=== PATIENT | female | born 1950 | race Caucasian/White ===

== ENCOUNTER 2016-08-31 07:37 | Day surgery (SDC) | payer BC, MEDICARE ==
[2016-08-27 09:28] VITALS: BMI 44.8
[~2016-08-31 07:37] MED LIST: LACTATED RINGERS 1,000 ML IV SCH
[2016-08-31] MEDS ORDERED: LIDOCAINE 1% 20 ML VIAL (10MG/ML) FOR IV START INTRADERMA ONE (07:48)
[2016-08-31 08:04] VITALS: TEMP 97.2
[2016-08-31] MEDS ORDERED: LACTATED RINGERS 1,000 ML IV ONE (08:04)
[2016-08-31] MEDS ORDERED: LIDOCAINE 1% INJ 10MG/ML (20 ML MDV) ONE (08:28)
[2016-08-31] MEDS ORDERED: PROPOFOL 10 MG/ML 20 ML VIAL IV ONE (08:28)
--- NOTE | 2016-08-31 08:52 | P.PCN ---
Date of Procedure: 08/31/16 Preoperative Diagnosis: Blood per rectal stump Postoperative Diagnosis: Same, proctitis, inflamed mucosa at 30 cm which appears to be the end of the rectal stump Procedure(s) Performed: Flexible sigmoidoscopy Anesthesia: MAC Surgeon: Keeley Ward Estimated Blood Loss (ml): 0 IV fluids (ml): 300 Pathology: other (Cold biopsy of the rectum, cold biopsy at 30 cm) Condition: stable Disposition: PACU Indications for Procedure: Blood per rectal stump Operative Findings: Inflamed mucosa of rectum, inflamed mucosa at 30 cm Description of Procedure: Patient was taken to the endoscopy suite and following sedation rectal exam was performed patient was noted to have tight sphincter no masses. Colonoscope was passed through the anus into the rectum was able to be advanced approximately 30 cm which appeared to be the termination of the rectal stump. There was some heaped up mucosa at the 30 cm point and cold biopsies were obtained. This appeared to be inflammatory in nature. As the scope was withdrawn there were no polypoid lesions of concern. In the rectal area there was marked inflammation of the mucosa which was markedly inflamed. Multiple cold biopsies were obtained. The scope was retroflexed internal hemorrhoidal tissue identified. Impression/plan: 1. Proctitis 2. Await results of biopsies Plan:. We'll see patient in 1 week
--- NOTE | 2016-08-31 08:53 | P.DS ---
Providers Attending physician: Keeley Ward Primary care physician: Surya Lucia Plan - Discharge Summary Discharge Medication List Acetaminophen Tab [Tylenol Tab] 500 mg PO TID 08/27/16 [History] Allopurinol [Zyloprim] 300 mg PO DAILY 08/27/16 [History] Calcium + Vitamin D 1 tab PO BID 08/27/16 [History] Cetirizine HCl 10 mg PO DAILY 08/27/16 [History] Furosemide [Lasix] 20 mg PO DAILY 08/27/16 [History] Lisinopril-Hctz 20-25 mg [Zestoretic 20-25] 1 tab PO DAILY 08/27/16 [History] Multivitamins, Thera [Multivitamin] 1 tab PO DAILY 08/27/16 [History] Naproxen [Naprosyn] 500 mg PO Q12HR 08/27/16 [History] Potassium Chloride [Klor-Con] 20 meq PO 1700 08/27/16 [History] traMADol HCL [Ultram] 50 mg PO TID 08/27/16 [History] Follow up Appointment(s)/Referral(s): Keeley Ward MD [STAFF PHYSICIAN] - 1 Week Discharge Disposition: HOME SELF-CARE
[2016-08-31 08:56] VITALS: RESP 16
[2016-08-31 09:23] VITALS: BP 159/85; PULSE 59
== END 2016-08-31 09:55 | disposition home or self-care (01) ==
LOC: ORWHC2ENDO 07:37
PROVIDERS: ATTEND Surgery
DX: K52.9 Noninfective gastroenteritis and colitis, unspecified (principal); K62.89 Other specified diseases of anus and rectum; K64.8 Other hemorrhoids; Z93.3 Colostomy status; E66.01 Morbid (severe) obesity due to excess calories; Z68.41 Body mass index [BMI] 40.0-44.9, adult; F17.200 Nicotine dependence, unspecified, uncomplicated; I10 Essential (primary) hypertension; G47.33 Obstructive sleep apnea (adult) (pediatric); Z79.899 Other long term (current) drug therapy; Z91.040 Latex allergy status
CPT/HCPCS: 88305; 45331; J2001; J2704; 99153

== ENCOUNTER → 2017-04-11 | Outpatient (CLI) | payer MEDICARE ==
[2017-04-11 12:29] LABS: Appearance,Urine Clear (Clear); Bilirubin,Urine Negative (Negative); Glucose,Urine (UA) Negative (Negative); Ketones,Urine Negative (Negative); Leukocyte Esterase,Urine Negative (Negative); Nitrite,Urine Negative (Negative); Protein,Urine Negative (Negative); Specific Gravity,Urine 1.003 (1.001-1.035); UA Billing (MACRO vs. MICRO) CHEM; Urobilinogen,Urine <2.0 mg/dL (<2.0)
[2017-04-11 13:22] LABS: Partial Thromboplastin Time 23.5 sec (22.0-30.0); Prothrombin Time 10.6 sec (9.0-12.0)
== END | disposition home or self-care (01) ==
LOC: LABPAT 11:39
PROVIDERS: ATTEND Orthopaedic Surgery
DX: Z01.810 Encounter for preprocedural cardiovascular examination (principal); Z01.812 Encounter for preprocedural laboratory examination
CPT/HCPCS: 81003; 85610; 85730; 87070

== ENCOUNTER 2017-04-26 07:28 | Inpatient (IN) | payer MEDICARE ==
[2017-04-22 11:56] VITALS: BMI 46.0
[~2017-04-26 07:28] MED LIST changes: +ACETAMINOPHEN TAB 500 MG TAB PO ONE; +DEXAMETHASONE SOD PHOSPHATE 10 MG/ML 1 ML VIAL IV ONE; +HYDROmorphone 1 MG/ML 1 ML SYRINGE IVP PRN; -LACTATED RINGERS 1,000 ML IV SCH; +LIDOCAINE 1% 20 ML VIAL (10MG/ML) FOR IV START INTRADERMA PRN; +MELOXICAM 7.5 MG TAB PO ONE; +MIDAZOLAM 2 MG/2 ML VIAL IV PRN; +ONDANSETRON 4 MG/2 ML VIAL IVP ONE; +ROPIVACAINE 246.25 MG, EPINEPHrine 0.5 MG, KETOROLAC 30 MG, cloNIDine HCL/PF 80 MCG, WA... MISCELLANE ONE; +SCOPOLAMINE 1.5MG/72HR PATCH TRANSDERM ONE; +TRANEXAMIC ACID 1,000 MG in SODIUM CHLORIDE 0.9% 100 ML IVPB ONE; +ceFAZolin 2 GM in SODIUM CHLORIDE 0.9% 100 ML IVPB ONE; +fentaNYL (PF) 50 MCG/ML 20 ML VIAL IVP PRN
[2017-04-26] MEDS ORDERED: MIDAZOLAM 2 MG/2 ML VIAL IV ONE (12:49)
[2017-04-26] MEDS: LACTATED RINGERS 1,000 ML IV SCH (12:50)
[2017-04-26] MEDS ORDERED: LIDOCAINE 1% 20 ML VIAL (10MG/ML) FOR IV START INTRADERMA ONE (12:51)
[2017-04-26] MEDS ORDERED: ROPIVACAINE 1,100 MG, SODIUM CHLORIDE 0.9% 330 ML MISCELLANE PRN ×2 (14:02)
--- NOTE | 2017-04-26 14:04 | P.ONQ ---
Anesthesiology Proc Note - PNB - Peripheral Nerve Block Performed Right Adductor Canal Time Out Performed: Yes Indication: Acute Post-Operative Pain, Requested by physician (Dr Rei orellana ) Sedation Type: Sedate with meaningful contact maintained Preparation: Sterile Dressing Position: Supine Catheter: Indwelling Needle Types: Other (see comment) (Autumn) Needle Size: 100mm (4") Needle Gauge: 18 Technique: Ultrasound Injectate: 0.5% Ropivacaine (see comment for volume) (20cc) Blood Aspirated: No Pain Paresthesia on Injection Noted: No Resistance on Injection: Normal Events: Uneventful and Well Tolerated
[2017-04-26] MEDS ORDERED: KETAMINE 10 MG/ML 20 ML VIAL ONE (14:56)
[2017-04-26] MEDS ORDERED: MIDAZOLAM 2 MG/2 ML VIAL ONE (14:56)
[2017-04-26] MEDS ORDERED: GLYCOPYRROLATE 0.2 MG/ML 2 ML VIAL ONE (14:56)
[2017-04-26] MEDS ORDERED: TRANEXAMIC ACID 1,000 MG/10 ML VIAL ONE (14:56)
[2017-04-26] MEDS ORDERED: SODIUM CHLORIDE 0.9% 100 ML BAG ONE (14:56)
[2017-04-26] MEDS ORDERED: PROPOFOL 10 MG/ML 20 ML VIAL IV ONE (14:56)
[2017-04-26] MEDS ORDERED: LIDOCAINE 1% INJ 10MG/ML (20 ML MDV) ONE (14:56)
[2017-04-26] MEDS ORDERED: diphenhydrAMINE 50 MG/ML 1 ML VIAL ONE (14:56)
[2017-04-26] MEDS ORDERED: ceFAZolin 3,000 MG in SODIUM CHLORIDE 0.9% IRRIGATIO 3,000 ML IRRIGATION ONE (15:29)
[2017-04-26] MEDS ORDERED: LACTATED RINGERS 1,000 ML IV ONE ×2 (15:48)
--- NOTE | 2017-04-26 16:29 | P.OP ---
Date of Procedure: 04/26/17 Preoperative Diagnosis: Severe osteoarthritis right knee Postoperative Diagnosis: Severe osteoarthritis right knee Procedure(s) Performed: Right total knee arthroplasty Implants: Soriano [employer] Nephew Oxinium femoral component size 5, right Soriano [employer] Nephew Cara II right nonporous tibial baseplate size 5 Soriano [employer] Nephew size 11 mm Legion XLPE high flexion articular insert, size 5-6 Soriano [employer] Nephew Cara II resurfacing patellar component, 32 mm All components were cemented using Elisa bone cement.. The articulation is ceramic on polyethylene. Anesthesia: spinal Surgeon: Rei Joseph First Assistant #1: Martina Cortes Estimated Blood Loss (ml): 50 Pathology: other (Bone and cartilage) Condition: stable Disposition: PACU Indications for Procedure: After failure of conservative treatment we discussed the surgical and nonsurgical treatment options at length. Patient wishes to proceed with a total knee arthroplasty. Complications specific to this procedure were discussed at length, including but not limited to infection, bleeding, stiffness , and nerve injury. Patient is aware of all these complications and informed consent was obtained Operative Findings: The operative findings are consistent with severe osteoarthritis of the right knee Description of Procedure: Patient was seen in the preoperative area consent was reviewed and operative site was marked with a skin marker. An adductor canal pain catheter was placed by anesthesia in the preoperative area. Patient was then brought to the operating room and given preoperative antibiotics intravenously. A spinal anesthetic was administered by the anesthesia department. A tourniquet was placed on the upper thigh and the lower extremity was prepped and draped in usual sterile fashion. A gram of transexamic acid was given. A universal timeout was then performed which confirmed the patient's name, surgical site, ALLERGIES, and consent. The lower extremity was then exsanguinated and tourniquet was inflated to 350 mmHg. A standard and anterior midline approach to the knee was performed. The skin and subcutaneous tissue was dissected down to the patellar tendon. A medial parapatellar arthrotomy was then performed. The knee was then extended, the patellar was everted, and the knee was again flexed. Anterior horns of both menisci were excised, and a release was performed to the posterior medial aspect of the knee. On gross visual inspection, there was complete loss of articular cartilage in the medial and patellofemoral joint spaces. There was also significant cartilage damage in the lateral compartment. There were multiple periarticular osteophytes which were then removed with a Ronguer. The femoral canal was then opened with the appropriate drill, and the intramedullary femoral cutting guide was then placed and set for 4 of valgus. The distal femoral cutting block was then pinned in place, and the distal femur was then cut. The cutting block was then removed and the cut was checked for flatness. Next, the sizing guide was then placed and set for 3 external rotation based off of the epicondylar axis and Whitesides line. After the femur was sized, the appropriate 4-in-1 cutting block was then pinned in place. The anterior condyles were cut without notching. The posterior and chamfer cuts were performed while protecting the collateral ligaments. The cutting block was then removed, and the femoral canal was plugged with autologous bone. Attention was then directed to the tibia. The remaining ACL was removed with a Ronguer, and the tibia was then gently subluxed forward with a large bent knee retractor. Any remaining menisci was excised. The posterior lateral corner was cauterized in order to cauterize the lateral geniculate artery. The extra medullary tibial cutting guide was then placed, set for the appropriate rotation , slope, and depth of resection. The proximal tibia cutting guide was then pinned in place. Proximal tibia was then cut and sized. Next trials were then placed with the appropriate-sized insert. The knee was able to fully extend and flex to 130 and was stable throughout all range of motion. The knee was then extended, patella everted. Patella was then measured, and then using an osteotomy guide, the patella was cut at the appropriate level. The patella was then measured and drilled and the patella trial was then placed. The knee was then taken through range of motion with the patella trial and the patella tracked normally. The knee was then extended patella trial was then removed and the patella was everted. Knee was then flexed and lug holes were drilled through the femoral trial and the femoral trial was then removed. The tibial was then exposed, and the tibial broach guide was then pinned in place after it was set for the appropriate rotation to allow for the most coverage without overhang. The tibia was then reamed and broached. The cut surfaces of bone were then irrigated with pulsatile lavage. The posterior structures were injected with the ropivacaine solution. The knee was also irrigated with Irrisept solution. The components were then opened, the cement was mixed, and the components were then cemented in place. The cement was allowed to harden with the knee in full extension. While the cement was hardening, the remaining soft tissues were then injected with a ropivacaine solution, which consisted of 246.25 mg of ropivacaine, 0.5 mg of epinephrine, 30 mg of Toradol, 80 g of clonidine, and 48.45 mL of sterile water, for a total of 100 mL of fluid injected. After the cemented hardened. The tourniquet was released, and hemostasis was obtained. A second gram of transexamic acid was given. The knee was again irrigated. The knee was again taken through range of motion and found to be stable throughout all range of motion of 0-130 , and the patella tracked normally. The fascia was then closed with #2 strata fix suture. The subcutaneous tissue was closed with 3-0 Vicryl and 3-0 strata fix. Dermabond tape was used for the skin and placed with the knee in flexion. The patient was placed in a sterile dressing. Patient was then transferred to recovery room in stable condition. The sociology research assistant PHILLIP Hammond was required due the complexity surgery and the need for a skilled surgical instrument technician. She assisted in positioning, draping, retraction, and closure of the wound.
[2017-04-26] MEDS ORDERED: HYDROmorphone 1 MG/ML 1 ML SYRINGE IVP PRN ×3 (17:05)
[2017-04-26] MEDS ORDERED: ONDANSETRON 4 MG/2 ML VIAL IVP PRN (17:05)
[2017-04-26] MEDS ORDERED: NALOXONE 0.4 MG/ML 1 ML VIAL IV PRN (17:05)
[2017-04-26] MEDS ORDERED: MAGNESIUM HYDROXIDE 2,400 MG/10 ML CUP PO PRN (17:05)
[2017-04-26] MEDS ORDERED: DIAZEPAM 5 MG TAB PO PRN ×2 (17:05)
[2017-04-26] MEDS ORDERED: BISACODYL 10 MG SUPP RECTAL PRN (17:05)
[2017-04-26] MEDS ORDERED: HYDROcodone/APAP 5-325MG 1 EACH TAB PO PRN (17:05)
[2017-04-26] MEDS ORDERED: NA PHOS,M-B/NA PHOS,DI-BA 133 ML ENEMA RECTAL PRN (17:05)
--- NOTE | 2017-04-26 18:13 | XR ---
PROCEDURE: XR knee limited RT DATE AND TIME: 04/26/2017 5:24 PM REFERRING PHYSICIAN: Martina Cortes CLINICAL INDICATION: PHH, Evaluation for Postop abnormality and alignment TECHNIQUE: Department protocol. COMPARISON: None FINDINGS: AP and crosstable lateral views were obtained showing the TKR. There is a 2 x 2 by 1 cm bon e fragment projecting immediately posterior to the posterior lateral tibial plateau, and clinical ass essment is requested. Postoperative changes are noted. No unexpected radiopaque foreign bodies. IMPRESSION: 2 X 2 BY 1 CM BONE FRAGMENT NOTED - REQUEST CLINICAL ASSESSMENT.
[2017-04-26] MEDS: HYDROcodone/APAP 5-325MG 1 EACH TAB PO PRN (21:20)
[2017-04-26] MEDS: ASPIRIN 325 MG TAB PO SCH (21:21)
[2017-04-26] MEDS: SENNOSIDES-DOCUSATE SODIUM 1 EACH TAB PO SCH (21:21)
--- NOTE | 2017-04-27 00:01 | CONS ---
CONSULTATION DATE OF CONSULTATION: 04/26/2017 REASON FOR CONSULTATION: Medical management, requested by Dr. Joseph. CONSULTATION: This is a pleasant 67-year-old patient of Dr. Surya Lucia. Her chronic stable medical conditions include GERD, hypertension, osteoarthritis in multiple joints, sleep apnea (does not use CPAP machine), diverticulosis. Patient has got abdominal wall hernias, left colostomy. No chest pain or shortness of breath. Denies any cardiac history. Some pain in the operative site. Lying in bed. REVIEW OF SYSTEMS: CONSTITUTIONAL: None. HEENT: None. RESPIRATORY: None. CARDIOVASCULAR: None. GASTROINTESTINAL: None. : None. MUSCULOSKELETAL: Pain in multiple joints, including the left knee. HEMATOLOGIC: None. LYMPHATICS: None. PSYCHIATRY: None. NEUROLOGIC: None. PAST HISTORY: 1. GERD. 2. Hypertension. 3. Osteoarthritis, especially of the left knee. 4. Obstructive sleep apnea; does not use CPAP. 5. Diverticulosis. 6. Gout. 7. Abdominal wall hernia. PAST SURGICAL HISTORY: 1. Bowel resection. 2. Cholecystectomy. 3. Hernia repair. 4. Hysterectomy. 5. Tonsillectomy. SOCIAL HISTORY: Patient smoked one third pack a day for 17 years; stopped in . . FAMILY HISTORY: Cancer; type unknown. HOME MEDICATIONS: 1. Potassium 20 mEq a day. 2. Naproxen 500 mg p.o. q.12. 3. Multivitamin tablet p.o. daily. 4. Zestoretic 20/25 one tablet p.o. daily. 5. [place] 5 one tablet p.o. q.6 p.r.n. 6. Lasix 20 mg p.o. daily. 7. Cetirizine 10 mg p.o. daily. 8. Calcium with vitamin D 1 tablet p.o. daily. 9. Allopurinol 10 mg p.o. daily. ALLERGIES: 1. DUST. 2. POLLEN. 3. LATEX. PHYSICAL EXAMINATION: Temperature 96.8, pulse 78, respiration 14, blood pressure 119/56, pulse ox 94% on room air. GENERAL APPEARANCE: Well built; BMI of 46.1. Sitting up. Not in distress. EYES: Pupils equal. Conjunctivae normal. HEENT: Oral cavity normal. NECK: Short, thick. JVD unable to assess. Mass not palpable. RESPIRATORY: Effort normal. LUNGS: Distant breath sounds. CARDIOVASCULAR: Heart sounds muffled. No edema. ABDOMEN: Abdominal wall hernia, left colostomy bag. Liver and spleen not palpable. Soft. LYMPHATICS: No lymph node palpable in neck or axillae. PSYCHIATRY: Alert and oriented x3. Mood and affect normal. NEUROLOGICAL: Pupils equal. Cranial nerves grossly intact. Power and sensation grossly intact. MUSCULOSKELETAL: Dressing over the right knee. Evidence of osteoarthritis of the joints. INVESTIGATIONS: No blood work from today. ASSESSMENT: 1. Right total knee arthroplasty. 2. Gastroesophageal reflux disease. 3. Essential hypertension. 4. Primary osteoarthritis in multiple joints, including the left knee. 5. Obstructive sleep apnea; does not use CPAP machine. 6. Left colostomy. 7. Chronic gout. 8. Morbid obesity; BMI of 46.1. PLAN: Home medications will be resumed. The patient's Lasix will be held temporarily. For DVT prophylaxis, patient is on aspirin per Dr. Joseph. Dietitian will be consulted for obesity. Care was discussed with the patient. Questions were answered. Thank you, Dr. Joseph. MMODL / IJN: [id number] /
[2017-04-27] MEDS: SODIUM CHLORIDE 0.9% 1,000 ML IV SCH ×2 (01:15→15:09)
[2017-04-27] MEDS: ceFAZolin 2 GM in SODIUM CHLORIDE 0.9% 100 ML IVPB SCH ×2 (01:20→08:03)
[2017-04-27] MEDS: LACTATED RINGERS 1,000 ML IV SCH (06:31)
[2017-04-27 07:04] LABS: Basophils % (A) 0 %; CH 30.4; CHCM 32.6; Eosinophils % (A) 0 %; HCT 35.2 % (34.0-46.0); HDW 2.72; Luc # (Auto) 0.16; Luc % (Auto) 1; Lymphocytes # (A) 0.9 k/uL (1.0-4.8); Lymphocytes % (A) 7 %; MCH 32.1 pg (25.0-35.0); MCHC 34.1 g/dL (31.0-37.0); MCV 93.9 fL (80.0-100.0); Mean Platelet Volume 7.3; Monocytes # (A) 0.7 k/uL (0-1.0); Monocytes % (A) 5 %; Neutrophils # (A) 11.4 k/uL (1.3-7.7); Neutrophils % (A) 86 %; RBC 3.75 m/uL (3.80-5.40); RDW 14.5 % (11.5-15.5); WBC 13.2 k/uL (3.8-10.6)
--- NOTE | 2017-04-27 08:49 | P.PN ---
Progress Note - Text The patient is status post right adductor canal catheter placement. The catheter was placed for postoperative pain control, status post total right arthroplasty. Ropivacaine 0.2% is infusing at 10 mLs per hour. The patient has no complaints of right lower extremity numbness or weakness. Patient's VAS score is 3 -10. Assessment: Patient's adductor canal catheter is in place and working appropriately. Plan: continue infusion and adjust it as needed.
[2017-04-27] MEDS: MELOXICAM 7.5 MG TAB PO SCH (09:00)
[2017-04-27] MEDS: ASPIRIN 325 MG TAB PO SCH ×2 (09:00→20:02)
[2017-04-27] MEDS: LISINOPRIL-HCTZ 20-25 MG 1 EACH TAB PO SCH (09:00)
[2017-04-27] MEDS: ALLOPURINOL 300 MG TAB PO SCH (09:01)
[2017-04-27] MEDS: LORATADINE 10 MG TAB PO SCH (09:01)
--- NOTE | 2017-04-27 09:46 | P.PN ---
Subjective Principal diagnosis: Primary osteoarthritis right knee, status post right total knee arthroplasty This is a pleasant 67-year-old female who is status post right total knee arthroplasty. This is postoperative day #1. Patient is seen and evaluated by Dr. Rei Joseph. Patient states her pain is under control. Objective - Vital Signs Vital signs: Vital Signs Temp 96.9 F L 04/27/17 07:00 Pulse 69 04/27/17 08:00 Resp 18 04/27/17 08:00 BP 161/73 04/27/17 07:00 Pulse Ox 94 L 04/27/17 07:00 Intake & Output 04/26/17 04/27/17 04/27/17 18:59 06:59 18:59 Intake Total 1401 550 Output Total 50 1000 Balance 1351 -450 Weight 114.305 kg Intake: IV 1401 Oral 550 Output: Urine 1000 Estimated Blood Loss 50 Other: Voiding Method Bedpan - Exam Vital signs are stable. Patient is in no acute distress and is alert and oriented 3. Calf is soft and nontender. Incision is clean, dry, and intact. There is mild sanguineous drainage today. Neurovascular status intact. Patient has full foot and ankle motion. - Labs CBC & Chem 7: 04/27/17 06:29 Labs: Abnormal Lab Results - Last 24 Hours (Table) 04/27/17 Range/Units 06:29 WBC 13.2 H (3.8-10.6) k/uL RBC 3.75 L (3.80-5.40) m/uL Neutrophils # 11.4 H (1.3-7.7) k/uL Lymphocytes # 0.9 L (1.0-4.8) k/uL Assessment and Plan (1) Primary osteoarthritis of right knee Status: Acute (2) S/P total knee arthroplasty Status: Acute Plan: #1 Continue with routine postoperative care. #2 Anticoagulation with aspirin. #3 Physical therapy and CPM today. #4 Appreciate input from medicine. #5 Anticipate discharge home with home care likely tomorrow.
[2017-04-27] MEDS: HYDROcodone/APAP 5-325MG 1 EACH TAB PO PRN (12:03)
[2017-04-27] MEDS ORDERED: HYDROcodone/APAP 7.5-325MG 1 EACH TAB PO PRN (13:19)
[2017-04-27] MEDS: hydrOXYzine PAMOATE 25 MG CAP PO PRN ×2 (14:34→20:02)
[2017-04-27] MEDS: HYDROcodone/APAP 7.5-325MG 1 EACH TAB PO PRN ×2 (14:34→20:03)
[2017-04-27 15:08] VITALS: RESP 16
--- NOTE | 2017-04-27 16:30 | P.PN ---
<Fadi Shabazz - Last Filed: 04/28/17 12:20> Progress Note - Text Attending note. Date of service-04/27/2017 This patient was seen and examined by me . Discussed the patient with my nurse practitioner Ms. Yangjareth. Doing well. Some pain present at the operative site. No chest pain or shortness. Did work with therapy. On examination: Lungs-clear, cardiovascular first seconds are normal Investigations: White count 13.2 Assessment and plan: Patient doing well. Leukocytosis likely reactive to surgery. Incision healing well per surgery. Care discussed with the patient continue current medication treatment plan. <Lynette Mayfield - Last Filed: 04/28/17 16:37> Progress Note - Text DATE OF SERVICE: 04/27/2017 PRESENTING COMPLAINT: Right knee pain HISTORY OF PRESENT ILLNESS: 67-year-old female Status post right total knee arthroplasty INTERVAL HISTORY: 04/27/2017: Sitting up in a recliner, right knee painful On-Q pump in place, tolerating her diet, working with physical therapy, last BM 04/25/2017, patient has a colostomy bag. REVIEW OF SYSTEMS: Done for constitutional ,cardiovascular, GI, pulmonary , musculoskeletal with relevant findings as above. CURRENT MEDICATIONS [place], Zyloprim, aspirin, Dulcolax, Valium, Lasix, lisinopril/HCTZ, Claritin, Mobic, Kader, ropivacaine. PHYSICAL EXAM VITAL SIGNS: Temperature 96.9, pulse 69, respiratory rate 18, blood pressure 161/73, oxygen saturation 94% on 2 L GENERAL APPEARANCE: Sitting up in the recliner Lying in bed, not in distress. EYES: Pupils equal. Conjunctiva normal. NECK: JVD not raised. Mass not palpable. RESPIRATORY: Respiratory effort normal. Lungs clear to auscultation. CARDIOVASCULAR: First and second sounds normal. No edema. ABDOMEN: Soft. Liver and spleen not palpable. No tenderness. Left Colostomy bag no stool present No mass palpable. PSYCHIATRY: Alert and oriented x3. Mood and affect normal. MUSCULOSKELETAL: Dressing over the right knee with On-Q pump in place for pain management. INVESTIGATIONS: White blood cell count 13.2, hemoglobin 12.0 ASSESSMENT: -Right total knee arthroplasty -Leukocytosis, reactive likely from surgery -Gastroesophageal reflux disease. -Essential hypertension. -Primary osteoarthritis in multiple joints, including the left knee. -Obstructive sleep apnea, does not use a CPAP machine. -Left colostomy. -Chronic gout. -Morbid obesity BMI of 46.1. PLAN: Continue with DVT prophylaxis, pain management, On-Q management per orthopedic protocols. Monitor daily labs for leukocytosis. Plan of care discussed with the patient at the bedside she is in agreement. Continue to follow closely. BACK CLOSER statement: Patient was seen and examined by nurse practitioner Lynette Mayfield and all elements of the case discussed with attending Dr. Shabazz
[2017-04-27] MEDS: SENNOSIDES-DOCUSATE SODIUM 1 EACH TAB PO SCH (20:02)
[2017-04-28] MEDS: HYDROcodone/APAP 7.5-325MG 1 EACH TAB PO PRN ×3 (02:28→13:39)
[2017-04-28 07:26] VITALS: BP 149/75; PULSE 81; TEMP 97.2
[2017-04-28] MEDS: hydrOXYzine PAMOATE 25 MG CAP PO PRN ×2 (08:21→13:39)
[2017-04-28] MEDS: MELOXICAM 7.5 MG TAB PO SCH (08:22)
[2017-04-28] MEDS: ASPIRIN 325 MG TAB PO SCH (08:22)
[2017-04-28] MEDS: LORATADINE 10 MG TAB PO SCH (08:22)
[2017-04-28] MEDS: ALLOPURINOL 300 MG TAB PO SCH (08:22)
[2017-04-28] MEDS: LISINOPRIL-HCTZ 20-25 MG 1 EACH TAB PO SCH (08:23)
--- NOTE | 2017-04-28 08:45 | P.DS ---
Providers Date of admission: 04/26/17 11:24 Expected date of discharge: 04/28/17 Attending physician: Rei Joseph Consults: 04/26/17 17:05 Consult Physician Routine Consulting Provider: Trixie Rodriguez Consult Reason/Comments: medical management Do you want consulting provider notified?: Yes 04/26/17 17:47 Consult Physician Routine Consulting Provider: Fadi Shabazz Consult Reason/Comments: medical management Do you want consulting provider notified?: Yes Primary care physician: Surya Lucia - Joel Diagnosis(es) (1) Primary osteoarthritis of right knee Current Visit: Yes Status: Acute (2) S/P total knee arthroplasty Current Visit: Yes Status: Acute Hospital Course: This is a 67-year-old female with known history of degenerative arthritis of the right knee. The patient presents for evaluation. After discussion and consideration patient elects to proceed with total knee arthroplasty. The patient is seen preoperatively by Dr. Joseph and cleared for surgery. Patient is admitted to [facility] on 04/26/2017 for total knee arthroplasty. The procedures performed without complication or sequelae. The patient is doing well postoperatively. Labs and vital signs are stable on day of discharge. On day of discharge patient's knee incision is healing well. There is minimal erythema. There is mild drainage noted at this time. There is minimal soft tissue swelling to the knee. Patient has full foot and ankle motion without difficulty or pain. Neurovascular status to the right lower extremity is intact. Patient is discharged home in good condition. Please see med rec for accurate list of home medications. Plan - Discharge Summary New Discharge Prescriptions: New Aspirin 325 mg PO BID #60 tab HYDROcodone/APAP 7.5-325MG [[place] 7.5-325] 1 - 2 tab PO Q4-6H PRN #90 tab PRN Reason: Pain Sennosides-Docusate Sodium [Senokot-S] 1 tab PO BID #60 tablet No Action Potassium Chloride [Klor-Con] 20 meq PO DAILY Multivitamins, Thera [Multivitamin] 1 tab PO DAILY Naproxen [Naprosyn] 500 mg PO Q12HR Furosemide [Lasix] 20 mg PO DAILY Cetirizine HCl 10 mg PO DAILY Lisinopril-Hctz 20-25 mg [Zestoretic 20-25] 1 tab PO DAILY Allopurinol [Zyloprim] 300 mg PO DAILY HYDROcodone/APAP 5-325MG [[place] 5-325] 1 tab PO Q6HR PRN PRN Reason: Pain Calcium Carbonate/Vitamin D3 [Calcium 500-Vit D3 200 Tablet] 1 tab PO DAILY Discharge Medication List Allopurinol [Zyloprim] 300 mg PO DAILY 08/27/16 [History] Cetirizine HCl 10 mg PO DAILY 08/27/16 [History] Furosemide [Lasix] 20 mg PO DAILY 08/27/16 [History] Lisinopril-Hctz 20-25 mg [Zestoretic 20-25] 1 tab PO DAILY 08/27/16 [History] Multivitamins, Thera [Multivitamin] 1 tab PO DAILY 08/27/16 [History] Naproxen [Naprosyn] 500 mg PO Q12HR 08/27/16 [History] Potassium Chloride [Klor-Con] 20 meq PO DAILY 08/27/16 [History] Calcium Carbonate/Vitamin D3 [Calcium 500-Vit D3 200 Tablet] 1 tab PO DAILY 09/07 [History] HYDROcodone/APAP 5-325MG [[place] 5-325] 1 tab PO Q6HR PRN 04/22/17 [History] Aspirin 325 mg PO BID #60 tab 04/28/17 [Rx] HYDROcodone/APAP 7.5-325MG [[place] 7.5-325] 1 - 2 tab PO Q4-6H PRN #90 tab [Rx] Sennosides-Docusate Sodium [Senokot-S] 1 tab PO BID #60 tablet 04/28/17 [Rx] Follow up Appointment(s)/Referral(s): [facility] , [REFERRING] - Rei Joseph DO [Doctor of Osteopathic Medicine] - 2 Weeks Ambulatory/Diagnostic Orders: Continuous Passive Motion (CPM) Machine [DME.AMB1] Time Frame: 2 Weeks, Location : Determined By Patient Activity/Diet/Wound Care/Special Instructions: Weightbearing as tolerated with a walker CPM 5-6h daily Daily dressing changes, keep incision clean and dry May shower if no drainage from incision [facility] with questions or concerns [phone] Discharge Disposition: HOME WITH HOME HEALTH SERVICES
[2017-04-28] MEDS ORDERED: FUROSEMIDE 20 MG TAB PO SCH (09:00)
[2017-04-28] MEDS ORDERED: POTASSIUM CHLORIDE ER 20 MEQ TAB.ER PO SCH (09:00)
--- NOTE | 2017-04-28 13:34 | P.PN ---
Progress Note - Text 0729 anesthesia POD 2. Patient is status post right TKR under spinal anesthesia with a right adductor canal catheter placed for postoperative pain relief. With ropivacaine 0.2% running at 10 mL per hour the patient's VAS is (1 , 5). Catheter site is clean dry and intact.
[2017-04-28] MEDS: SODIUM CHLORIDE 0.9% 1,000 ML IV SCH (14:18)
--- NOTE | 2017-04-28 16:39 | P.PN ---
Progress Note - Text DATE OF SERVICE: 04/28/2017 PRESENTING COMPLAINT: Right knee pain HISTORY OF PRESENT ILLNESS: 67-year-old female Status post right total knee arthroplasty INTERVAL HISTORY: 04/28/2017: Sitting up in the recliner, right knee pain improved On-Q pump in place, tolerating her diet, last BM 04/25/2017, has a colostomy bag. Agreeable to work with physical therapy. 04/27/2017: Sitting up in a recliner, right knee painful On-Q pump in place, tolerating her diet, working with physical therapy, last BM 04/25/2017, patient has a colostomy bag. REVIEW OF SYSTEMS: Done for constitutional ,cardiovascular, GI, pulmonary , musculoskeletal with relevant findings as above. CURRENT MEDICATIONS [place], Zyloprim, aspirin, Dulcolax, Valium, Lasix, lisinopril/HCTZ, Claritin, Mobic, K[place], ropivacaine. PHYSICAL EXAM VITAL SIGNS: Temperature 96.9, pulse 69, respiratory rate 18, blood pressure 161/73, oxygen saturation 94% on 2 L GENERAL APPEARANCE: Sitting up in the recliner Lying in bed, not in distress. EYES: Pupils equal. Conjunctiva normal. NECK: JVD not raised. Mass not palpable. RESPIRATORY: Respiratory effort normal. Lungs clear to auscultation. CARDIOVASCULAR: First and second sounds normal. No edema. ABDOMEN: Soft. Liver and spleen not palpable. No tenderness. Left Colostomy bag with no stool present No mass palpable. PSYCHIATRY: Alert and oriented x3. Mood and affect normal. MUSCULOSKELETAL: Dressing over the right knee with On-Q pump in place for pain management. INVESTIGATIONS: None new ASSESSMENT: -Right total knee arthroplasty -Leukocytosis, reactive likely from surgery -Gastroesophageal reflux disease. -Essential hypertension. -Primary osteoarthritis in multiple joints, including the left knee. -Obstructive sleep apnea, does not use a CPAP machine. -Left colostomy. -Chronic gout. -Morbid obesity BMI of 46.1. PLAN: Continue with DVT prophylaxis, pain management, On-Q management per orthopedic protocols. Monitor daily labs for leukocytosis. Likely discharge today. Plan of care discussed with the patient at the bedside she is in agreement. Continue to follow closely. RECEPTION SPECIALIST statement: Patient was seen and examined by nurse practitioner Lynette Mayfield and all elements of the case discussed with attending Dr. Shabazz
--- NOTE | 2017-04-28 22:47 | PN ---
PROGRESS NOTE DATE OF SERVICE: 04/28/17. ATTENDING NOTE: This patient seen and examined by me. I discussed with my nurse practitioner Ms. Mayfield. Patient status post right total knee arthroplasty. Feeling better. Sitting up, pain controlled well, did work with physical therapy. EXAMINATION: Lungs are clear. Cardiovascular 1st and 2nd sounds normal. ASSESSMENT: Right total knee arthroplasty. Doing well. If goes home, should follow up with family doctor. Thank you. NEGRITO / BHAVINN: [id number] /
== END 2017-04-28 14:20 | disposition home health service (06) | DRG 470 ==
LOC: 2ORMAIN 11:24 → 3SUR 16:58
PROVIDERS: ADMIT Orthopaedic Surgery; ATTEND Orthopaedic Surgery
PROC: 0SRC0J9 Replacement of Right Knee Joint with Synthetic Substitute, Cemented, Open Approach (ICD-10-PCS; principal; 2017-04-26 14:05)
DX: M17.11 Unilateral primary osteoarthritis, right knee (principal); Z68.42 Body mass index [BMI] 45.0-49.9, adult; I10 Essential (primary) hypertension; E66.01 Morbid (severe) obesity due to excess calories; Z79.899 Other long term (current) drug therapy; D72.829 Elevated white blood cell count, unspecified; G47.33 Obstructive sleep apnea (adult) (pediatric); K21.9 Gastro-esophageal reflux disease without esophagitis; M1A.9XX0 Chronic gout, unspecified, without tophus (tophi); Z91.040 Latex allergy status; Z93.3 Colostomy status; Z87.891 Personal history of nicotine dependence
CPT/HCPCS: 85025; 88300; 94760

== ENCOUNTER → 2017-11-04 | Outpatient (CLI) | payer MEDICARE ==
[2017-11-04 10:41] LABS: Appearance,Urine Clear (Clear); Bilirubin,Urine Negative (Negative); Blood,Urine Negative (Negative); Color,Urine Colorless; Glucose,Urine (UA) Negative (Negative); Ketones,Urine Negative (Negative); Leukocyte Esterase,Urine Negative (Negative); Nitrite,Urine Negative (Negative); PH, Urine 6.5 (5.0-8.0); Protein,Urine Negative (Negative); Specific Gravity,Urine 1.003 (1.001-1.035); Urobilinogen,Urine <2.0 mg/dL (<2.0)
[2017-11-04 10:55] LABS: HCT 41.2 % (34.0-46.0); HGB 13.7 gm/dL (11.4-16.0); MCH 30.6 pg (25.0-35.0); MCHC 33.4 g/dL (31.0-37.0); MCV 91.7 fL (80.0-100.0); Platelet Count 295 k/uL (150-450); RBC 4.49 m/uL (3.80-5.40); RDW 14.5 % (11.5-15.5); WBC 6.1 k/uL (3.8-10.6)
[2017-11-04 11:04] LABS: ALT 28 U/L (9-52); AST 20 U/L (14-36); Albumin 4.1 g/dL (3.5-5.0); Alkaline Phosphatase 68 U/L (38-126); Anion Gap 10 mmol/L; Blood Urea Nitrogen 21 mg/dL (7-17); Calcium 10.5 mg/dL (8.4-10.2); Carbon Dioxide 28 mmol/L (22-30); Chloride 99 mmol/L (98-107); Glucose 105 mg/dL (74-99); Potassium 4.2 mmol/L (3.5-5.1); Sodium 137 mmol/L (137-145); Total Bilirubin 0.3 mg/dL (0.2-1.3); Total Protein 6.6 g/dL (6.3-8.2)
[2017-11-04 11:10] LABS: INR 1.1 (<1.2); Partial Thromboplastin Time 24.2 sec (22.0-30.0); Prothrombin Time 10.3 sec (9.0-12.0)
== END | disposition home or self-care (01) ==
LOC: LABPAT 09:59
PROVIDERS: ATTEND Orthopaedic Surgery
DX: Z01.818 Encounter for other preprocedural examination (principal); M17.12 Unilateral primary osteoarthritis, left knee; R94.31 Abnormal electrocardiogram [ECG] [EKG]; Z01.812 Encounter for preprocedural laboratory examination
CPT/HCPCS: 36415; 80053; 81003; 85027; 85610; 85730; 87070; 93005

== ENCOUNTER 2017-11-15 09:32 | Inpatient (IN) | payer MEDICARE ==
[2017-11-09 12:10] VITALS: BMI 47.5
[~2017-11-15 09:32] MED LIST changes: -HYDROmorphone 1 MG/ML 1 ML SYRINGE IVP PRN; +MORPHINE SULFATE 2 MG/ML SYRINGE IV PRN; -TRANEXAMIC ACID 1,000 MG in SODIUM CHLORIDE 0.9% 100 ML IVPB ONE; +TRANEXAMIC ACID 1,000 MG in SODIUM CHLORIDE 0.9% 50 ML IVPB ONE; -ceFAZolin 2 GM in SODIUM CHLORIDE 0.9% 100 ML IVPB ONE; +ceFAZolin IN SWFI 2 GM/20 ML SYRINGE IVP ONE; -fentaNYL (PF) 50 MCG/ML 20 ML VIAL IVP PRN
[2017-11-15] MEDS: LACTATED RINGERS 1,000 ML IV SCH (10:09)
[2017-11-15] MEDS ORDERED: NA PHOS,M-B/NA PHOS,DI-BA 133 ML ENEMA RECTAL PRN (11:17)
[2017-11-15] MEDS ORDERED: MORPHINE SULFATE/PF 10MG/10ML VL IVP PRN ×4 (11:17)
[2017-11-15] MEDS ORDERED: ONDANSETRON 4 MG/2 ML VIAL IVP PRN (11:17)
[2017-11-15] MEDS ORDERED: NALOXONE 0.4 MG/ML 1 ML VIAL IV PRN (11:17)
[2017-11-15] MEDS ORDERED: DIAZEPAM 5 MG TAB PO PRN ×2 (11:17)
[2017-11-15] MEDS ORDERED: BISACODYL 10 MG SUPP RECTAL PRN (11:17)
[2017-11-15] MEDS ORDERED: HYDROcodone/APAP 5-325MG 1 EACH TAB PO PRN (11:17)
[2017-11-15] MEDS ORDERED: MAGNESIUM HYDROXIDE 2,400 MG/10 ML CUP PO PRN (11:17)
--- NOTE | 2017-11-15 12:53 | P.OP ---
Date of Procedure: 11/15/17 Preoperative Diagnosis: Severe osteoarthritis left knee Postoperative Diagnosis: Severe osteoarthritis left knee Procedure(s) Performed: Left total knee arthroplasty Implants: Soriano and Nephew Oxinium femoral component size 5, left Soriano & Nephew Cara II left nonporous tibial baseplate size 4 Soriano [employer] Nephew size 11 mm Legion XLPE dished articular insert, size 3-4 Soriano [employer] Nephew Cara II resurfacing patellar component, 32 mm All components were cemented using Elisa bone cement.. The articulation is Oxinium on polyethylene. Anesthesia: spinal Surgeon: Rei Joseph Tray Service Worker #1: Martina Cortes Estimated Blood Loss (ml): 50 Pathology: other (Bone and cartilage) Condition: stable Disposition: PACU Indications for Procedure: After failure of conservative treatment we discussed the surgical and nonsurgical treatment options at length. Patient wishes to proceed with a total knee arthroplasty. Complications specific to this procedure were discussed at length, including but not limited to infection, bleeding, stiffness , and nerve injury. Patient is aware of all these complications and informed consent was obtained Operative Findings: The operative findings are consistent with severe osteoarthritis of the left knee Description of Procedure: Patient was seen in the preoperative area consent was reviewed and operative site was marked with a skin marker. Patient was then brought to the operating room and given preoperative antibiotics intravenously. A spinal anesthetic was administered by the anesthesia department. A tourniquet was placed on the upper thigh and the lower extremity was prepped and draped in usual sterile fashion. A gram of transexamic acid was given. A universal timeout was then performed which confirmed the patient's name, surgical site, ALLERGIES, and consent. The lower extremity was then exsanguinated and tourniquet was inflated to 300 mmHg. A standard and anterior midline approach to the knee was performed. The skin and subcutaneous tissue was dissected down to the patellar tendon. A medial parapatellar arthrotomy was then performed. The knee was then extended, the patellar was everted, and the knee was again flexed. Anterior horns of both menisci were excised, and a release was performed to the posterior medial aspect of the knee. On gross visual inspection, there was complete loss of articular cartilage in the medial and patellofemoral joint spaces. There was also significant cartilage damage in the lateral compartment. There were multiple periarticular osteophytes which were then removed with a Ronguer. The femoral canal was then opened with the appropriate drill, and the intramedullary femoral cutting guide was then placed and set for 4 of valgus. The distal femoral cutting block was then pinned in place, and the distal femur was then cut. The cutting block was then removed and the cut was checked for flatness. Next, the sizing guide was then placed and set for 3 external rotation based off of the epicondylar axis and Whitesides line. After the femur was sized, the appropriate 4-in-1 cutting block was then pinned in place. The anterior condyles were cut without notching. The posterior and chamfer cuts were performed while protecting the collateral ligaments. The cutting block was then removed, and the femoral canal was plugged with autologous bone. Attention was then directed to the tibia. The remaining ACL was removed with a Ronguer, and the tibia was then gently subluxed forward with a large bent knee retractor. Any remaining menisci was excised. The posterior lateral corner was cauterized in order to cauterize the lateral geniculate artery. The extra medullary tibial cutting guide was then placed, set for the appropriate rotation , slope, and depth of resection. The proximal tibia cutting guide was then pinned in place. Proximal tibia was then cut and sized. Next trials were then placed with the appropriate-sized insert. The knee was able to fully extend and flex to 130 and was stable throughout all range of motion. The knee was then extended, patella everted. Patella was then measured, and then using an osteotomy guide, the patella was cut at the appropriate level. The patella was then measured and drilled and the patella trial was then placed. The knee was then taken through range of motion with the patella trial and the patella tracked normally. The knee was then extended patella trial was then removed and the patella was everted. Knee was then flexed and lug holes were drilled through the femoral trial and the femoral trial was then removed. The tibial was then exposed, and the tibial broach guide was then pinned in place after it was set for the appropriate rotation to allow for the most coverage without overhang. The tibia was then reamed and broached. The cut surfaces of bone were then irrigated with pulsatile lavage. The posterior structures were injected with the ropivacaine solution. The knee was also irrigated with Irrisept solution. The components were then opened, the cement was mixed, and the components were then cemented in place. The cement was allowed to harden with the knee in full extension. While the cement was hardening, the remaining soft tissues were then injected with a ropivacaine solution, which consisted of 246.25 mg of ropivacaine, 0.5 mg of epinephrine, 30 mg of Toradol, 80 g of clonidine, and 48.45 mL of sterile water, for a total of 100 mL of fluid injected. After the cemented hardened. The tourniquet was released, and hemostasis was obtained. A second gram of transexamic acid was given. The knee was again irrigated. The knee was again taken through range of motion and found to be stable throughout all range of motion of 0-130 , and the patella tracked normally. The fascia was then closed with #2 strata fix suture. The subcutaneous tissue was closed with 3-0 Vicryl and 3-0 strata fix. Dermabond glue was used for the skin and placed with the knee in flexion. The patient was placed in a sterile silver dressing. Patient was then transferred to recovery room in stable condition. The doctor's assistant PHILLIP Hammond was required due the complexity surgery and the need for a skilled gynecological assistant. She assisted in positioning, draping, retraction, and closure of the wound.
--- NOTE | 2017-11-15 13:51 | XR ---
EXAMINATION TYPE: XR knee limited LT DATE OF EXAM: 11/15/2017 CLINICAL HISTORY: Postoperative evaluation Two views of the left knee are submitted. Identified are changes of total knee arthroplasty with fem oral and tibial components appearing well seated. Postsurgical soft tissue changes are noted. Align ment is anatomic.
[2017-11-15] MEDS: HYDROcodone/APAP 5-325MG 1 EACH TAB PO PRN (17:49)
[2017-11-15] MEDS: SODIUM CHLORIDE 0.9% 1,000 ML IV SCH (17:52)
[2017-11-15] MEDS: SENNOSIDES-DOCUSATE SODIUM 1 EACH TAB PO SCH (20:25)
[2017-11-15] MEDS: ASPIRIN 325 MG TAB PO SCH (20:25)
[2017-11-15] MEDS: ceFAZolin IN SWFI 2 GM/20 ML SYRINGE IVP SCH (20:25)
[2017-11-15] MEDS: BENZOCAINE/MENTHOL LOZENG 1 EACH LOZENGE MUCOUS MEM PRN (22:33)
[2017-11-15] MEDS: DULoxetine HCL 30 MG CAPSULE.DR PO SCH (22:34)
[2017-11-16] MEDS: ceFAZolin IN SWFI 2 GM/20 ML SYRINGE IVP SCH (02:52)
[2017-11-16] MEDS: HYDROcodone/APAP 5-325MG 1 EACH TAB PO PRN ×4 (02:52→22:22)
[2017-11-16] MEDS: SODIUM CHLORIDE 0.9% 1,000 ML IV SCH ×2 (06:10→16:55)
[2017-11-16 07:38] LABS: Basophils % (A) 0 %; Eosinophils % (A) 0 %; HCT 35.6 % (34.0-46.0); HGB 11.2 gm/dL (11.4-16.0); Lymphocytes # (A) 0.8 k/uL (1.0-4.8); Lymphocytes % (A) 7 %; MCH 28.9 pg (25.0-35.0); MCHC 31.3 g/dL (31.0-37.0); MCV 92.3 fL (80.0-100.0); Mean Platelet Volume 7.5; Monocytes # (A) 0.7 k/uL (0-1.0); Monocytes % (A) 6 %; Neutrophils # (A) 9.7 k/uL (1.3-7.7); Neutrophils % (A) 86 %; Platelet Count 248 k/uL (150-450); RBC 3.86 m/uL (3.80-5.40); RDW 14.4 % (11.5-15.5); WBC 11.3 k/uL (3.8-10.6)
[2017-11-16] MEDS: ASPIRIN 325 MG TAB PO SCH ×2 (07:58→19:49)
[2017-11-16] MEDS: LISINOPRIL-HCTZ 20-25 MG 1 EACH TAB PO SCH (07:59)
[2017-11-16] MEDS: FUROSEMIDE 20 MG TAB PO SCH (07:59)
[2017-11-16] MEDS: ALLOPURINOL 300 MG TAB PO SCH (07:59)
[2017-11-16] MEDS: MELOXICAM 7.5 MG TAB PO SCH (07:59)
[2017-11-16] MEDS: POTASSIUM BICARBONATE/CIT AC 20 MEQ TABLET.EFF PO SCH (07:59)
[2017-11-16] MEDS: CALCIUM CARB-VIT D 500MG-200UN 1 EACH TAB PO SCH (08:02)
[2017-11-16] MEDS: MULTIVITAMINS, THERA 1 EACH TAB PO SCH (08:02)
--- NOTE | 2017-11-16 09:29 | P.PN ---
Subjective Progress Note Date: 11/16/17 This is a 67-year-old female who is status post left total knee arthroplasty. This is postoperative day #1. Patient is seen and evaluated at bedside with Dr. Rei Joseph. Patient does complain of soreness to the left knee, but states it is controlled. Patient denies any fever/chills, numbness, weakness, tingling, abdominal pain, shortness of breath or chest pain. Objective - Vital Signs Vital signs: Vital Signs Temp 97.0 F L 11/16/17 02:36 Pulse 76 11/16/17 02:36 Resp 17 11/16/17 02:36 BP 124/74 11/16/17 02:36 Pulse Ox 95 11/16/17 02:36 Intake & Output 11/15/17 11/16/17 11/16/17 18:59 06:59 18:59 Intake Total 1120 150 Output Total 50 Balance 1070 150 Weight 117.934 kg Intake: IV 800 Oral 320 150 Output: Estimated Blood Loss 50 Other: # Voids 2 - Exam Vital signs are stable. Patient is in no acute distress and is alert and oriented 3. Calf is soft and nontender to palpation. Dressing is clean, dry, and intact. Patient has full foot and ankle motion without pain or difficulty. Neurovascular status and circulatory status are intact. - Labs CBC & Chem 7: 11/16/17 06:52 Labs: Abnormal Lab Results - Last 24 Hours (Table) 11/16/17 Range/Units 06:52 WBC 11.3 H (3.8-10.6) k/uL Hgb 11.2 L (11.4-16.0) gm/dL Neutrophils # 9.7 H (1.3-7.7) k/uL Lymphocytes # 0.8 L (1.0-4.8) k/uL Assessment and Plan (1) Primary osteoarthritis of left knee Current Visit: Yes Status: Acute Code(s): M17.12 - UNILATERAL PRIMARY OSTEOARTHRITIS, LEFT KNEE SNOMED Code(s): 607389679388771 (2) S/P total knee arthroplasty Current Visit: Yes Status: Acute Code(s): Z96.659 - PRESENCE OF UNSPECIFIED ARTIFICIAL KNEE JOINT SNOMED Code(s): 2393588648328 Plan: #1 Continue with routine postoperative care, leave dressing in place for 10-14 days. #2 Anticoagulation with aspirin. #3 Physical therapy and CPM today. #4 Appreciate input from medicine. #5 Anticipate discharge to rehab Tuesday.
[2017-11-16] MEDS: LACTATED RINGERS 1,000 ML IV SCH (10:41)
--- NOTE | 2017-11-16 12:29 | CONS ---
CONSULTATION DATE OF CONSULTATION: 11/16/2017 CONSULTATION: This is a very pleasant 67-year-old patient of Dr. Surya Lucia. Chronic stable medical conditions include GERD, hypertension, osteoarthritis of multiple joints, sleep apnea does not use CPAP machine, diverticulosis. Patient has got multiple abdominal wall hernias and has a functioning colostomy. Patient has undergone a left total knee arthroplasty. Pain is controlled. No nausea or vomiting. Did work with physical therapy. Is out of bed. also tolerates her breakfast. REVIEW OF SYSTEMS: CONSTITUTIONAL: None. HEENT: None. RESPIRATORY: None. CARDIOVASCULAR: None. GASTROINTESTINAL: Has a colostomy bag. GENITOURINARY: None. MUSCULOSKELETAL: Pain in many joints. HEMATOLOGICAL: None. LYMPHATICS: none. PSYCHIATRY: None. NEUROLOGICAL: None. PAST MEDICAL HISTORY: GERD, hypertension, osteoarthritis, obstructive sleep apnea does not use CPAP, diverticulosis colonic, gout, abdominal wall hernias. PAST SURGICAL HISTORY: Bowel resection, cholecystectomy, hernia repair, hysterectomy, joint replacement, orthopedic surgery, tonsillectomy, perforated bowel with colostomy, right knee replaced, left wrist carpal tunnel repair. SOCIAL HISTORY: Patient smoked a third of a pack a day for 17 years. Stopped in 1992. . FAMILY HISTORY: Cancer, type unknown. HOME MEDICATIONS: 1. Klor-Con 20 mEq p.o. daily. 2. Multivitamin 1 tablet p.o. daily. 3. Zestoretic 20/25 one tablet p.o. daily. 4. Mitchell 5 one tablet q.6 p.r.n. 5. Lasix 20 mg p.o. daily. 6. Diclofenac sodium ER 100 mg p.o. daily. 7. Cymbalta 30 mg p.o. q.h.s. 8. Cetirizine 10 mg p.o. daily. 9. Calcium 500 with vitamin D3 one tablet p.o. daily. 10.Allopurinol 10 mg p.o. daily. ALLERGIES: To LATEX and DUST. PHYSICAL EXAMINATION: Temperature 97.1, pulse 56, respiration 17, blood pressure 114/60, pulse ox 94% on room air. GENERAL APPEARANCE: Well built, BMI 47.6, sitting up in a chair, comfortable. EYES: Pupils equal, conjunctive normal. HEENT: External appearance of nose and ears normal., oral cavity normal. NECK: Short thick, JVD unable to assess. Mass not palpable. Respiratory effort normal. LUNGS: Distant breath sounds. CARDIOVASCULAR: Heart sounds muffled, edema is present. Abdomen has got multiple hernias. Liver and spleen not palpable. No tenderness. Colostomy bag with stool in it, soft. LYMPHATICS: No lymph node palpable. PSYCHIATRY: Alert and oriented x3. Mood and affect normal. NEUROLOGICAL: Pupils clear, cranial nerves grossly intact. Power and sensation grossly intact. MUSCULOSKELETAL: Dressing over the left knee. INVESTIGATIONS: White count 11.3, hemoglobin 11.2. ASSESSMENT: 1. Left total knee arthroplasty. 2. Gastroesophageal reflux disease. 3. Essential hypertension. 4. Primary osteoarthritis in multiple joints. 5. Obstructive sleep apnea, does not use CPAP machine. 6. Colostomy bag, functioning well. 7. Chronic gout. 8. Morbid obesity, body mass index 47.6. PLAN: Home medications are reviewed. Pain control is in place. Patient with DVT prophylaxis has been prescribed aspirin and Mobic by Dr. Joseph. Will give some element of increased risk of GI bleed, watch out for the same. Care was discussed with the patient, questions were answered. 1. Thank you, Dr. Joseph. MMODL / IJN: [id number] /
[2017-11-16] MEDS ORDERED: HYDROmorphone 2 MG TAB PO PRN ×3 (15:00→15:01)
[2017-11-16] MEDS ORDERED: HYDROmorphone 4 MG TABLET PO PRN (15:02)
[2017-11-16] MEDS: BENZOCAINE/MENTHOL LOZENG 1 EACH LOZENGE MUCOUS MEM PRN ×2 (16:15→19:50)
[2017-11-16] MEDS: DULoxetine HCL 30 MG CAPSULE.DR PO SCH (19:49)
[2017-11-16] MEDS: SENNOSIDES-DOCUSATE SODIUM 1 EACH TAB PO SCH (19:52)
[2017-11-17] MEDS: HYDROcodone/APAP 5-325MG 1 EACH TAB PO PRN ×3 (06:46→20:56)
[2017-11-17] MEDS: CALCIUM CARB-VIT D 500MG-200UN 1 EACH TAB PO SCH (07:23)
[2017-11-17] MEDS: FUROSEMIDE 20 MG TAB PO SCH (07:23)
[2017-11-17] MEDS: ALLOPURINOL 300 MG TAB PO SCH (07:23)
[2017-11-17] MEDS: ASPIRIN 325 MG TAB PO SCH ×2 (07:23→20:56)
[2017-11-17] MEDS: MULTIVITAMINS, THERA 1 EACH TAB PO SCH (07:23)
[2017-11-17] MEDS: POTASSIUM BICARBONATE/CIT AC 20 MEQ TABLET.EFF PO SCH (07:24)
[2017-11-17] MEDS: LISINOPRIL-HCTZ 20-25 MG 1 EACH TAB PO SCH (07:24)
[2017-11-17] MEDS: MELOXICAM 7.5 MG TAB PO SCH (07:24)
--- NOTE | 2017-11-17 09:03 | P.PN ---
Subjective Progress Note Date: 11/17/17 This is a 67-year-old female who is status post left total knee arthroplasty. This is postoperative day #2. Patient states that her pain is well controlled today and she has been up and walking with physical therapy. Patient denies any new complaints today. Patient denies any fever/chills, numbness, weakness, tingling, abdominal pain, shortness of breath or chest pain. Objective - Vital Signs Vital signs: Vital Signs Temp 98.4 F 11/17/17 03:21 Pulse 83 11/17/17 03:21 Resp 18 11/16/17 19:53 BP 138/63 11/17/17 03:21 Pulse Ox 96 11/17/17 03:21 Intake & Output 11/16/17 11/17/17 11/17/17 18:59 06:59 18:59 Intake Total 150 1620 240 Balance 150 1620 240 Intake: Oral 150 1620 240 Other: # Voids 2 2 - Exam Vital signs are stable. Patient is in no acute distress and is alert and oriented 3. Calf is soft and nontender to palpation. Dressing is clean, dry, and intact. Patient has full foot and ankle motion without pain or difficulty. Neurovascular status and circulatory status are intact. - Labs CBC & Chem 7: 11/16/17 06:52 Assessment and Plan (1) Primary osteoarthritis of left knee Current Visit: Yes Status: Acute Code(s): M17.12 - UNILATERAL PRIMARY OSTEOARTHRITIS, LEFT KNEE SNOMED Code(s): 735674185866972 (2) S/P total knee arthroplasty Current Visit: Yes Status: Acute Code(s): Z96.659 - PRESENCE OF UNSPECIFIED ARTIFICIAL KNEE JOINT SNOMED Code(s): 9801628812664 Plan: #1 Continue with routine postoperative care, leave dressing in place for 10-14 days. #2 Anticoagulation with aspirin. #3 Physical therapy and CPM today. #4 Appreciate input from medicine. #5 Anticipate discharge to rehab tomorrow, 11/18/2017.
[2017-11-17] MEDS: hydrOXYzine PAMOATE 25 MG CAP PO PRN ×2 (14:03→20:58)
[2017-11-17] MEDS: SODIUM CHLORIDE 0.9% 1,000 ML IV SCH (15:36)
[2017-11-17] MEDS: DULoxetine HCL 30 MG CAPSULE.DR PO SCH (20:56)
[2017-11-17] MEDS: SENNOSIDES-DOCUSATE SODIUM 1 EACH TAB PO SCH (21:05)
[2017-11-18] MEDS: SODIUM CHLORIDE 0.9% 1,000 ML IV SCH (00:01)
[2017-11-18 07:13] VITALS: BP 119/79; PULSE 76; RESP 14; TEMP 98.4
[2017-11-18] MEDS: ASPIRIN 325 MG TAB PO SCH (07:17)
[2017-11-18] MEDS: POTASSIUM BICARBONATE/CIT AC 20 MEQ TABLET.EFF PO SCH (07:17)
[2017-11-18] MEDS: LISINOPRIL-HCTZ 20-25 MG 1 EACH TAB PO SCH (07:17)
[2017-11-18] MEDS: MELOXICAM 7.5 MG TAB PO SCH (07:18)
[2017-11-18] MEDS: MULTIVITAMINS, THERA 1 EACH TAB PO SCH (07:18)
[2017-11-18] MEDS: FUROSEMIDE 20 MG TAB PO SCH (07:18)
[2017-11-18] MEDS: CALCIUM CARB-VIT D 500MG-200UN 1 EACH TAB PO SCH (07:18)
[2017-11-18] MEDS: ALLOPURINOL 300 MG TAB PO SCH (07:18)
[2017-11-18] MEDS: hydrOXYzine PAMOATE 25 MG CAP PO PRN ×2 (07:30→13:21)
[2017-11-18] MEDS: HYDROcodone/APAP 5-325MG 1 EACH TAB PO PRN ×2 (07:30→13:21)
--- NOTE | 2017-11-18 07:37 | PN ---
PROGRESS NOTE DATE OF SERVICE: 11/17/2017 PRESENTING COMPLAINT: Left knee surgery. INTERVAL HISTORY: Patient is status post left knee surgery. Pain is controlled. No nausea, vomiting, did tolerate a diet. Did work with physical therapy. REVIEW OF SYSTEMS: Done for constitutional, cardiovascular, GI, pulmonary; relevant findings as above. CURRENT MEDICATIONS: Reviewed. PHYSICAL EXAMINATION: Temperature 98.4, pulse 83, respiratory rate 16, blood pressure 130/63, pulse ox 96% on 2 L. GENERAL APPEARANCE: Sitting up in a chair, comfortable. EYES: Pupils equal, conjunctivae are normal. HEENT: External appearance of nose and ears normal, oral cavity normal. NECK: JVD unable to assess. Mass not palpable. Respiratory effort normal. LUNGS: Diminished breath sounds. CARDIOVASCULAR: Heart sounds muffled, some edema present. ABDOMEN: Soft, nontender. Liver and spleen not palpable. Some abdominal hernias are present. PSYCHIATRY: Alert and oriented x3. Mood and affect normal. INVESTIGATIONS: Hemoglobin 11.2. ASSESSMENT: 1. Left total knee arthroplasty. 2. Gastroesophageal reflux disease. 3. Essential hypertension. 4. Primary osteoarthritis, multiple joints. 5. Obstructive sleep apnea, does not use CPAP machine. 6. Colostomy bag, functioning well. 7. Chronic gout. 8. Morbid obesity, body mass index of 47.6. 9. Abdominal wall hernia. PLAN: Continue medication and treatment plan. Patient doing well. MMODL / IJN: [id number] /
[2017-11-18 07:42] LABS: Basophils % (A) 1 %; Eosinophils # (A) 0.4 k/uL (0-0.7); Eosinophils % (A) 6 %; HCT 35.5 % (34.0-46.0); HGB 11.7 gm/dL (11.4-16.0); Lymphocytes # (A) 1.1 k/uL (1.0-4.8); Lymphocytes % (A) 18 %; MCH 30.3 pg (25.0-35.0); MCHC 32.9 g/dL (31.0-37.0); MCV 92.1 fL (80.0-100.0); Mean Platelet Volume 7.7; Monocytes # (A) 0.4 k/uL (0-1.0); Monocytes % (A) 7 %; Neutrophils % (A) 66 %; Platelet Count 216 k/uL (150-450); RBC 3.85 m/uL (3.80-5.40); RDW 14.4 % (11.5-15.5); WBC 6.1 k/uL (3.8-10.6)
--- NOTE | 2017-11-18 08:51 | P.DS ---
Providers Date of admission: 11/15/17 09:32 Expected date of discharge: 11/18/17 Attending physician: Rei Joseph Consults: 11/15/17 11:17 Consult Physician Routine Consulting Provider: Fadi Shabazz Consult Reason/Comments: medical management Do you want consulting provider notified?: Yes Primary care physician: Trixie Rodriguez - Discharge Diagnosis(es) (1) Primary osteoarthritis of left knee Current Visit: Yes Status: Acute (2) S/P total knee arthroplasty Current Visit: Yes Status: Acute Hospital Course: This is a 67-year-old female with known history of degenerative arthritis of the left knee. The patient presents for evaluation. After discussion and consideration patient elects to proceed with total knee arthroplasty. The patient is seen preoperatively by Dr. Joseph and medically cleared for surgery by their primary care physician. Patient is admitted to [facility] on 11/15/2017 for total knee arthroplasty. The procedures performed without complication or sequelae. The patient is doing well postoperatively. Labs and vital signs are stable on day of discharge. On day of discharge patient's knee incision is healing well. There is minimal erythema. There is no drainage noted at this time. There is minimal soft tissue swelling to the knee. Patient has full foot and ankle motion without difficulty or pain. Neurovascular status to the left lower extremity is intact. Patient is discharged to rehab in good condition. Please see med rec for accurate list of home medications. Plan - Discharge Summary Discharge Rx Participant: Yes New Discharge Prescriptions: New Aspirin 325 mg PO BID #60 tab HYDROcodone/APAP 5-325MG [[place] 5-325] 1 - 2 tab PO Q4-6H PRN #90 tab PRN Reason: Pain hydrOXYzine PAMOATE [Vistaril] 25 mg PO Q6H PRN #30 capsule PRN Reason: Pain Sennosides [Senokot] 1 tab PO BID #60 tablet No Action Potassium Chloride [Klor-Con Packets] 20 meq PO DAILY Multivitamins, Thera [Multivitamin (formulary)] 1 tab PO DAILY Furosemide [Lasix] 20 mg PO DAILY Cetirizine HCl 10 mg PO DAILY Lisinopril-Hctz 20-25 mg [Zestoretic 20-25] 1 tab PO DAILY Allopurinol [Zyloprim] 300 mg PO DAILY Calcium Carbonate/Vitamin D3 [Calcium 500-Vit D3 200 Tablet] 1 tab PO DAILY HYDROcodone/APAP 5-325MG [[place] 5-325] 1 tab PO Q6HR PRN PRN Reason: Pain DULoxetine HCL [Cymbalta] 30 mg PO HS Diclofenac Sodium [Diclofenac Sodium ER] 100 mg PO DAILY Discharge Medication List Allopurinol [Zyloprim] 300 mg PO DAILY 08/27/16 [History] Cetirizine HCl 10 mg PO DAILY 08/27/16 [History] Furosemide [Lasix] 20 mg PO DAILY 08/27/16 [History] Lisinopril-Hctz 20-25 mg [Zestoretic 20-25] 1 tab PO DAILY 08/27/16 [History] Multivitamins, Thera [Multivitamin (formulary)] 1 tab PO DAILY 08/27/16 [History ] Potassium Chloride [Klor-Con Packets] 20 meq PO DAILY 08/27/16 [History] Calcium Carbonate/Vitamin D3 [Calcium 500-Vit D3 200 Tablet] 1 tab PO DAILY 09/07 [History] DULoxetine HCL [Cymbalta] 30 mg PO HS 11/09/17 [History] Diclofenac Sodium [Diclofenac Sodium ER] 100 mg PO DAILY 11/09/17 [History] HYDROcodone/APAP 5-325MG [[place] 5-325] 1 tab PO Q6HR PRN 11/09/17 [History] Aspirin 325 mg PO BID #60 tab 11/18/17 [Rx] HYDROcodone/APAP 5-325MG [[place] 5-325] 1 - 2 tab PO Q4-6H PRN #90 tab 11/18/17 [ Rx] Sennosides [Senokot] 1 tab PO BID #60 tablet 11/18/17 [Rx] hydrOXYzine PAMOATE [Vistaril] 25 mg PO Q6H PRN #30 capsule 11/18/17 [Rx] Follow up Appointment(s)/Referral(s): Rei Joseph DO [Doctor of Osteopathic Medicine] - 12/02/17 9:15 am Ambulatory/Diagnostic Orders: Continuous Passive Motion (CPM) Machine [DME.AMB1] Time Frame: 3 Weeks, Location : Determined By Patient Activity/Diet/Wound Care/Special Instructions: Weightbearing as tolerated with a walker CPM 5-6h daily Leave dressing intact. May be removed by home care nurse in 10-14 days. May shower with dressing on. [facility] with questions or concerns [phone] Discharge Disposition: TRANSFER TO SNF/ECF
--- NOTE | 2017-11-18 20:01 | PN ---
PROGRESS NOTE DATE OF SERVICE: 11/18/17 PRESENTING COMPLAINT: Left knee surgery. INTERVAL HISTORY: Patient is status post left knee surgery. The patient did work with therapy. Up and about in the hallway. No nausea, vomiting. No chest pain. Keen to get to go to rehab. REVIEW OF SYSTEMS: Done for constitutional, cardiovascular, GI, pulmonary, relevant findings as above. Current medications reviewed. PHYSICAL EXAMINATION: Temperature 98.4, pulse 73, respiration 14, blood pressure 119/79, pulse ox 94% on room air. General appearance: Sitting up in a chair, comfortable. Eyes pupils are equal. Conjunctivae normal. HEENT external appearance of nose and ears normal. Oral cavity normal. Neck JVD not raised. Mass not palpable. Respiratory effort normal. Lungs are slightly decreased breath sounds. Cardiovascular: Heart sounds muffled. Some mild edema. ABDOMEN: Soft, nontender. Liver and spleen not palpable. Psychiatry: Alert and oriented x3. Mood and affect is normal. INVESTIGATIONS: White count 6.1, hemoglobin 11.7. ASSESSMENT: 1. Left total knee arthroplasty. 2. Gastroesophageal reflux disease. 3. Essential hypertension. 4. Primary osteoarthritis multiple joints. 5. Obstructive sleep apnea does not use CPAP machine. 6. Colostomy bag functioning well. 7. Chronic gout. 8. Morbid obesity BMI 47.6. 9. Abdominal wall hernia. PLAN: Stable, continue current medication and treatment plan. Patient to go to rehab. Will follow up with family doctor upon discharge. Thank you. NEGRITO / BHAVINN: [id number] /
== END 2017-11-18 13:40 | DRG 470 ==
LOC: 2ORMAIN 09:32 → 3SUR 16:14
PROVIDERS: ADMIT Orthopaedic Surgery; ATTEND Orthopaedic Surgery
PROC: 0SRD069 Replacement of Left Knee Joint with Oxidized Zirconium on Polyethylene Synthetic Substitute, Cemented, Open Approach (ICD-10-PCS; principal; 2017-11-15 11:40)
DX: M17.12 Unilateral primary osteoarthritis, left knee (principal); E66.01 Morbid (severe) obesity due to excess calories; Z68.42 Body mass index [BMI] 45.0-49.9, adult; G47.33 Obstructive sleep apnea (adult) (pediatric); I10 Essential (primary) hypertension; K21.9 Gastro-esophageal reflux disease without esophagitis; R26.81 Unsteadiness on feet; Z96.651 Presence of right artificial knee joint; K43.9 Ventral hernia without obstruction or gangrene; K57.90 Diverticulosis of intestine, part unspecified, without perforation or abscess without bleeding; M1A.9XX0 Chronic gout, unspecified, without tophus (tophi); M25.762 Osteophyte, left knee; Z87.19 Personal history of other diseases of the digestive system; Z93.3 Colostomy status; Z90.710 Acquired absence of both cervix and uterus; Z90.89 Acquired absence of other organs; Z90.49 Acquired absence of other specified parts of digestive tract; Z87.891 Personal history of nicotine dependence; Z79.899 Other long term (current) drug therapy; Z79.891 Long term (current) use of opiate analgesic; Z91.040 Latex allergy status; Z83.3 Family history of diabetes mellitus; Z82.49 Family history of ischemic heart disease and other diseases of the circulatory system
CPT/HCPCS: 85025; 88300

== ENCOUNTER 2018-08-24 23:16 | Inpatient (IN) | payer MEDICARE ==
[2018-08-24] MEDS ORDERED: LIDOCAINE URO-JET JELLY 2% 5 ML KIT URETHRAL ONE (23:44)
[2018-08-24] MEDS ORDERED: MORPHINE SULFATE 4 MG/ML SYRINGE IVP STA (23:44)
[2018-08-25] MEDS ORDERED: NALOXONE 0.4 MG/ML 1 ML VIAL IV PRN (00:07)
--- NOTE | 2018-08-25 00:07 | ED ---
Abdominal Pain HPI - General Chief Complaint: Abdominal Pain Stated Complaint: Small bowel obstruction Source: patient, EMS Mode of arrival: EMS Limitations: no limitations - History of Present Illness Initial Comments: Tana is a pleasant 68 year old female who presents the ED via EMS as a transfer from a stand alone ER and [facility]. Patient presented today at their emergency department for evaluation of 1 week of progressively worsening abdominal distention and development of nausea and vomiting. Patient does have a history of bowel obstruction in the past, she had a bowel resection and colostomy performed by Dr. Patricio Garza in 2011. Patient reports she's been doing well since that time. She reports that over the past week she has noticed some distention of her abdomen as well as anorexia and nausea. Today she had nausea and vomiting and noticed decreased output from her ostomy which prompted her to seek care at the emergency department. Outside labs were unremarkable her vital signs were within normal limits, her computed tomography scan was suggestive of a bowel obstruction. NG tube was attempted but was unsuccessful and patient was at school he transferred to our facility. - Related Data Home Medications Medication Instructions Recorded Confirmed RX: Allopurinol [Zyloprim] 300 mg PO DAILY 08/27/16 11/15/17 RX: Furosemide [Lasix] 20 mg PO DAILY 08/27/16 11/15/17 RX: Lisinopril-Hctz 20-25 mg 1 tab PO DAILY 08/27/16 11/15/17 [Zestoretic 20-25] RX: Multivitamins, Thera 1 tab PO DAILY 08/27/16 11/15/17 [Multivitamin (formulary)] RX: Potassium Chloride [Klor-Con 20 meq PO DAILY 08/27/16 11/15/17 Packets] RX: Calcium Carbonate/Vitamin D3 1 tab PO DAILY 04/22/17 11/15/17 [Calcium 500-Vit D3 200 Tablet] RX: DULoxetine HCL [Cymbalta] 30 mg PO HS 11/09/17 11/15/17 Previous Rx's Medication Instructions Recorded HYDROcodone/APAP 5-325MG [[place] 1 - 2 tab PO Q4-6H PRN #90 tab 11/18/17 5-325] RX: Aspirin 325 mg PO BID #60 tab 11/18/17 RX: Meloxicam [Mobic] 7.5 mg PO DAILY tab 11/18/17 Sennosides [Senokot] 1 tab PO BID #60 tablet 11/18/17 hydrOXYzine PAMOATE [Vistaril] 25 mg PO Q6H PRN #30 capsule 11/18/17 Allergies Allergy/AdvReac Type Severity Reaction Status Date / Time latex Allergy Rash/Hives Verified 11/15/17 15:30 DUST,POLLEN AdvReac SNEEZING Uncoded 11/09/17 11:46 Review of Systems ROS Statement: Those systems with pertinent positive or pertinent negative responses have been documented in the HPI. ROS Other: All systems not noted in ROS Statement are negative. Past Medical History Past Medical History: GERD/Reflux, Hypertension, Osteoarthritis (OA), Sleep Apnea/CPAP/BIPAP Additional Past Medical History / Comment(s): no cpap used, hx perforated bowel- has colostomy, diverticulitis, gout, frequent leg swelling, pt reports balance issues. History of Any Multi-Drug Resistant Organisms: None Reported Past Surgical History: Bowel Resection, Cholecystectomy, Hernia Repair, Hysterectomy, Joint Replacement, Orthopedic Surgery, Tonsillectomy Additional Past Surgical History / Comment(s): perforated bowel/colostomy, right knee replaced, left wrist carpal tunnel repair Past Anesthesia/Blood Transfusion Reactions: No Reported Reaction Past Psychological History: No Psychological Hx Reported Smoking Status: Former smoker Past Alcohol Use History: None Reported Past Drug Use History: None Reported - Past Family History Sister(s) Family Medical History: Cancer Father Family Medical History: Diabetes Mellitus, Hypertension General Exam - General Exam Comments Initial Comments: Physical Exam GENERAL: Patient is well-developed and well-nourished. Patient is nontoxic and well-hydrated and is in mild distress. HENT: Normocephalic, Atraumatic. EYES: PERRL, EOMI PULMONARY: Unlabored respirations. No audible rales rhonchi or wheezing was noted. CARDIOVASCULAR: There is a regular rate and rhythm without any murmurs gallops or rubs. ABDOMEN: Soft, mildly distended, distention palpable in the epigastrium Colostomy in place, pink patent with no output SKIN: Skin is clear with no lesions or rashes and otherwise unremarkable. : Deferred NEUROLOGIC: Patient is alert and oriented x3. Moving all extremities spontaneously MUSCULOSKELETAL: Normal extremities with adequate strength and full range of motion. No lower extremity swelling or edema. No calf tenderness. PSYCHIATRIC: Normal psychiatric evaluation. Limitations: no limitations Limitations: no limitations Course Vital Signs 08/24/18 23:18 Temperature 97.9 F Pulse Rate 83 Respiratory 18 Rate Blood Pressure 156/86 O2 Sat by Pulse 97 Oximetry Medical Decision Making - Medical Decision Making care was discussed with the transferring physician prior to transfer. Patient with a history of surgery by Dr. Patricio Garza, colostomy in place, small bowel obstruction on CT. Patient requesting transfer to our facility though she is aware that Dr. Patricio Garza no longer performs bowel surgery. Patient hemodynamically stablecriteria normal labs, NG tube will be attempted prior to transfer. She was seen and evaluated, she is resting comfortably though she has some discomfort with any palpation or movement of her abdomen. NG tube was attempted , she does have some blood in her bilateral nares consistent with traumatic NG tube attempt. The patient is agreeable to read trying NG tube as she has had relief of bowel obstructions with NG tube in the past. Morphine and Urojet were ordered to aid in comfort of NG tube placement Multiple attempts were made for NG tube without success. At this time I will admit the patient for medical management of small bowel obstruction. Disposition Clinical Impression: SBO (small bowel obstruction) Disposition: ADMITTED IP TO THIS HOSP Referrals: Edson Werner MD [Primary Care Provider] - 1-2 days
[2018-08-25 01:51] VITALS: BMI 48.4
[2018-08-25] MEDS: SODIUM CHLORIDE 0.9% 1,000 ML IV SCH ×3 (02:00→20:20)
[2018-08-25] MEDS: MORPHINE SULFATE 4 MG/ML SYRINGE IV PRN ×3 (02:11→16:15)
--- NOTE | 2018-08-25 03:02 | XR ---
EXAMINATION TYPE: XR chest 1V portable DATE OF EXAM: 08/25/2018 COMPARISON: 10/26/2012 HISTORY: NG tube placement TECHNIQUE: Single frontal view of the chest is obtained. FINDINGS: Nasogastric tube appears looped in the stomach. There is no heart failure. Lungs are clear of consolidation. There is no sign of pleural effusion. IMPRESSION: NG tube appears in good position.
[2018-08-25] MEDS: PANTOPRAZOLE 40 MG/10 ML VIAL IV SCH (08:41)
[2018-08-25] MEDS: ONDANSETRON 4 MG/2 ML VIAL IVP PRN (17:54)
--- NOTE | 2018-08-25 18:48 | P.GSCN ---
History of Present Illness Consult date: 08/25/18 Reason for Consult: Small bowel obstruction History of present illness: This is a 68-year-old female with a complicated surgical history. Patient was a minute through the emergency room with complaints of small bowel obstruction. Patient's. History of multiple laparotomies and a colostomy. Patient had a nasogastric tube placed. She's had a approximately 300 mL of feculent-looking aspirate. Past Medical History Past Medical History: GERD/Reflux, Hypertension, Osteoarthritis (OA), Sleep Apnea/CPAP/BIPAP Additional Past Medical History / Comment(s): no cpap used, hx perforated bowel- has colostomy, diverticulitis, gout, frequent leg swelling, pt reports balance issues. History of Any Multi-Drug Resistant Organisms: None Reported Past Surgical History: Bowel Resection, Cholecystectomy, Hernia Repair, Hysterectomy, Joint Replacement, Orthopedic Surgery, Tonsillectomy Additional Past Surgical History / Comment(s): perforated bowel/colostomy, right and left knee replaced, left wrist carpal tunnel repair Past Anesthesia/Blood Transfusion Reactions: No Reported Reaction Past Psychological History: No Psychological Hx Reported Smoking Status: Former smoker Past Alcohol Use History: None Reported Additional Past Alcohol Use History / Comment(s): quit smoking 1982, smoked for 20 yrs, "casual smoker" Past Drug Use History: None Reported - Past Family History Sister(s) Family Medical History: Cancer Father Family Medical History: Diabetes Mellitus, Hypertension Medications and Allergies Home Medications Medication Instructions Recorded Confirmed Type Allopurinol [Zyloprim] 300 mg PO DAILY 08/27/16 08/25/18 History Furosemide [Lasix] 20 mg PO DAILY 08/27/16 08/25/18 History Lisinopril-Hctz 20-25 mg 1 tab PO DAILY 08/27/16 08/25/18 History [Zestoretic 20-25] Multivitamins, Thera [Multivitamin 1 tab PO DAILY 08/27/16 08/25/18 History (formulary)] DULoxetine HCL [Cymbalta] 30 mg PO HS 11/09/17 08/25/18 History Calcium Carbonate [Calcium] 600 mg PO DAILY 08/25/18 08/25/18 History Diclofenac Sodium [Diclofenac 100 mg PO DAILY 08/25/18 08/25/18 History Sodium ER] HYDROcodone/APAP 5-325MG [[place] 1 tab PO Q12H 08/25/18 08/25/18 History 5-325] Omeprazole 40 mg PO DAILY 08/25/18 08/25/18 History Oxybutynin Chloride [Ditropan XL] 10 mg PO DAILY 08/25/18 08/25/18 History Potassium Chloride ER [K-Dur 20] 20 meq PO BID 08/25/18 08/25/18 History Allergies Allergy/AdvReac Type Severity Reaction Status Date / Time latex Allergy Rash/Hives Verified 08/25/18 08:27 DUST,POLLEN AdvReac SNEEZING Uncoded 11/09/17 11:46 Surgical - Exam Vital Signs Temp Pulse Resp BP Pulse Ox 97.9 F 83 18 156/86 97 08/24/18 23:18 08/24/18 23:18 08/24/18 23:18 08/24/18 23:18 08/24/18 23:18 - General well developed, no distress - Eyes PERRL - ENT normal pinna - Neck no masses - Respiratory normal expansion - Cardiovascular Rhythm: regular - Abdomen Distended, multiple healed laparoscopic scars. Evidence of incisional hernias. Abdomen: soft, non tender Assessment and Plan Assessment: Small bowel obstruction. Patient will remain nothing by mouth. She'll have her NG tube to low intermittent suction. She'll be observed closely.
--- NOTE | 2018-08-25 19:41 | P.HPIM ---
History of Present Illness this is a pleasant 68 years old female with past medical history of GERD, hypertension, sleep apnea presents with 1 week of abdominal pain about 9/10 in severity around her umbilical hernia in the lower part associated with nausea vomiting several times last night. She has colostomy and bowel movement last time was yesterday through her colostomy but she was passing gases at that time. However not much since then. Patient has NG tube with Dr. Vee aspirate about 300 mL. Review of Systems CONSTITUTIONAL: No fever, no malaise, no fatigue. HEENT: No recent visual problems or hearing problems. Denied any sore throat. CARDIOVASCULAR: No orthopnea, PND, no palpitations, no syncope. PULMONARY: No shortness of breath, no cough, no hemoptysis. GASTROINTESTINAL: No diarrhea, no nausea, no vomiting, no abdominal pain. Normoactive bowel sounds. NEUROLOGICAL: No headaches, no weakness, no numbness. HEMATOLOGICAL: Denies any bleeding or petechiae. GENITOURINARY: Denies any burning micturition, frequency, or urgency. MUSCULOSKELETAL/RHEUMATOLOGICAL: Denies any joint pain, swelling, or any muscle pain. ENDOCRINE: Denies any polyuria or polydipsia. Past Medical History Past Medical History: GERD/Reflux, Hypertension, Osteoarthritis (OA), Sleep Apnea/CPAP/BIPAP Additional Past Medical History / Comment(s): no cpap used, hx perforated bowel- has colostomy, diverticulitis, gout, frequent leg swelling, pt reports balance issues. History of Any Multi-Drug Resistant Organisms: None Reported Past Surgical History: Bowel Resection, Cholecystectomy, Hernia Repair, Hysterectomy, Joint Replacement, Orthopedic Surgery, Tonsillectomy Additional Past Surgical History / Comment(s): perforated bowel/colostomy, right and left knee replaced, left wrist carpal tunnel repair Past Anesthesia/Blood Transfusion Reactions: No Reported Reaction Past Psychological History: No Psychological Hx Reported Smoking Status: Former smoker Past Alcohol Use History: None Reported Additional Past Alcohol Use History / Comment(s): quit smoking 1982, smoked for 20 yrs, "casual smoker" Past Drug Use History: None Reported - Past Family History Sister(s) Family Medical History: Cancer Father Family Medical History: Diabetes Mellitus, Hypertension Medications and Allergies Home Medications Medication Instructions Recorded Confirmed Type Allopurinol [Zyloprim] 300 mg PO DAILY 08/27/16 08/25/18 History Furosemide [Lasix] 20 mg PO DAILY 08/27/16 08/25/18 History Lisinopril-Hctz 20-25 mg 1 tab PO DAILY 08/27/16 08/25/18 History [Zestoretic 20-25] Multivitamins, Thera [Multivitamin 1 tab PO DAILY 08/27/16 08/25/18 History (formulary)] DULoxetine HCL [Cymbalta] 30 mg PO HS 11/09/17 08/25/18 History Calcium Carbonate [Calcium] 600 mg PO DAILY 08/25/18 08/25/18 History Diclofenac Sodium [Diclofenac 100 mg PO DAILY 08/25/18 08/25/18 History Sodium ER] HYDROcodone/APAP 5-325MG [[place] 1 tab PO Q12H 08/25/18 08/25/18 History 5-325] Omeprazole 40 mg PO DAILY 08/25/18 08/25/18 History Oxybutynin Chloride [Ditropan XL] 10 mg PO DAILY 08/25/18 08/25/18 History Potassium Chloride ER [K-Dur 20] 20 meq PO BID 08/25/18 08/25/18 History Allergies Allergy/AdvReac Type Severity Reaction Status Date / Time latex Allergy Rash/Hives Verified 08/25/18 08:27 DUST,POLLEN AdvReac SNEEZING Uncoded 11/09/17 11:46 Physical Exam Vitals: Vital Signs Temp Pulse Pulse Resp BP BP Pulse Ox 08/25/18 15:00 98.8 F 91 16 114/73 92 L 08/25/18 07:00 97.6 F 81 16 117/77 98 08/25/18 02:05 98.1 F 75 16 133/85 96 08/25/18 01:06 98.1 F 80 20 156/85 93 L 08/24/18 23:18 97.9 F 83 18 156/86 97 Intake and Output 08/25/18 08/25/18 08/25/18 06:59 14:59 22:59 Intake Total 200 Output Total 300 Balance -100 Intake: Intake, IV Titration 200 Amount Sodium Chloride 0.9% 1, 200 000 ml @ 100 mls/hr IV . Q10H [facility] Rx#:[id number] Output: Gastric Drainage 300 Other: # Voids 1 3 Weight 120.202 kg GENERAL: The patient is alert and oriented x3, not in any acute distress. Well developed, well nourished. HEENT: Pupils are round and equally reacting to light. EOMI. No scleral icterus. No conjunctival pallor. Normocephalic, atraumatic. No pharyngeal erythema. No thyromegaly. CARDIOVASCULAR: S1 and S2 present. No murmurs, rubs, or gallops. PULMONARY: Chest is clear to auscultation, no wheezing or crackles. -ABDOMEN: Soft, abdomen distended with large umbilical hernia and mild tenderness of the lower part of it with no rebound tenderness. normoactive bowel sounds. No palpable organomegaly. MUSCULOSKELETAL: No joint swelling or deformity. EXTREMITIES: No cyanosis, clubbing, or pedal edema. NEUROLOGICAL: Gross neurological examination did not reveal any focal deficits. SKIN: No rashes. Thrombosis Risk Factor Assmnt - Choose All That Apply Any of the Below Risk Factors Present?: No Other Risk Factors: Yes Each Risk Factor Represents 2 Points: Age 61-74 years Other congenital or acquired thrombophilia - If yes, enter type in comment: No Thrombosis Risk Factor Assessment Total Risk Factor Score: 2 Thrombosis Risk Factor Assessment Level: Low Risk Assessment and Plan Assessment: small bowel obstruction Large umbilical hernia history of GERD Essential hypertension History of sleep apnea Plan: this is a pleasant 68 years old female who presents with small bowel obstruction. Continue with IV fluid, pain management, and nothing by mouth. Surgical consult.Labs and medication were reviewed.. Continue same treatment. Continue with symptomatic treatment. Resume home medication. Monitor lytes and vitals. DVT and GI prophylaxis. Further recommendations of the clinical course of the patient DVT prophylaxis: Subcutaneous heparin GI Prophylaxis: Pepcid Prognosis is guarded
--- NOTE | 2018-08-25 19:55 | XR ---
EXAMINATION TYPE: XR abdomen 2V DATE OF EXAM: 08/25/2018 COMPARISON: 10/24/2012 HISTORY: Nausea. Nasogastric tube placement. TECHNIQUE: Supine and upright FINDINGS: There is nasogastric tube looped on itself in the stomach. There is moderate intestinal gas mainly in the large bowel. I see no sign of free air. There are clips in the epigastrium. There is h igh density over the urinary bladder consistent with contrast. There is a large left side abdominal a pparent hernia with loops of bowel. This contains small bowel over the left lower quadrant laterally. The small bowel appears dilated. IMPRESSION: Large abdominal hernia appears increased compared to old exam. There are dilated air-fill ed loops of small bowel in the hernia. Mechanical bowel obstruction is possible. No sign of free air. Nasogastric tube appears in good position.
[2018-08-25] MEDS: HEPARIN SODIUM,PORCINE 5,000 UNIT/ML 1 ML VIAL SQ SCH (20:20)
[2018-08-25] MEDS: FAMOTIDINE 20 MG/2 ML VIAL IV SCH (20:20)
[2018-08-25] MEDS: BENZOCAINE SPRAY 1 CAN MUCOUS MEM PRN (23:03)
[2018-08-26] MEDS: MORPHINE SULFATE 4 MG/ML SYRINGE IV PRN ×4 (03:56→19:53)
[2018-08-26] MEDS: ONDANSETRON 4 MG/2 ML VIAL IVP PRN (03:56)
[2018-08-26] MEDS: SODIUM CHLORIDE 0.9% 1,000 ML IV SCH ×2 (05:45→14:47)
[2018-08-26 09:30] LABS: Basophils % (A) 0 %; Eosinophils # (A) 0.1 k/uL (0-0.7); Eosinophils % (A) 1 %; HCT 38.6 % (34.0-46.0); HGB 12.3 gm/dL (11.4-16.0); Lymphocytes # (A) 0.9 k/uL (1.0-4.8); Lymphocytes % (A) 10 %; MCH 30.5 pg (25.0-35.0); MCHC 31.9 g/dL (31.0-37.0); MCV 95.6 fL (80.0-100.0); Mean Platelet Volume 7.1; Monocytes # (A) 0.7 k/uL (0-1.0); Monocytes % (A) 7 %; Neutrophils % (A) 80 %; Platelet Count 271 k/uL (150-450); RBC 4.03 m/uL (3.80-5.40); RDW 14.3 % (11.5-15.5); WBC 8.8 k/uL (3.8-10.6)
[2018-08-26 09:40] LABS: ALT 32 U/L (9-52); AST 26 U/L (14-36); Albumin 2.8 g/dL (3.5-5.0); Alkaline Phosphatase 62 U/L (38-126); Amylase <30 U/L (30-110); Anion Gap 7 mmol/L; Blood Urea Nitrogen 14 mg/dL (7-17); Calcium 8.9 mg/dL (8.4-10.2); Carbon Dioxide 31 mmol/L (22-30); Chloride 99 mmol/L (98-107); Glucose 95 mg/dL (74-99); Lipase 90 U/L (23-300); Magnesium 1.8 mg/dL (1.6-2.3); Potassium 4.1 mmol/L (3.5-5.1); Sodium 137 mmol/L (137-145); Total Bilirubin 0.4 mg/dL (0.2-1.3); Total Protein 5.1 g/dL (6.3-8.2)
[2018-08-26] MEDS: PANTOPRAZOLE 40 MG/10 ML VIAL IV SCH (10:13)
[2018-08-26] MEDS: FAMOTIDINE 20 MG/2 ML VIAL IV SCH ×2 (10:13→19:57)
[2018-08-26] MEDS: HEPARIN SODIUM,PORCINE 5,000 UNIT/ML 1 ML VIAL SQ SCH ×2 (10:14→19:57)
--- NOTE | 2018-08-26 12:51 | P.PN ---
Progress Note - Text Progress Note Date: 08/26/18 The patient had her nasogastric tube adjusted last night. She's had good output overnight. On exam her vital signs are stable. Her abdomen soft. The patient denies any significant tenderness. Small bowel obstruction. Patient will continue to receive NG tube decompression.
[2018-08-26] MEDS: BENZOCAINE SPRAY 1 CAN MUCOUS MEM PRN (14:53)
--- NOTE | 2018-08-26 16:59 | P.PN ---
Subjective this is a pleasant 68 years old female with past medical history of GERD, hypertension, sleep apnea presents with 1 week of abdominal pain about 9/10 in severity around her umbilical hernia in the lower part associated with nausea vomiting several times last night. She has colostomy and bowel movement last time was yesterday through her colostomy but she was passing gases at that time. However not much since then. Patient has NG tube with Dr. Vee aspirate about 300 mL. 08/26/2018 Patient was lying in the chair, this distress than yesterday's as her abdominal pain is isn't found. Her abdomen even looks less distended. She still have NG tube and draining dark brown material about 500 mL. Urine during the day her NG tube was pulled up for better drainage. Surgical team are following the case and their input is appreciated Objective - Vital Signs Vital signs: Vital Signs Temp 98.2 F 08/26/18 14:44 Pulse 82 08/26/18 14:44 Resp 16 08/26/18 14:44 BP 143/82 08/26/18 14:44 Pulse Ox 97 08/26/18 14:44 Intake & Output 08/25/18 08/26/18 08/26/18 18:59 06:59 18:59 Intake Total 900 Output Total 100 Balance 800 Intake: Intake, IV Titration 900 Amount Sodium Chloride 0.9% 1, 900 000 ml @ 100 mls/hr IV . Q10H [facility] Rx#:[id number] Output: Gastric Drainage 100 Other: Voiding Method Toilet # Voids 3 1 0 - Exam GENERAL: The patient is alert and oriented x3, not in any acute distress. Well developed, well nourished. HEENT: Pupils are round and equally reacting to light. EOMI. No scleral icterus. No conjunctival pallor. Normocephalic, atraumatic. No pharyngeal erythema. No thyromegaly. CARDIOVASCULAR: S1 and S2 present. No murmurs, rubs, or gallops. PULMONARY: Chest is clear to auscultation, no wheezing or crackles. -ABDOMEN: Soft, abdomen distended with large umbilical hernia and mild tenderness of the lower part of it with no rebound tenderness. normoactive bowel sounds. No palpable organomegaly. MUSCULOSKELETAL: No joint swelling or deformity. EXTREMITIES: No cyanosis, clubbing, or pedal edema. NEUROLOGICAL: Gross neurological examination did not reveal any focal deficits. SKIN: No rashes. - Labs CBC & Chem 7: 08/26/18 08:14 08/26/18 08:14 Labs: Abnormal Lab Results - Last 24 Hours (Table) 08/26/18 08/26/18 Range/Units 08:14 08:14 Lymphocytes # 0.9 L (1.0-4.8) k/uL Carbon Dioxide 31 H (22-30) mmol/L Creatinine 0.45 L (0.52-1.04) mg/dL Total Protein 5.1 L (6.3-8.2) g/dL Albumin 2.8 L (3.5-5.0) g/dL Amylase <30 L (30-110) U/L Assessment and Plan Assessment: small bowel obstruction Large umbilical hernia history of GERD Essential hypertension History of sleep apnea Plan: this is a pleasant 68 years old female who presents with small bowel obstruction. Continue with IV fluid, pain management, and nothing by mouth. Surgical consult.Labs and medication were reviewed.. Continue same treatment. Continue with symptomatic treatment. Resume home medication. Monitor lytes and vitals. DVT and GI prophylaxis. Further recommendations of the clinical course of the patient DVT prophylaxis: Subcutaneous heparin GI Prophylaxis: Pepcid Prognosis is guarded
[2018-08-27] MEDS: BENZOCAINE SPRAY 1 CAN MUCOUS MEM PRN ×2 (01:14→08:25)
[2018-08-27] MEDS: MORPHINE SULFATE 4 MG/ML SYRINGE IV PRN ×5 (01:15→21:49)
[2018-08-27] MEDS: SODIUM CHLORIDE 0.9% 1,000 ML IV SCH ×3 (02:00→20:21)
[2018-08-27] MEDS: HEPARIN SODIUM,PORCINE 5,000 UNIT/ML 1 ML VIAL SQ SCH ×2 (08:14→20:20)
[2018-08-27] MEDS: PANTOPRAZOLE 40 MG/10 ML VIAL IV SCH (08:15)
[2018-08-27] MEDS: FAMOTIDINE 20 MG/2 ML VIAL IV SCH ×2 (10:20→20:21)
--- NOTE | 2018-08-27 13:04 | P.PN ---
Progress Note - Text Progress Note Date: 08/27/18 The patient states she feels better. She's had some minimal output through her colostomy. On exam her vital signs are stable. Abdomen soft. There is less distention. She still has some feculent drainage from her NG tube. Resolving small bowel structure. Patient will undergo computed tomography scan of the abdomen tomorrow to evaluate for resolution of her small bowel obstruction.
[2018-08-27] MEDS: ONDANSETRON 4 MG/2 ML VIAL IVP PRN (17:58)
--- NOTE | 2018-08-27 22:43 | P.PN ---
Subjective this is a pleasant 68 years old female with past medical history of GERD, hypertension, sleep apnea presents with 1 week of abdominal pain about 9/10 in severity around her umbilical hernia in the lower part associated with nausea vomiting several times last night. She has colostomy and bowel movement last time was yesterday through her colostomy but she was passing gases at that time. However not much since then. Patient has NG tube with Dr. Vee aspirate about 300 mL. 08/26/2018 Patient was lying in the chair, this distress than yesterday's as her abdominal pain is isn't found. Her abdomen even looks less distended. She still have NG tube and draining dark brown material about 500 mL. Urine during the day her NG tube was pulled up for better drainage. Surgical team are following the case and their input is appreciated 08/27/2018 Patient still have NG tube in place and draining the brown stuff under suction. Her abdominal distention and pain is significantly improving. And she presents some gases and small amount of brown fluids through her colostomy bag. Surgical follow-up and evaluation is appreciated, they recommended CAT scan of the abdomen tomorrow for follow-up Objective - Vital Signs Vital signs: Vital Signs Temp 97.9 F 08/27/18 07:00 Pulse 86 08/27/18 07:00 Resp 18 08/27/18 07:00 BP 132/73 08/27/18 07:00 Pulse Ox 92 L 08/26/18 23:47 Intake & Output 08/26/18 08/27/18 08/27/18 18:59 06:59 18:59 Intake Total 900 Output Total 50 Balance 850 Intake: Intake, IV Titration 900 Amount Sodium Chloride 0.9% 1, 900 000 ml @ 100 mls/hr IV . Q10H [facility] Rx#:[id number] Output: Gastric Drainage 50 Other: Voiding Method Toilet # Voids 0 1 - Exam GENERAL: The patient is alert and oriented x3, not in any acute distress. Well developed, well nourished. HEENT: Pupils are round and equally reacting to light. EOMI. No scleral icterus. No conjunctival pallor. Normocephalic, atraumatic. No pharyngeal erythema. No thyromegaly. CARDIOVASCULAR: S1 and S2 present. No murmurs, rubs, or gallops. PULMONARY: Chest is clear to auscultation, no wheezing or crackles. -ABDOMEN: Soft, abdomen distended with large umbilical hernia and mild tenderness of the lower part of it with no rebound tenderness. normoactive bowel sounds. No palpable organomegaly. MUSCULOSKELETAL: No joint swelling or deformity. EXTREMITIES: No cyanosis, clubbing, or pedal edema. NEUROLOGICAL: Gross neurological examination did not reveal any focal deficits. SKIN: No rashes. - Labs CBC & Chem 7: 08/26/18 08:14 08/26/18 08:14 Assessment and Plan Assessment: small bowel obstruction Large umbilical hernia history of GERD Essential hypertension History of sleep apnea Plan: this is a pleasant 68 years old female who presents with small bowel obstruction. Continue with IV fluid, pain management, and nothing by mouth. Surgical consult.Labs and medication were reviewed.. Continue same treatment. Continue with symptomatic treatment. Resume home medication. Monitor lytes and vitals. DVT and GI prophylaxis. Further recommendations of the clinical course of the patient DVT prophylaxis: Subcutaneous heparin GI Prophylaxis: Pepcid Prognosis is guarded
[2018-08-28] MEDS: HEPARIN SODIUM,PORCINE 5,000 UNIT/ML 1 ML VIAL SQ SCH ×2 (08:53→20:30)
[2018-08-28] MEDS: FAMOTIDINE 20 MG/2 ML VIAL IV SCH ×2 (08:53→20:30)
[2018-08-28] MEDS: PANTOPRAZOLE 40 MG/10 ML VIAL IV SCH (08:53)
[2018-08-28] MEDS ORDERED: predniSONE 20 MG TAB PO STA (10:26)
[2018-08-28] MEDS: MORPHINE SULFATE 4 MG/ML SYRINGE IV PRN (10:48)
--- NOTE | 2018-08-28 12:39 | P.PN ---
Subjective 68-year-old female admitted for partial small bowel obstruction improving symptoms patient NG tube can be clamped today if patient doesn't have any nausea which she doesn't at this time NG tube can be discontinued can be started on clear liquid diet at this time at the time. Patient did have 2 bowel movements. Constitutional: Denied any fatigue denied any fever. Cardio vascular: denied any chest pain, palpitations Gastrointestinal denied any nausea vomiting Pulmonary: Denied any shortness of breath cough Neurologic denied any new focal deficits All inpatient medications were reviewed and appropriate changes in these medications as dictated in the interval history and assessment and plan. Objective - Vital Signs Vital signs: Vital Signs Temp 98.0 F 08/28/18 07:00 Pulse 84 08/28/18 07:00 Resp 16 08/28/18 07:00 BP 169/84 08/28/18 07:00 Pulse Ox 96 08/28/18 07:00 Intake & Output 08/27/18 08/28/18 08/28/18 18:59 06:59 18:59 Intake Total 350 Output Total 50 Balance -50 350 Intake: Intake, IV Titration 350 Amount Sodium Chloride 0.9% 1, 350 000 ml @ 100 mls/hr IV . Q10H [facility] Rx#:[id number] Output: Gastric Drainage 50 Other: Voiding Method Toilet # Voids 2 1 - Exam PHYSICAL EXAMINATION: GENERAL: The patient is alert and oriented x3, not in any acute distress. Well developed, well nourished. HEENT: Pupils are round and equally reacting to light. EOMI. No scleral icterus. No conjunctival pallor. Normocephalic, atraumatic. No pharyngeal erythema. No thyromegaly. CARDIOVASCULAR: S1 and S2 present. No murmurs, rubs, or gallops. PULMONARY: Chest is clear to auscultation, no wheezing or crackles. ABDOMEN: Soft, nontender, nondistended, normoactive bowel sounds. No palpable organomegaly. Does have NG tube in place which is presently not connected to the suction patient did not have any significant output since last night MUSCULOSKELETAL: No joint swelling or deformity. EXTREMITIES: No cyanosis, clubbing, or pedal edema. NEUROLOGICAL: Gross neurological examination did not reveal any focal deficits. SKIN: No rashes. - Labs CBC & Chem 7: 08/26/18 08:14 08/26/18 08:14 Assessment and Plan Plan: -Partial small bowel obstruction probably secondary to adhesions: Plan as mentioned above any with IV fluids and repeat electrolytes and basic metabolic profile tomorrow -Hypertension patient blood pressure is elevated as she is not receiving any of her antidepressant medications diuretics will be held and she is receiving IV fluids patient was started on low-dose of lisinopril -Gastroesophageal reflux disease -Sleep apnea, obesity continue with CPAP machine -Patient will need pharmacologic GI and DVT prophylaxis
[2018-08-28] MEDS: NYSTATIN 100,000 UNIT/ML SUSP 500,000 UNIT/5 ML CUP PO SCH ×3 (14:52→22:32)
[2018-08-28] MEDS: LISINOPRIL 10 MG TAB PO SCH (14:52)
--- NOTE | 2018-08-28 15:18 | P.PN ---
Progress Note - Text Progress Note Date: 08/28/18 Patient has had several bowel movements through her colostomy. She states she feels better. On exam her vital signs are stable. Her abdomen soft. There is a large amount of stool in her colostomy appliance. Resolving small bowel obstruction. Patient will have her nasogastric tube removed and started on clear liquid diet.
[2018-08-28] MEDS: DULoxetine HCL 30 MG CAPSULE.DR PO SCH (20:30)
[2018-08-28] MEDS: SODIUM CHLORIDE 0.9% 1,000 ML IV SCH ×2 (22:31→22:32)
[2018-08-29] MEDS: SODIUM CHLORIDE 0.9% 1,000 ML IV SCH ×2 (05:21→09:24)
[2018-08-29] MEDS: LISINOPRIL 10 MG TAB PO SCH (09:23)
[2018-08-29] MEDS: PANTOPRAZOLE 40 MG TABLET PO SCH (09:23)
[2018-08-29] MEDS: FAMOTIDINE 20 MG/2 ML VIAL IV SCH (09:23)
[2018-08-29] MEDS: OXYBUTYNIN 10 MG TAB.ER.24 PO SCH (09:23)
[2018-08-29] MEDS: HEPARIN SODIUM,PORCINE 5,000 UNIT/ML 1 ML VIAL SQ SCH ×2 (09:23→20:35)
[2018-08-29] MEDS: NYSTATIN 100,000 UNIT/ML SUSP 500,000 UNIT/5 ML CUP PO SCH ×4 (12:14→22:35)
--- NOTE | 2018-08-29 13:35 | P.PN ---
Progress Note - Text Progress Note Date: 08/29/18 The patient is doing well. She has had multiple bowel movements through her colostomy. She is tolerating clears without difficulty. On exam her vital signs are stable. Her abdominal wall hernias are stable. Her colostomy is functioning. Patient will have her diet advanced fully liquid diet. She may be discharged home in a.m. on full liquid diet.
--- NOTE | 2018-08-29 17:03 | P.PN ---
Subjective 68-year-old female admitted for partial small bowel obstruction improving symptoms patient NG tube can be clamped today if patient doesn't have any nausea which she doesn't at this time NG tube can be discontinued can be started on clear liquid diet at this time at the time. Patient did have 2 bowel movements. 08/29/2018 Patient's NG tube was removed patient is clinically doing well probably can advance her diet and probably can be discharged as well. Constitutional: Denied any fatigue denied any fever. Cardio vascular: denied any chest pain, palpitations Gastrointestinal denied any nausea vomiting Pulmonary: Denied any shortness of breath cough Neurologic denied any new focal deficits All inpatient medications were reviewed and appropriate changes in these medications as dictated in the interval history and assessment and plan. Objective - Vital Signs Vital signs: Vital Signs Temp 98.4 F 08/29/18 14:37 Pulse 80 08/29/18 14:37 Resp 16 08/29/18 14:37 BP 164/88 08/29/18 14:37 Pulse Ox 95 08/29/18 14:37 Intake & Output 08/28/18 08/29/18 08/29/18 18:59 06:59 18:59 Intake Total 800 900 Balance 800 900 Weight 120.202 kg Intake: Intake, IV Titration 800 900 Amount Sodium Chloride 0.9% 1, 800 900 000 ml @ 100 mls/hr IV . Q10H [facility] Rx#:[id number] Other: Voiding Method Toilet # Voids 1 2 - Exam PHYSICAL EXAMINATION: GENERAL: The patient is alert and oriented x3, not in any acute distress. Well developed, well nourished. HEENT: Pupils are round and equally reacting to light. EOMI. No scleral icterus. No conjunctival pallor. Normocephalic, atraumatic. No pharyngeal erythema. No thyromegaly. CARDIOVASCULAR: S1 and S2 present. No murmurs, rubs, or gallops. PULMONARY: Chest is clear to auscultation, no wheezing or crackles. ABDOMEN: Soft, nontender, nondistended, normoactive bowel sounds. No palpable organomegaly. Patient is status post removal of NG tube MUSCULOSKELETAL: No joint swelling or deformity. EXTREMITIES: No cyanosis, clubbing, or pedal edema. NEUROLOGICAL: Gross neurological examination did not reveal any focal deficits. SKIN: No rashes. - Labs CBC & Chem 7: 08/26/18 08:14 08/26/18 08:14 Assessment and Plan Plan: -Partial small bowel obstruction probably secondary to adhesions: NG tube was removed patient can tolerate liquid diet well probably this can be advanced -Hypertension patient blood pressure is elevated little increase the dose of lisinopril area at patient can resume her home medications including antihypertensives patient is a both on Lasix and hydrochlorothiazide probably patient can remain in HCl thiazide can use Lasix on as-needed basis or pedal edema whenever she takes Lasix patient probably need to take potassium as well. -Gastroesophageal reflux disease -Sleep apnea, obesity continue with CPAP machine -Patient will need pharmacologic GI and DVT prophylaxis
[2018-08-29] MEDS ORDERED: LISINOPRIL 10 MG TAB PO STA (20:05)
[2018-08-29] MEDS: DULoxetine HCL 30 MG CAPSULE.DR PO SCH (20:35)
[2018-08-30] MEDS: SODIUM CHLORIDE 0.9% 1,000 ML IV SCH ×3 (08:15→21:46)
[2018-08-30] MEDS: HEPARIN SODIUM,PORCINE 5,000 UNIT/ML 1 ML VIAL SQ SCH ×2 (08:23→21:46)
[2018-08-30] MEDS: PANTOPRAZOLE 40 MG TABLET PO SCH (08:23)
[2018-08-30] MEDS: LISINOPRIL 20 MG TAB PO SCH (08:23)
[2018-08-30] MEDS: OXYBUTYNIN 10 MG TAB.ER.24 PO SCH (08:24)
[2018-08-30] MEDS: NYSTATIN 100,000 UNIT/ML SUSP 500,000 UNIT/5 ML CUP PO SCH ×4 (08:24→21:46)
--- NOTE | 2018-08-30 13:06 | P.PN ---
Subjective 68-year-old female admitted for partial small bowel obstruction improving symptoms patient NG tube can be clamped today if patient doesn't have any nausea which she doesn't at this time NG tube can be discontinued can be started on clear liquid diet at this time at the time. Patient did have 2 bowel movements. 08/29/2018 Patient's NG tube was removed patient is clinically doing well probably can advance her diet and probably can be discharged as well. 07/30/2019 Patient is clinically doing well does have leg swelling from IV fluids asked her to take Lasix only on as-needed basis. Patient is also on hydrochlorothiazide patient can continue her potassium 20 daily because of hydrochlorothiazide and use additional potassium whenever she uses Lasix Constitutional: Denied any fatigue denied any fever. Cardio vascular: denied any chest pain, palpitations Gastrointestinal denied any nausea vomiting Pulmonary: Denied any shortness of breath cough Neurologic denied any new focal deficits All inpatient medications were reviewed and appropriate changes in these medications as dictated in the interval history and assessment and plan. Objective - Vital Signs Vital signs: Vital Signs Temp 97.8 F 08/30/18 08:21 Pulse 67 08/30/18 08:21 Resp 16 08/30/18 10:53 BP 165/79 08/30/18 08:21 Pulse Ox 97 08/30/18 08:21 Intake & Output 08/29/18 08/30/18 08/30/18 18:59 06:59 18:59 Intake Total 840 800 Balance 840 800 Weight 120.202 kg Intake: Oral 840 800 Other: Voiding Method Toilet # Voids 1 1 - Exam PHYSICAL EXAMINATION: GENERAL: The patient is alert and oriented x3, not in any acute distress. Well developed, well nourished. HEENT: Pupils are round and equally reacting to light. EOMI. No scleral icterus. No conjunctival pallor. Normocephalic, atraumatic. No pharyngeal erythema. No thyromegaly. CARDIOVASCULAR: S1 and S2 present. No murmurs, rubs, or gallops. PULMONARY: Chest is clear to auscultation, no wheezing or crackles. ABDOMEN: Soft, nontender, nondistended, normoactive bowel sounds. No palpable organomegaly. Patient is status post removal of NG tube MUSCULOSKELETAL: No joint swelling or deformity. EXTREMITIES: No cyanosis, clubbing, or pedal edema. NEUROLOGICAL: Gross neurological examination did not reveal any focal deficits. SKIN: No rashes. - Labs CBC & Chem 7: 08/26/18 08:14 08/26/18 08:14 Assessment and Plan Plan: -Partial small bowel obstruction probably secondary to adhesionstolerating diet well and patient can be discharged from medical perspective -Hypertension patient blood pressure is elevated little increase the dose of lisinopril area at patient can resume her home medications including antihypertensives patient is a both on Lasix and hydrochlorothiazide probably patient can remain in HCl thiazide can use Lasix on as-needed basis or pedal edema whenever she takes Lasix patient probably need to take potassium as well. -Gastroesophageal reflux disease -Sleep apnea, obesity continue with CPAP machine -Patient will need pharmacologic GI and DVT prophylaxis
--- NOTE | 2018-08-30 17:07 | P.PN ---
Progress Note - Text Progress Note Date: 08/30/18 The patient is doing well. She is tolerating diet. Her colostomy dysfunction. On exam her vital signs are stable. Her abdomen soft. Stoma is patent with a large amount stool. Patiently discharged home. She'll follow-up as an outpatient.
[2018-08-30] MEDS: DULoxetine HCL 30 MG CAPSULE.DR PO SCH (21:46)
[2018-08-31] MEDS: SODIUM CHLORIDE 0.9% 1,000 ML IV SCH ×2 (08:23→08:31)
[2018-08-31] MEDS: OXYBUTYNIN 10 MG TAB.ER.24 PO SCH (08:27)
[2018-08-31] MEDS: HEPARIN SODIUM,PORCINE 5,000 UNIT/ML 1 ML VIAL SQ SCH (08:27)
[2018-08-31] MEDS: NYSTATIN 100,000 UNIT/ML SUSP 500,000 UNIT/5 ML CUP PO SCH ×2 (08:27→08:30)
[2018-08-31] MEDS: LISINOPRIL 20 MG TAB PO SCH (08:27)
[2018-08-31] MEDS: PANTOPRAZOLE 40 MG TABLET PO SCH (08:27)
--- NOTE | 2018-08-31 10:38 | P.PN ---
Subjective Progress Note Date: 08/31/18 68-year-old female who was admitted to the hospital with a small bowel obstruction. Patients colostomy is functioning and has stool present. She is tolerating oral diet. Denies nausea or vomiting. She has been up ambulating. Her vital signs are stable. She is anticipating discharge home today. PHYSICAL EXAM: GENERAL: This is a 68-year-old female in no apparent distress at the time of examination. Pleasant and cooperative. RESPIRATORY: Clear to auscultation. Equal expansion. CARDIOVASCULAR: Regular rate and rhythm. S1 and S2 noted. GASTROINTESTINAL: Soft and round. No distention noted. Colostomy present with stool. INTEGUMENTARY: No cyanosis. No jaundice. No rashes noted. No cellulitis noted. EXTREMITIES: 2+ peripheral pulses. No evidence of peripheral edema. NEUROLOGIC: Cranial nerves II-XII grossly intact. PSYCHIATRIC: Awake, alert, and oriented X 3. Appropriate affect. Intact judgement and insight. ASSESSMENT: Small bowel obstruction, resolved History of perforated bowel with colostomy GERD History of sleep apnea History of hypertension PLAN: Patient is stable for discharge home from a surgical standpoint. We will sign off at this time. Nurse practitioner note has been reviewed by physician. Signing provider agrees with the documented findings, assessment, and plan of care. Objective - Vital Signs Vital signs: Vital Signs Temp 98.2 F 08/31/18 06:50 Pulse 72 08/31/18 06:50 Resp 14 08/31/18 06:50 BP 183/86 08/31/18 06:50 Pulse Ox 95 08/31/18 06:50 Intake & Output 08/30/18 08/31/18 08/31/18 18:59 06:59 18:59 Intake Total 1600 790 Balance 1600 790 Weight 120.202 kg 120.202 kg Intake: Oral 1600 790 Other: Voiding Method Toilet Toilet Toilet # Voids 1 1 1 # Bowel Movements 1 - Labs CBC & Chem 7: 08/26/18 08:14 08/26/18 08:14
--- NOTE | 2018-08-31 13:28 | P.DS ---
Providers Date of admission: 08/25/18 00:07 Attending physician: Myles Motta Consults: 08/25/18 09:12 Consult Physician Routine Consulting Provider: Bethel Parry Consult Reason/Comments: SBO Do you want consulting provider notified?: Yes Primary care physician: [facility] Course: 08/29/2018 Patient's NG tube was removed patient is clinically doing well probably can advance her diet and probably can be discharged as well. 08/30/2018 Patient is clinically doing well does have leg swelling from IV fluids asked her to take Lasix only on as-needed basis. Patient is also on hydrochlorothiazide patient can continue her potassium 20 daily because of hydrochlorothiazide and use additional potassium whenever she uses Lasix 08/31/2018 Patient no overnight events patient is being discharged today PHYSICAL EXAMINATION: GENERAL: The patient is alert and oriented x3, not in any acute distress. Well developed, well nourished. HEENT: Pupils are round and equally reacting to light. EOMI. No scleral icterus. No conjunctival pallor. Normocephalic, atraumatic. No pharyngeal erythema. No thyromegaly. CARDIOVASCULAR: S1 and S2 present. No murmurs, rubs, or gallops. PULMONARY: Chest is clear to auscultation, no wheezing or crackles. ABDOMEN: Soft, nontender, nondistended, normoactive bowel sounds. No palpable organomegaly. Patient is status post removal of NG tube MUSCULOSKELETAL: No joint swelling or deformity. EXTREMITIES: No cyanosis, clubbing, or pedal edema. NEUROLOGICAL: Gross neurological examination did not reveal any focal deficits. SKIN: No rashes. Assessment and Plan Plan: -Partial small bowel obstruction probably secondary to adhesionstolerating diet well, patient will be discharged today -Hypertension -Gastroesophageal reflux disease -Sleep apnea, obesity continue with CPAP machine Plan - Discharge Summary Discharge Rx Participant: Yes New Discharge Prescriptions: New Nystatin 100,000 Unit/ml Susp [Mycostatin Oral Susp] 500,000 unit PO QID #30 cup Continue Multivitamins, Thera [Multivitamin (formulary)] 1 tab PO DAILY Furosemide [Lasix] 20 mg PO DAILY Lisinopril-Hctz 20-25 mg [Zestoretic 20-25] 1 tab PO DAILY Allopurinol [Zyloprim] 300 mg PO DAILY DULoxetine HCL [Cymbalta] 30 mg PO HS Omeprazole 40 mg PO DAILY Potassium Chloride ER [K-Dur 20] 20 meq PO BID HYDROcodone/APAP 5-325MG [[place] 5-325] 1 tab PO Q12H Diclofenac Sodium [Diclofenac Sodium ER] 100 mg PO DAILY Calcium Carbonate [Calcium] 600 mg PO DAILY Oxybutynin Chloride [Ditropan XL] 10 mg PO DAILY Discharge Medication List Allopurinol [Zyloprim] 300 mg PO DAILY 08/27/16 [History] Furosemide [Lasix] 20 mg PO DAILY 08/27/16 [History] Lisinopril-Hctz 20-25 mg [Zestoretic 20-25] 1 tab PO DAILY 08/27/16 [History] Multivitamins, Thera [Multivitamin (formulary)] 1 tab PO DAILY 08/27/16 [History ] DULoxetine HCL [Cymbalta] 30 mg PO HS 11/09/17 [History] Calcium Carbonate [Calcium] 600 mg PO DAILY 08/25/18 [History] Diclofenac Sodium [Diclofenac Sodium ER] 100 mg PO DAILY 08/25/18 [History] HYDROcodone/APAP 5-325MG [[place] 5-325] 1 tab PO Q12H 08/25/18 [History] Omeprazole 40 mg PO DAILY 08/25/18 [History] Oxybutynin Chloride [Ditropan XL] 10 mg PO DAILY 08/25/18 [History] Potassium Chloride ER [K-Dur 20] 20 meq PO BID 08/25/18 [History] Nystatin 100,000 Unit/ml Susp [Mycostatin Oral Susp] 500,000 unit PO QID #30 cup 08/29/18 [Rx] Follow up Appointment(s)/Referral(s): Edson Werner MD [Primary Care Provider] - 09/05/18 9:00 am (Appointment set at [place] [id number] ) Bethel Parry MD [STAFF PHYSICIAN] - 09/07/18 3:10 pm Discharge Disposition: HOME SELF-CARE
[2018-08-31 15:23] VITALS: BP 180/86; PULSE 74; RESP 15; TEMP 98
== END 2018-08-31 17:08 | disposition home or self-care (01) | DRG 394 ==
LOC: EC 23:16 → 4SSUR 08-25 00:07
PROVIDERS: ADMIT Hospitalist; ATTEND Hospitalist
DX: K42.0 Umbilical hernia with obstruction, without gangrene (principal); K56.51 Intestinal adhesions [bands], with partial obstruction; Z68.42 Body mass index [BMI] 45.0-49.9, adult; E66.9 Obesity, unspecified; G47.30 Sleep apnea, unspecified; I10 Essential (primary) hypertension; K21.9 Gastro-esophageal reflux disease without esophagitis; Z93.3 Colostomy status; Z79.82 Long term (current) use of aspirin; Z82.49 Family history of ischemic heart disease and other diseases of the circulatory system; Z83.3 Family history of diabetes mellitus; Z87.891 Personal history of nicotine dependence; Z90.49 Acquired absence of other specified parts of digestive tract; Z90.710 Acquired absence of both cervix and uterus; Z96.653 Presence of artificial knee joint, bilateral; Z91.040 Latex allergy status; M10.9 Gout, unspecified; Z79.891 Long term (current) use of opiate analgesic; Z79.899 Other long term (current) drug therapy
CPT/HCPCS: 71045; 74019; 80053; 82150; 83690; 83735; 85025; 94760; 96374; 99285

== ENCOUNTER 2020-08-15 03:36 | Inpatient (IN) | payer MEDICARE ==
[2020-08-15] MEDS ORDERED: NALOXONE 0.4 MG/ML 1 ML VIAL IV PRN (04:12)
[2020-08-15] MEDS ORDERED: MORPHINE SULFATE 4 MG/ML SYRINGE IVP STA (04:12)
--- NOTE | 2020-08-15 04:14 | ED ---
Abdominal Pain HPI - General Chief Complaint: Abdominal Pain Stated Complaint: Abdominal Pain Time Seen by Provider: 08/15/20 03:46 Source: patient, EMS, RN notes reviewed, old records reviewed Mode of arrival: EMS Limitations: no limitations - History of Present Illness Initial Comments: This is a 62-year-old female who is accepted in transfer from an outpatient hospital for evaluation regarding small bowel obstruction. Patient is a postop patient of our hospital. Patient is currently asymptomatic with no active nausea vomiting, no diarrhea no abdominal pain is controlled. MD Complaint: abdominal pain Location: diffuse, epigastric, suprapubic Radiation: epigastric Migration to: no migration, epigastric Severity: moderate Severity scale (1-10): 7 Quality: stabbing, aching, sharp Consistency: intermittent Improves With: nothing Worsens With: nothing Associated Symptoms: nausea Treatments Prior to Arrival: prescription analgesics - Related Data Home Medications Medication Instructions Recorded Confirmed Furosemide [Lasix] 20 mg PO DAILY 08/27/16 08/15/20 Lisinopril-Hctz 20-25 mg 2 tab PO DAILY 08/27/16 08/15/20 [Zestoretic 20-] Multivitamins, Thera [Multivitamin 1 tab PO DAILY 08/27/16 08/15/20 (formulary)] allopurinoL [Zyloprim] 300 mg PO DAILY 08/27/16 08/15/20 DULoxetine HCL [Cymbalta] 30 mg PO HS 11/09/17 08/15/20 Calcium Carbonate [Calcium] 600 mg PO DAILY 08/25/18 08/15/20 Diclofenac Sodium [Diclofenac 100 mg PO DAILY 08/25/18 08/15/20 Sodium ER] HYDROcodone/APAP 5-325MG [[place] 1 tab PO DAILY 08/25/18 08/15/20 5-325] Omeprazole 40 mg PO DAILY 08/25/18 08/15/20 Oxybutynin Chloride [Ditropan XL] 10 mg PO DAILY 08/25/18 08/15/20 Potassium Chloride ER [K-Dur 20] 20 meq PO DAILY 08/25/18 08/15/20 Albuterol Inhaler [Ventolin Hfa 1 puff INHALATION RT-QID PRN 08/15/20 08/15/20 Inhaler] Cetirizine HCl [Zyrtec] 10 mg PO DAILY 08/15/20 08/15/20 Fluticasone Nasal [place] [Flonase 1 spray EA NOSTRIL DAILY 08/15/20 08/15/20 Nasal [place]] Magnesium 250 mg PO DAILY 08/15/20 08/15/20 metFORMIN HCL [Glucophage] 1,000 mg PO BID 08/15/20 08/15/20 Allergies Allergy/AdvReac Type Severity Reaction Status Date / Time latex Allergy Rash/Hives Verified 08/15/20 08:35 DUST,POLLEN AdvReac SNEEZING Uncoded 08/15/20 03:47 Review of Systems ROS Statement: Those systems with pertinent positive or pertinent negative responses have been documented in the HPI. ROS Other: All systems not noted in ROS Statement are negative. Past Medical History Past Medical History: GERD/Reflux, Hypertension, Osteoarthritis (OA), Sleep Apnea/CPAP/BIPAP Additional Past Medical History / Comment(s): no cpap used, hx perforated bowel- has colostomy, diverticulitis, gout, frequent leg swelling, pt reports balance issues. History of Any Multi-Drug Resistant Organisms: None Reported Past Surgical History: Bowel Resection, Cholecystectomy, Hernia Repair, Hysterectomy, Joint Replacement, Orthopedic Surgery, Tonsillectomy Additional Past Surgical History / Comment(s): perforated bowel/colostomy, right and left knee replaced, left wrist carpal tunnel repair Past Anesthesia/Blood Transfusion Reactions: No Reported Reaction Past Psychological History: No Psychological Hx Reported Past Alcohol Use History: None Reported Past Drug Use History: None Reported - Past Family History Sister(s) Family Medical History: Cancer Father Family Medical History: Diabetes Mellitus, Hypertension General Exam Limitations: no limitations General appearance: alert, in no apparent distress Head exam: Present: atraumatic, normocephalic, normal inspection Eye exam: Present: normal appearance, PERRL, EOMI. Absent: scleral icterus, conjunctival injection, periorbital swelling ENT exam: Present: normal exam, mucous membranes moist Neck exam: Present: normal inspection. Absent: tenderness, meningismus, lymphadenopathy Respiratory exam: Present: normal lung sounds bilaterally. Absent: respiratory distress, wheezes, rales, rhonchi, stridor Cardiovascular Exam: Present: regular rate, normal rhythm, normal heart sounds. Absent: systolic murmur, diastolic murmur, rubs, gallop, clicks GI/Abdominal exam: Present: soft, normal bowel sounds. Absent: distended, tenderness, guarding, rebound, rigid Extremities exam: Present: normal inspection, full ROM, normal capillary refill. Absent: tenderness, pedal edema, joint swelling, calf tenderness Back exam: Present: normal inspection Neurological exam: Present: alert, oriented X3, CN II-XII intact Psychiatric exam: Present: normal affect, normal mood Skin exam: Present: warm, dry, intact, normal color. Absent: rash Course Vital Signs 08/15/20 08/15/20 08/15/20 03:46 04:25 04:42 Temperature 98.0 F 98.0 F Pulse Rate 92 Pulse Rate [ 83 Pulse Oximetery ] Respiratory 18 18 Rate Blood Pressure 155/88 Blood Pressure 131/74 [Left Arm] O2 Sat by Pulse 88 L 98 98 Oximetry - Reevaluation(s) Reevaluation #1: Medical record is reviewed Transferring paperwork is also reviewed Patient is informed of results here in the ER and questions are answered Patient spoken with, feeling better, symptoms remained improved Patient will be admitted for further evaluation management Medical Decision Making - Medical Decision Making 70 female positive abdominal pain and hernia, small bowel structure. Patient be admitted for surgical evaluation management - Lab Data Result diagrams: 08/18/20 06:04 08/18/20 06:04 Disposition Clinical Impression: Abdominal pain, SBO (small bowel obstruction) Disposition: ADMITTED IP TO THIS [facility] Condition: Good Is patient prescribed a controlled substance at d/c from ED?: No
[2020-08-15] MEDS: DEXTROSE 5%-0.45% NACL 1,000 ML IV SCH ×2 (04:39→15:30)
[2020-08-15] MEDS: PANTOPRAZOLE 40 MG/10 ML VIAL IVP SCH (08:39)
[2020-08-15 12:06] VITALS: BMI 54.8
[2020-08-15 13:33] LABS: ALT 22 U/L (4-34); AST 22 U/L (14-36); African American GFR (CKD) >90 (>60 ml/min/1.73 sqM); Albumin 3.5 g/dL (3.5-5.0); Albumin/Globulin Ratio 1.4; Alkaline Phosphatase 52 U/L (38-126); Anion Gap 3 mmol/L; Blood Urea Nitrogen 19 mg/dL (7-17); Calcium 9.9 mg/dL (8.4-10.2); Carbon Dioxide 38 mmol/L (22-30); Chloride 90 mmol/L (98-107); Globulin 2.5 g/dL; Glucose 121 mg/dL (74-99); Non-African American GFR(CKD) 88 (>60 ml/min/1.73 sqM); Potassium 4.5 mmol/L (3.5-5.1); Sodium 131 mmol/L (137-145); Total Bilirubin 0.5 mg/dL (0.2-1.3)
[2020-08-15 13:36] LABS: Anisocytosis Slight; Basophils % (A) 0 %; Eosinophils % (A) 0 %; HCT 38.1 % (34.0-46.0); HGB 11.2 gm/dL (11.4-16.0); Hypochromasia Marked; Lymphocytes % (A) 11 %; MCH 24.9 pg (25.0-35.0); MCHC 29.4 g/dL (31.0-37.0); MCV 84.8 fL (80.0-100.0); Mean Platelet Volume 7.9; Monocytes # (A) 0.6 k/uL (0-1.0); Monocytes % (A) 7 %; Neutrophils # (A) 6.9 k/uL (1.3-7.7); Neutrophils % (A) 80 %; Platelet Count 412 k/uL (150-450); RBC 4.49 m/uL (3.80-5.40); RDW 17.3 % (11.5-15.5); WBC 8.7 k/uL (3.8-10.6)
[2020-08-15] MEDS ORDERED: SODIUM CHLORIDE 0.9% 1,000 ML IV ONE (14:15)
--- NOTE | 2020-08-15 14:15 | P.GSHP ---
History of Present Illness H&P Date: 08/15/20 CHIEF COMPLAINT: Small bowel obstruction HISTORY OF PRESENT ILLNESS: The patient is a 70 year old female with multiple medical co-morbidities including previous bowel perforation with bowel resection who presents as transfer from outside hospital secondary to small bowel obstruction. Her last hospitalization was 2 years ago August 2018 for bowel obstruction. Since admission, her generalized abdominal pain which is diffuse and crampy is now resolved. He nasogastric tube outputs are over 500 mL orange yellow drainage. She is now passing flatus. No bowel movements. PAST MEDICAL HISTORY: See list and reviewed PAST SURGICAL HISTORY: See list and reviewed MEDICATIONS: See list and reviewed ALLERGIES: See list and reviewed SOCIAL HISTORY: See list and reviewed FAMILY HISTORY: See list and reviewed REVIEW OF ORGAN SYSTEMS: CONSTITUTIONAL: No fevers or chills. She is over 100 pounds overweight. EYES: Denies any trouble with vision. HEENT: No difficulties with hearing. No nosebleeds. No difficulty swallowing. RESPIRATORY: Denies pneumonia. Denies any troubles with breathing or dyspnea on exertion. CARDIOVASCULAR: Past chest pain, palpitations, or recent heart attacks. Has congestive heart failure. History of SVT. GASTROINTESTINAL: Has change in bowel habits and gas bloat. GENITOURINARY: Has chronic kidney disease. NEUROLOGICAL: Has numbness or tingling along the distal extremities. Has seizure disorders. MUSCULOSKELETAL: Has back pain, stiffness or joint arthritis. Has fibromyalgia. SKIN: No current skin cancer. No rash. PSYCHIATRIC: Has depression. Has anxiety. ENDOCRINE: Denies current thyroid disorders. Has blood sugar glucose intolerance. HEME/LYMPHATIC: Denies any lumps and bumps around the neck. No recent deep venous thrombosis. ALLERGY/IMMUNOLOGY: No immunoglobulin therapy. No immune deficiencies. BREAST: Past breast cancer. PHYSICAL EXAM: VITALS: Reviewed CONSTITUTIONAL: Well developed and in no acute distress. EYES: Conjuctivae without sclera icterus. Extraocular movements grossly intact. HEAD, EARS, NOSE, THROAT: Dry buccal mucosa. Head is atraumatic, normocephalic. Hears conversational speech. No nasal drainage. NG present NECK: No thyroidomegaly. RESPIRATORY: Non-labored respirations and equal bilateral excursions. No gross wheezes. CARDIOVASCULAR: 2+ radial pulses. ABDOMEN: Protuberant without peritonitis. MUSCULOSKELETAL: Range of motion bilateral upper extremities within normal limits. Nail and fingers with good capillary refill. SKIN: Warm and well perfused with good skin turgor. NEUROLOGIC: Cranial nerves II through XII grossly intact. Sensation upper and extremities intact. No focal or lateralizing signs. PSYCH: Appropriate affect. Alert and oriented to person, place and time. Displays appropriate insight. CLINCAL LABS: Reviewed. WBC 8.7. Hgb 11.2. RECORDS: previous old records reviewed with conservative management previous admission Aug 2018. ASSESSMENT: 1. Small bowel obstruction 2. Morbid obesity PLAN: 1. Recommend follow-up abdominal x-ray. 2. May have ice chips and popsicles in the interim. 3. Clinically bowel obstruction and abdominal pain has improved. 4. Recommend IV fluid hydration with 1-L bolus. 5. Medicine consultation for multiple medical comorbidities Past Medical History Past Medical History: GERD/Reflux, Hypertension, Osteoarthritis (OA), Sleep Apnea/CPAP/BIPAP Additional Past Medical History / Comment(s): no cpap used, hx perforated bowel- has colostomy, diverticulitis, gout, frequent leg swelling, pt reports balance issues. History of Any Multi-Drug Resistant Organisms: None Reported Past Surgical History: Bowel Resection, Cholecystectomy, Hernia Repair, Hysterectomy, Joint Replacement, Orthopedic Surgery, Tonsillectomy Additional Past Surgical History / Comment(s): perforated bowel/colostomy, right and left knee replaced, left wrist carpal tunnel repair Past Anesthesia/Blood Transfusion Reactions: No Reported Reaction Past Psychological History: No Psychological Hx Reported Smoking Status: Former smoker Past Alcohol Use History: None Reported Additional Past Alcohol Use History / Comment(s): quit smoking 1982, smoked for 20 yrs, "casual smoker" Past Drug Use History: None Reported - Past Family History Sister(s) Family Medical History: Cancer Father Family Medical History: Diabetes Mellitus, Hypertension Medications and Allergies Home Medications Medication Instructions Recorded Confirmed Type Furosemide [Lasix] 20 mg PO DAILY 08/27/16 08/15/20 History Lisinopril-Hctz 20-25 mg 2 tab PO DAILY 08/27/16 08/15/20 History [Zestoretic 20-25] Multivitamins, Thera [Multivitamin 1 tab PO DAILY 08/27/16 08/15/20 History (formulary)] allopurinoL [Zyloprim] 300 mg PO DAILY 08/27/16 08/15/20 History DULoxetine HCL [Cymbalta] 30 mg PO HS 11/09/17 08/15/20 History Calcium Carbonate [Calcium] 600 mg PO DAILY 08/25/18 08/15/20 History Diclofenac Sodium [Diclofenac 100 mg PO DAILY 08/25/18 08/15/20 History Sodium ER] HYDROcodone/APAP 5-325MG [[place] 1 tab PO DAILY 08/25/18 08/15/20 History 5-325] Omeprazole 40 mg PO DAILY 08/25/18 08/15/20 History Oxybutynin Chloride [Ditropan XL] 10 mg PO DAILY 08/25/18 08/15/20 History Potassium Chloride ER [K-Dur 20] 20 meq PO DAILY 08/25/18 08/15/20 History Albuterol Inhaler [Ventolin Hfa 1 puff INHALATION RT-QID PRN 08/15/20 08/15/20 History Inhaler] Cetirizine HCl [Zyrtec] 10 mg PO DAILY 08/15/20 08/15/20 History Fluticasone Nasal [place] [Flonase 1 spray EA NOSTRIL DAILY 08/15/20 08/15/20 History Nasal [place]] Magnesium 250 mg PO DAILY 08/15/20 08/15/20 History metFORMIN HCL [Glucophage] 1,000 mg PO BID 08/15/20 08/15/20 History Allergies Allergy/AdvReac Type Severity Reaction Status Date / Time latex Allergy Rash/Hives Verified 08/15/20 08:35 DUST,POLLEN AdvReac SNEEZING Uncoded 08/15/20 03:47 Surgical - Exam Vital Signs Temp Pulse Resp BP Pulse Ox 98.0 F 92 18 155/88 88 L 08/15/20 03:46 08/15/20 03:46 08/15/20 03:46 08/15/20 03:46 08/15/20 03:46 Results - Labs 08/15/20 13:07 08/15/20 13:07 Abnormal Lab Results - Last 24 Hours (Table) 08/15/20 08/15/20 Range/Units 13:07 13:07 Hgb 11.2 L (11.4-16.0) gm/dL MCH 24.9 L (25.0-35.0) pg MCHC 29.4 L (31.0-37.0) g/dL RDW 17.3 H (11.5-15.5) % Sodium 131 L (137-145) mmol/L Chloride 90 L (98-107) mmol/L Carbon Dioxide 38 H (22-30) mmol/L BUN 19 H (7-17) mg/dL Glucose 121 H (74-99) mg/dL Total Protein 6.0 L (6.3-8.2) g/dL Diabetes panel 08/15/20 Range/Units 13:07 Sodium 131 L (137-145) mmol/L Potassium 4.5 (3.5-5.1) mmol/L Chloride 90 L (98-107) mmol/L Carbon Dioxide 38 H (22-30) mmol/L BUN 19 H (7-17) mg/dL Creatinine 0.71 (0.52-1.04) mg/dL Glucose 121 H (74-99) mg/dL Calcium 9.9 (8.4-10.2) mg/dL AST 22 (14-36) U/L ALT 22 (4-34) U/L Alkaline Phosphatase 52 (38-126) U/L Total Protein 6.0 L (6.3-8.2) g/dL Albumin 3.5 (3.5-5.0) g/dL Calcium panel 08/15/20 Range/Units 13:07 Calcium 9.9 (8.4-10.2) mg/dL Albumin 3.5 (3.5-5.0) g/dL Pituitary panel 08/15/20 Range/Units 13:07 Sodium 131 L (137-145) mmol/L Potassium 4.5 (3.5-5.1) mmol/L Chloride 90 L (98-107) mmol/L Carbon Dioxide 38 H (22-30) mmol/L BUN 19 H (7-17) mg/dL Creatinine 0.71 (0.52-1.04) mg/dL Glucose 121 H (74-99) mg/dL Calcium 9.9 (8.4-10.2) mg/dL Adrenal panel 08/15/20 Range/Units 13:07 Sodium 131 L (137-145) mmol/L Potassium 4.5 (3.5-5.1) mmol/L Chloride 90 L (98-107) mmol/L Carbon Dioxide 38 H (22-30) mmol/L BUN 19 H (7-17) mg/dL Creatinine 0.71 (0.52-1.04) mg/dL Glucose 121 H (74-99) mg/dL Calcium 9.9 (8.4-10.2) mg/dL Total Bilirubin 0.5 (0.2-1.3) mg/dL AST 22 (14-36) U/L ALT 22 (4-34) U/L Alkaline Phosphatase 52 (38-126) U/L Total Protein 6.0 L (6.3-8.2) g/dL Albumin 3.5 (3.5-5.0) g/dL Assessment and Plan (1) Morbid obesity due to excess calories Current Visit: Yes Status: Acute Code(s): E66.01 - MORBID (SEVERE) OBESITY DUE TO EXCESS CALORIES SNOMED Code(s): 099879394 (2) Abdominal pain Current Visit: Yes Status: Acute Code(s): R10.9 - UNSPECIFIED ABDOMINAL PAIN SNOMED Code(s): 56871579 (3) SBO (small bowel obstruction) Current Visit: Yes Status: Acute Code(s): K56.609 - UNSP INTESTNL OBST, UNSP TO PARTIAL VERSUS COMPLETE OBST SNOMED Code(s): 417381939
[2020-08-15] MEDS: MORPHINE SULFATE 4 MG/ML SYRINGE IVP PRN ×2 (15:31→21:46)
--- NOTE | 2020-08-15 15:40 | XR ---
EXAM: XR Abdomen, 2 Views CLINICAL HISTORY: ITS.REASON XR Reason: bowel obstruction TECHNIQUE: Frontal view of the abdomen/pelvis with upright view of the abdomen. COMPARISON: None FINDINGS: Hardware: Enteric tube terminates in the region of the stomach. Abdomen: Dilated gas-filled small bowel loops, concerning for small bowel obstruction. There appears to be dilated gas-filled small bowel loops, possibly herniated within soft tissues the left lower abdomen. No free air. Bones: Degenerative changes of the spine. Soft tissues: Normal. Lower lungs: Patchy opacities. Other: Excreted contrast in the urinary bladder. Cholecystectomy clips in the right upper quadrant. IMPRESSION: 1. Dilated gas-filled small bowel loops, concerning for small bowel obstruction. There appears to be dilated gas-filled small bowel loops, possibly herniated within soft tissues the left lower abdomen. Further evaluation could be performed to CT. 2. Enteric tube terminates in the region of the stomach.
[2020-08-15] MEDS: ONDANSETRON 4 MG/2 ML VIAL IVP PRN (16:39)
[2020-08-16] MEDS: DEXTROSE 5%-0.45% NACL 1,000 ML IV SCH ×2 (03:04→15:50)
[2020-08-16 05:22] LABS: Anisocytosis Slight; Basophils % (A) 0 %; Eosinophils # (A) 0.1 k/uL (0-0.7); Eosinophils % (A) 1 %; HCT 36.2 % (34.0-46.0); HGB 10.8 gm/dL (11.4-16.0); Hypochromasia Marked; Lymphocytes # (A) 1.1 k/uL (1.0-4.8); Lymphocytes % (A) 14 %; MCH 25.3 pg (25.0-35.0); MCHC 29.8 g/dL (31.0-37.0); MCV 84.7 fL (80.0-100.0); Mean Platelet Volume 8.2; Monocytes # (A) 0.6 k/uL (0-1.0); Monocytes % (A) 8 %; Neutrophils # (A) 5.5 k/uL (1.3-7.7); Neutrophils % (A) 74 %; Platelet Count 386 k/uL (150-450); RBC 4.27 m/uL (3.80-5.40); RDW 16.9 % (11.5-15.5); WBC 7.5 k/uL (3.8-10.6)
[2020-08-16] MEDS: PANTOPRAZOLE 40 MG/10 ML VIAL IVP SCH (07:21)
--- NOTE | 2020-08-16 08:48 | XR ---
EXAMINATION TYPE: XR abdomen 2V DATE OF EXAM: 08/16/2020 CLINICAL DATA: 70-year-old female with bowel obstruction, [facility] COMPARISON: CT 08/15/2020 and radiograph FINDINGS: Large protuberance of dilated small bowel projecting towards the left. Small bowel loops are dilated severely up to 7.0 cm versus 6.8 cm, previously. Overall paucity of colonic air. Small amount of air may be present in the right side of the colon. NG tube is present. Cholecystectomy clips. IMPRESSION: Continued severe small bowel obstruction secondary to transition points involving multipl e anterior abdominal wall hernias. Small bowel loops measure up to 7.0 cm now.
[2020-08-16 09:22] LABS: African American GFR (CKD) 103.2 (60.0-200.0); Albumin 3.6 g/dL (3.80-4.90); Albumin/Globulin Ratio 2.25 (1.60-3.17); Anion Gap 4.9 mmol/L (4.00-12.00); BUN/Creat Ratio 24.29 Ratio (12.00-20.00); Calcium 9.1 mg/dL (8.7-10.3); Carbon Dioxide 35.1 mmol/L (21.6-31.8); Globulin 1.6 g/dL (1.6-3.3); Phosphorus 3.8 mg/dL (2.4-5.1); Potassium 4.4 mmol/L (3.5-5.5); Total Bilirubin 0.3 mg/dL (0.2-1.2); Total Protein 5.2 g/dL (6.2-8.2)
[2020-08-16] MEDS ORDERED: ALBUTEROL NEBULIZED 2.5 MG/3 ML INHALATION PRN (12:22)
--- NOTE | 2020-08-16 12:32 | P.PN ---
Subjective Progress Note Date: 08/16/20 CHIEF COMPLAINT: Small bowel obstruction HISTORY OF PRESENT ILLNESS: The patient is a 70 year old female with multiple medical co-morbidities including previous bowel perforation with bowel resection who presents as transfer from outside hospital secondary to small bowel obstruction. Since admission, she does report passage of flatus which is improved. She did have an acute episode of crampy abdominal pain yesterday but improved today. She has pre-existing history of multiple abdominal wall herni as. Past bowel obstruction was treated with conservative management. She reports that her pain is stable. REVIEW OF ORGAN SYSTEMS: No chest pain. No productive sputum. No nausea and vomiting. PHYSICAL EXAM: VITALS: Reviewed CONSTITUTIONAL: Well developed and in no acute distress. EYES: Conjuctivae without sclera icterus. Extraocular movements grossly intact. HEAD, EARS, NOSE, THROAT: Dry buccal mucosa. Head is atraumatic, normocephalic. Hears conversational speech. No nasal drainage. NG present NECK: No thyroidomegaly. RESPIRATORY: Non-labored respirations and equal bilateral excursions. No gross wheezes. CARDIOVASCULAR: 2+ radial pulses. ABDOMEN: Multiple large abdominal wall hernias with ostomy along the left lower quadrant. Well-healed midline incision. Abdomen is protuberant. MUSCULOSKELETAL: Range of motion bilateral upper extremities within normal limits. Nail and fingers with good capillary refill. SKIN: Warm and well perfused with good skin turgor. NEUROLOGIC: Cranial nerves II through XII grossly intact. Sensation upper and extremities intact. No focal or lateralizing signs. PSYCH: Appropriate affect. Alert and oriented to person, place and time. Displays appropriate insight. CLINCAL LABS: Reviewed. WBC 8.7 now 7.5 and normal. Hemoglobin to 11.2-10.8. Creatinine within normal limits. ASSESSMENT: 1. Small bowel obstruction 2. Morbid obesity 3. Multiple abdominal wall hernias with ostomy PLAN: 1. With patient's multiple abdominal wall hernias, she is high surgical risk for any surgical procedures including with her morbid obesity. 2. She reports in the past her small bowel obstruction improved with conservative management. 3. In the anticipation for prolonged nothing by mouth status, PICC line and TPN order with dietitian consultation 4. Medicine consultation for multiple medical comorbidities 5. I personally reviewed her medical reconciliation with selective home medications resumed. 6. Will obtain follow-up CT of the abdomen and pelvis as abdominal x-rays are limited due to her morbid obesity 7. Inpatient hospitalization over 5 nights described 8. Care plan reviewed with the patient for which she is agreeable with the plan. Objective - Vital Signs Vital signs: Vital Signs Temp 97.5 F L 08/16/20 07:54 Pulse 83 08/16/20 07:54 Resp 18 08/16/20 07:54 BP 127/78 08/16/20 07:54 Pulse Ox 98 08/16/20 07:54 Intake & Output 08/15/20 08/16/20 08/16/20 18:59 06:59 18:59 Intake Total 1140 Output Total 750 850 Balance -750 290 Weight 136.078 kg Intake: Intake, IV Titration 1080 Amount Dextrose 5%-0.45% NaCl 1, 1080 000 ml @ 90 mls/hr IV . Q11H7M [facility] Rx#:[id number] Oral 0 Other 60 Output: Gastric Drainage 550 550 Urine 200 300 Other: Voiding Method Bedside Commode # Voids 1 - Labs CBC & Chem 7: 08/16/20 05:07 08/16/20 05:07 Labs: Abnormal Lab Results - Last 24 Hours (Table) 08/15/20 08/15/20 08/16/20 Range/Units 13:07 13:07 05:07 Hgb 11.2 L 10.8 L (11.4-16.0) gm/dL MCH 24.9 L (25.0-35.0) pg MCHC 29.4 L 29.8 L (31.0-37.0) g/dL RDW 17.3 H 16.9 H (11.5-15.5) % Sodium 131 L (137-145) mmol/L Chloride 90 L (98-107) mmol/L Carbon Dioxide 38 H (22-30) mmol/L BUN 19 H (7-17) mg/dL BUN/Creatinine Ratio (12.00-20.00) Ratio Glucose 121 H (74-99) mg/dL Magnesium (1.5-2.4) mg/dL Total Protein 6.0 L (6.3-8.2) g/dL Albumin (3.80-4.90) g/dL 08/16/20 Range/Units 05:07 Hgb (11.4-16.0) gm/dL MCH (25.0-35.0) pg MCHC (31.0-37.0) g/dL RDW (11.5-15.5) % Sodium 134 L (137-145) mmol/L Chloride 94 L (98-107) mmol/L Carbon Dioxide 35.1 H (22-30) mmol/L BUN (7-17) mg/dL BUN/Creatinine Ratio 24.29 H (12.00-20.00) Ratio Glucose 120 H (74-99) mg/dL Magnesium 1.0 L (1.5-2.4) mg/dL Total Protein 5.2 L (6.3-8.2) g/dL Albumin 3.60 L (3.80-4.90) g/dL Assessment and Plan (1) Morbid obesity due to excess calories Current Visit: Yes Status: Acute Code(s): E66.01 - MORBID (SEVERE) OBESITY DUE TO EXCESS CALORIES SNOMED Code(s): 331636555 (2) Abdominal pain Current Visit: Yes Status: Acute Code(s): R10.9 - UNSPECIFIED ABDOMINAL PAIN SNOMED Code(s): 00055194 (3) SBO (small bowel obstruction) Current Visit: Yes Status: Acute Code(s): K56.609 - UNSP INTESTNL OBST, UNSP TO PARTIAL VERSUS COMPLETE OBST SNOMED Code(s): 308997304 (4) Ventral hernia with bowel obstruction Current Visit: Yes Status: Acute Code(s): K43.6 - OTHER AND UNSP VENTRAL HERNIA WITH OBSTRUCTION, W/O GANGRENE SNOMED Code(s): 596011673
[2020-08-16] MEDS: IOPAMIDOL CONTRAST (ORAL USE) VIAL PO PRN ×2 (13:20→14:16)
--- NOTE | 2020-08-16 15:46 | CT ---
EXAMINATION TYPE: CT abdomen pelvis w con DATE OF EXAM: 08/16/2020 COMPARISON: Yesterday HISTORY: Abdominal pain w/bowel obstruction. Pt strapped in attempt to get all of belly overhang in v iew. CT DLP: 2407.30 mGycm Automated exposure control for dose reduction was used. CONTRAST: Performed with IV Contrast, patient injected with 100 mL of Isovue 300. Heart is enlarged. There is some patchy atelectasis at the lung bases. There is no pericardial effusi on. There are small calcified splenic granulomata. Liver and spleen appear intact. The bile ducts are not dilated. The stomach is intact. There are multiple ventral hernias that contain multiple loops of bowel. There are dilated loops of s mall bowel that measure up to 6 cm. It is difficult to determine which hernia is causing mechanical s mall bowel obstruction. There is some oral contrast in the stomach and the proximal small bowel. The oral contrast does not reach the dilated bowel loops. There is no adrenal mass. Kidneys show satisfactory contrast opacification. There is no hydronephrosi s. Bladder distends smoothly. There is no inguinal hernia. There is no free fluid in the pelvis. There are multilevel spondylotic changes in the lumbar spine with multilevel bony spinal stenosis in the lower lumbar spine. There is colostomy in the left lower quadrant. IMPRESSION: There are approximately 4 incarcerated ventral hernias on the anterior abdominal wall not changed com pared to yesterday. Dilated small bowel consistent with mechanical small bowel obstruction not signif icantly different than yesterday. No free air. Transition point is not localized.
[2020-08-16] MEDS: MAGNESIUM SULFATE-D5W PMX 1 GM in DEXTROSE/WATER 1 100ML.BAG IVPB SCH ×3 (15:50→19:47)
--- NOTE | 2020-08-16 15:53 | P.CONS ---
History of Present Illness - Reason for Consult Consult date: 08/16/20 medical management Requesting physician: Brandy James - Chief Complaint abdominal pain - History of Present Illness Patient is a 70-year-old female history of hypertension, osteoarthritis, prior perforated bowel requiring colostomy secondary to diverticulitis, gout, and balance issues who presented to our emergency department as a transfer from outside hospital with complaints of abdominal pain and small bowel obstruction. She was initially admitted to surgery and had an NG tube placed. She had increased NG output and repeat CT abd and pelvis as ordered as patient's x-ray suboptimal due to body habitus. Patient seen and examined at bedside. She states that her symptoms initially started 2 weeks prior to hospitalization when she was having intermittent loose stools and hard stools. She then developed some intermittent abdominal cramping which was nonresponsive to her typical [place], and Cymbalta. However on Tangent Peg her pain became much more intense and she therefore decided to seek medical care. She has a history of recurrent bowel obstructions after extensive surgery resulting in colostomy for ruptured diverticulum. She then developed multiple abdominal wall hernia. She states her last hospitalization for bowel obstruction was approximately 2 years ago and was treated conservatively with good results. Review of Systems Pertinent positives and negatives as discussed in HPI, a complete review of sy stems was performed and all other systems are negative. Past Medical History Past Medical History: GERD/Reflux, Hypertension, Osteoarthritis (OA), Sleep Apnea/CPAP/BIPAP Additional Past Medical History / Comment(s): no cpap used, hx perforated bowel- has colostomy, diverticulitis, gout, frequent leg swelling, pt reports balance issues, borderline diabetes, chronic pain due to arthritis, over active bladder History of Any Multi-Drug Resistant Organisms: None Reported Past Surgical History: Bowel Resection, Cholecystectomy, Hernia Repair, Hysterectomy, Joint Replacement, Orthopedic Surgery, Tonsillectomy Additional Past Surgical History / Comment(s): perforated bowel/colostomy, right and left knee replaced, left wrist carpal tunnel repair Past Anesthesia/Blood Transfusion Reactions: No Reported Reaction Past Psychological History: No Psychological Hx Reported Smoking Status: Former smoker Past Alcohol Use History: None Reported Additional Past Alcohol Use History / Comment(s): quit smoking 1982, smoked for 20 yrs, "casual smoker" Past Drug Use History: None Reported Additional History: Uses a walker at home - Past Family History Sister(s) Family Medical History: Cancer Father Family Medical History: Diabetes Mellitus, Hypertension Medications and Allergies Home Medications Medication Instructions Recorded Confirmed Type Furosemide [Lasix] 20 mg PO DAILY 08/27/16 08/15/20 History Lisinopril-Hctz 20-25 mg 2 tab PO DAILY 08/27/16 08/15/20 History [Zestoretic 20-25] Multivitamins, Thera [Multivitamin 1 tab PO DAILY 08/27/16 08/15/20 History (formulary)] allopurinoL [Zyloprim] 300 mg PO DAILY 08/27/16 08/15/20 History DULoxetine HCL [Cymbalta] 30 mg PO HS 11/09/17 08/15/20 History Calcium Carbonate [Calcium] 600 mg PO DAILY 08/25/18 08/15/20 History Diclofenac Sodium [Diclofenac 100 mg PO DAILY 08/25/18 08/15/20 History Sodium ER] HYDROcodone/APAP 5-325MG [[place] 1 tab PO DAILY 08/25/18 08/15/20 History 5-325] Omeprazole 40 mg PO DAILY 08/25/18 08/15/20 History Oxybutynin Chloride [Ditropan XL] 10 mg PO DAILY 08/25/18 08/15/20 History Potassium Chloride ER [K-Dur 20] 20 meq PO DAILY 08/25/18 08/15/20 History Albuterol Inhaler [Ventolin Hfa 1 puff INHALATION RT-QID PRN 08/15/20 08/15/20 History Inhaler] Cetirizine HCl [Zyrtec] 10 mg PO DAILY 08/15/20 08/15/20 History Fluticasone Nasal [place] [Flonase 1 spray EA NOSTRIL DAILY 08/15/20 08/15/20 History Nasal [place]] Magnesium 250 mg PO DAILY 08/15/20 08/15/20 History metFORMIN HCL [Glucophage] 1,000 mg PO BID 08/15/20 08/15/20 History Allergies Allergy/AdvReac Type Severity Reaction Status Date / Time latex Allergy Rash/Hives Verified 08/15/20 08:35 DUST,POLLEN AdvReac SNEEZING Uncoded 08/15/20 03:47 Physical Exam Osteopathic Statement: *. No significant issues noted on an osteopathic structural exam other than those noted in the History and Physical/Consult. Vitals: Vital Signs Temp Pulse Resp BP Pulse Ox 08/16/20 07:54 97.5 F L 83 18 127/78 98 08/16/20 02:07 97.3 F L 85 18 131/77 96 08/15/20 20:00 83 20 08/15/20 19:38 97.7 F 83 20 137/81 97 Intake and Output 08/15/20 08/16/20 08/16/20 22:59 06:59 14:59 Intake Total 30 1110 Output Total 750 850 Balance -720 260 Intake: Intake, IV Titration 1080 Amount Dextrose 5%-0.45% NaCl 1, 1080 000 ml @ 90 mls/hr IV . Q11H7M [facility] Rx#:[id number] Oral 0 Other 30 30 Output: Gastric Drainage 550 550 Urine 200 300 Other: Voiding Method Bedside Commode Weight 136.078 kg General: non toxic, mild distress, appears older than stated age Derm: warm, dry Head: atraumatic, normocephalic, symmetric Eyes: EOMI, no lid lag, anicteric sclera, pupils equal round reactive to light ENT: Nose and ears atraumatic, no thrush, no pharyngeal erythema Neck: No thyromegaly, no cervical lymphadenopathy, trachea midline, supple Mouth: no lip lesion, mucus membranes moist Cardiovascular: S1S2 reg, no murmur, positive posterior tibial pulse bilateral, 2+ non pitting edema, capillary refill less than 2 seconds Lungs: Decreased bs bilateral, no ronchi, no rales, no wheeze, no accessory muscle use Abdominal: soft, + tender to palpation periepigastric, no guarding, no appreciable organomegaly, normal bowel sounds, multiple abdominal wall hematoma Ext: no gross muscle atrophy, muscle strength muscle strength 5 out of 5 in all 4 extremities, no contractures Neuro: CN II-XI grossly intact, light touch intact all 4 extremities, finger to nose within normal limits, Psych: Alert, oriented, appropriate affect Results CBC & Chem 7: 08/16/20 05:07 08/16/20 05:07 Labs: Abnormal Lab Results - Last 24 Hours (Table) 08/16/20 08/16/20 Range/Units 05:07 05:07 Hgb 10.8 L (11.4-16.0) gm/dL MCHC 29.8 L (31.0-37.0) g/dL RDW 16.9 H (11.5-15.5) % Sodium 134 L (135-145) mmol/L Chloride 94 L (96-109) mmol/L Carbon Dioxide 35.1 H (21.6-31.8) mmol/L BUN/Creatinine Ratio 24.29 H (12.00-20.00) Ratio Glucose 120 H (70-110) mg/dL Magnesium 1.0 L (1.5-2.4) mg/dL Total Protein 5.2 L (6.2-8.2) g/dL Albumin 3.60 L (3.80-4.90) g/dL CT scan - abdomen: report reviewed CT scan - pelvis: report reviewed Assessment and Plan Assessment: Small bowel obstruction - NPO, NGT per surgery - Pain control - Plan is for conservative mgt - Orders for PICC line and TPN placed by surgery Hypertension - resume home meds - follow BP GERD - PPI Hypomagnesemia - Replace and check in AM Morbid obesity with BMI 45.9 - outpatient structured weight loss Multiple abdominal wall hernias - chronic and unchaging Prediabetes - hold metformin and start SSI - check A1C Hyponatremia, likely due to dehydration - improved - follow BMP Thank you for allowing us to participate in the care of this pleasant patient. Do not hesitate to contact us with questions. Someone can be reached from the [facility] hospitalist group all hours of the day at [phone] or via perfect serve.
[2020-08-16] MEDS: INSULIN ASPART (NovoLOG) 100 UNIT/ML VIAL SQ SCH ×2 (17:06→23:34)
[2020-08-16] MEDS: allopurinoL 300 MG TAB PO SCH (17:10)
[2020-08-16] MEDS: MORPHINE SULFATE 4 MG/ML SYRINGE IVP PRN (19:48)
[2020-08-16] MEDS: ENOXAPARIN 40 MG/0.4 ML SYRINGE SQ SCH (19:48)
[2020-08-16] MEDS: DULoxetine HCL 30 MG CAPSULE.DR PO SCH (19:48)
[2020-08-16] MEDS: ONDANSETRON 4 MG/2 ML VIAL IVP PRN (19:54)
[2020-08-17] MEDS: DEXTROSE 5%-0.45% NACL 1,000 ML IV SCH ×2 (00:53→09:52)
[2020-08-17] MEDS: MORPHINE SULFATE 4 MG/ML SYRINGE IVP PRN (01:18)
[2020-08-17] MEDS: INSULIN ASPART (NovoLOG) 100 UNIT/ML VIAL SQ SCH ×4 (05:41→23:45)
[2020-08-17 07:35] LABS: African American GFR (CKD) >90 (>60 ml/min/1.73 sqM); Anion Gap 1 mmol/L; Blood Urea Nitrogen 17 mg/dL (7-17); Calcium 9.1 mg/dL (8.4-10.2); Carbon Dioxide 34 mmol/L (22-30); Chloride 95 mmol/L (98-107); Glucose 127 mg/dL (74-99); Magnesium 1.6 mg/dL (1.6-2.3); Non-African American GFR(CKD) >90 (>60 ml/min/1.73 sqM); Phosphorus 2.6 mg/dL (2.5-4.5); Potassium 4.4 mmol/L (3.5-5.1); Sodium 130 mmol/L (137-145); Triglycerides 81 mg/dL (<150)
[2020-08-17 07:36] LABS: Anisocytosis Slight; HCT 34.6 % (34.0-46.0); HGB 10.8 gm/dL (11.4-16.0); Hypochromasia Moderate; MCH 26.2 pg (25.0-35.0); MCHC 31.4 g/dL (31.0-37.0); MCV 83.6 fL (80.0-100.0); Platelet Count 406 k/uL (150-450); RBC 4.13 m/uL (3.80-5.40); RDW 17.2 % (11.5-15.5); WBC 9.6 k/uL (3.8-10.6)
[2020-08-17] MEDS: ENOXAPARIN 40 MG/0.4 ML SYRINGE SQ SCH (07:39)
[2020-08-17] MEDS: PANTOPRAZOLE 40 MG/10 ML VIAL IVP SCH (07:39)
[2020-08-17] MEDS: FUROSEMIDE 10 MG/ML 2 ML VIAL IV SCH (07:39)
[2020-08-17] MEDS: allopurinoL 300 MG TAB PO SCH (07:40)
[2020-08-17] MEDS: ETODOLAC 300 MG CAPSULE PO SCH ×3 (07:40→19:34)
[2020-08-17] MEDS: OXYBUTYNIN 10 MG TAB.ER.24 PO SCH (07:40)
[2020-08-17] MEDS: LORATADINE 10 MG TAB PO SCH (07:40)
[2020-08-17 07:42] LABS: Ionized Calcium 4.9 mg/dL (4.5-5.3)
[2020-08-17] MEDS: FLUTICASONE 50MCG/SPRAY NASAL 16GM EA NOSTRIL SCH (08:00)
[2020-08-17] MEDS ORDERED: LISINOPRIL-HCTZ 20-25 MG 1 EACH TAB PO SCH (09:00)
[2020-08-17] MEDS: MAGNESIUM SULFATE-D5W PMX 1 GM in DEXTROSE/WATER 1 100ML.BAG IVPB SCH ×2 (09:52→11:03)
[2020-08-17 09:57] LABS: Glucose,Whole Blood 123 mg/dL (75-99)
--- NOTE | 2020-08-17 10:33 | P.PN ---
Subjective Progress Note Date: 08/17/20 CHIEF COMPLAINT: Small bowel obstruction HISTORY OF PRESENT ILLNESS: The patient is a 70 year old female with super morbid obesity, BMI 54.9, multiple pre-existing abdominal hernias, left lower quadrant ostomy, and history of recurrent small bowel obstructions was admitted for abdominal pain and small bowel obstruction. She reports her abdominal pain is moderately improved. She is passing more flatus in her ostomy today and since admission. REVIEW OF ORGAN SYSTEMS: No chest pain. No nausea and vomiting. PHYSICAL EXAM: VITALS: Reviewed CONSTITUTIONAL: Well developed and in no acute distress. EYES: Conjuctivae without sclera icterus. Extraocular movements grossly intact. HEAD, EARS, NOSE, THROAT: Dry buccal mucosa. Head is atraumatic, normocephalic. Hears conversational speech. No nasal drainage. NG present NECK: No thyroidomegaly. RESPIRATORY: Non-labored respirations and equal bilateral excursions. No gross wheezes. CARDIOVASCULAR: 2+ radial pulses. ABDOMEN: Multiple large abdominal wall hernias with ostomy along the left lower quadrant. Ostomy with stool and some flatus with parastomal hernia. MUSCULOSKELETAL: Range of motion bilateral upper extremities within normal limits. Nail and fingers with good capillary refill. SKIN: Warm and well perfused with good skin turgor. NEUROLOGIC: Cranial nerves II through XII grossly intact. Sensation upper and extremities intact. No focal or lateralizing signs. PSYCH: Appropriate affect. Alert and oriented to person, place and time. Displays appropriate insight. CLINCAL LABS: Reviewed. BSG 123 STUDIES: CT of the abdomen and pelvis independently reviewed with multiple abdominal wall hernias incorporating small bowel including parastomal hernia. Features are consistent with loss of domain. ASSESSMENT: 1. Small bowel obstruction 2. Morbid obesity, BMI 54.9 3. Multiple abdominal wall hernias with ostomy PLAN: 1. PICC line and TPN pending for prolonged NPO status 2. Clinically she has started to have stool and passage of flatus. 3. May need additional studies, pending clinical course. 4. Re-check electrolytes 5. Hospitalist consultation for multiple medical co-morbidities. Objective - Vital Signs Vital signs: Vital Signs Temp 98.5 F 08/17/20 07:58 Pulse 99 08/17/20 07:58 Resp 18 08/17/20 07:58 BP 146/70 08/17/20 07:58 Pulse Ox 94 L 08/17/20 07:58 Intake & Output 08/16/20 08/17/20 08/17/20 18:59 06:59 18:59 Intake Total 780 Output Total 350 1000 Balance -350 -220 Weight 136.078 kg Intake: Intake, IV Titration 720 Amount Dextrose 5%-0.45% NaCl 1, 720 000 ml @ 75 mls/hr IV . [id number] KYLE Rx#:[id number] Oral 60 Output: Gastric Drainage 350 1000 Other: Voiding Method Bedside Commode # Voids 3 1 1 - Labs CBC & Chem 7: 08/17/20 07:08 08/17/20 07:08 Labs: Abnormal Lab Results - Last 24 Hours (Table) 08/17/20 08/17/20 08/17/20 Range/Units 07:08 07:08 09:50 Hgb 10.8 L (11.4-16.0) gm/dL RDW 17.2 H (11.5-15.5) % Sodium 130 L (137-145) mmol/L Chloride 95 L (98-107) mmol/L Carbon Dioxide 34 H (22-30) mmol/L Creatinine 0.50 L (0.52-1.04) mg/dL Glucose 127 H (74-99) mg/dL POC Glucose (mg/dL) 123 H (75-99) mg/dL Assessment and Plan (1) Morbid obesity due to excess calories Current Visit: Yes Status: Acute Code(s): E66.01 - MORBID (SEVERE) OBESITY DUE TO EXCESS CALORIES SNOMED Code(s): 156824230 (2) Abdominal pain Current Visit: Yes Status: Acute Code(s): R10.9 - UNSPECIFIED ABDOMINAL PAIN SNOMED Code(s): 16172957 (3) SBO (small bowel obstruction) Current Visit: Yes Status: Acute Code(s): K56.609 - UNSP INTESTNL OBST, UNSP TO PARTIAL VERSUS COMPLETE OBST SNOMED Code(s): 975321686 (4) Ventral hernia with bowel obstruction Current Visit: Yes Status: Acute Code(s): K43.6 - OTHER AND UNSP VENTRAL HERNIA WITH OBSTRUCTION, W/O GANGRENE SNOMED Code(s): 983653706
[2020-08-17 13:43] LABS: Hemoglobin A1C 6.3 % (4.0-6.0)
[2020-08-17 15:30] LABS: Glucose,Whole Blood 90 mg/dL (75-99)
[2020-08-17 15:30] LABS: Glucose,Whole Blood 106 mg/dL (75-99)
[2020-08-17 15:31] LABS: Glucose,Whole Blood 113 mg/dL (75-99)
--- NOTE | 2020-08-17 16:28 | P.PN ---
Subjective Progress Note Date: 08/17/20 (delayed charting seen at 0830) Principal diagnosis: abdominal pain Patient is a 70-year-old female history of hypertension, osteoarthritis, prior perforated bowel requiring colostomy secondary to diverticulitis, gout, and balance issues who presented to our emergency department as a transfer from outside hospital with complaints of abdominal pain and small bowel obstruction. She was initially admitted to surgery and had an NG tube placed. She had increased NG output and repeat CT abd and pelvis as ordered as patient's x-ray suboptimal due to body habitus, CT showed minimal improvement in SBO. Hyponatremia continued to worsen, likely due to insensible losses from NGT in conjunction with need for D5 0.45 due to prolonged NPO status. Anticipate improvement once TPN initiated. Patient seen and examined at bedside. She continues to have some help with ostomy bag. She denies any nausea. Reports that her mouth feels dry. States that her abdominal pain seems better. General: non toxic, no distress, appears at stated age, obese Derm: warm, dry Head: atraumatic, normocephalic, symmetric Eyes: EOMI, no lid lag, anicteric sclera Mouth: no lip lesion, mucus membranes moist Cardiovascular: S1S2 reg, no murmur, positive posterior tibial pulse bilateral, Lungs: Decreased breath sounds bilateral, no rhonchi, no rales , no accessory muscle use Abdominal: soft, multiple large hernia, nontender to palpation, no guarding, no appreciable organomegaly Ext: no gross muscle atrophy, no edema, no contractures Neuro: CN II-XI grossly intact, no focal neuro deficits Psych: Alert, oriented, appropriate affect Small bowel obstruction - NPO, NGT per surgery - Pain control - Plan is for conservative mgt - Orders for PICC line and TPN placed by surgery Hyponatremia, likely due to dehydration - Hold HCTZ, optimize fluids - likely due to insensible losses from NGT in conjunction with need for D5 0.45 due to prolonged NPO status. Anticipate improvement once TPN initiated. Hypertension - Lisinopril, off Hctz due to hyponatremia - follow BP GERD - PPI Hypomagnesemia - Replace and check in AM Morbid obesity with BMI 45.9 - outpatient structured weight loss Multiple abdominal wall hernias - chronic and unchanging Prediabetes - hold metformin - SSI, follow BS - A1C 6.3 DVT prophylaxis: Lovenox Discussed with: Patient, nursing Anticipated discharge: per surgery Anticipated discharge place: home A total of minutes was spent on the care of this complex patient more than 50% of the time was spent in counseling and care coordination. Objective - Vital Signs Vital signs: Vital Signs Temp 97.4 F L 08/17/20 14:00 Pulse 84 08/17/20 14:00 Resp 18 08/17/20 14:00 BP 103/66 08/17/20 14:00 Pulse Ox 93 L 08/17/20 14:00 Intake & Output 08/16/20 08/17/20 08/17/20 18:59 06:59 18:59 Intake Total 780 Output Total 350 1000 900 Balance -350 -220 -900 Weight 136.078 kg Intake: Intake, IV Titration 720 Amount Dextrose 5%-0.45% NaCl 1, 720 000 ml @ 75 mls/hr IV . [id number] KYLE Rx#:[id number] Oral 60 Output: Gastric Drainage 350 1000 900 Other: Voiding Method Bedside Commode Bedside Commode # Voids 3 1 1 # Bowel Movements 1 - Labs CBC & Chem 7: 08/17/20 07:08 08/17/20 07:08 Labs: Abnormal Lab Results - Last 24 Hours (Table) 08/16/20 08/17/20 08/17/20 Range/Units 23:06 05:33 07:08 Hgb (11.4-16.0) gm/dL RDW (11.5-15.5) % Sodium (137-145) mmol/L Chloride (98-107) mmol/L Carbon Dioxide (22-30) mmol/L Creatinine (0.52-1.04) mg/dL Glucose (74-99) mg/dL POC Glucose (mg/dL) 113 H 106 H (75-99) mg/dL Hemoglobin A1c 6.3 H (4.0-6.0) % 08/17/20 08/17/20 08/17/20 Range/Units 07:08 07:08 09:50 Hgb 10.8 L (11.4-16.0) gm/dL RDW 17.2 H (11.5-15.5) % Sodium 130 L (137-145) mmol/L Chloride 95 L (98-107) mmol/L Carbon Dioxide 34 H (22-30) mmol/L Creatinine 0.50 L (0.52-1.04) mg/dL Glucose 127 H (74-99) mg/dL POC Glucose (mg/dL) 123 H (75-99) mg/dL Hemoglobin A1c (4.0-6.0) %
[2020-08-17 17:02] LABS: Glucose,Whole Blood 113 mg/dL (75-99)
[2020-08-17] MEDS: DULoxetine HCL 30 MG CAPSULE.DR PO SCH (19:34)
[2020-08-17 22:48] LABS: Glucose,Whole Blood 277 mg/dL (75-99)
[2020-08-18] MEDS: DEXTROSE 5%-0.45% NACL 1,000 ML IV SCH ×3 (01:10→20:00)
[2020-08-18 05:10] LABS: Glucose,Whole Blood 169 mg/dL (75-99)
[2020-08-18] MEDS: INSULIN ASPART (NovoLOG) 100 UNIT/ML VIAL SQ SCH ×4 (05:16→20:00)
[2020-08-18 06:54] LABS: Anisocytosis Slight; Basophils % (A) 0 %; Eosinophils # (A) 0.1 k/uL (0-0.7); Eosinophils % (A) 2 %; HCT 34.3 % (34.0-46.0); HGB 10.7 gm/dL (11.4-16.0); Hypochromasia Marked; Lymphocytes # (A) 0.9 k/uL (1.0-4.8); Lymphocytes % (A) 10 %; MCH 26.4 pg (25.0-35.0); MCHC 31.1 g/dL (31.0-37.0); MCV 84.8 fL (80.0-100.0); Mean Platelet Volume 6.9; Monocytes # (A) 0.6 k/uL (0-1.0); Monocytes % (A) 7 %; Neutrophils # (A) 6.5 k/uL (1.3-7.7); Neutrophils % (A) 78 %; Platelet Count 335 k/uL (150-450); RBC 4.05 m/uL (3.80-5.40); RDW 17.2 % (11.5-15.5); WBC 8.4 k/uL (3.8-10.6)
[2020-08-18] MEDS: ENOXAPARIN 40 MG/0.4 ML SYRINGE SQ SCH (07:41)
[2020-08-18] MEDS: FUROSEMIDE 10 MG/ML 2 ML VIAL IV SCH (08:26)
[2020-08-18] MEDS: allopurinoL 300 MG TAB PO SCH (08:26)
[2020-08-18] MEDS: PANTOPRAZOLE 40 MG/10 ML VIAL IVP SCH (08:26)
[2020-08-18] MEDS: ETODOLAC 300 MG CAPSULE PO SCH ×3 (08:27→20:00)
[2020-08-18] MEDS: LORATADINE 10 MG TAB PO SCH (08:27)
[2020-08-18] MEDS: FLUTICASONE 50MCG/SPRAY NASAL 16GM EA NOSTRIL SCH (08:27)
[2020-08-18] MEDS: OXYBUTYNIN 10 MG TAB.ER.24 PO SCH (08:27)
[2020-08-18] MEDS: lisinopriL 20 MG TAB PO SCH (08:27)
[2020-08-18 09:53] LABS: African American GFR (CKD) 115.3 (60.0-200.0); Calcium 8.8 mg/dL (8.7-10.3); Magnesium 1.6 mg/dL (1.5-2.4); Non-African American GFR(CKD) 99.4 (60.0-200.0); Phosphorus 2.4 mg/dL (2.4-5.1); Potassium 3.9 mmol/L (3.5-5.5)
[2020-08-18 11:38] LABS: Glucose,Whole Blood 115 mg/dL (75-99)
[2020-08-18] MEDS ORDERED: LIDOCAINE 1% INJ 10MG/ML (20 ML MDV) SQ ONE (13:34)
--- NOTE | 2020-08-18 14:05 | P.PN ---
Progress Note - Text Progress Note Date: 08/18/20 The patient is resting comfortably rebound. She's had a small amount of flatus through her ileostomy bag. On exam her lesser stable. Abdomen soft. Abdomen obese. There is multiple incisional hernias. There is no rebound tenderness. Partial small bowel obstruction. Patient has had some flatus and her ileostomy. She'll continue to be observed.
[2020-08-18] MEDS: FAT EMULSION 20% 250 ML IV SCH (15:00)
[2020-08-18] MEDS ORDERED: MVI, ADULT NO.4 WITH VIT K 10 ML, TRACE (CONC-1ML/DOSE) 1 ML, MAGNESIUM SULFATE GM 1 GM... IV ONE ×4 (15:00)
--- NOTE | 2020-08-18 15:50 | IR ---
EXAMINATION TYPE: IR cvc insert >=5 years DATE OF EXAM: 08/18/2020 COMPARISON: NONE CLINICAL HISTORY: Small bowel obstruction Needs long-term intravenous access for antibiotics, therapy . PROCEDURE: Hand hygiene obtained with soap and water and alcohol-based hand rub. After informed consent, the skin overlying the left brachial vein was localized with ultrasound and n oted to be compressible and patent. An ultrasound image was obtained and submitted on the patient's chart. The overlying skin was prepped and draped and Lidocaine was used for local anesthesia. A ski n robert was made with a scalpel. Access was gained to the vein under ultrasound guidance with a 21 ga uge needle and a 0.018 inch wire was advanced. Access site was dilated with Peel-Away sheath and cat heter tailored to the appropriate length and advanced such that the distal tip is at the cavoatrial j unction. Spot image was obtained verifying placement. Catheter was fixed to the skin and a sterile dressing was placed following hemostasis. Catheter was aspirated and flushed with saline. Patient w as discharged in stable condition without complication.Maximal barrier technique is utilized. Ultras ound image is documented on the chart. Ultrasound used with sterile technique. Fluoro time and fluoroscopic images submitted to document procedure: 0.3 minutes fluoroscopy time, 8 intraoperative images document the procedure IMPRESSION: STATUS POST ULTRASOUND AND FLUOROSCOPIC GUIDED PICC LINE PLACEMENT, READY FOR USE. THIS PROCEDURE WAS PERFORMED BY THE UNDERSIGNED.
[2020-08-18] MEDS: MAGNESIUM SULFATE-D5W PMX 1 GM in DEXTROSE/WATER 1 100ML.BAG IVPB SCH ×2 (16:49→18:06)
[2020-08-18 17:07] LABS: Glucose,Whole Blood 110 mg/dL (75-99)
--- NOTE | 2020-08-18 18:16 | P.PN ---
Subjective Progress Note Date: 08/18/20 The patient was seen and examined at the bedside on 08/18. She reported improvement in her abdominal pain since admission. Denied fever, chills, cough, chest pain, shortness of breath. Objective - Vital Signs Vital signs: Vital Signs Temp 98.2 F 08/18/20 14:35 Pulse 83 08/18/20 14:35 Resp 17 08/18/20 14:35 BP 105/67 08/18/20 14:35 Pulse Ox 93 L 08/18/20 14:35 Intake & Output 08/17/20 08/18/20 08/18/20 18:59 06:59 18:59 Output Total 1250 550 750 Balance -1250 -550 -750 Output: Gastric Drainage 1250 550 400 Urine 350 Other: Voiding Method Bedside Commode Bedside Commode # Voids 1 # Bowel Movements 1 - Exam General: Chronically ill-appearing female, in no acute distress, appears older than stated age, morbidly obese HEENT: NC/AT, anicteric sclerae, moist conjunctiva, no lid-lag, PERRLA Cardiovascular: S1/S2 wnl, no murmurs, rubs, or gallops Lungs: Clear to auscultation, normal respiratory effort, no accessory muscle use Abdominal: Soft, multiple large hernias, colostomy bag in place with brown stool Skin: Warm, dry Extremities: No edema or contractures Psychiatric: Alert and oriented to person, place and time, appropriate affect Neuro: Moving all extremities, no focal deficits noted - Labs CBC & Chem 7: 08/18/20 06:04 08/18/20 06:04 Labs: Abnormal Lab Results - Last 24 Hours (Table) 08/17/20 08/18/20 08/18/20 Range/Units 22:47 05:09 06:04 Hgb (11.4-16.0) gm/dL RDW (11.5-15.5) % Lymphocytes # (1.0-4.8) k/uL Sodium 133 L (135-145) mmol/L Chloride 94 L (96-109) mmol/L Carbon Dioxide 32.0 H (21.6-31.8) mmol/L Creatinine 0.5 L (0.6-1.5) mg/dL BUN/Creatinine Ratio 34.00 H (12.00-20.00) Ratio POC Glucose (mg/dL) 277 H 169 H (75-99) mg/dL 08/18/20 08/18/20 08/18/20 Range/Units 06:04 11:34 17:03 Hgb 10.7 L (11.4-16.0) gm/dL RDW 17.2 H (11.5-15.5) % Lymphocytes # 0.9 L (1.0-4.8) k/uL Sodium (135-145) mmol/L Chloride (96-109) mmol/L Carbon Dioxide (21.6-31.8) mmol/L Creatinine (0.6-1.5) mg/dL BUN/Creatinine Ratio (12.00-20.00) Ratio POC Glucose (mg/dL) 115 H 110 H (75-99) mg/dL Assessment and Plan Plan: Small bowel obstruction - NPO, NGT per surgery - Pain control - Orders for PICC line and TPN placed by surgery Hyponatremia, likely due to dehydration, improved - Hold HCTZ, optimize fluids Hypertension - Lisinopril, off Hctz due to hyponatremia - follow BP GERD - PPI Hypomagnesemia - Replace and check in AM Morbid obesity with BMI 45.9 - outpatient structured weight loss Multiple abdominal wall hernias - chronic and unchanging Prediabetes - hold metformin - SSI, follow BS - A1C 6.3
[2020-08-18 19:58] LABS: Glucose,Whole Blood 126 mg/dL (75-99)
[2020-08-18] MEDS: DULoxetine HCL 30 MG CAPSULE.DR PO SCH (20:00)
[2020-08-19] MEDS: MORPHINE SULFATE 4 MG/ML SYRINGE IVP PRN ×2 (03:00→20:16)
[2020-08-19 04:36] LABS: Glucose,Whole Blood 149 mg/dL (75-99)
[2020-08-19] MEDS: INSULIN ASPART (NovoLOG) 100 UNIT/ML VIAL SQ SCH ×4 (04:57→22:30)
[2020-08-19 07:12] LABS: Glucose,Whole Blood 151 mg/dL (75-99)
[2020-08-19] MEDS: PANTOPRAZOLE 40 MG/10 ML VIAL IVP SCH (07:50)
[2020-08-19] MEDS: allopurinoL 300 MG TAB PO SCH (07:50)
[2020-08-19] MEDS: ENOXAPARIN 40 MG/0.4 ML SYRINGE SQ SCH (07:50)
[2020-08-19] MEDS: OXYBUTYNIN 10 MG TAB.ER.24 PO SCH (07:50)
[2020-08-19] MEDS: FUROSEMIDE 10 MG/ML 2 ML VIAL IV SCH (07:50)
[2020-08-19] MEDS: ETODOLAC 300 MG CAPSULE PO SCH ×3 (07:50→19:57)
[2020-08-19] MEDS: lisinopriL 20 MG TAB PO SCH (07:51)
[2020-08-19] MEDS: FLUTICASONE 50MCG/SPRAY NASAL 16GM EA NOSTRIL SCH (07:51)
[2020-08-19] MEDS: LORATADINE 10 MG TAB PO SCH (07:51)
--- NOTE | 2020-08-19 10:33 | XR ---
Abdomen HISTORY: NG tube placement Frontal view of the chest and upper abdomen submitted on 2 images NG tube is present, distal tip is in the left upper quadrant. Left-sided PICC line is noted. No pneum othorax. Surgical clips in the right upper quadrant. Heart is enlarged. Some prominence of interstiti um. Degenerative disc changes in the visualized spine. IMPRESSION: NG tube likely within the stomach.
[2020-08-19 11:30] LABS: African American GFR (CKD) 115.3 (60.0-200.0); Calcium 8.9 mg/dL (8.7-10.3); Magnesium 1.7 mg/dL (1.5-2.4); Non-African American GFR(CKD) 99.4 (60.0-200.0); Phosphorus 2.1 mg/dL (2.4-5.1); Potassium 3.5 mmol/L (3.5-5.5)
[2020-08-19 11:42] LABS: Glucose,Whole Blood 132 mg/dL (75-99)
[2020-08-19] MEDS ORDERED: POTASSIUM CHLORIDE 20 MEQ in WATER FOR INJECTION 1 100ML.BAG IVPB SCH (12:00)
[2020-08-19] MEDS: MAGNESIUM SULFATE-D5W PMX 1 GM in DEXTROSE/WATER 1 100ML.BAG IVPB SCH ×2 (12:24→14:04)
--- NOTE | 2020-08-19 13:04 | P.PN ---
Progress Note - Text Progress Note Date: 08/19/20 Patient has had some flatus through her ileostomy. She still has had roughly high output. NG tube. On exam vital signs are stable. Abdomen is soft. There is gas in the ileostomy bag. Partial small bowel structure. Patient he received NG tube and remain nothing by mouth.
[2020-08-19] MEDS ORDERED: POTASSIUM PHOSPHATE 10 MMOL in SODIUM CHLORIDE 0.9% 100 ML IV ONE (14:00)
[2020-08-19 16:43] LABS: Glucose,Whole Blood 172 mg/dL (75-99)
--- NOTE | 2020-08-19 18:48 | P.PN ---
Subjective Progress Note Date: 08/19/20 (blanco charting seen at 0830) Principal diagnosis: abdominal pain Patient is a 70-year-old female history of hypertension, osteoarthritis, prior perforated bowel requiring colostomy secondary to diverticulitis, gout, and balance issues who presented to our emergency department as a transfer from outside hospital with complaints of abdominal pain and small bowel obstruction. She was initially admitted to surgery and had an NG tube placed. She had increased NG output and repeat CT abd and pelvis as ordered as patient's x-ray suboptimal due to body habitus, CT showed minimal improvement in SBO. Started on TPN with prolonged need for NPO status. Patient seen and examined at bedside. She denies any stool in ostomy bag in last 24 hours she is passing flatus. She denies any nausea. No chest pain, no shortness of breath. NGT became dislodged slightly today and nursing needed to replace. General: non toxic, no distress, appears at stated age, obese Derm: warm, dry Head: atraumatic, normocephalic, symmetric Eyes: EOMI, no lid lag, anicteric sclera Mouth: no lip lesion, mucus membranes moist Cardiovascular: S1S2 reg, no murmur, positive posterior tibial pulse bilateral, Lungs: Decreased breath sounds bilateral, no rhonchi, no rales , no accessory muscle use Abdominal: soft, multiple large hernia, nontender to palpation, no guarding, no appreciable organomegaly Ext: no gross muscle atrophy, no edema, no contractures Neuro: CN II-XI grossly intact, no focal neuro deficits Psych: Alert, oriented, appropriate affect Small bowel obstruction - NPO, NGT per surgery - Pain control - Plan is for conservative mgt - Started on TPN 12.28. Stop D5 0.45 Hypertension - Lisinopril, off Hctz due to hyponatremia - follow BP GERD - PPI Hypomagnesemia - Replace and check in AM Morbid obesity with BMI 45.9 - outpatient structured weight loss Multiple abdominal wall hernias - chronic and unchanging Prediabetes - hold metformin - SSI, follow BS - A1C 6.3 Hyponatremia, likely due to dehydration, resolved - hold HCTZ DVT prophylaxis: Lovenox Discussed with: Patient, nursing Anticipated discharge: per surgery Anticipated discharge place: home A total of 25 minutes was spent on the care of this complex patient more than 50% of the time was spent in counseling and care coordination. Objective - Vital Signs Vital signs: Vital Signs Temp 98.1 F 08/19/20 14:00 Pulse 89 08/19/20 14:00 Resp 16 08/19/20 14:00 BP 124/76 08/19/20 14:00 Pulse Ox 92 L 08/19/20 14:00 Intake & Output 08/18/20 08/19/20 08/19/20 18:59 06:59 18:59 Intake Total 1100 Output Total 750 200 800 Balance 350 -200 -800 Weight 136.078 kg Intake: IV 900 Dextrose 5%-0.45% NaCl 1, 900 000 ml @ 75 mls/hr IV . [id number] K[facility] Rx#:[id number] Intake, IV Titration 200 Amount Magnesium Sulfate-D5w Pmx 200 1 gm In Dextrose/Water 1 100ml.bag @ 100 mls/hr IVPB Q1H KYLE Rx#: [id number] Output: Gastric Drainage 400 800 Urine 350 200 Other: Voiding Method Bedside Commode Bedside Commode # Voids 2 1 # Bowel Movements 2 - Labs CBC & Chem 7: 08/18/20 06:04 08/19/20 07:20 Labs: Abnormal Lab Results - Last 24 Hours (Table) 08/18/20 08/19/20 08/19/20 Range/Units 19:58 04:34 07:10 Carbon Dioxide (21.6-31.8) mmol/L Creatinine (0.6-1.5) mg/dL BUN/Creatinine Ratio (12.00-20.00) Ratio Glucose (70-110) mg/dL POC Glucose (mg/dL) 126 H 149 H 151 H (75-99) mg/dL Phosphorus (2.4-5.1) mg/dL 08/19/20 08/19/20 08/19/20 Range/Units 07:20 11:40 16:41 Carbon Dioxide 36.0 H (21.6-31.8) mmol/L Creatinine 0.5 L (0.6-1.5) mg/dL BUN/Creatinine Ratio 22.00 H (12.00-20.00) Ratio Glucose 135 H (70-110) mg/dL POC Glucose (mg/dL) 132 H 172 H (75-99) mg/dL Phosphorus 2.1 L (2.4-5.1) mg/dL
[2020-08-19] MEDS: [UNRECOGNIZED DRUG - REMARK] IV SCH ×5 (19:05)
[2020-08-19] MEDS: DULoxetine HCL 30 MG CAPSULE.DR PO SCH (19:57)
[2020-08-19 21:38] LABS: Glucose,Whole Blood 145 mg/dL (75-99)
[2020-08-20 04:57] LABS: Glucose,Whole Blood 179 mg/dL (75-99)
[2020-08-20] MEDS: INSULIN ASPART (NovoLOG) 100 UNIT/ML VIAL SQ SCH ×4 (05:16→23:42)
[2020-08-20 05:39] LABS: Anisocytosis Slight; HCT 32.8 % (34.0-46.0); HGB 10.2 gm/dL (11.4-16.0); Hypochromasia Moderate; MCH 25.9 pg (25.0-35.0); MCV 83.7 fL (80.0-100.0); Mean Platelet Volume 7.6; Platelet Count 338 k/uL (150-450); RBC 3.93 m/uL (3.80-5.40); RDW 17.8 % (11.5-15.5); WBC 7.4 k/uL (3.8-10.6)
[2020-08-20] MEDS: ENOXAPARIN 40 MG/0.4 ML SYRINGE SQ SCH (07:16)
[2020-08-20] MEDS: LORATADINE 10 MG TAB PO SCH (07:17)
[2020-08-20] MEDS: lisinopriL 20 MG TAB PO SCH (07:17)
[2020-08-20] MEDS: allopurinoL 300 MG TAB PO SCH (07:17)
[2020-08-20] MEDS: FUROSEMIDE 10 MG/ML 2 ML VIAL IV SCH ×2 (07:17→21:33)
[2020-08-20] MEDS: PANTOPRAZOLE 40 MG/10 ML VIAL IVP SCH (07:18)
[2020-08-20] MEDS: ETODOLAC 300 MG CAPSULE PO SCH ×3 (07:18→21:33)
[2020-08-20] MEDS: OXYBUTYNIN 10 MG TAB.ER.24 PO SCH (07:19)
[2020-08-20] MEDS: FLUTICASONE 50MCG/SPRAY NASAL 16GM EA NOSTRIL SCH (07:19)
[2020-08-20] MEDS: [UNRECOGNIZED DRUG - REMARK] IV SCH ×10 (08:38→22:24)
[2020-08-20 10:08] LABS: African American GFR (CKD) 115.3 (60.0-200.0); Albumin 3.6 g/dL (3.80-4.90); Albumin/Globulin Ratio 2.4 (1.60-3.17); Anion Gap 9.7 mmol/L (4.00-12.00); Carbon Dioxide 29.3 mmol/L (21.6-31.8); Globulin 1.5 g/dL (1.6-3.3); Magnesium 1.9 mg/dL (1.5-2.4); Non-African American GFR(CKD) 99.4 (60.0-200.0); Phosphorus 2.7 mg/dL (2.4-5.1); Total Bilirubin 0.3 mg/dL (0.3-1.2); Total Protein 5.1 g/dL (6.2-8.2)
[2020-08-20 11:44] LABS: Glucose,Whole Blood 172 mg/dL (75-99)
--- NOTE | 2020-08-20 12:20 | P.PN ---
Subjective Progress Note Date: 08/20/20 Principal diagnosis: Small bowel obstruction Patient feels better today. She has had a large volume over 800 mL of liquid stool through the ostomy in the last hour or so. Still feels bloated. Nasogastric tube still in place. Abdominal x-rays pending. No significant pain. Objective - Vital Signs Vital signs: Vital Signs Temp 98.2 F 08/20/20 08:00 Pulse 95 08/20/20 08:00 Resp 16 08/20/20 08:00 BP 128/79 08/20/20 08:00 Pulse Ox 92 L 08/20/20 08:00 Intake & Output 08/19/20 08/20/20 08/20/20 18:59 06:59 18:59 Intake Total 1013 Output Total 800 800 Balance -800 213 Weight 136.078 kg Intake: Intake, IV Titration 1013 Amount Magnesium Sulfate gm 1.5 1013 gm Potassium Chloride 20 meq In Amino Acid 5%-D20w +Lytes*E* 1,000 ml @ 75 mls/hr IV .BY DURATION [facility] Rx#:[id number] Output: Gastric Drainage 800 Urine 300 Stool 500 Other: Voiding Method Bedside Commode Bedside Commode Bedside Commode # Voids 1 2 # Bowel Movements 2 - Exam Abdomen: Obese, distended, tympanic, bowel sounds active, minimal tenderness - Labs CBC & Chem 7: 08/20/20 05:20 08/20/20 05:20 Labs: Abnormal Lab Results - Last 24 Hours (Table) 08/19/20 08/19/20 08/20/20 Range/Units 16:41 21:36 04:54 Hgb (11.4-16.0) gm/dL Hct (34.0-46.0) % RDW (11.5-15.5) % Creatinine (0.6-1.5) mg/dL BUN/Creatinine Ratio (12.00-20.00) Ratio Glucose (70-110) mg/dL POC Glucose (mg/dL) 172 H 145 H 179 H (75-99) mg/dL AST (13-35) U/L Total Protein (6.2-8.2) g/dL Albumin (3.80-4.90) g/dL Globulin (1.6-3.3) g/dL 08/20/20 08/20/20 08/20/20 Range/Units 05:20 05:20 11:42 Hgb 10.2 L (11.4-16.0) gm/dL Hct 32.8 L (34.0-46.0) % RDW 17.8 H (11.5-15.5) % Creatinine 0.5 L (0.6-1.5) mg/dL BUN/Creatinine Ratio 34.00 H (12.00-20.00) Ratio Glucose 140 H (70-110) mg/dL POC Glucose (mg/dL) 172 H (75-99) mg/dL AST 39 H (13-35) U/L Total Protein 5.1 L (6.2-8.2) g/dL Albumin 3.60 L (3.80-4.90) g/dL Globulin 1.5 L (1.6-3.3) g/dL Assessment and Plan (1) SBO (small bowel obstruction) Narrative/Plan: patient see to b clinically improving. Check today's x-rays. Keep nasogastric tube in place. Current Visit: Yes Status: Acute Code(s): K56.609 - UNSP INTESTNL OBST, UNSP TO PARTIAL VERSUS COMPLETE OBST SNOMED Code(s): 439513195
--- NOTE | 2020-08-20 13:39 | P.PN ---
Subjective Progress Note Date: 08/20/20 (delayed charting seen at 0800) Principal diagnosis: abdominal pain Patient is a 70-year-old female history of hypertension, osteoarthritis, prior perforated bowel requiring colostomy secondary to diverticulitis, gout, and balance issues who presented to our emergency department as a transfer from outside hospital with complaints of abdominal pain and small bowel obstruction. She was initially admitted to surgery and had an NG tube placed. She had increased NG output and repeat CT abd and pelvis as ordered as patient's x-ray suboptimal due to body habitus, CT showed minimal improvement in SBO. Started on TPN with prolonged need for NPO status. Patient seen and examined at bedside. She thinks there was a little stool in her osteomy bag overnight and that the nurse might have emptied (this could not be confirmed on documentation). She denies any nausea. No chest pain, no shortness of breath. General: non toxic, no distress, appears at stated age, obese Derm: warm, dry Head: atraumatic, normocephalic, symmetric Eyes: EOMI, no lid lag, anicteric sclera Mouth: no lip lesion, mucus membranes moist Cardiovascular: S1S2 reg, no murmur, positive posterior tibial pulse bilateral, Lungs: Decreased breath sounds bilateral, no rhonchi, no rales , no accessory muscle use Abdominal: soft, multiple large hernias, nontender to palpation, no guarding, no appreciable organomegaly Ext: no gross muscle atrophy, 1+ edema, no contractures Neuro: CN II-XI grossly intact, no focal neuro deficits Psych: Alert, oriented, appropriate affect Small bowel obstruction - NPO, NGT per surgery - Pain control - Plan is for conservative mgt - Started on TPN 08.18. Hypertension - Lisinopril, off Hctz due to hyponatremia - lasix IV due to NPO status, increase to BID - follow BP GERD - PPI Morbid obesity with BMI 45.9 - outpatient structured weight loss Multiple abdominal wall hernias - chronic and unchanging Prediabetes - hold metformin - SSI, follow BS - A1C 6.3 Hyponatremia, likely due to dehydration, resolved - hold HCTZ Hypomagnesemia, resolved DVT prophylaxis: Lovenox Discussed with: Patient, nursing Anticipated discharge: per surgery Anticipated discharge place: home A total of 15 minutes was spent on the care of this complex patient more than 50% of the time was spent in counseling and care coordination. Objective - Vital Signs Vital signs: Vital Signs Temp 98.2 F 08/20/20 08:00 Pulse 95 08/20/20 08:00 Resp 16 08/20/20 08:00 BP 128/79 08/20/20 08:00 Pulse Ox 92 L 08/20/20 08:00 Intake & Output 08/19/20 08/20/20 08/20/20 18:59 06:59 18:59 Intake Total 1013 Output Total 800 1500 Balance -800 -487 Weight 136.078 kg Intake: Intake, IV Titration 1013 Amount Magnesium Sulfate gm 1.5 1013 gm Potassium Chloride 20 meq In Amino Acid 5%-D20w +Lytes*E* 1,000 ml @ 75 mls/hr IV .BY DURATION [facility]YLE Rx#:[id number] Output: Gastric Drainage 800 Urine 300 Stool 1200 Other: Voiding Method Bedside Commode Bedside Commode Bedside Commode # Voids 1 2 # Bowel Movements 2 - Labs CBC & Chem 7: 08/20/20 05:20 08/20/20 05:20 Labs: Abnormal Lab Results - Last 24 Hours (Table) 08/19/20 08/19/20 08/20/20 Range/Units 16:41 21:36 04:54 Hgb (11.4-16.0) gm/dL Hct (34.0-46.0) % RDW (11.5-15.5) % Creatinine (0.6-1.5) mg/dL BUN/Creatinine Ratio (12.00-20.00) Ratio Glucose (70-110) mg/dL POC Glucose (mg/dL) 172 H 145 H 179 H (75-99) mg/dL AST (13-35) U/L Total Protein (6.2-8.2) g/dL Albumin (3.80-4.90) g/dL Globulin (1.6-3.3) g/dL 08/20/20 08/20/20 08/20/20 Range/Units 05:20 05:20 11:42 Hgb 10.2 L (11.4-16.0) gm/dL Hct 32.8 L (34.0-46.0) % RDW 17.8 H (11.5-15.5) % Creatinine 0.5 L (0.6-1.5) mg/dL BUN/Creatinine Ratio 34.00 H (12.00-20.00) Ratio Glucose 140 H (70-110) mg/dL POC Glucose (mg/dL) 172 H (75-99) mg/dL AST 39 H (13-35) U/L Total Protein 5.1 L (6.2-8.2) g/dL Albumin 3.60 L (3.80-4.90) g/dL Globulin 1.5 L (1.6-3.3) g/dL
[2020-08-20] MEDS: FAT EMULSION 20% 250 ML IV SCH (15:38)
--- NOTE | 2020-08-20 16:08 | XR ---
EXAMINATION TYPE: XR abdomen 2V DATE OF EXAM: 08/20/2020 COMPARISON: 08/19/2020 INDICATION: Bowel obstruction TECHNIQUE: Single view abdomen upright view FINDINGS: Nasogastric tube tip is within the left upper quadrant of the abdomen. Normal-appearing colonic bowel gas is present. Nonspecific bowel gas within the lower pelvis. No suspicious air-fluid levels or dif ferential air-fluid levels are present. No free air is evident. Psoas margins are normal. No organomegaly is present. IMPRESSION: 1. Nonspecific bowel gas pattern. Air is present through small bowel loops as well as the colon.
[2020-08-20 16:54] LABS: Glucose,Whole Blood 119 mg/dL (75-99)
[2020-08-20] MEDS: DULoxetine HCL 30 MG CAPSULE.DR PO SCH (21:33)
[2020-08-20] MEDS: MORPHINE SULFATE 4 MG/ML SYRINGE IVP PRN (22:45)
[2020-08-20 23:39] LABS: Glucose,Whole Blood 143 mg/dL (75-99)
[2020-08-21 05:37] LABS: Glucose,Whole Blood 186 mg/dL (75-99)
[2020-08-21] MEDS: INSULIN ASPART (NovoLOG) 100 UNIT/ML VIAL SQ SCH ×3 (05:46→17:04)
[2020-08-21] MEDS: PANTOPRAZOLE 40 MG/10 ML VIAL IVP SCH (08:49)
[2020-08-21] MEDS: allopurinoL 300 MG TAB PO SCH (08:49)
[2020-08-21] MEDS: LORATADINE 10 MG TAB PO SCH (08:49)
[2020-08-21] MEDS: ENOXAPARIN 40 MG/0.4 ML SYRINGE SQ SCH (08:49)
[2020-08-21] MEDS: lisinopriL 20 MG TAB PO SCH (08:49)
[2020-08-21] MEDS: FLUTICASONE 50MCG/SPRAY NASAL 16GM EA NOSTRIL SCH (08:49)
[2020-08-21] MEDS: ETODOLAC 300 MG CAPSULE PO SCH ×3 (08:50→21:18)
[2020-08-21] MEDS: OXYBUTYNIN 10 MG TAB.ER.24 PO SCH (08:50)
[2020-08-21] MEDS: FUROSEMIDE 10 MG/ML 2 ML VIAL IV SCH ×2 (08:51→21:18)
--- NOTE | 2020-08-21 09:21 | P.PN ---
Subjective Progress Note Date: 08/21/20 Principal diagnosis: Small bowel obstruction Patient doing fairly well today. She did have a additional bowel activity through the stoma. Still feels mildly bloated. Mild discomfort. NG tube was heavy output overnight. Yesterday's x-rays show nonspecific gas pattern. Objective - Vital Signs Vital signs: Vital Signs Temp 97.5 F L 08/21/20 08:00 Pulse 77 08/21/20 08:00 Resp 16 08/21/20 08:00 BP 111/67 08/21/20 08:00 Pulse Ox 93 L 08/21/20 08:00 Intake & Output 08/20/20 08/21/20 08/21/20 18:59 06:59 18:59 Intake Total 1013 0 Output Total 2100 Balance -1087 0 Intake: Intake, IV Titration 1013 Amount Magnesium Sulfate gm 1.5 1013 gm Potassium Chloride 20 meq In Amino Acid 5%-D20w +Lytes*E* 1,000 ml @ 75 mls/hr IV .BY DURATION [facility] Rx#:[id number] Oral 0 Output: Urine 300 Stool 1800 Other: Voiding Method Bedside Commode Bedside Commode - Exam Abdomen: Soft, mild distention, bowel sounds present, mild tenderness, ostomy with stool - Labs CBC & Chem 7: 08/20/20 05:20 08/20/20 05:20 Labs: Abnormal Lab Results - Last 24 Hours (Table) 08/20/20 08/20/20 08/20/20 Range/Units 05:20 11:42 16:53 Creatinine 0.5 L (0.6-1.5) mg/dL BUN/Creatinine Ratio 34.00 H (12.00-20.00) Ratio Glucose 140 H (70-110) mg/dL POC Glucose (mg/dL) 172 H 119 H (75-99) mg/dL AST 39 H (13-35) U/L Total Protein 5.1 L (6.2-8.2) g/dL Albumin 3.60 L (3.80-4.90) g/dL Globulin 1.5 L (1.6-3.3) g/dL 08/20/20 08/21/20 Range/Units 23:37 05:35 Creatinine (0.6-1.5) mg/dL BUN/Creatinine Ratio (12.00-20.00) Ratio Glucose (70-110) mg/dL POC Glucose (mg/dL) 143 H 186 H (75-99) mg/dL AST (13-35) U/L Total Protein (6.2-8.2) g/dL Albumin (3.80-4.90) g/dL Globulin (1.6-3.3) g/dL Assessment and Plan (1) SBO (small bowel obstruction) Narrative/Plan: Overall patient doing better. Keep nasogastric tube today. May have popsicles. Current Visit: Yes Status: Acute Code(s): K56.609 - UNSP INTESTNL OBST, UNSP TO PARTIAL VERSUS COMPLETE OBST SNOMED Code(s): 151031610
[2020-08-21] MEDS ORDERED: DRY MOUTH SPRAY 44.3 SPRAY/44.3 ML SPRAY MUCOUS MEM PRN (09:59)
[2020-08-21 10:35] LABS: African American GFR (CKD) 115.3 (60.0-200.0); Anion Gap 8.9 mmol/L (4.00-12.00); Calcium 8.8 mg/dL (8.7-10.3); Carbon Dioxide 29.1 mmol/L (21.6-31.8); Magnesium 1.9 mg/dL (1.5-2.4); Non-African American GFR(CKD) 99.4 (60.0-200.0); Phosphorus 3.1 mg/dL (2.4-5.1); Potassium 3.8 mmol/L (3.5-5.5)
--- NOTE | 2020-08-21 11:27 | P.PN ---
Subjective Progress Note Date: 08/21/20 Principal diagnosis: abdominal pain Patient is a 70-year-old female history of hypertension, osteoarthritis, prior perforated bowel requiring colostomy secondary to diverticulitis, gout, and balance issues who presented to our emergency department as a transfer from outside hospital with complaints of abdominal pain and small bowel obstruction. She was initially admitted to surgery and had an NG tube placed. She had increased NG output and repeat CT abd and pelvis as ordered as patient's x-ray suboptimal due to body habitus, CT showed minimal improvement in SBO. Started o n TPN with prolonged need for NPO status. Good ostomy output though all liquid starting 08/20. Patient seen and examined at bedside. She complains of slightly more bloating today, and some cramping. Her NG tube is bothering her more than prior. She denies any chest pain, shortness of breath. We discussed a trial of benzocaine spray as well as moistening spray for her mouth. She isn't taking this. I again reiterated not eating large amounts of popsicles as this will throw off her NG tube output and may end up delaying her having the NG tube removed. General: non toxic, no distress, appears at stated age, obese Derm: warm, dry Head: atraumatic, normocephalic, symmetric Eyes: EOMI, no lid lag, anicteric sclera Mouth: no lip lesion, mucus membranes dry Cardiovascular: S1S2 reg, no murmur, positive posterior tibial pulse bilateral, Lungs: Decreased breath sounds bilateral, no rhonchi, no rales , no accessory muscle use Abdominal: soft, multiple large hernias, nontender to palpation, no guarding, no appreciable organomegaly, liquid output through NGT Ext: no gross muscle atrophy, 1+ edema, no contractures Neuro: CN II-XI grossly intact, no focal neuro deficits Psych: Alert, oriented, appropriate affect Small bowel obstruction - NPO, - NGT per surgery : Added benzocaine spray and Mouth Coat - Pain control - Plan is for conservative mgt - Started on TPN 12.. Check triglycerides and CMP in AM Hypertension - Lisinopril, off Hctz due to hyponatremia - lasix IV due to TPN and NPO - follow BP GERD - PPI Morbid obesity with BMI 54.9 - outpatient structured weight loss Multiple abdominal wall hernias - chronic and unchanging Prediabetes - hold metformin - SSI, follow BS - A1C 6.3 Hyponatremia, likely due to dehydration, resolved - hold HCTZ Hypomagnesemia, resolved DVT prophylaxis: Lovenox Discussed with: Patient, nursing Anticipated discharge: per surgery Anticipated discharge place: home A total of 20 minutes was spent on the care of this complex patient more than 50% of the time was spent in counseling and care coordination. Objective - Vital Signs Vital signs: Vital Signs Temp 97.5 F L 08/21/20 08:00 Pulse 77 08/21/20 08:00 Resp 16 08/21/20 08:00 BP 111/67 08/21/20 08:00 Pulse Ox 93 L 08/21/20 08:00 Intake & Output 08/20/20 08/21/20 08/21/20 18:59 06:59 18:59 Intake Total 1013 0 Output Total 2100 200 Balance -1087 0 -200 Intake: Intake, IV Titration 1013 Amount Magnesium Sulfate gm 1.5 1013 gm Potassium Chloride 20 meq In Amino Acid 5%-D20w +Lytes*E* 1,000 ml @ 75 mls/hr IV .BY D[facility]ATION [facility] Rx#:[id number] Oral 0 Output: Urine 300 Stool 1800 200 Other: Voiding Method Bedside Commode Bedside Commode - Labs CBC & Chem 7: 08/20/20 05:20 08/21/20 05:48 Labs: Abnormal Lab Results - Last 24 Hours (Table) 08/20/20 08/20/20 08/20/20 Range/Units 11:42 16:53 23:37 Creatinine (0.6-1.5) mg/dL BUN/Creatinine Ratio (.00-20.00) Ratio Glucose (70-110) mg/dL POC Glucose (mg/dL) 172 H 119 H 143 H (75-99) mg/dL 08/21/20 08/21/20 Range/Units 05:35 05:48 Creatinine 0.5 L (0.6-1.5) mg/dL BUN/Creatinine Ratio 46.00 H (12.00-20.00) Ratio Glucose 172 H (70-110) mg/dL POC Glucose (mg/dL) 186 H (75-99) mg/dL
[2020-08-21] MEDS ORDERED: POTASSIUM CHLORIDE 20 MEQ in WATER FOR INJECTION 1 100ML.BAG IVPB ONE (13:00)
[2020-08-21 13:05] LABS: Glucose,Whole Blood 170 mg/dL (75-99)
[2020-08-21] MEDS: [UNRECOGNIZED DRUG - REMARK] IV SCH ×5 (13:58)
[2020-08-21] MEDS: MAGNESIUM SULFATE-D5W PMX 1 GM in DEXTROSE/WATER 1 100ML.BAG IVPB SCH ×2 (13:58→17:00)
[2020-08-21 17:07] LABS: Glucose,Whole Blood 125 mg/dL (75-99)
[2020-08-21] MEDS: DULoxetine HCL 30 MG CAPSULE.DR PO SCH (21:18)
[2020-08-21] MEDS: BENZOCAINE SPRAY 1 CAN MUCOUS MEM PRN (21:39)
[2020-08-21] MEDS: MORPHINE SULFATE 4 MG/ML SYRINGE IVP PRN (22:01)
[2020-08-22 00:08] LABS: Glucose,Whole Blood 171 mg/dL (75-99)
[2020-08-22] MEDS: INSULIN ASPART (NovoLOG) 100 UNIT/ML VIAL SQ SCH ×4 (00:35→18:38)
[2020-08-22] MEDS: BENZOCAINE SPRAY 1 CAN MUCOUS MEM PRN (01:59)
[2020-08-22 05:26] LABS: Glucose,Whole Blood 212 mg/dL (75-99)
[2020-08-22 07:24] LABS: Glucose,Whole Blood 122 mg/dL (75-99)
[2020-08-22 09:44] LABS: African American GFR (CKD) 115.3 (60.0-200.0); Albumin 3.4 g/dL (3.80-4.90); Anion Gap 7.9 mmol/L (4.00-12.00); Calcium 8.9 mg/dL (8.7-10.3); Carbon Dioxide 30.1 mmol/L (21.6-31.8); Globulin 1.7 g/dL (1.6-3.3); Magnesium 2.2 mg/dL (1.5-2.4); Non-African American GFR(CKD) 99.4 (60.0-200.0); Phosphorus 3.5 mg/dL (2.4-5.1); Potassium 4.2 mmol/L (3.5-5.5); Total Bilirubin 0.2 mg/dL (0.2-1.2); Total Protein 5.1 g/dL (6.2-8.2)
--- NOTE | 2020-08-22 09:59 | P.PN ---
Subjective Progress Note Date: 08/22/20 Principal diagnosis: Small bowel obstruction Patient sitting up in the chair. Denies pain. Decreased ostomy output over the last 24 hours. Some flatus appreciated this morning per the patient. Overall nasogastric tube output seems less overall. Patient is asking for nasogastric tube to be removed. She states her abdomen is returned to its normal size. Objective - Vital Signs Vital signs: Vital Signs Temp 98.1 F 08/22/20 09:41 Pulse 69 08/22/20 09:41 Resp 16 08/22/20 09:41 BP 139/73 08/22/20 09:41 Pulse Ox 95 08/22/20 09:41 Intake & Output 08/21/20 08/22/20 08/22/20 18:59 06:59 18:59 Output Total 200 201 Balance -200 -201 Weight 136.078 kg Output: Stool 200 201 Other: Voiding Method Bedside Commode # Voids 1 - Exam Abdomen: Soft, obese, multiple midline hernias, ostomy with flatus and small am ount of liquid stool - Labs CBC & Chem 7: 08/20/20 05:20 08/22/20 06:37 Labs: Abnormal Lab Results - Last 24 Hours (Table) 08/21/20 08/21/20 08/21/20 Range/Units 05:48 13:00 17:03 Creatinine 0.5 L (0.6-1.5) mg/dL BUN/Creatinine Ratio 46.00 H (12.00-20.00) Ratio Glucose 172 H (70-110) mg/dL POC Glucose (mg/dL) 170 H 125 H (75-99) mg/dL AST (13-35) U/L Total Protein (6.2-8.2) g/dL Albumin (3.80-4.90) g/dL Triglycerides (0.0-149.0) mg/dL 08/22/20 08/22/20 08/22/20 Range/Units 00:07 05:24 06:37 Creatinine 0.5 L (0.6-1.5) mg/dL BUN/Creatinine Ratio 52.00 H (12.00-20.00) Ratio Glucose 140 H (70-110) mg/dL POC Glucose (mg/dL) 171 H 212 H (75-99) mg/dL AST 37 H (13-35) U/L Total Protein 5.1 L (6.2-8.2) g/dL Albumin 3.40 L (3.80-4.90) g/dL Triglycerides 187.0 H (0.0-149.0) mg/dL 08/22/20 Range/Units 07:14 Creatinine (0.6-1.5) mg/dL BUN/Creatinine Ratio (12.00-20.00) Ratio Glucose (70-110) mg/dL POC Glucose (mg/dL) 122 H (75-99) mg/dL AST (13-35) U/L Total Protein (6.2-8.2) g/dL Albumin (3.80-4.90) g/dL Triglycerides (0.0-149.0) mg/dL Assessment and Plan (1) SBO (small bowel obstruction) Narrative/Plan: Will repeat abdominal films today. Keep nothing by mouth with nasogastric tube to suction and TPN for now. Possibly remove NG tube after reviewing films. Current Visit: Yes Status: Acute Code(s): K56.609 - UNSP INTESTNL OBST, UNSP TO PARTIAL VERSUS COMPLETE OBST SNOMED Code(s): 409378395
[2020-08-22] MEDS: ENOXAPARIN 40 MG/0.4 ML SYRINGE SQ SCH (10:08)
[2020-08-22] MEDS: FLUTICASONE 50MCG/SPRAY NASAL 16GM EA NOSTRIL SCH (10:09)
[2020-08-22] MEDS: FUROSEMIDE 10 MG/ML 2 ML VIAL IV SCH (10:29)
[2020-08-22] MEDS: lisinopriL 20 MG TAB PO SCH (10:29)
[2020-08-22] MEDS: LORATADINE 10 MG TAB PO SCH (10:29)
[2020-08-22] MEDS: PANTOPRAZOLE 40 MG/10 ML VIAL IVP SCH (10:29)
[2020-08-22] MEDS: allopurinoL 300 MG TAB PO SCH (10:30)
[2020-08-22] MEDS: OXYBUTYNIN 10 MG TAB.ER.24 PO SCH (10:30)
[2020-08-22] MEDS: ETODOLAC 300 MG CAPSULE PO SCH ×3 (10:30→20:51)
[2020-08-22 12:25] LABS: Glucose,Whole Blood 148 mg/dL (75-99)
[2020-08-22] MEDS: FAT EMULSION 20% 250 ML IV SCH (16:24)
[2020-08-22 17:38] LABS: Glucose,Whole Blood 132 mg/dL (75-99)
--- NOTE | 2020-08-22 19:05 | P.PN ---
Subjective Progress Note Date: 08/22/20 (renan charting seen at 1055) Principal diagnosis: abdominal pain Patient is a 70-year-old female history of hypertension, osteoarthritis, prior perforated bowel requiring colostomy secondary to diverticulitis, gout, and balance issues who presented to our emergency department as a transfer from outside hospital with complaints of abdominal pain and small bowel obstruction. She was initially admitted to surgery and had an NG tube placed. She had increased NG output and repeat CT abd and pelvis as ordered as patient's x-ray suboptimal due to body habitus, CT showed minimal improvement in SBO. Started on TPN with prolonged need for NPO status. Good ostomy output though all liquid starting 08/20. Continue with Os-Timmy plan on 08/21 but continues to have some generalized to help but Patient seen and examined at bedside. Patient seen and examined at bedside. She really wants her NG tube discontinued. She still is having some abdominal distention. No nausea or vomiting. General: non toxic, no distress, appears at stated age, obese Derm: warm, dry Head: atraumatic, normocephalic, symmetric Eyes: EOMI, no lid lag, anicteric sclera Mouth: no lip lesion, mucus membranes dry Cardiovascular: S1S2 reg, no murmur, positive posterior tibial pulse bilateral, Lungs: Decreased breath sounds bilateral, no rhonchi, no rales , no accessory muscle use Abdominal: soft, multiple large hernias, nontender to palpation, no guarding, no appreciable organomegaly, liquid output through NGT Ext: no gross muscle atrophy, 2+ edema, no contractures Neuro: CN II-XI grossly intact, no focal neuro deficits Psych: Alert, oriented, appropriate affect Small bowel obstruction - NPO - NGT per surgery - Pain control - Plan is for conservative mgt - Started on TPN 08.18. Hypertension - Lisinopril, off Hctz due to hyponatremia - lasix IV due to TPN and NPO, increasd due to worsening fluid retention - follow BP GERD - PPI Morbid obesity with BMI 54.9 - outpatient structured weight loss Multiple abdominal wall hernias - chronic and unchanging Prediabetes - hold metformin - SSI, follow BS - A1C 6.3 Hyponatremia, likely due to dehydration, resolved - hold HCTZ Hypomagnesemia, resolved DVT prophylaxis: Lovenox Discussed with: Patient, nursing Anticipated discharge: per surgery Anticipated discharge place: home A total of 20 minutes was spent on the care of this complex patient more than 50% of the time was spent in counseling and care coordination. Objective - Vital Signs Vital signs: Vital Signs Temp 98.2 F 08/22/20 15:58 Pulse 71 08/22/20 15:58 Resp 16 08/22/20 15:58 BP 149/65 08/22/20 15:58 Pulse Ox 95 08/22/20 09:41 Intake & Output 08/22/20 08/22/20 08/23/20 06:59 18:59 06:59 Output Total 201 200 Balance -201 -200 Weight 136.078 kg Output: Gastric Drainage 200 Stool 201 Other: Voiding Method Bedside Commode # Voids 1 - Labs CBC & Chem 7: 08/20/20 05:20 08/22/20 06:37 Labs: Abnormal Lab Results - Last 24 Hours (Table) 08/22/20 08/22/20 08/22/20 Range/Units 00:07 05:24 06:37 Creatinine 0.5 L (0.6-1.5) mg/dL BUN/Creatinine Ratio 52.00 H (12.00-20.00) Ratio Glucose 140 H (70-110) mg/dL POC Glucose (mg/dL) 171 H 212 H (75-99) mg/dL AST 37 H (13-35) U/L Total Protein 5.1 L (6.2-8.2) g/dL Albumin 3.40 L (3.80-4.90) g/dL Triglycerides 187.0 H (0.0-149.0) mg/dL 08/22/20 08/22/20 08/22/20 Range/Units 07:14 12:22 17:36 Creatinine (0.6-1.5) mg/dL BUN/Creatinine Ratio (12.00-20.00) Ratio Glucose (70-110) mg/dL POC Glucose (mg/dL) 122 H 148 H 132 H (75-99) mg/dL AST (13-35) U/L Total Protein (6.2-8.2) g/dL Albumin (3.80-4.90) g/dL Triglycerides (0.0-149.0) mg/dL
[2020-08-22] MEDS: FUROSEMIDE 10 MG/ML 4 ML VIAL IV SCH (20:51)
[2020-08-22] MEDS: DULoxetine HCL 30 MG CAPSULE.DR PO SCH (20:51)
[2020-08-22] MEDS: MORPHINE SULFATE 4 MG/ML SYRINGE IVP PRN (20:54)
[2020-08-23 00:32] LABS: Glucose,Whole Blood 159 mg/dL (75-99)
[2020-08-23] MEDS: INSULIN ASPART (NovoLOG) 100 UNIT/ML VIAL SQ SCH ×5 (01:23→23:29)
[2020-08-23 06:19] LABS: Glucose,Whole Blood 166 mg/dL (75-99)
--- NOTE | 2020-08-23 07:07 | XR ---
EXAMINATION TYPE: XR abdomen 2V DATE OF EXAM: 08/23/2020 CLINICAL HISTORY: Small bowel obstruction progress study. TECHNIQUE: Supine and upright views of the abdomen are obtained. COMPARISON: Abdominal x-ray 3 days ago. FINDINGS: Stable nasogastric tube. Persistent slightly gas prominent colonic loops with air-fluid lev els. Persistent slightly prominent gas-filled small bowel loops in the lower abdomen. Cholecystectomy clips redemonstrated. Underlying levoconvex scoliosis with multilevel spurring in the thoracolumbar spine redemonstrated. Cardiomegaly again seen. No pneumoperitoneum. IMPRESSION: Overall nonspecific bowel gas pattern remains present. No significant interval change fr om most recent x-ray.
--- NOTE | 2020-08-23 08:41 | P.PN ---
Subjective Progress Note Date: 08/23/20 Principal diagnosis: Small bowel obstruction Patient doing well this morning. Denies abdominal pain. Nasogastric tube output appropriate for the amount of ice chips and popsicles she is drinking. Still having ostomy function which actually is improved again today. Yesterday' s x-rays show nonspecific pattern. Objective - Vital Signs Vital signs: Vital Signs Temp 97.6 F 08/23/20 08:00 Pulse 71 08/23/20 08:00 Resp 16 08/23/20 08:00 BP 141/79 08/23/20 08:00 Pulse Ox 96 08/23/20 08:00 Intake & Output 08/22/20 08/23/20 08/23/20 18:59 06:59 18:59 Intake Total 1034 900 Output Total 200 302 300 Balance 834 598 -300 Weight 136.078 kg Intake: Intake, IV Titration 1034 900 Amount Magnesium Sulfate gm 2 gm 900 Potassium Chloride 30 meq Sodium Chloride 4Meq/ ml Vial 16 meq In Amino Acid 5%-D20w+Lytes*E* 1, 000 ml @ 75 mls/hr IV .BY DURATION [facility] Rx#: [id number] Mvi, Adult No.4 with Vit 1034 K 10 ml Trace (Conc-1Ml/ Dose) 1 ml Magnesium Sulfate gm 2 gm Potassium Chloride 30 meq Sodium Chloride 4Meq/ml Vial 16 meq In Amino Acid 5%-D20w +Lytes*E* 1,000 ml @ 75 mls/hr IV .BY DURATION [facility] Rx#:[id number] Output: Gastric Drainage 200 300 Urine 300 Stool 2 Other: Voiding Method Bedside Commode # Voids 1 - Exam Abdomen: Soft, obese, nontender - Labs CBC & Chem 7: 08/20/20 05:20 08/22/20 06:37 Labs: Abnormal Lab Results - Last 24 Hours (Table) 08/22/20 08/22/20 08/22/20 Range/Units 06:37 12:22 17:36 Creatinine 0.5 L (0.6-1.5) mg/dL BUN/Creatinine Ratio 52.00 H (12.00-20.00) Ratio Glucose 140 H (70-110) mg/dL POC Glucose (mg/dL) 148 H 132 H (75-99) mg/dL AST 37 H (13-35) U/L Total Protein 5.1 L (6.2-8.2) g/dL Albumin 3.40 L (3.80-4.90) g/dL Triglycerides 187.0 H (0.0-149.0) mg/dL 08/23/20 08/23/20 Range/Units 00:29 06:17 Creatinine (0.6-1.5) mg/dL BUN/Creatinine Ratio (12.00-20.00) Ratio Glucose (70-110) mg/dL POC Glucose (mg/dL) 159 H 166 H (75-99) mg/dL AST (13-35) U/L Total Protein (6.2-8.2) g/dL Albumin (3.80-4.90) g/dL Triglycerides (0.0-149.0) mg/dL Assessment and Plan (1) SBO (small bowel obstruction) Narrative/Plan: We'll remove the nasogastric tube at this time. Continue ice chips and popsicles only for now. Increase activity as tolerated. Current Visit: Yes Status: Acute Code(s): K56.609 - UNSP INTESTNL OBST, UNSP TO PARTIAL VERSUS COMPLETE OBST SNOMED Code(s): 532228498
[2020-08-23] MEDS: PANTOPRAZOLE 40 MG/10 ML VIAL IVP SCH (08:57)
[2020-08-23] MEDS: FUROSEMIDE 10 MG/ML 4 ML VIAL IV SCH ×2 (08:57→21:25)
[2020-08-23] MEDS: lisinopriL 20 MG TAB PO SCH (09:00)
[2020-08-23] MEDS: FLUTICASONE 50MCG/SPRAY NASAL 16GM EA NOSTRIL SCH (09:01)
[2020-08-23] MEDS: ENOXAPARIN 40 MG/0.4 ML SYRINGE SQ SCH (09:01)
[2020-08-23] MEDS: OXYBUTYNIN 10 MG TAB.ER.24 PO SCH (09:01)
[2020-08-23] MEDS: LORATADINE 10 MG TAB PO SCH (09:01)
[2020-08-23] MEDS: allopurinoL 300 MG TAB PO SCH (09:01)
[2020-08-23] MEDS: ETODOLAC 300 MG CAPSULE PO SCH ×3 (09:01→21:24)
[2020-08-23 09:32] LABS: Magnesium 2.2 mg/dL (1.5-2.4); Phosphorus 3.6 mg/dL (2.4-5.1)
[2020-08-23 10:43] LABS: African American GFR (CKD) >90 (>60 ml/min/1.73 sqM); Anion Gap 5 mmol/L; Blood Urea Nitrogen 30 mg/dL (7-17); Calcium 9.4 mg/dL (8.4-10.2); Carbon Dioxide 30 mmol/L (22-30); Chloride 101 mmol/L (98-107); Glucose 175 mg/dL (74-99); Non-African American GFR(CKD) >90 (>60 ml/min/1.73 sqM); Potassium 4.5 mmol/L (3.5-5.1); Sodium 136 mmol/L (137-145)
[2020-08-23 12:15] LABS: Glucose,Whole Blood 157 mg/dL (75-99)
--- NOTE | 2020-08-23 12:20 | P.PN ---
Subjective Progress Note Date: 08/23/20 Principal diagnosis: abdominal pain Patient is a 70-year-old female history of hypertension, osteoarthritis, prior perforated bowel requiring colostomy secondary to diverticulitis, gout, and balance issues who presented to our emergency department as a transfer from outside hospital with complaints of abdominal pain and small bowel obstruction. She was initially admitted to surgery and had an NG tube placed. She had increased NG output and repeat CT abd and pelvis as ordered as patient's x-ray suboptimal due to body habitus, CT showed minimal improvement in SBO. Started o n TPN with prolonged need for NPO status. Good ostomy output though all liquid starting 08/20. NG tube was removed on 08/23/20. Patient seen and examined at bedside. Feeling much better with her NG tube removed. No recurrent nausea or vomiting. Still having good output. We'll continue her ostomy bag. We discussed not overdoing popsicles and ice chips today with likely slow diet advancement per surgery over the next several days. She denies chest pain or shortness of breath. She states her swelling is about the same as yesterday. General: non toxic, no distress, appears at stated age, obese Derm: warm, dry Head: atraumatic, normocephalic, symmetric Eyes: EOMI, no lid lag, anicteric sclera Mouth: no lip lesion, mucus membranes dry Cardiovascular: S1S2 reg, no murmur, positive posterior tibial pulse bilateral, Lungs: Clear to auscultation bilaterally, no rhonchi, no rales , no accessory muscle use Abdominal: soft, multiple large hernias, nontender to palpation, no guarding, no appreciable organomegaly,, liquid in ostomy bag Ext: no gross muscle atrophy, 2+ edema, no contractures Neuro: CN II-XI grossly intact, no focal neuro deficits Psych: Alert, oriented, appropriate affect Small bowel obstruction -Ice and popsicles - NGT removed on 08/23/2020 - Pain control - Plan is for conservative mgt - Started on TPN .. Hypertension - Lisinopril, off Hctz due to hyponatremia - lasix IV due to TPN and NPO, increased 08/22/20 due to worsening fluid retention - follow BP GERD - PPI Morbid obesity with BMI 54.9 - outpatient structured weight loss Multiple abdominal wall hernias - chronic and unchanging Prediabetes - hold metformin - SSI, follow BS - A1C 6.3 Hyponatremia, likely due to dehydration, resolved - hold HCTZ Hypomagnesemia, resolved DVT prophylaxis: Lovenox Discussed with: Patient, nursing Anticipated discharge: per surgery Anticipated discharge place: home A total of 25 minutes was spent on the care of this complex patient more than 50% of the time was spent in counseling and care coordination. Objective - Vital Signs Vital signs: Vital Signs Temp 97.6 F 08/23/20 08:00 Pulse 71 08/23/20 08:00 Resp 16 08/23/20 08:00 BP 141/79 08/23/20 08:00 Pulse Ox 96 08/23/20 08:00 Intake & Output 08/22/20 08/23/20 08/23/20 18:59 06:59 18:59 Intake Total 1034 900 Output Total 200 302 300 Balance 834 598 -300 Weight 136.078 kg Intake: Intake, IV Titration 1034 900 Amount Magnesium Sulfate gm 2 gm 900 Potassium Chloride 30 meq Sodium Chloride 4Meq/ ml Vial 16 meq In Amino Acid 5%-D20w+Lytes*E* 1, 000 ml @ 75 mls/hr IV .BY DURATION [facility] Rx#: [id number] Mvi, Adult No.4 with Vit 1034 K 10 ml Trace (Conc-1Ml/ Dose) 1 ml Magnesium Sulfate gm 2 gm Potassium Chloride 30 meq Sodium Chloride 4Meq/ml Vial 16 meq In Amino Acid 5%-D20w +Lytes*E* 1,000 ml @ 75 mls/hr IV .BY DURATION [facility] Rx#:[id number] Output: Gastric Drainage 200 300 Urine 300 Stool 2 Other: Voiding Method Bedside Commode # Voids 1 - Labs CBC & Chem 7: 08/20/20 05:20 08/23/20 05:52 Labs: Abnormal Lab Results - Last 24 Hours (Table) 08/22/20 08/22/20 08/23/20 Range/Units 12:22 17:36 00:29 Sodium (137-145) mmol/L BUN (7-17) mg/dL Creatinine (0.52-1.04) mg/dL Glucose (74-99) mg/dL POC Glucose (mg/dL) 148 H 132 H 159 H (75-99) mg/dL 08/23/20 08/23/2021 Range/Units 05:52 06:17 12:14 Sodium 136 L (137-145) mmol/L BUN 30 H (7-17) mg/dL Creatinine 0.50 L (0.52-1.04) mg/dL Glucose 175 H (74-99) mg/dL POC Glucose (mg/dL) 166 H 157 H (75-99) mg/dL
[2020-08-23 17:34] LABS: Glucose,Whole Blood 130 mg/dL (75-99)
[2020-08-23] MEDS: [UNRECOGNIZED DRUG - REMARK] IV SCH ×6 (21:19)
[2020-08-23] MEDS: DULoxetine HCL 30 MG CAPSULE.DR PO SCH (21:25)
[2020-08-23] MEDS: MORPHINE SULFATE 4 MG/ML SYRINGE IVP PRN (21:49)
[2020-08-23 23:12] LABS: Glucose,Whole Blood 161 mg/dL (75-99)
[2020-08-24 05:15] LABS: Glucose,Whole Blood 133 mg/dL (75-99)
[2020-08-24] MEDS: INSULIN ASPART (NovoLOG) 100 UNIT/ML VIAL SQ SCH ×3 (05:40→17:54)
[2020-08-24] MEDS: FUROSEMIDE 10 MG/ML 4 ML VIAL IV SCH ×2 (07:58→20:37)
[2020-08-24] MEDS: allopurinoL 300 MG TAB PO SCH (07:58)
[2020-08-24] MEDS: ENOXAPARIN 40 MG/0.4 ML SYRINGE SQ SCH (07:58)
[2020-08-24] MEDS: LORATADINE 10 MG TAB PO SCH (07:58)
[2020-08-24] MEDS: lisinopriL 20 MG TAB PO SCH (07:58)
[2020-08-24] MEDS: FLUTICASONE 50MCG/SPRAY NASAL 16GM EA NOSTRIL SCH (07:59)
[2020-08-24] MEDS: ETODOLAC 300 MG CAPSULE PO SCH ×3 (07:59→20:48)
[2020-08-24] MEDS: OXYBUTYNIN 10 MG TAB.ER.24 PO SCH (07:59)
[2020-08-24] MEDS: PANTOPRAZOLE 40 MG/10 ML VIAL IVP SCH (07:59)
[2020-08-24 10:00] LABS: African American GFR (CKD) 103.2 (60.0-200.0); Calcium 9.6 mg/dL (8.7-10.3); Magnesium 2.3 mg/dL (1.5-2.4); Phosphorus 3.8 mg/dL (2.4-5.1); Potassium 4.4 mmol/L (3.5-5.5)
--- NOTE | 2020-08-24 10:55 | P.PN ---
Subjective Progress Note Date: 08/24/20 Principal diagnosis: Small bowel obstruction Patient doing well. Tolerating ice chips and popsicles. Still having bowel function. No nausea or vomiting. No pain. Objective - Vital Signs Vital signs: Vital Signs Temp 97.5 F L 08/24/20 08:00 Pulse 69 08/24/20 08:00 Resp 16 08/24/20 08:00 BP 103/64 08/24/20 08:00 Pulse Ox 93 L 08/24/20 08:00 Intake & Output 08/23/20 08/24/20 08/24/20 18:59 06:59 18:59 Output Total 300 101 Balance -300 -101 Output: Gastric Drainage 300 100 Stool 1 Other: Voiding Method Bedside Commode # Voids 1 # Bowel Movements 1 - Exam Abdomen: Soft, obese, multiple hernias, nontender, ostomy functioning - Labs CBC & Chem 7: 08/20/20 05:20 08/24/20 05:28 Labs: Abnormal Lab Results - Last 24 Hours (Table) 08/23/20 08/23/20 08/23/20 Range/Units 12:14 17:10 23:11 Carbon Dioxide (21.6-31.8) mmol/L BUN (9.0-27.0) mg/dL BUN/Creatinine Ratio (12.00-20.00) Ratio Glucose (70-110) mg/dL POC Glucose (mg/dL) 157 H 130 H 161 H (75-99) mg/dL 08/24/20 08/24/20 Range/Units 05:13 05:28 Carbon Dioxide 33.0 H (21.6-31.8) mmol/L BUN 35.0 H (9.0-27.0) mg/dL BUN/Creatinine Ratio 50.00 H (12.00-20.00) Ratio Glucose 142 H (70-110) mg/dL POC Glucose (mg/dL) 133 H (75-99) mg/dL Assessment and Plan (1) SBO (small bowel obstruction) Narrative/Plan: Patient doing well. Will advance diet to clear liquids at this time. Continue increasing activity. Bowel obstruction appears to be resolving. Current Visit: Yes Status: Acute Code(s): K56.609 - UNSP INTESTNL OBST, UNSP TO PARTIAL VERSUS COMPLETE OBST SNOMED Code(s): 874375172
[2020-08-24] MEDS: [UNRECOGNIZED DRUG - REMARK] IV SCH ×6 (11:05)
[2020-08-24 11:37] LABS: Glucose,Whole Blood 120 mg/dL (75-99)
--- NOTE | 2020-08-24 12:48 | P.PN ---
Subjective Progress Note Date: 08/24/20 Principal diagnosis: abdominal pain Patient is a 70-year-old female history of hypertension, osteoarthritis, prior perforated bowel requiring colostomy secondary to diverticulitis, gout, and balance issues who presented to our emergency department as a transfer from outside hospital with complaints of abdominal pain and small bowel obstruction. She was initially admitted to surgery and had an NG tube placed. She had increased NG output and repeat CT abd and pelvis as ordered as patient's x-ray suboptimal due to body habitus, CT showed minimal improvement in SBO. Started o n TPN with prolonged need for NPO status. Good ostomy output though all liquid starting 08/20. NG tube was removed on 08/23/20. Started on clear liquids 08/24/20. Patient seen and examined at bedside. Doing well, no chest pain, no nausea, edema unchanged General: non toxic, no distress, appears at stated age, obese Derm: warm, dry Head: atraumatic, normocephalic, symmetric Eyes: EOMI, no lid lag, anicteric sclera Mouth: no lip lesion, mucus membranes dry Cardiovascular: S1S2 reg, no murmur, positive posterior tibial pulse bilateral, Lungs: Clear to auscultation bilaterally, no rhonchi, no rales , no accessory muscle use Abdominal: soft, multiple large hernias, nontender to palpation, no guarding, no appreciable organomegaly, Ext: no gross muscle atrophy, 2+ edema, no contractures Neuro: CN II-XI grossly intact, no focal neuro deficits Psych: Alert, oriented, appropriate affect Small bowel obstruction - Clear liquis - NGT removed on 08/23/2020 - Pain control - Plan is for conservative mgt - Started on TPN 08.18. Hope to 08/23 tonight. Hypertension - Lisinopril, off Hctz due to hyponatremia - lasix IV due to TPN and NPO, increased 08/22/20 due to worsening fluid retention - follow BP GERD - PPI Morbid obesity with BMI 54.9 - outpatient structured weight loss Multiple abdominal wall hernias - chronic and unchanging Prediabetes - hold metformin - SSI, follow BS - A1C 6.3 Hyponatremia, likely due to dehydration, resolved - hold HCTZ Hypomagnesemia, resolved DVT prophylaxis: Lovenox Discussed with: Patient, nursing Anticipated discharge: per surgery Anticipated discharge place: home A total of 25 minutes was spent on the care of this complex patient more than 50% of the time was spent in counseling and care coordination. Objective - Vital Signs Vital signs: Vital Signs Temp 97.5 F L 08/24/20 08:00 Pulse 69 08/24/20 08:00 Resp 16 08/24/20 08:00 BP 103/64 08/24/20 08:00 Pulse Ox 93 L 08/24/20 08:00 Intake & Output 08/23/20 08/24/20 08/24/20 18:59 06:59 18:59 Output Total 300 101 Balance -300 -101 Output: Gastric Drainage 300 100 Stool 1 Other: Voiding Method Bedside Commode # Voids 1 # Bowel Movements 1 - Labs CBC & Chem 7: 08/20/20 05:20 08/24/20 05:28 Labs: Abnormal Lab Results - Last 24 Hours (Table) 08/23/20 08/23/20 08/24/20 Range/Units 17:10 23:11 05:13 Carbon Dioxide (21.6-31.8) mmol/L BUN (9.0-27.0) mg/dL BUN/Creatinine Ratio (12.00-20.00) Ratio Glucose (70-110) mg/dL POC Glucose (mg/dL) 130 H 161 H 133 H (75-99) mg/dL 08/24/20 08/24/20 Range/Units 05:28 11:35 Carbon Dioxide 33.0 H (21.6-31.8) mmol/L BUN 35.0 H (9.0-27.0) mg/dL BUN/Creatinine Ratio 50.00 H (12.00-20.00) Ratio Glucose 142 H (70-110) mg/dL POC Glucose (mg/dL) 120 H (75-99) mg/dL
[2020-08-24 16:58] LABS: Glucose,Whole Blood 169 mg/dL (75-99)
[2020-08-24] MEDS: MORPHINE SULFATE 4 MG/ML SYRINGE IVP PRN (20:48)
[2020-08-24] MEDS: DULoxetine HCL 30 MG CAPSULE.DR PO SCH (20:48)
[2020-08-24] MEDS: ONDANSETRON 4 MG/2 ML VIAL IVP PRN (22:48)
[2020-08-25 00:32] LABS: Glucose,Whole Blood 108 mg/dL (75-99)
[2020-08-25] MEDS: INSULIN ASPART (NovoLOG) 100 UNIT/ML VIAL SQ SCH ×4 (00:56→17:25)
[2020-08-25] MEDS: [UNRECOGNIZED DRUG - REMARK] IV SCH ×6 (02:06)
[2020-08-25 05:15] LABS: Glucose,Whole Blood 192 mg/dL (75-99)
[2020-08-25 07:43] VITALS: RESP 16
[2020-08-25] MEDS: lisinopriL 20 MG TAB PO SCH (07:46)
[2020-08-25] MEDS: LORATADINE 10 MG TAB PO SCH (07:46)
[2020-08-25] MEDS: FUROSEMIDE 10 MG/ML 4 ML VIAL IV SCH ×2 (07:46→21:44)
[2020-08-25] MEDS: PANTOPRAZOLE 40 MG/10 ML VIAL IVP SCH (07:46)
[2020-08-25] MEDS: allopurinoL 300 MG TAB PO SCH (07:46)
[2020-08-25] MEDS: ETODOLAC 300 MG CAPSULE PO SCH ×3 (07:47→21:45)
[2020-08-25] MEDS: OXYBUTYNIN 10 MG TAB.ER.24 PO SCH (07:47)
[2020-08-25] MEDS: ENOXAPARIN 40 MG/0.4 ML SYRINGE SQ SCH (07:47)
[2020-08-25] MEDS: FLUTICASONE 50MCG/SPRAY NASAL 16GM EA NOSTRIL SCH (07:47)
[2020-08-25 10:07] LABS: Anion Gap 5.7 mmol/L (4.00-12.00); Calcium 9.2 mg/dL (8.7-10.3); Carbon Dioxide 29.3 mmol/L (21.6-31.8); Magnesium 2.3 mg/dL (1.5-2.4); Non-African American GFR(CKD) 57.8 (60.0-200.0); Phosphorus 4.7 mg/dL (2.4-5.1); Potassium 4.7 mmol/L (3.5-5.5)
--- NOTE | 2020-08-25 10:54 | P.PN ---
Subjective Progress Note Date: 08/25/20 CHIEF COMPLAINT: Abdominal pain HISTORY OF PRESENT ILLNESS: Patient is being followed for small bowel obs truction. She was treated conservatively. NG tube was removed on August 23. She's currently on a clear liquid diet and tolerating it. She did report 1 episode of vomiting yesterday but felt it was more due to medications. She reports gas and bowel movement through her colostomy. She is also on TPN for nutrition support. Afebrile. Creatinine 1.0 BUN 46 sodium 134 PHYSICAL EXAM: VITAL SIGNS: Reviewed. GENERAL: Well-developed in no acute distress. HEENT: No sclera icterus. Extraocular movements grossly intact. Moist buccal mucosa. Head is atraumatic, normocephalic. ABDOMEN: Soft. Nondistended. Nontender. Obese Colostomy on the left side of the abdomen stoma beefy Red. Nontender. Patient does have 2 abdominal hernias NEUROLOGIC: Alert and oriented. Cranial nerves II through XII grossly intact. ASSESSMENT: 1. Small bowel obstruction resolving PLAN: -Advance diet to a full liquid diet for lunch and low fiber diet for dinner -Encourage patient to ambulate -Continue conservative management no surgical intervention planned -Anticipate discharge home tomorrow -Discontinue TPN -GI prophylaxis Protonix and DVT prophylaxis Lovenox Physician Sailing Instructor note has been reviewed by physician. Signing provider agrees with the documented findings, assessment, and plan of care. Objective - Vital Signs Vital signs: Vital Signs Temp 97.4 F L 08/25/20 07:42 Pulse 67 08/25/20 07:42 Resp 16 08/25/20 07:42 BP 82/53 08/25/20 07:42 Pulse Ox 99 08/25/20 07:42 Intake & Output 08/24/20 08/25/20 08/25/20 18:59 06:59 18:59 Intake Total 440 Output Total 1 51 Balance -1 389 Intake: Oral 440 Output: Stool 1 1 Emesis 50 Other: Voiding Method Bedside Commode Bedside Commode # Voids 4 - Labs CBC & Chem 7: 08/20/20 05:20 08/25/20 06:13 Labs: Abnormal Lab Results - Last 24 Hours (Table) 08/24/20 08/24/20 08/25/20 Range/Units 11:35 16:57 00:30 Sodium (135-145) mmol/L BUN (9.0-27.0) mg/dL Est GFR (CKD-EPI)NonAf (60.0-200.0) BUN/Creatinine Ratio (12.00-20.00) Ratio Glucose (70-110) mg/dL POC Glucose (mg/dL) 120 H 169 H 108 H (75-99) mg/dL 08/25/20 08/25/20 Range/Units 05:13 06:13 Sodium 134 L (135-145) mmol/L BUN 46.0 H (9.0-27.0) mg/dL Est GFR (CKD-EPI)NonAf 57.8 L (60.0-200.0) BUN/Creatinine Ratio 46.00 H (12.00-20.00) Ratio Glucose 173 H (70-110) mg/dL POC Glucose (mg/dL) 192 H (75-99) mg/dL
[2020-08-25 11:40] LABS: Glucose,Whole Blood 144 mg/dL (75-99)
[2020-08-25 17:16] LABS: Glucose,Whole Blood 98 mg/dL (75-99)
[2020-08-25] MEDS: MORPHINE SULFATE 4 MG/ML SYRINGE IVP PRN (21:43)
[2020-08-25] MEDS: DULoxetine HCL 30 MG CAPSULE.DR PO SCH (21:45)
--- NOTE | 2020-08-25 21:53 | P.PN ---
Progress Note - Text Progress Note Date: 08/25/20 Presenting complaint: Abdominal pain Interval history: Patient is a 70-year-old female history of hypertension, osteoarthritis, prior perforated bowel requiring colostomy secondary to diverticulitis, gout, and balance issues who presented to our emergency department as a transfer from outside hospital with complaints of abdominal pain and small bowel obstruction. She was initially admitted to surgery and had an NG tube placed. She had increased NG output and repeat CT abd and pelvis as ordered as patient's x-ray suboptimal due to body habitus, CT showed minimal improvement in SBO. Started on TPN with prolonged need for NPO status. Good ostomy output though all liquid starting 08/20. NG tube was removed on 08/23/20. Started on clear liquids 08/24/20. Today-colostomy started working. On TPN. On clear liquid diet Review of systems: Was done for constitutional, cardiovascular, GI, pulmonary. relevant finding as above Active Medications Albuterol Sulfate (Albuterol Nebulized 2.5 Mg/3 Ml) 2.5 mg INHALATION RT-QID PRN PRN Reason: Shortness Of Breath Allopurinol (Allopurinol 300 Mg Tab) 300 mg PO DAILY [facility] Last Admin: 08/25/20 07:46 Dose: 300 mg Documented by: Benzocaine (Benzocaine [place] 1 Can) 1 spray MUCOUS MEM QID PRN PRN Reason: Mouth Irritation Last Admin: 08/22/20 01:59 Dose: 1 spray Documented by: Duloxetine HCl (Duloxetine Hcl 30 Mg Capsule.Dr) 30 mg PO HS [facility] Last Admin: 08/25/20 21:45 Dose: 30 mg Documented by: Enoxaparin Sodium (Enoxaparin 40 Mg/0.4 Ml Syringe) 40 mg SQ DAILY [facility] Last Admin: 08/25/20 07:47 Dose: 40 mg Documented by: Etodolac (Etodolac 300 Mg Capsule) 300 mg PO TID [facility] Last Admin: 08/25/20 21:45 Dose: 300 mg Documented by: Fluticasone Propionate (Fluticasone 50mcg/[place] Nasal 16gm) 1 spray EA NOSTRIL DAILY [facility] Last Admin: 08/25/20 07:47 Dose: 1 spray Documented by: Furosemide (Furosemide 10 Mg/Ml 4 Ml Vial) 40 mg IV Q12HR [facility] Last Admin: 08/25/20 21:44 Dose: 40 mg Documented by: Parenteral Vitamin Supplement 10 ml/ Chromium/Copper/Manganese/Seleni/Zn 1 ml/Magnesium Sulfate 1 gm/Potassium Chloride 24 meq/Sodium Chloride 16 meq/ Amino Ac/Electrol/Dextrose/Calcium 1,029 mls @ 75 mls/hr IV .BY DURATION [facility] Last Admin: 08/25/20 15:48 Dose: Not Given Documented by: Magnesium Sulfate 1 gm/Potassium Chloride 24 meq/Sodium Chloride 16 meq/ Amino Ac/Electrol/Dextrose/Calcium 1,018 mls @ 75 mls/hr IV .BY DURATION [facility] Last Admin: 08/25/20 02:02 Dose: 75 mls/hr Documented by: Insulin Aspart (Insulin Aspart (Novolog) 100 Unit/Ml Vial) 0 unit SQ Q6H [facility]; Protocol Last Admin: 08/25/20 17:25 Dose: Not Given Documented by: Lisinopril (Lisinopril 20 Mg Tab) 40 mg PO DAILY [facility] Last Admin: 08/25/20 07:46 Dose: 40 mg Documented by: Loratadine (Loratadine 10 Mg Tab) 10 mg PO DAILY [facility] Last Admin: 08/25/20 07:46 Dose: 10 mg Documented by: Morphine Sulfate (Morphine Sulfate 4 Mg/Ml Syringe) 4 mg IVP Q4HR PRN PRN Reason: Pain Last Admin: 08/25/20 21:43 Dose: 4 mg Documented by: Naloxone HCl (Naloxone 0.4 Mg/Ml 1 Ml Vial) 0.2 mg IV Q2M PRN PRN Reason: Opioid Reversal Ondansetron HCl (Ondansetron 4 Mg/2 Ml Vial) 4 mg IVP Q6HR PRN PRN Reason: Nausea And Vomiting Last Admin: 08/24/20 22:48 Dose: 4 mg Documented by: Oxybutynin Chloride (Oxybutynin 10 Mg Tab.Er.24) 10 mg PO DAILY [facility] Last Admin: 08/25/20 07:47 Dose: 10 mg Documented by: Pantoprazole Sodium (Pantoprazole 40 Mg/10 Ml Vial) 40 mg IVP DAILY [facility] Last Admin: 08/25/20 07:46 Dose: 40 mg Documented by: Saliva Substitute (Dry Mouth [place] 44.3 [place]/44.3 Ml [place]) 1 spray MUCOUS MEM QID PRN PRN Reason: Dry Mouth Sodium Chloride (Sodium Chloride 0.9% Flush 10 Ml Syringe) 10 ml IV Q4HR PRN PRN Reason: PICC Line Sodium Chloride (Sodium Chloride 0.9% Flush 10 Ml Syringe) 10 ml IV WEEKLY [facility] Last Admin: 08/25/20 07:48 Dose: 10 ml Documented by: Sodium Chloride (Sodium Chloride 0.9% Flush 10 Ml Syringe) 20 ml IV Q4HR PRN PRN Reason: PICC Line On examination: VITAL SIGNS: 97.4, 67, 16, 93/48, 94% room air GENERAL APPEARANCE: BMI 54.9, not in distress, sitting up in a chair HEENT: Normal external appearance of nose and ear. Oral cavity normal EYES: Pupils equal. Conjunctiva normal. NECK: JVD unable to assess. Mass not palpable. RESPIRATORY: Respiratory effort normal. Lungs clear to auscultation. CARDIOVASCULAR: First and second sounds normal. No edema. ABDOMEN: Soft. Liver and spleen not palpable. No tenderness. Left-sided colostomy with stool PSYCHIATRY: Alert and oriented x3. Mood and affect normal. Assessment: -Small bowel obstruction-NG tube removed on August 23. Currently on clear liquids -Essential Hypertension -GERD -Morbid obesity with BMI 54.9 -Multiple chronic abdominal wall hernias -Prediabetic -Hyponatremia, likely due to dehydration, resolved -Hypomagnesemia, resolved Plan: on clear liquids. Diet advanced per surgery. Feeling better. Continue other medications. Discussed with patient
[2020-08-26 07:00] LABS: Ionized Calcium 5.3 mg/dL (4.5-5.3)
[2020-08-26 07:45] VITALS: BP 81/47; PULSE 72; TEMP 97.5
[2020-08-26] MEDS: ENOXAPARIN 40 MG/0.4 ML SYRINGE SQ SCH (10:11)
[2020-08-26] MEDS: OXYBUTYNIN 10 MG TAB.ER.24 PO SCH (10:11)
[2020-08-26] MEDS: LORATADINE 10 MG TAB PO SCH (10:11)
[2020-08-26] MEDS: ETODOLAC 300 MG CAPSULE PO SCH (10:11)
[2020-08-26] MEDS: FLUTICASONE 50MCG/SPRAY NASAL 16GM EA NOSTRIL SCH (10:12)
[2020-08-26] MEDS: allopurinoL 300 MG TAB PO SCH (10:12)
[2020-08-26] MEDS: lisinopriL 20 MG TAB PO SCH (10:12)
[2020-08-26 10:22] LABS: African American GFR (CKD) 53.8 (60.0-200.0); Anion Gap 9.8 mmol/L (4.00-12.00); BUN/Creat Ratio 47.5 Ratio (12.00-20.00); Calcium 9.6 mg/dL (8.7-10.3); Carbon Dioxide 26.2 mmol/L (21.6-31.8); Magnesium 2.1 mg/dL (1.5-2.4); Non-African American GFR(CKD) 46.4 (60.0-200.0); Potassium 5.3 mmol/L (3.5-5.5)
--- NOTE | 2020-08-26 13:40 | P.DS ---
Providers Date of admission: 08/15/20 04:12 Expected date of discharge: 08/26/20 Attending physician: Bethel Parry Consults: 08/16/20 12:23 Consult Physician Routine Consulting Provider: Fadi Shabazz Consult Reason/Comments: Medical management Do you want consulting provider notified?: Yes Primary care physician: [facility] Course: Discharge diagnosis 1. Small bowel obstruction 2. Multiple ventral hernias 3. History of hypertension with hypotension during her hospitalization Hospital course This is a 70-year-old female who was admitted for small bowel obstruction. She was a transfer from an outside hospital secondary to her small bowel obstruction. I she reports having abdominal pain that was diffuse and crampy. NG tube had been inserted for decompression. She had a computed tomography scan of the head and pelvis which showed dilated small bowel consistent with mechanical small bowel obstruction. Also demonstrated approximately 4 incarcerated ventral hernias on the anterior abdominal wall. Patient was treated conservatively. She had started passing gas and having stool through her colostomy. She tolerated advancement of diet. She denies any abdominal pain. She is afebrile. She is ambulating. She is stable for discharge home. Patient did have some hypotension during this admission and her blood pressure medications have been held. Recommend to hold these blood pressure medications, Lasix and Zestoretic for the next 2 days. Patient to record blood pressure at home and follow-up with her PCP in 2 days. Please refer to chart for any further details. Physician Mother [employer] note has been reviewed by physician. Signing provider agrees with the documented findings, assessment, and plan of care. Patient Condition at Discharge: Stable Plan - Discharge Summary New Discharge Prescriptions: Continue Multivitamins, Thera [Multivitamin (formulary)] 1 tab PO DAILY allopurinoL [Zyloprim] 300 mg PO DAILY DULoxetine HCL [Cymbalta] 30 mg PO HS Omeprazole 40 mg PO DAILY HYDROcodone/APAP 5-325MG [[place] 5-325] 1 tab PO DAILY Diclofenac Sodium [Diclofenac Sodium ER] 100 mg PO DAILY Calcium Carbonate [Calcium] 600 mg PO DAILY Oxybutynin Chloride [Ditropan XL] 10 mg PO DAILY Albuterol Inhaler [Ventolin Hfa Inhaler] 1 puff INHALATION RT-QID PRN PRN Reason: Shortness Of Breath Cetirizine HCl [Zyrtec] 10 mg PO DAILY Fluticasone Nasal [place] [Flonase Nasal [place]] 1 spray EA NOSTRIL DAILY metFORMIN HCL [Glucophage] 1,000 mg PO BID Discontinued Furosemide [Lasix] 20 mg PO DAILY Lisinopril-Hctz 20-25 mg [Zestoretic 20-25] 2 tab PO DAILY Potassium Chloride ER [K-Dur 20] 20 meq PO DAILY Magnesium 250 mg PO DAILY Discharge Medication List Multivitamins, Thera [Multivitamin (formulary)] 1 tab PO DAILY 08/27/16 [History] allopurinoL [Zyloprim] 300 mg PO DAILY 08/27/16 [History] DULoxetine HCL [Cymbalta] 30 mg PO HS 11/09/17 [History] Calcium Carbonate [Calcium] 600 mg PO DAILY 08/25/18 [History] Diclofenac Sodium [Diclofenac Sodium ER] 100 mg PO DAILY 08/25/18 [History] HYDROcodone/APAP 5-325MG [[place] 5-325] 1 tab PO DAILY 08/25/18 [History] Omeprazole 40 mg PO DAILY 08/25/18 [History] Oxybutynin Chloride [Ditropan XL] 10 mg PO DAILY 08/25/18 [History] Albuterol Inhaler [Ventolin Hfa Inhaler] 1 puff INHALATION RT-QID PRN 08/15/20 [History] Cetirizine HCl [Zyrtec] 10 mg PO DAILY 08/15/20 [History] Fluticasone Nasal [place] [Flonase Nasal [place]] 1 spray EA NOSTRIL DAILY 08/15/20 [History] metFORMIN HCL [Glucophage] 1,000 mg PO BID 08/15/20 [History] Follow up Appointment(s)/Referral(s): [facility] [NON-STAFF] - 1-2 Days (Please contact them day of discharge so they will be able to see you timely. Thank you) Edson Werner MD [Primary Care Provider] - 1-2 days Bethel Parry MD [STAFF PHYSICIAN] - 1 Week Activity/Diet/Wound Care/Special Instructions: check accuchek and BP daily in am - keep log for PCP Diet: regular Activity: as tolerated Hold Lasix and Zestoretic for 2 days and follow-up with PCP Discharge Disposition: HOME SELF-CARE
--- NOTE | 2020-08-27 20:08 | P.PN ---
Progress Note - Text Progress Note Date: 08/26/20 Presenting complaint: Abdominal pain Interval history: Patient is a 70-year-old female history of hypertension, osteoarthritis, prior perforated bowel requiring colostomy secondary to diverticulitis, gout, and balance issues who presented to our emergency department as a transfer from outside hospital with complaints of abdominal pain and small bowel obstruction. She was initially admitted to surgery and had an NG tube placed. She had increased NG output and repeat CT abd and pelvis as ordered as patient's x-ray suboptimal due to body habitus, CT showed minimal improvement in SBO. Started on TPN with prolonged need for NPO status. Good ostomy output though all liquid starting 08/20. NG tube was removed on 08/23/20. Started on clear liquids 08/24/20. Today-diet advanced. Starting well. Had a bowel movement. Feeling well. Questions answered. Review of systems: Was done for constitutional, cardiovascular, GI, pulmonary. relevant finding as above current medications reviewed in today's electronic records On examination: VITAL SIGNS: 97.5, 72, 16, 81 x 47, 94% room air GENERAL APPEARANCE: BMI 54.9, comfortable,, sitting up in a chair HEENT: Normal external appearance of nose and ear. Oral cavity normal EYES: Pupils equal. Conjunctiva normal. NECK: JVD unable to assess. Mass not palpable. RESPIRATORY: Respiratory effort normal. Lungs clear to auscultation. CARDIOVASCULAR: First and second sounds normal. No edema. ABDOMEN: Soft. Liver and spleen not palpable. No tenderness. Left-sided colostomy with stool PSYCHIATRY: Alert and oriented x3. Mood and affect normal. Investigations: Potassium 5.3 creatinine 1.2 Assessment: -Small bowel obstruction-NG tube removed on August 23.not tolerating diet -Essential Hypertension -GERD -Morbid obesity with BMI 54.9 -Multiple chronic abdominal wall hernias -Prediabetic -Hyponatremia, likely due to dehydration, resolved -Hypomagnesemia, resolved Plan: continue current medication treatment plan. Follow-up with family doctor upon discharge. Discussed with the patient. Thank you Dr. Parry
== END 2020-08-26 15:15 | disposition home health service (06) | DRG 394 ==
LOC: EC 03:36 → 5NMEDONC 04:12 → 4SSUR 08-21 18:31
PROVIDERS: ADMIT Surgery; ATTEND Surgery
PROC: 0D9670Z Drainage of Stomach with Drainage Device, Via Natural or Artificial Opening (ICD-10-PCS; principal; 2020-08-15)
PROC: 02HV33Z Insertion of Infusion Device into Superior Vena Cava, Percutaneous Approach (ICD-10-PCS; 2020-08-18)
PROC: 3E0436Z Introduction of Nutritional Substance into Central Vein, Percutaneous Approach (ICD-10-PCS; 2020-08-18)
DX: K43.6 Other and unspecified ventral hernia with obstruction, without gangrene (principal); Z68.43 Body mass index [BMI] 50.0-59.9, adult; E87.1 Hypo-osmolality and hyponatremia; I13.0 Hypertensive heart and chronic kidney disease with heart failure and stage 1 through stage 4 chronic kidney disease, or unspecified chronic kidney disease; I50.9 Heart failure, unspecified; I95.9 Hypotension, unspecified; Z43.3 Encounter for attention to colostomy; E66.01 Morbid (severe) obesity due to excess calories; N18.9 Chronic kidney disease, unspecified; K43.5 Parastomal hernia without obstruction or gangrene; E83.42 Hypomagnesemia; E86.0 Dehydration; G47.30 Sleep apnea, unspecified; K21.9 Gastro-esophageal reflux disease without esophagitis; F32.9 Major depressive disorder, single episode, unspecified; M79.7 Fibromyalgia; N32.81 Overactive bladder; G89.29 Other chronic pain; M19.90 Unspecified osteoarthritis, unspecified site; M54.9 Dorsalgia, unspecified; R73.03 Prediabetes; M10.9 Gout, unspecified; Z79.84 Long term (current) use of oral hypoglycemic drugs; Z79.899 Other long term (current) drug therapy; Z87.891 Personal history of nicotine dependence; Z85.3 Personal history of malignant neoplasm of breast; Z71.3 Dietary counseling and surveillance; Z90.49 Acquired absence of other specified parts of digestive tract; Z87.19 Personal history of other diseases of the digestive system; Z90.710 Acquired absence of both cervix and uterus; Z96.653 Presence of artificial knee joint, bilateral; Z87.42 Personal history of other diseases of the female genital tract; Z87.39 Personal history of other diseases of the musculoskeletal system and connective tissue; Z86.69 Personal history of other diseases of the nervous system and sense organs; Z90.89 Acquired absence of other organs; Z86.79 Personal history of other diseases of the circulatory system; Z98.890 Other specified postprocedural states; Z91.040 Latex allergy status; Z91.048 Other nonmedicinal substance allergy status; Z83.3 Family history of diabetes mellitus; Z82.49 Family history of ischemic heart disease and other diseases of the circulatory system; Z80.9 Family history of malignant neoplasm, unspecified
CPT/HCPCS: 36573; 74018; 74019; 74177; 80048; 80053; 82330; 83036; 83605; 83690; 83735; 84100; 84478; 85025; 85027; 94760; 96374; 99285

== ENCOUNTER 2020-10-16 20:03 | Inpatient (IN) | payer MEDICARE ==
[2020-10-16] MEDS ORDERED: IPRATROPIUM-ALBUTEROL 3 ML NEB INHALATION STA ×2 (20:25→23:32)
[2020-10-16 20:36] LABS: Anisocytosis Slight; Basophils % (A) 1 %; Eosinophils # (A) 0.3 k/uL (0-0.7); Eosinophils % (A) 3 %; HCT 34.5 % (34.0-46.0); HGB 10.7 gm/dL (11.4-16.0); Hypochromasia Moderate; Lymphocytes # (A) 1.4 k/uL (1.0-4.8); Lymphocytes % (A) 17 %; MCH 26.7 pg (25.0-35.0); MCHC 31.1 g/dL (31.0-37.0); MCV 85.7 fL (80.0-100.0); Mean Platelet Volume 7.5; Monocytes # (A) 0.5 k/uL (0-1.0); Monocytes % (A) 6 %; Neutrophils # (A) 5.8 k/uL (1.3-7.7); Neutrophils % (A) 71 %; Platelet Count 394 k/uL (150-450); Poikilocytosis Slight; RBC 4.02 m/uL (3.80-5.40); RDW 18.4 % (11.5-15.5); WBC 8.2 k/uL (3.8-10.6)
[2020-10-16 20:56] LABS: Partial Thromboplastin Time 21.2 sec (22.0-30.0); Prothrombin Time 10.8 sec (9.0-12.0)
[2020-10-16 20:59] LABS: ALT 26 U/L (4-34); AST 32 U/L (14-36); African American GFR (CKD) >90 (>60 ml/min/1.73 sqM); Albumin 4.4 g/dL (3.5-5.0); Alkaline Phosphatase 63 U/L (38-126); Amylase 36 U/L (30-110); Anion Gap 13 mmol/L; Blood Urea Nitrogen 22 mg/dL (7-17); Calcium 10.5 mg/dL (8.4-10.2); Carbon Dioxide 29 mmol/L (22-30); Chloride 93 mmol/L (98-107); Glucose 136 mg/dL (74-99); Lipase 101 U/L (23-300); Non-African American GFR(CKD) >90 (>60 ml/min/1.73 sqM); Potassium 4.5 mmol/L (3.5-5.1); Sodium 135 mmol/L (137-145); Total Bilirubin 0.5 mg/dL (0.2-1.3); Total Protein 7.1 g/dL (6.3-8.2)
--- NOTE | 2020-10-16 21:03 | XR ---
EXAMINATION TYPE: XR chest 2V DATE OF EXAM: 10/16/2020 COMPARISON: NONE HISTORY: Shortness of breath. TECHNIQUE: Frontal and lateral views of the chest are obtained. FINDINGS: There is moderate interstitial edema with associated hazy and streaky opacities. No signif icant pleural effusion, or pneumothorax seen. Cardiomegaly. The osseous structures are intact. IMPRESSION: CHF with superimposed infiltrates not excluded.
[2020-10-16 21:04] LABS: D-Dimer 0.92 mg/L FEU (<0.60)
[2020-10-16] MEDS ORDERED: FUROSEMIDE 10 MG/ML 4 ML VIAL IV STA (21:07)
--- NOTE | 2020-10-16 22:39 | CT ---
EXAMINATION TYPE: CT chest angio for PE DATE OF EXAM: 10/16/2020 COMPARISON: None HISTORY: pe CT DLP: 601.9 mGycm Automated exposure control for dose reduction was used. CONTRAST: Performed with IV Contrast, patient injected with 100 mL of Isovue 370. Images obtained from the thoracic inlet to the diaphragm with IV contrast and 3-D post processed imag es. There is patchy groundglass interstitial infiltrates in the upper and lower lobes bilaterally. Heart is enlarged. There is no pericardial effusion. There is small right pleural effusion. There is no med iastinal adenopathy. There are no hilar masses. There is no evidence of filling defect in the pulmona ry arteries. The ascending aorta measures 3 cm. There is degenerative hypertrophic spurring in the th oracic spine. I see no bony destructive process. IMPRESSION: No evidence of pulmonary embolism. Patchy groundglass pulmonary interstitial infiltrates. Small right pleural effusion. Moderate cardiomegaly. Congestive heart failure is possible.
--- NOTE | 2020-10-16 22:49 | CT ---
EXAMINATION TYPE: CT abdomen pelvis w con DATE OF EXAM: 10/16/2020 COMPARISON: 08/16/2020 HISTORY: pain CT DLP: 1823 mGycm Automated exposure control for dose reduction was used. CONTRAST: Performed with IV Contrast, patient injected with 100 mL of Isovue 370. Images obtained from the diaphragm to the floor the pelvis with IV contrast. There is some interstitial infiltrates and atelectasis at the lung bases. Heart is enlarged. There is no pericardial effusion. There is small right pleural effusion. There are clips from cholecystectomy. Liver is intact. Spleen is intact. There are small calcified sp lenic granulomata. There is no evidence of pancreatic mass. The stomach is intact. There is large ventral hernia that contains multiple loops of bowel. This is a multifocal hernia with multiple openings on the anterior abdominal wall. There are at least 4 hernias. There is variable in carceration of multiple bowel loops. I see no dilated bowel. There is retained fecal material in the large bowel. There is no ascites. Bladder distends smoothly. There is normal contrast opacification of both kidney s. There is no hydronephrosis. Ureters are not dilated. There is no adrenal mass. There is no retrope ritoneal adenopathy. Lumbar vertebra have normal alignment. There is no compression fracture. There is multilevel spondylo tic changes. The bony pelvis is intact. The hip joints are intact. There is disc space narrowing thro ughout the lumbar spine. IMPRESSION: Multiple ventral hernias. Constipation. There is clearing of the dilated loops of small bowel compare d to old exam. I do not see evidence for mechanical bowel obstruction. Cardiomegaly. Old granulomatous disease. There is new interstitial infiltrates and atelectasis with pleural fluid compared to old exam. This c ould relate to some congestive heart failure.
[2020-10-16] MEDS ORDERED: NITROGLYCERIN SL TABS 0.4 MG TAB SUBLINGUAL PRN (23:33)
--- NOTE | 2020-10-16 23:46 | ED ---
General Adult HPI - General Source: EMS Mode of arrival: EMS Limitations: no limitations <Mindy Wray - Last Filed: 10/16/20 23:36> <Chio Dwyer - Last Filed: 10/20/20 22:40> - General Chief complaint: Abdominal Pain Stated complaint: Abdominal pain Time Seen by Provider: 10/16/20 20:07 - History of Present Illness Initial comments: 70-year-old female presenting today for chief complaint of shortness of breath, hernia pain. Patient states she felt short of breath the past few days she states it is difficult to lie flat. She states she also has pain in her hernia especially if she coughs. Patient states she has numerous large ventral hernias. She states that she has been able to have a bowel movement she denies any nausea vomiting she denies fevers. She states at times which takes a deep breath she has a pain in her chest. She denies consistent pain she denies any chest pressure jaw or arm pain and she denies back pain nausea vomiting. Patient has no additional complaints upon arrival she appears nontoxic she does appear slightly tachypneic and is saturating in the high 80s on RA-hypoxic. (Mindy Wray) - Related Data Home Medications Medication Instructions Recorded Confirmed Multivitamins, Thera [Multivitamin 1 tab PO DAILY 08/27/16 10/17/20 (formulary)] allopurinoL [Zyloprim] 300 mg PO DAILY 08/27/16 10/17/20 DULoxetine HCL [Cymbalta] 30 mg PO HS 11/09/17 10/17/20 Calcium Carbonate [Calcium] 600 mg PO DAILY 08/25/18 10/17/20 Diclofenac Sodium [Diclofenac 100 mg PO DAILY 08/25/18 10/17/20 Sodium ER] HYDROcodone/APAP 5-325MG [[place] 1 tab PO DAILY 08/25/18 10/17/20 5-325] Omeprazole 40 mg PO DAILY 08/25/18 10/17/20 Oxybutynin Chloride [Ditropan XL] 10 mg PO DAILY 08/25/18 10/17/20 Albuterol Inhaler [Ventolin Hfa 1 puff INHALATION RT-QID PRN 08/15/20 10/17/20 Inhaler] Cetirizine HCl [Zyrtec] 10 mg PO DAILY 08/15/20 10/17/20 Fluticasone Nasal [place] [Flonase 1 spray EA NOSTRIL DAILY 08/15/20 10/17/20 Nasal [place]] metFORMIN HCL [Glucophage] 1,000 mg PO BID 08/15/20 10/17/20 Allergies Allergy/AdvReac Type Severity Reaction Status Date / Time latex Allergy Rash/Hives Verified 10/17/20 08:26 DUST,POLLEN AdvReac SNEEZING Uncoded 10/16/20 20:08 Review of Systems ROS Other: All systems not noted in ROS Statement are negative. <Mindy Wray - Last Filed: 10/16/20 23:36> ROS Other: All systems not noted in ROS Statement are negative. <Chio Dwyer - Last Filed: 10/20/20 22:40> ROS Statement: Those systems with pertinent positive or pertinent negative responses have been documented in the HPI. Past Medical History Past Medical History: GERD/Reflux, Hypertension, Osteoarthritis (OA), Sleep Apnea/CPAP/BIPAP Additional Past Medical History / Comment(s): no cpap used, hx perforated bowel- has colostomy, diverticulitis, gout, frequent leg swelling, pt reports balance issues. History of Any Multi-Drug Resistant Organisms: None Reported Past Surgical History: Bowel Resection, Cholecystectomy, Hernia Repair, Hysterectomy, Joint Replacement, Orthopedic Surgery, Tonsillectomy Additional Past Surgical History / Comment(s): perforated bowel/colostomy, right and left knee replaced, left wrist carpal tunnel repair Past Anesthesia/Blood Transfusion Reactions: No Reported Reaction Past Psychological History: No Psychological Hx Reported Smoking Status: Former smoker Past Alcohol Use History: None Reported Past Drug Use History: None Reported - Past Family History Sister(s) Family Medical History: Cancer Father Family Medical History: Diabetes Mellitus, Hypertension <Mindy Wray - Last Filed: 10/16/20 23:36> General Exam Limitations: no limitations <Mindy Wray - Last Filed: 10/16/20 23:36> - General Exam Comments Initial Comments: General: The patient is awake and alert, in no distress Eye: +mm pupils are equal, round and reactive to light, extra-ocular movements are intact. No nystagmus. There is normal conjunctiva bilaterally. No signs of icterus. Ears, nose, mouth and throat: There are moist mucous membranes and no oral lesions. Neck: The neck is supple, there is no tenderness or JVD. Cardiovascular: There is a regular rate and rhythm. No murmur, rub or gallop is appreciated. Respiratory: Diminished lungs sounds, respirations are non-labored, breath sounds are equal. Expiratory and inspiration wheeze. No stridor. Baseline rales, and some scattered rhonchi. Gastrointestinal: Soft, obese, mildly diffuse tenderness of the abdomen without masses or organomegaly noted. There is no rebound or guarding present. No CVA tenderness Soft LARGE ventral hernia,no pain with attempted reduction Musculoskeletal: Normal ROM, no tenderness. Strength 5/5. Sensation intact. Radial and DP pulses equal bilaterally 2+. Neurological: A&O x 3. CN II-XII intact grossly, There are no obvious motor or sensory deficits. Coordination appears grossly intact. Speech is normal. Skin: Skin is warm and dry and no rashes or lesions are noted. No pitting edema of the lE b/l Psychiatric: Cooperative, appropriate mood & affect, normal judgment. (Mindy Wray) Course Vital Signs 10/16/20 10/16/20 10/16/20 20:08 21:05 21:11 Temperature 98.4 F Pulse Rate 115 H 100 100 Respiratory 22 Rate Blood Pressure 143/93 O2 Sat by Pulse 92 L Oximetry 10/16/20 10/16/20 10/16/20 21:13 22:19 23:33 Temperature Pulse Rate 99 90 Respiratory 20 20 Rate Blood Pressure 157/98 159/98 O2 Sat by Pulse 98 97 99 Oximetry 10/16/20 10/16/20 10/17/20 23:35 23:56 00:11 Temperature Pulse Rate 98 100 98 Respiratory 20 Rate Blood Pressure 153/94 O2 Sat by Pulse 99 Oximetry 10/17/20 00:32 Temperature 98.0 F Pulse Rate 97 Respiratory 18 Rate Blood Pressure 155/92 O2 Sat by Pulse 99 Oximetry Medical Decision Making - Lab Data Result diagrams: 10/16/20 20:27 10/16/20 20:27 <Mindy Wray - Last Filed: 10/16/20 23:36> - Lab Data Result diagrams: 10/20/20 14:25 10/20/20 14:25 <Chio Dwyer - Last Filed: 10/20/20 22:40> - Medical Decision Making No PE. Lungs mixed picture there are rales at baseline, she does have orthopnea but there is also diminished sounds with inspiratory and expiratory wheeze. Patient troponin (-)> CXR consistent with CHF. BNP elevated. Lasix given. No cough, no fevers. no leukocytosis. Improvement of lung sounds with duoneb. His first patient's abdomen there is no physical examination findings concerning for incarcerated hernia. Patient does have very large ventral hernia that cannot be fully reduced secondary to patient's body habitus. CT no mechanical obstruction/signs of strangulation/incarceration. patient is agreeable to admission for continued iv lasix/cardiology evaluation of CHF/dyspnea. Dr Dwyer agreeable to care plan. (Mindy Wray) I was available for consultation in the emergency department. The history and physical exam were done by the midlevel provider. I was consulted for this patients care. I reviewed the case with the midlevel provider and based on their presentation of the patient, I agree with the assessment, medical decision making and plan of care as documented. Chart was dictated using [employer] dictation software. Attempts were made to correct any dictation errors however some typographical errors may persist. Patient was seen during a national state of emergency due to the Covid-19 pandemic. (Chio Dwyer) - Lab Data Lab Results 10/16/20 10/16/20 10/16/20 Range/Units 20:27 20:27 20:27 WBC 8.2 (3.8-10.6) k/uL RBC 4.02 (3.80-5.40) m/uL Hgb 10.7 L (11.4-16.0) gm/dL Hct 34.5 (34.0-46.0) % MCV 85.7 (80.0-100.0) fL MCH 26.7 (25.0-35.0) pg MCHC 31.1 (31.0-37.0) g/dL RDW 18.4 H (11.5-15.5) % Plt Count 394 (150-450) k/uL MPV 7.5 Neutrophils % 71 % Lymphocytes % 17 % Monocytes % 6 % Eosinophils % 3 % Basophils % 1 % Neutrophils # 5.8 (1.3-7.7) k/uL Lymphocytes # 1.4 (1.0-4.8) k/uL Monocytes # 0.5 (0-1.0) k/uL Eosinophils # 0.3 (0-0.7) k/uL Basophils # 0.0 (0-0.2) k/uL Hypochromasia Moderate Poikilocytosis Slight Anisocytosis Slight PT 10.8 (9.0-12.0) sec INR 1.0 (<1.2) APTT 21.2 L (22.0-30.0) sec D-Dimer 0.92 H (<0.60) mg/L FEU Sodium 135 L (137-145) mmol/L Potassium 4.5 (3.5-5.1) mmol/L Chloride 93 L (98-107) mmol/L Carbon Dioxide 29 (22-30) mmol/L Anion Gap 13 mmol/L BUN 22 H (7-17) mg/dL Creatinine 0.67 (0.52-1.04) mg/dL Est GFR (CKD-EPI)AfAm >90 (>60 ml/min/1.73 sqM) Est GFR (CKD-EPI)NonAf >90 (>60 ml/min/1.73 sqM) Glucose 136 H (74-99) mg/dL Lactic Ac Sepsis Rflx Plasma Lactic Acid [place] (0.7-2.0) mmol/L Calcium 10.5 H (8.4-10.2) mg/dL Total Bilirubin 0.5 (0.2-1.3) mg/dL AST 32 (14-36) U/L ALT 26 (4-34) U/L Alkaline Phosphatase 63 (38-126) U/L Troponin I (0.000-0.034) ng/mL NT-Pro-B Natriuret Pep pg/mL Total Protein 7.1 (6.3-8.2) g/dL Albumin 4.4 (3.5-5.0) g/dL Amylase 36 (30-110) U/L Lipase 101 (23-300) U/L Coronavirus (PCR) (Not Detectd) 10/16/20 10/16/20 10/16/20 Range/Units 20:27 20:27 20:27 WBC (3.8-10.6) k/uL RBC (3.80-5.40) m/uL Hgb (11.4-16.0) gm/dL Hct (34.0-46.0) % MCV (80.0-100.0) fL MCH (25.0-35.0) pg MCHC (31.0-37.0) g/dL RDW (11.5-15.5) % Plt Count (150-450) k/uL MPV Neutrophils % % Lymphocytes % % Monocytes % % Eosinophils % % Basophils % % Neutrophils # (1.3-7.7) k/uL Lymphocytes # (1.0-4.8) k/uL Monocytes # (0-1.0) k/uL Eosinophils # (0-0.7) k/uL Basophils # (0-0.2) k/uL Hypochromasia Poikilocytosis Anisocytosis PT (9.0-12.0) sec INR (<1.2) APTT (22.0-30.0) sec D-Dimer (<0.60) mg/L FEU Sodium (137-145) mmol/L Potassium (3.5-5.1) mmol/L Chloride (98-107) mmol/L Carbon Dioxide (22-30) mmol/L Anion Gap mmol/L BUN (7-17) mg/dL Creatinine (0.52-1.04) mg/dL Est GFR (CKD-EPI)AfAm (>60 ml/min/1.73 sqM) Est GFR (CKD-EPI)NonAf (>60 ml/min/1.73 sqM) Glucose (74-99) mg/dL Lactic Ac Sepsis Rflx Plasma Lactic Acid [place] 3.4 H* (0.7-2.0) mmol/L Calcium (8.4-10.2) mg/dL Total Bilirubin (0.2-1.3) mg/dL AST (14-36) U/L ALT (4-34) U/L Alkaline Phosphatase (38-126) U/L Troponin I 0.013 (0.000-0.034) ng/mL NT-Pro-B Natriuret Pep 5790 pg/mL Total Protein (6.3-8.2) g/dL Albumin (3.5-5.0) g/dL Amylase (30-110) U/L Lipase (23-300) U/L Coronavirus (PCR) (Not Detectd) 10/16/20 10/16/20 Range/Units 21:11 23:14 WBC (3.8-10.6) k/uL RBC (3.80-5.40) m/uL Hgb (11.4-16.0) gm/dL Hct (34.0-46.0) % MCV (80.0-100.0) fL MCH (25.0-35.0) pg MCHC (31.0-37.0) g/dL RDW (11.5-15.5) % Plt Count (150-450) k/uL MPV Neutrophils % % Lymphocytes % % Monocytes % % Eosinophils % % Basophils % % Neutrophils # (1.3-7.7) k/uL Lymphocytes # (1.0-4.8) k/uL Monocytes # (0-1.0) k/uL Eosinophils # (0-0.7) k/uL Basophils # (0-0.2) k/uL Hypochromasia Poikilocytosis Anisocytosis PT (9.0-12.0) sec INR (<1.2) APTT (22.0-30.0) sec D-Dimer (<0.60) mg/L FEU Sodium (137-145) mmol/L Potassium (3.5-5.1) mmol/L Chloride (98-107) mmol/L Carbon Dioxide (22-30) mmol/L Anion Gap mmol/L BUN (7-17) mg/dL Creatinine (0.52-1.04) mg/dL Est GFR (CKD-EPI)AfAm (>60 ml/min/1.73 sqM) Est GFR (CKD-EPI)NonAf (>60 ml/min/1.73 sqM) Glucose (74-99) mg/dL Lactic Ac Sepsis Rflx Y Plasma Lactic Acid [place] (0.7-2.0) mmol/L Calcium (8.4-10.2) mg/dL Total Bilirubin (0.2-1.3) mg/dL AST (14-36) U/L ALT (4-34) U/L Alkaline Phosphatase (38-126) U/L Troponin I (0.000-0.034) ng/mL NT-Pro-B Natriuret Pep pg/mL Total Protein (6.3-8.2) g/dL Albumin (3.5-5.0) g/dL Amylase (30-110) U/L Lipase (23-300) U/L Coronavirus (PCR) Not Detected (Not Detectd) Disposition Is patient prescribed a controlled substance at d/c from ED?: No Time of Disposition: 23:47 Decision to Admit Reason: Admit from EC Decision Date: 10/16/20 Decision Time: 23:47 <Mindy Wray - Last Filed: 10/16/20 23:36> <Chio Dwyer - Last Filed: 10/20/20 22:40> Clinical Impression: Wheezing, CHF (congestive heart failure), Dyspnea, Ventral hernia, Hypoxia Disposition: ADMITTED IP TO THIS HOSP Condition: Critical
[2020-10-17 05:14] LABS: Cholesterol 172 mg/dL (<200); HDL Cholesterol 36 mg/dL (40-60); LDL Cholesterol,Calculated 112 mg/dL (0-99); Triglycerides 122 mg/dL (<150)
[2020-10-17] MEDS ORDERED: ASPIRIN 325 MG TAB PO SCH (09:00)
[2020-10-17 10:43] LABS: Appearance,Urine Clear (Clear); Bilirubin,Urine Negative (Negative); Blood,Urine Negative (Negative); Color,Urine Light Yellow; Glucose,Urine (UA) Negative (Negative); Ketones,Urine Negative (Negative); Leukocyte Esterase,Urine Negative (Negative); Nitrite,Urine Negative (Negative); Protein,Urine Negative (Negative); Specific Gravity,Urine 1.021 (1.001-1.035); Urobilinogen,Urine <2.0 mg/dL (<2.0)
[2020-10-17] MEDS: FUROSEMIDE 10 MG/ML 4 ML VIAL IV SCH ×2 (10:57→20:54)
[2020-10-17] MEDS: SACUBITRIL/VALSARTAN 24 MG-26 MG TABLET PO SCH ×2 (13:08→20:54)
[2020-10-17] MEDS: carvediloL 3.125 MG TAB PO SCH ×2 (13:09→17:00)
--- NOTE | 2020-10-17 15:23 | P.CRDCN ---
History of Present Illness Consult date: 10/17/20 History of present illness: CHIEF COMPLAINT: Congestive heart failure HISTORY OF PRESENT ILLNESS: This is a 70-year-old female with a past medical history significant for hypertension, osteoarthritis, and GERD. 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 We have been asked to see the patient in consultation for congestive heart failure. Patient presented to the hospital with a chief complaint of shortness of breath. She denied chest pain or pressure. Chest x-ray completed in the emergency room revealed congestive heart failure with superimposed infiltrates. CTA of the chest was negative for PE but revealed patchy groundglass pulmonary interstitial infiltrates and congestive heart failure. BNP was 5790. The patient was given a dose of IV Lasix in the emergency room. EKG reveals sinus mechanism with no signs of acute. Laboratory data revealed WBC 8.2. Hemoglobin 10.7. Platelet count 394. D- dimer 0.92. Sodium 135. Potassium 4.5. BUN 22. Creatinine 0.67. Troponin negative 2. Lactic acid 2.1. Repeat 1.5. Current home cardiac medications include: None. Preliminary echocardiogram reveals ejection fraction 20-25% REVIEW OF SYSTEMS: At the time of my exam: CONSTITUTIONAL: Denies fever or chills. HEENT: Denies blurred vision, vision changes, or eye pain. Denies hemoptysis CARDIOVASCULAR: Denies chest pain, orthopnea, PND or palpitations RESPIRATORY: Reports shortness of breath. GASTROINTESTINAL: Denies abdominal pain. Denies nausea or vomiting. HEMATOLOGIC: Denies bleeding disorders. GENITOURINARY: Denies any blood in urine. SKIN: Denies pruitis. Denies rash. PHYSICAL EXAM: VITAL SIGNS: Reviewed. GENERAL: Well-developed in no acute distress. HEENT: Head is normocephalic. Pupils are equal, round. Sclerae anicteric. Mucous membranes of the mouth are moist. Neck supple. No JVD or thyromegaly LUNGS: Respirations even and unlabored. Lungs diminished with bibasilar crackles HEART: Regular rate and rhythm. S1 and S2 heard. ABDOMEN: Soft. Nondistended. Nontender. EXTREMITIES: Normal range of motion. No clubbing or cyanosis. Peripheral pulses intact. 2-3+ bilateral lower extremity edema NEUROLOGIC: Awake and alert. Oriented x 3. ASSESSMENT: New-onset systolic heart failure, ejection fraction 20-25% Hypertension, not on antihypertensive medications outpatient Diabetes mellitus, borderline per patient History of ventral hernia PLAN: Begin Lasix 40 mg IV every 12 hours Monitor kidney function Accurate I&O Daily weights Add Entresto 24-26mg BID Add carvedilol 3.125 mg twice a day Patient will require further workup of cardiomyopathy when she is medically stable Further recommendations pending patient's course Nurse practitioner note has been reviewed by physician. Signing provider agrees with the documented findings, assessment, and plan of care. Past Medical History Past Medical History: GERD/Reflux, Hypertension, Osteoarthritis (OA), Sleep Apnea/CPAP/BIPAP Additional Past Medical History / Comment(s): no cpap used, hx perforated bowel- has colostomy, diverticulitis, gout, frequent leg swelling, pt reports balance issues. History of Any Multi-Drug Resistant Organisms: None Reported Past Surgical History: Bowel Resection, Cholecystectomy, Hernia Repair, Hysterectomy, Joint Replacement, Orthopedic Surgery, Tonsillectomy Additional Past Surgical History / Comment(s): perforated bowel/colostomy, right and left knee replaced, left wrist carpal tunnel repair Past Anesthesia/Blood Transfusion Reactions: No Reported Reaction Past Psychological History: No Psychological Hx Reported Smoking Status: Former smoker Past Alcohol Use History: None Reported Additional Past Alcohol Use History / Comment(s): quit smoking 1982, smoked for 20 yrs, "casual smoker" Past Drug Use History: None Reported - Past Family History Sister(s) Family Medical History: Cancer Father Family Medical History: Diabetes Mellitus, Hypertension Medications and Allergies Home Medications Medication Instructions Recorded Confirmed Type Multivitamins, Thera [Multivitamin 1 tab PO DAILY 08/27/16 10/17/20 History (formulary)] allopurinoL [Zyloprim] 300 mg PO DAILY 08/27/16 10/17/20 History DULoxetine HCL [Cymbalta] 30 mg PO HS 11/09/17 10/17/20 History Calcium Carbonate [Calcium] 600 mg PO DAILY 08/25/18 10/17/20 History Diclofenac Sodium [Diclofenac 100 mg PO DAILY 08/25/18 10/17/20 History Sodium ER] HYDROcodone/APAP 5-325MG [[place] 1 tab PO DAILY 08/25/18 10/17/20 History 5-325] Omeprazole 40 mg PO DAILY 08/25/18 10/17/20 History Oxybutynin Chloride [Ditropan XL] 10 mg PO DAILY 08/25/18 10/17/20 History Albuterol Inhaler [Ventolin Hfa 1 puff INHALATION RT-QID PRN 08/15/20 10/17/20 History Inhaler] Cetirizine HCl [Zyrtec] 10 mg PO DAILY 08/15/20 10/17/20 History Fluticasone Nasal [place] [Flonase 1 spray EA NOSTRIL DAILY 08/15/20 10/17/20 History Nasal [place]] metFORMIN HCL [Glucophage] 1,000 mg PO BID 08/15/20 10/17/20 History Allergies Allergy/AdvReac Type Severity Reaction Status Date / Time latex Allergy Rash/Hives Verified 10/17/20 08:26 DUST,POLLEN AdvReac SNEEZING Uncoded 10/16/20 20:08 Physical Exam Vitals: Vital Signs Temp Pulse Pulse Resp BP BP Pulse Ox 10/17/20 07:48 97.7 F 92 17 149/82 92 L 10/17/20 02:07 97.4 F L 105 H 18 161/80 97 10/17/20 01:23 18 10/17/20 00:32 98.0 F 97 18 155/92 99 10/17/20 00:11 98 10/16/20 23:56 100 10/16/20 23:35 98 20 153/94 99 10/16/20 23:33 99 10/16/20 22:19 90 20 159/98 97 10/16/20 21:13 99 20 157/98 98 10/16/20 21:11 100 10/16/20 21:05 100 10/16/20 20:08 98.4 F 115 H 22 143/93 92 L Intake and Output 10/17/20 10/17/20 10/17/20 06:59 14:59 22:59 Intake Total 480 360 Output Total 1150 Balance 480 -790 Intake: Oral 480 360 Output: Urine 1150 Other: Voiding Method Toilet # Voids 2 Weight 129.8 kg Results 10/16/20 20:27 10/16/20 20:27 Cardiac Enzymes 10/16/20 10/16/20 10/16/20 Range/Units 20:27 20:27 23:42 AST 32 (14-36) U/L Troponin I 0.013 0.024 (0.000-0.034) ng/mL 10/17/20 Range/Units 04:41 AST (14-36) U/L Troponin I 0.018 (0.000-0.034) ng/mL Coagulation 10/16/20 Range/Units 20:27 PT 10.8 (9.0-12.0) sec APTT 21.2 L (22.0-30.0) sec Lipids 10/17/20 Range/Units 04:41 Triglycerides 122 (<150) mg/dL Cholesterol 172 (<200) mg/dL HDL Cholesterol 36 L (40-60) mg/dL CBC 10/16/20 Range/Units 20:27 WBC 8.2 (3.8-10.6) k/uL RBC 4.02 (3.80-5.40) m/uL Hgb 10.7 L (11.4-16.0) gm/dL Hct 34.5 (34.0-46.0) % Plt Count 394 (150-450) k/uL Comprehensive Metabolic Panel 10/16/20 Range/Units 20:27 Sodium 135 L (137-145) mmol/L Potassium 4.5 (3.5-5.1) mmol/L Chloride 93 L (98-107) mmol/L Carbon Dioxide 29 (22-30) mmol/L BUN 22 H (7-17) mg/dL Creatinine 0.67 (0.52-1.04) mg/dL Glucose 136 H (74-99) mg/dL Calcium 10.5 H (8.4-10.2) mg/dL AST 32 (14-36) U/L ALT 26 (4-34) U/L Alkaline Phosphatase 63 (38-126) U/L Total Protein 7.1 (6.3-8.2) g/dL Albumin 4.4 (3.5-5.0) g/dL Current Medications Generic Name Dose Route Start Last Admin Trade Name Freq PRN Reason Stop Dose Admin Albuterol/Ipratropium 3 ml 10/17/20 13:31 Ipratropium-Albuterol 3 Ml Neb INHALATION RT-QID PRN Shortness Of Breath Or Wheezing Allopurinol 300 mg 10/18/20 09:00 Allopurinol 300 Mg Tab PO DAILY KYLE Carvedilol 3.125 mg 10/17/20 12:30 10/17/20 13:09 Carvedilol 3.125 Mg Tab PO 3.125 mg BID-W/MEALS KYLE Administration Duloxetine HCl 30 mg 10/17/20 21:00 Duloxetine Hcl 30 Mg Capsule.Dr PO HS [facility] Fluticasone Propionate 1 spray 10/18/20 09:00 Fluticasone 50mcg/[place] Nasal 16gm EA NOSTRIL DAILY [facility] Furosemide 40 mg 10/17/20 09:45 10/17/20 10:57 Furosemide 10 Mg/Ml 4 Ml Vial IV 40 mg Q12HR [facility] Administration Multivitamins 1 each 10/18/20 09:00 Multivitamins, Thera 1 Each Tab PO DAILY [facility] Nitroglycerin 0.4 mg 10/16/20 23:33 Nitroglycerin Sl Tabs 0.4 Mg Tab SUBLINGUAL Q5M PRN Chest Pain Oxybutynin Chloride 10 mg 10/18/20 09:00 Oxybutynin 10 Mg Tab.Er.24 PO DAILY [facility] Pantoprazole Sodium 40 mg 10/18/20 07:30 Pantoprazole 40 Mg Tablet PO DAILY@0730 [facility] Sacubitril/Valsartan 1 each 10/17/20 12:15 10/17/20 13:08 Sacubitril/Valsartan 24 Mg-26 Mg Tablet PO 1 each BID [facility] Administration Intake and Output 10/17/20 10/17/20 10/17/20 06:59 14:59 22:59 Intake Total 480 360 Output Total 1150 Balance 480 -790 Intake: Oral 480 360 Output: Urine 1150 Other: Voiding Method Toilet # Voids 2 Weight 129.8 kg 10/16/20 20:27 10/16/20 20:27
--- NOTE | 2020-10-17 15:50 | P.HPIM ---
History of Present Illness Patient is a pleasant 70-year-old the female given compensative shortness of breath orthopnea, patient had a CT of the chest which showed pulmonary edema. Patient BNP is 5790. Patient is a daily Lasix with improvement in symptoms. Patient denied any fever chills. There is no PE. Patient usually doesn't wear oxygen at home patient will required around 3 L of oxygen. She also comparing of cough with awaiting cultures of sputum Review of Systems REVIEW OF SYSTEMS: CONSTITUTIONAL: No fever, no malaise, no fatigue. HEENT: No recent visual problems or hearing problems. Denied any sore throat. CARDIOVASCULAR: No chest pain, PND, no palpitations, no syncope. PULMONARY:no cough, no hemoptysis. GASTROINTESTINAL: No diarrhea, no nausea, no vomiting, no abdominal pain. NEUROLOGICAL: No headaches, no weakness, no numbness. HEMATOLOGICAL: Denies any bleeding or petechiae. GENITOURINARY: Denies any burning micturition, frequency, or urgency. MUSCULOSKELETAL/RHEUMATOLOGICAL: Denies any joint pain, swelling, or any muscle pain. ENDOCRINE: Denies any polyuria or polydipsia. The rest of the 14-point review of systems is negative. Past Medical History Past Medical History: GERD/Reflux, Hypertension, Osteoarthritis (OA), Sleep Apnea/CPAP/BIPAP Additional Past Medical History / Comment(s): no cpap used, hx perforated bowel- has colostomy, diverticulitis, gout, frequent leg swelling, pt reports balance issues. History of Any Multi-Drug Resistant Organisms: None Reported Past Surgical History: Bowel Resection, Cholecystectomy, Hernia Repair, Hysterectomy, Joint Replacement, Orthopedic Surgery, Tonsillectomy Additional Past Surgical History / Comment(s): perforated bowel/colostomy, right and left knee replaced, left wrist carpal tunnel repair Past Anesthesia/Blood Transfusion Reactions: No Reported Reaction Past Psychological History: No Psychological Hx Reported Smoking Status: Former smoker Past Alcohol Use History: None Reported Additional Past Alcohol Use History / Comment(s): quit smoking 1982, smoked for 20 yrs, "casual smoker" Past Drug Use History: None Reported - Past Family History Sister(s) Family Medical History: Cancer Father Family Medical History: Diabetes Mellitus, Hypertension Medications and Allergies Home Medications Medication Instructions Recorded Confirmed Type Multivitamins, Thera [Multivitamin 1 tab PO DAILY 08/27/16 10/17/20 History (formulary)] allopurinoL [Zyloprim] 300 mg PO DAILY 08/27/16 10/17/20 History DULoxetine HCL [Cymbalta] 30 mg PO HS 11/09/17 10/17/20 History Calcium Carbonate [Calcium] 600 mg PO DAILY 08/25/18 10/17/20 History Diclofenac Sodium [Diclofenac 100 mg PO DAILY 08/25/18 10/17/20 History Sodium ER] HYDROcodone/APAP 5-325MG [[place] 1 tab PO DAILY 08/25/18 10/17/20 History 5-325] Omeprazole 40 mg PO DAILY 08/25/18 10/17/20 History Oxybutynin Chloride [Ditropan XL] 10 mg PO DAILY 08/25/18 10/17/20 History Albuterol Inhaler [Ventolin Hfa 1 puff INHALATION RT-QID PRN 08/15/20 10/17/20 History Inhaler] Cetirizine HCl [Zyrtec] 10 mg PO DAILY 08/15/20 10/17/20 History Fluticasone Nasal [place] [Flonase 1 spray EA NOSTRIL DAILY 08/15/20 10/17/20 Hi story Nasal [place]] metFORMIN HCL [Glucophage] 1,000 mg PO BID 08/15/20 10/17/20 History Allergies Allergy/AdvReac Type Severity Reaction Status Date / Time latex Allergy Rash/Hives Verified 10/17/20 08:26 DUST,POLLEN AdvReac SNEEZING Uncoded 10/16/20 20:08 Physical Exam Vitals: Vital Signs Temp Pulse Pulse Resp BP BP Pulse Ox 10/17/20 15:26 97.6 F 90 17 138/85 99 10/17/20 07:48 97.7 F 92 17 149/82 92 L 10/17/20 02:07 97.4 F L 105 H 18 161/80 97 10/17/20 01:23 18 10/17/20 00:32 98.0 F 97 18 155/92 99 10/17/20 00:11 98 10/16/20 23:56 100 10/16/20 23:35 98 20 153/94 99 10/16/20 23:33 99 10/16/20 22:19 90 20 159/98 97 10/16/20 21:13 99 20 157/98 98 10/16/20 21:11 100 10/16/20 21:05 100 10/16/20 20:08 98.4 F 115 H 22 143/93 92 L Intake and Output 10/17/20 10/17/20 10/17/20 06:59 14:59 22:59 Intake Total 480 360 Output Total 1150 Balance 480 -790 Intake: Oral 480 360 Output: Urine 1150 Other: Voiding Method Toilet # Voids 2 Weight 129.8 kg PHYSICAL EXAMINATION: GENERAL: The patient is alert and oriented x3, not in any acute distress. Well developed, well nourished. HEENT: Pupils are round and equally reacting to light. EOMI. No scleral icterus. No conjunctival pallor. Normocephalic, atraumatic. No pharyngeal erythema. No thyromegaly. CARDIOVASCULAR: S1 and S2 present. No murmurs, rubs, or gallops. PULMONARY: Chest is clear to auscultation, no wheezing or crackles. ABDOMEN: Soft, nontender, nondistended, normoactive bowel sounds. No palpable organomegaly. MUSCULOSKELETAL: No joint swelling or deformity. EXTREMITIES: No cyanosis, clubbing, patient has to press pitting bilateral pedal edema more on the left side. NEUROLOGICAL: Gross neurological examination did not reveal any focal deficits. SKIN: No rashes. Results CBC & Chem 7: 10/16/20 20:27 10/16/20 20:27 Labs: Abnormal Lab Results - Last 24 Hours (Table) 10/16/20 10/16/20 10/16/20 Range/Units 20:27 20:27 20:27 Hgb 10.7 L (11.4-16.0) gm/dL RDW 18.4 H (11.5-15.5) % APTT 21.2 L (22.0-30.0) sec D-Dimer 0.92 H (<0.60) mg/L FEU Sodium 135 L (137-145) mmol/L Chloride 93 L (98-107) mmol/L BUN 22 H (7-17) mg/dL Glucose 136 H (74-99) mg/dL Plasma Lactic Acid [place] (0.7-2.0) mmol/L Calcium 10.5 H (8.4-10.2) mg/dL LDL Cholesterol, Calc (0-99) mg/dL HDL Cholesterol (40-60) mg/dL 10/16/20 10/16/20 10/17/20 Range/Units 20:27 23:42 04:41 Hgb (11.4-16.0) gm/dL RDW (11.5-15.5) % APTT (22.0-30.0) sec D-Dimer (<0.60) mg/L FEU Sodium (137-145) mmol/L Chloride (98-107) mmol/L BUN (7-17) mg/dL Glucose (74-99) mg/dL Plasma Lactic Acid [place] 3.4 H* 2.1 H* (0.7-2.0) mmol/L Calcium (8.4-10.2) mg/dL LDL Cholesterol, Calc 112 H (0-99) mg/dL HDL Cholesterol 36 L (40-60) mg/dL 10/17/20 Range/Units 04:41 Hgb (11.4-16.0) gm/dL RDW (11.5-15.5) % APTT (22.0-30.0) sec D-Dimer (<0.60) mg/L FEU Sodium (137-145) mmol/L Chloride (98-107) mmol/L BUN (7-17) mg/dL Glucose (74-99) mg/dL Plasma Lactic Acid [place] 2.1 H* (0.7-2.0) mmol/L Calcium (8.4-10.2) mg/dL LDL Cholesterol, Calc (0-99) mg/dL HDL Cholesterol (40-60) mg/dL Thrombosis Risk Factor Assmnt - Choose All That Apply Each Risk Factor Represents 2 Points: Age 61-74 years Thrombosis Risk Factor Assessment Total Risk Factor Score: 2 Thrombosis Risk Factor Assessment Level: Low Risk Assessment and Plan Plan: -New-onset congestive heart failure possibly chronic systolic dysfunction patient had an echo cardiac exam which showed EF of around 20-25%and patient is on IV Lasix which will be continued with close monitoring of kidney function patient was started on Entresto -hypertension -Type 2 diabetes mellitus -Sleep apnea. Patient uses CPAP machine at home -Gastroesophageal reflux disease -DVT prophylaxis with Lovenox.
[2020-10-17] MEDS: IPRATROPIUM-ALBUTEROL 3 ML NEB INHALATION PRN (15:59)
[2020-10-17] MEDS: DULoxetine HCL 30 MG CAPSULE.DR PO SCH (20:53)
[2020-10-18] MEDS: IPRATROPIUM-ALBUTEROL 3 ML NEB INHALATION PRN ×3 (08:15→20:58)
[2020-10-18] MEDS: MULTIVITAMINS, THERA 1 EACH TAB PO SCH (08:41)
[2020-10-18] MEDS: OXYBUTYNIN 10 MG TAB.ER.24 PO SCH (08:41)
[2020-10-18] MEDS: carvediloL 3.125 MG TAB PO SCH ×2 (08:41→16:55)
[2020-10-18] MEDS: FLUTICASONE 50MCG/SPRAY NASAL 16GM EA NOSTRIL SCH (08:41)
[2020-10-18] MEDS: PANTOPRAZOLE 40 MG TABLET PO SCH (08:41)
[2020-10-18] MEDS: allopurinoL 300 MG TAB PO SCH (08:42)
[2020-10-18] MEDS: ENOXAPARIN 40 MG/0.4 ML SYRINGE SQ SCH (08:42)
[2020-10-18] MEDS: FUROSEMIDE 10 MG/ML 4 ML VIAL IV SCH ×2 (08:42→21:32)
[2020-10-18] MEDS: SACUBITRIL/VALSARTAN 24 MG-26 MG TABLET PO SCH ×2 (08:42→21:32)
[2020-10-18 09:22] LABS: African American GFR (CKD) 103.2 (60.0-200.0); Anion Gap 5.1 mmol/L (4.00-12.00); BUN/Creat Ratio 28.57 Ratio (12.00-20.00); Calcium 10.7 mg/dL (8.7-10.3); Carbon Dioxide 39.9 mmol/L (21.6-31.8); Potassium 3.6 mmol/L (3.5-5.5)
--- NOTE | 2020-10-18 12:07 | P.PN ---
Subjective Progress Note Date: 10/18/20 Patient is a pleasant 70-year-old the female given compensative shortness of breath orthopnea, patient had a CT of the chest which showed pulmonary edema. Patient BNP is 5790. Patient is a daily Lasix with improvement in symptoms. Patient denied any fever chills. There is no PE. Patient usually doesn't wear oxygen at home patient will required around 3 L of oxygen. She also comparing of cough with awaiting cultures of sputum 10/18/2020 Patient is seen and evaluated in follow-up this morning continues to be on IV Lasix and diuresing well. She is currently sitting up in the chair with lower extremities elevated. Lower extremity swelling with edema noted although slightly improved. She continues to be on 2 L of oxygen and discuss with nursing staff about weaning FiO2 as tolerated. Patient states she does not wear oxygen in the home setting. Current saturation is 96% on 2 L. Instructed the patient to increase activity as tolerated. Sodium today is 140 with a potassium of 3.6, current BUN is 20 with a creatinine of 0.7. Cardiology is following. Review of systems: Constitutional: No reports of fatigue, fever, or chills Cardiovascular: No reports of chest pain or palpitations Respiratory: No reports of shortness of breath, reports occasional cough GI: No reports of nausea, vomiting, or diarrhea : No reports of dysuria or retention Neurovascular: No reports of weakness or numbness All medications have been reviewed Objective - Vital Signs Vital signs: Vital Signs Temp 97.6 F 10/18/20 08:15 Pulse 83 10/18/20 08:27 Resp 16 10/18/20 08:15 BP 118/75 10/18/20 08:15 Pulse Ox 98 10/18/20 08:15 Intake & Output 10/17/20 10/18/20 10/18/20 18:59 06:59 18:59 Intake Total 540 Output Total 2049 2449 Balance -151 -2449 Weight 129.6 kg Intake: Oral 540 Output: Urine 2049 2449 Other: Voiding Method Toilet - Exam GENERAL: The patient is alert and oriented x3, not in any acute distress. Well developed, well nourished. HEENT: Pupils are round and equally reacting to light. EOMI. No scleral icterus. No conjunctival pallor. Normocephalic, atraumatic. No pharyngeal erythema. No thyromegaly. CARDIOVASCULAR: S1 and S2 present. No murmurs, rubs, or gallops. PULMONARY: Chest is clear to auscultation, no wheezing or crackles. ABDOMEN: Soft, obese, nontender, nondistended, normoactive bowel sounds. No palpable organomegaly. MUSCULOSKELETAL: No joint swelling or deformity. EXTREMITIES: No cyanosis, clubbing, patient has 2+ pitting bilateral pedal edema more on the left side. Improved from yesterday NEUROLOGICAL: Gross neurological examination did not reveal any focal deficits. SKIN: No rashes. - Labs CBC & Chem 7: 10/16/20 20:27 10/18/20 05:58 Labs: Abnormal Lab Results - Last 24 Hours (Table) 10/18/20 Range/Units 05:58 Chloride 95 L (96-109) mmol/L Carbon Dioxide 39.9 H (21.6-31.8) mmol/L BUN/Creatinine Ratio 28.57 H (12.00-20.00) Ratio Calcium 10.7 H (8.7-10.3) mg/dL Assessment and Plan Assessment: -New-onset congestive heart failure possibly chronic systolic dysfunction patient had an echo cardiac exam which showed EF of around 20-25%and patient is on IV Lasix. Entresto initiated. Cardiology following. Patient to continue IV Lasix 40 mg twice daily for now. Creatinine is stable at 0.7 -hypertension -Sleep apnea. Patient uses CPAP machine at home -Gastroesophageal reflux disease -DVT prophylaxis with Lovenox. Plan: Continue with IV diuresis and continue to monitor kidney functions. Cardiology is following. Discussed with nursing staff about weaning FiO2 and increasing activity as tolerated. Instructed the patient to continue elevating lower extremities while at rest. Will repeat a.m. labs. Possible discharge in 24-48 hours.
--- NOTE | 2020-10-18 12:55 | P.PN ---
Subjective This is a pleasant 70-year-old female past medical history significant for hypertension, arthritis, gastroesophageal reflux disease and morbid obesity. She does not follow regularly with a flower grader. She is seen and examined sitting up in the recliner in no acute distress. She states overall she is feeling mildly better compared to yesterday. She still had some exertional shortness of breath and significant lower extremity edema. Blood pressure 118/75 heart rate 83 afebrile maintaining oxygen saturation on nasal cannula. Laboratory data reviewed, sodium 140, potassium 3.6, creatinine 0.7. Currently maintained on Coreg 3.125 mg twice a day, Lasix 40 mg IV twice a day and entresto 24/26 mg BID. 24-hr urine output 4500 ml. GENERAL: Well-appearing, well-nourished and in no acute distress. NECK: Supple without JVD or thyromegaly. LUNGS: Bibasilar rales, expiratory wheezes, no rhonchi. Respiration equal and unlabored. HEART: Regular rate and rhythm without murmurs, rubs or gallops. S1 and S2 heard. EXTREMITIES: Normal range of motion, bilateral lower extremity 2+ pitting edema. No clubbing or cyanosis. Peripheral pulses intact. ASSESSMENT Acute new onset systolic heart failure Hypertension Diabetes mellitus History of ventral hernia Morbid obesity, BMI 52 PLAN Add aspirin 81 mg daily and atorvastatin 40 mg at HS. Continue IV diuresis. Follow renal function and electrolytes in the morning. Further recommendations to follow based on clinical course. Nurse Practitioner note has been reviewed, I agree with a documented findings and plan of care. Patient was seen and examined. Objective - Vital Signs Vital signs: Vital Signs Temp 97.6 F 10/18/20 08:15 Pulse 83 10/18/20 08:27 Resp 16 10/18/20 08:15 BP 118/75 10/18/20 08:15 Pulse Ox 98 10/18/20 08:15 Intake & Output 10/17/20 10/18/20 10/18/20 18:59 06:59 18:59 Intake Total 540 Output Total 2049 2449 500 Balance -1509 Weight 129.6 kg Intake: Oral 540 Output: Urine 2049 2449 500 Other: Voiding Method Toilet - Labs CBC & Chem 7: 10/16/20 20:27 10/18/20 05:58 Labs: Abnormal Lab Results - Last 24 Hours (Table) 10/18/20 Range/Units 05:58 Chloride 95 L (96-109) mmol/L Carbon Dioxide 39.9 H (21.6-31.8) mmol/L BUN/Creatinine Ratio 28.57 H (12.00-20.00) Ratio Calcium 10.7 H (8.7-10.3) mg/dL
[2020-10-18] MEDS: ASPIRIN 81 MG PO SCH (13:53)
[2020-10-18] MEDS: DULoxetine HCL 30 MG CAPSULE.DR PO SCH (21:32)
[2020-10-18] MEDS: ATORVASTATIN 40 MG TAB PO SCH (21:32)
[2020-10-19] MEDS: IPRATROPIUM-ALBUTEROL 3 ML NEB INHALATION PRN ×4 (07:13→19:49)
[2020-10-19] MEDS: FUROSEMIDE 10 MG/ML 4 ML VIAL IV SCH ×2 (07:27→20:01)
[2020-10-19] MEDS: allopurinoL 300 MG TAB PO SCH (07:27)
[2020-10-19] MEDS: ENOXAPARIN 40 MG/0.4 ML SYRINGE SQ SCH (07:27)
[2020-10-19] MEDS: OXYBUTYNIN 10 MG TAB.ER.24 PO SCH (07:28)
[2020-10-19] MEDS: SACUBITRIL/VALSARTAN 24 MG-26 MG TABLET PO SCH ×2 (07:28→20:01)
[2020-10-19] MEDS: carvediloL 3.125 MG TAB PO SCH ×2 (07:28→18:09)
[2020-10-19] MEDS: MULTIVITAMINS, THERA 1 EACH TAB PO SCH (07:28)
[2020-10-19] MEDS: ASPIRIN 81 MG PO SCH (07:29)
[2020-10-19] MEDS: PANTOPRAZOLE 40 MG TABLET PO SCH (07:29)
[2020-10-19] MEDS: FLUTICASONE 50MCG/SPRAY NASAL 16GM EA NOSTRIL SCH (07:32)
[2020-10-19 09:45] LABS: African American GFR (CKD) 103.2 (60.0-200.0); BUN/Creat Ratio 27.14 Ratio (12.00-20.00); Calcium 9.7 mg/dL (8.7-10.3); Potassium 3.5 mmol/L (3.5-5.5)
[2020-10-19 09:58] LABS: Anion Gap 5.4 mmol/L (4.00-12.00); Carbon Dioxide 39.6 mmol/L (21.6-31.8)
--- NOTE | 2020-10-19 12:22 | P.PN ---
Subjective Progress Note Date: 10/19/20 Patient is a pleasant 70-year-old the female given compensative shortness of breath orthopnea, patient had a CT of the chest which showed pulmonary edema. Patient BNP is 5790. Patient is a daily Lasix with improvement in symptoms. Patient denied any fever chills. There is no PE. Patient usually doesn't wear oxygen at home patient will required around 3 L of oxygen. She also comparing of cough with awaiting cultures of sputum 10/18/2020 Patient is seen and evaluated in follow-up this morning continues to be on IV Lasix and diuresing well. She is currently sitting up in the chair with lower extremities elevated. Lower extremity swelling with edema noted although slightly improved. She continues to be on 2 L of oxygen and discuss with nursing staff about weaning FiO2 as tolerated. Patient states she does not wear oxygen in the home setting. Current saturation is 96% on 2 L. Instructed the patient to increase activity as tolerated. Sodium today is 140 with a potassium of 3.6, current BUN is 20 with a creatinine of 0.7. Cardiology is following. 10/19/2020 Patient is seen this morning and is maintained on IV Lasix and continues to diurese. Patient continues to have lower extremity edema noted and does have legs elevated. Will add Mohan wraps to bilateral lower extremities from the toes up to the knees she is also having some weeping noted of the lower extremities. Discussed with nursing staff about weaning FiO2 as tolerated as she is maintained on 2 L at this time. Patient has been getting up and walking around the room. Will add incentive spirometer and instructed the patient to continue using 10 times every hour while awake. Review of systems: Constitutional: No reports of fatigue, fever, or chills Cardiovascular: No reports of chest pain or palpitations Respiratory: No reports of shortness of breath, reports occasional cough GI: No reports of nausea, vomiting, or diarrhea : No reports of dysuria or retention Neurovascular: No reports of weakness or numbness All medications have been reviewed Objective - Vital Signs Vital signs: Vital Signs Temp 97.5 F L 10/19/20 08:00 Pulse 94 10/19/20 11:07 Resp 18 10/19/20 11:31 BP 106/70 10/19/20 08:00 Pulse Ox 96 10/19/20 11:31 Intake & Output 10/18/20 10/19/2010/19/21 18:59 06:59 18:59 Intake Total 1080 960 Output Total 500 1400 500 Balance 580 -1400 460 Weight 131.9 kg Intake: Oral 1080 Other 960 Output: Urine 500 1400 500 Other: Voiding Method Toilet # Voids 4 4 # Bowel Movements 1 1 - Exam GENERAL: The patient is alert and oriented x3, not in any acute distress. Well developed, well nourished. HEENT: Pupils are round and equally reacting to light. EOMI. No scleral icterus. No conjunctival pallor. Normocephalic, atraumatic. No pharyngeal erythema. No thyromegaly. CARDIOVASCULAR: S1 and S2 present. No murmurs, rubs, or gallops. PULMONARY: Chest is clear to auscultation, no wheezing or crackles. ABDOMEN: Soft, obese, nontender, nondistended, normoactive bowel sounds. No palpable organomegaly. MUSCULOSKELETAL: No joint swelling or deformity. EXTREMITIES: No cyanosis, clubbing, patient has 2+ pitting bilateral pedal edema more on the left side. Improved from yesterday, will add Mohan wraps to bilateral lower extremities as there is weeping noted NEUROLOGICAL: Gross neurological examination did not reveal any focal deficits. SKIN: No rashes. - Labs CBC & Chem 7: 10/16/20 20:27 10/19/20 06:32 Labs: Abnormal Lab Results - Last 24 Hours (Table) 10/19/20 Range/Units 06:32 Chloride 93 L (96-109) mmol/L Carbon Dioxide 39.6 H (21.6-31.8) mmol/L BUN/Creatinine Ratio 27.14 H (12.00-20.00) Ratio Glucose 124 H (70-110) mg/dL Assessment and Plan Assessment: -New-onset congestive heart failure possibly chronic systolic dysfunction patient had an echo cardiac exam which showed EF of around 20-25%and patient is on IV Lasix. Entresto initiated. Cardiology following. Patient to continue with IV Lasix 40 mg twice daily for now. Creatinine is stable at 0.7. Continued bilateral lower extremity edema 1-2+ pitting with some weeping noted and will continue with IV Lasix and mohan wrap to bilateral lower extremities from the toes up to the knees. -hypertension -Sleep apnea. Patient uses CPAP machine at home -Gastroesophageal reflux disease -DVT prophylaxis with Lovenox. Plan: Continue with IV diuresis and continue to monitor kidney functions. Cardiology is following. Discussed with nursing staff about weaning FiO2 and increasing activity as tolerated. Instructed the patient to continue elevating lower extremities while at rest and will add Mohan wraps. Will repeat a.m. labs. Possible discharge in 24-48 hours.
--- NOTE | 2020-10-19 12:29 | P.PN ---
Subjective Progress Note Date: 10/19/20 This pleasant 70-year-old female patient with past medical history significant for hypertension, arthritis, GERD and morbid obesity. She does not follow regularly with the retail financial analyst. She was seen and examined resting comfortably in a recliner in no acute distress. She is overall feeling fairly well. She is coughing up a greenish white sputum and does have some shortness of breath and continues to have lower extremity edema. This morning show sodium 138, potassium 3.5, BUN stable at 19 and creatinine 0.7. She continues on aspirin 81 mg by mouth daily, atorvastatin 40 mg by mouth daily at bedtime, carvedilol 3.125 mg by mouth twice a day, Lasix 40 IV every 12 hours andEntresto 24-26mg one tablet by mouth twice a day. Vital signs are stable with a blood pressure 106/70 this morning. Her oxygen saturation is maintaining at 96% on room air. She continues to have a negative fluid balance. Objective - Vital Signs Vital signs: Vital Signs Temp 97.5 F L 10/19/20 08:00 Pulse 94 10/19/20 11:07 Resp 18 10/19/20 11:31 BP 106/70 10/19/20 08:00 Pulse Ox 96 10/19/20 11:31 Intake & Output 10/18/20 10/19/20 10/19/20 18:59 06:59 18:59 Intake Total 1080 960 Output Total 500 1400 500 Balance 580 -1400 460 Weight 131.9 kg Intake: Oral 1080 Other 960 Output: Urine 500 1400 500 Other: Voiding Method Toilet # Voids 4 4 # Bowel Movements 1 1 - Exam PHYSICAL EXAMINATION: HEENT: Head is atraumatic, normocephalic. Pupils equal, round. Neck is supple. There is no elevated jugular venous pressure. HEART EXAMINATION: Heart sounds regular, S1 and S2 normal. No murmur or gallop heard. CHEST EXAMINATION: Lungs reveal expiratory wheezing throughout. No chest wall tenderness is noted on palpation or with deep breathing. ABDOMEN: Soft, nontender. Bowel sounds are heard. No organomegaly noted. EXTREMITIES: 2+ peripheral pulses with evidence of 1-2+ peripheral edema bilateral Mohan wraps in place. NEUROLOGIC patient is awake, alert and oriented x3. . - Labs CBC & Chem 7: 10/16/20 20:27 10/19/20 06:32 Labs: Abnormal Lab Results - Last 24 Hours (Table) 10/19/20 Range/Units 06:32 Chloride 93 L (96-109) mmol/L Carbon Dioxide 39.6 H (21.6-31.8) mmol/L BUN/Creatinine Ratio 27.14 H (12.00-20.00) Ratio Glucose 124 H (70-110) mg/dL Assessment and Plan Assessment: #1 new onset acute systolic heart failure #2 hypertension #3 diabetes mellitus #4 morbid obesity, BMI 53 Plan: From cardiology perspective medications were reviewed and we will continue the same. Continued of follow renal function and electrolytes as well as daily weights and intake and output. Further recommendations to follow based on clinical course. LIMEHOUSE WORKER note has been reviewed, I agree with a documented findings and plan of care. Patient was seen and examined.
[2020-10-19] MEDS: ATORVASTATIN 40 MG TAB PO SCH (20:01)
[2020-10-19] MEDS: DULoxetine HCL 30 MG CAPSULE.DR PO SCH (20:01)
[2020-10-20] MEDS ORDERED: SODIUM BICARB 8.4% 50 ML SYR (1 MEQ/ML) ONE ×2 (06:33→06:51)
[2020-10-20] MEDS ORDERED: EPINEPHrine 10 ML SYRINGE (0.1 MG/ML) ONE (06:33)
[2020-10-20 06:46] LABS: Glucose,Whole Blood 142 mg/dL (75-99)
[2020-10-20] MEDS ORDERED: SUCCINYLCHOLINE CHLORIDE VIAL 200 MG/10 ML VIAL IV ONE (06:50)
[2020-10-20] MEDS ORDERED: ETOMIDATE 2 MG/ML 10 ML VIAL ONE (06:50)
[2020-10-20] MEDS ORDERED: AMIODARONE 360 MG in DEXTROSE 5% IN WATER 200 ML IV ONE ×2 (07:15)
[2020-10-20] MEDS ORDERED: DEXTROSE 5% IN WATER 100 ML with AMIODARONE 150 MG IV ONE (07:15)
[2020-10-20 07:16] LABS: Anisocytosis Slight; Basophils # (A) 0.1 k/uL (0-0.2); Basophils % (A) 1 %; Eosinophils # (A) 0.3 k/uL (0-0.7); Eosinophils % (A) 4 %; HCT 44.3 % (34.0-46.0); HGB 12.8 gm/dL (11.4-16.0); Hypochromasia Marked; Lymphocytes # (A) 3.8 k/uL (1.0-4.8); Lymphocytes % (A) 44 %; MCH 25.6 pg (25.0-35.0); MCHC 28.9 g/dL (31.0-37.0); MCV 88.7 fL (80.0-100.0); Mean Platelet Volume 7.4; Monocytes # (A) 0.4 k/uL (0-1.0); Monocytes % (A) 5 %; Neutrophils # (A) 3.7 k/uL (1.3-7.7); Neutrophils % (A) 43 %; Platelet Count 377 k/uL (150-450); RDW 17.7 % (11.5-15.5); WBC 8.6 k/uL (3.8-10.6)
[2020-10-20 07:21] LABS: Glucose,Whole Blood 281 mg/dL (75-99)
[2020-10-20] MEDS ORDERED: propofoL 100 ML IV ONE (07:24)
[2020-10-20 07:32] LABS: ALT 33 U/L (4-34); AST 48 U/L (14-36); African American GFR (CKD) >90 (>60 ml/min/1.73 sqM); Albumin 4.2 g/dL (3.5-5.0); Albumin/Globulin Ratio 1.5; Alkaline Phosphatase 59 U/L (38-126); Anion Gap 16 mmol/L; Blood Urea Nitrogen 17 mg/dL (7-17); Calcium 11.1 mg/dL (8.4-10.2); Carbon Dioxide 28 mmol/L (22-30); Chloride 90 mmol/L (98-107); Globulin 2.8 g/dL; Glucose 163 mg/dL (74-99); Magnesium 3.1 mg/dL (1.6-2.3); Non-African American GFR(CKD) >90 (>60 ml/min/1.73 sqM); Potassium 3.8 mmol/L (3.5-5.1); Sodium 134 mmol/L (137-145); Total Bilirubin 0.6 mg/dL (0.2-1.3)
[2020-10-20] MEDS ORDERED: SODIUM CHLORIDE 0.9% 1,000 ML IV SCH (07:35)
--- NOTE | 2020-10-20 07:42 | P.EN ---
Code Blue Team Note Activated at 6:33 am. Arrived on the scene shortly after. Reviewed the chart and discussed the case with the RN. The patient was noted to have V-fib on the tele and subsequently found unresponsive and pulseless. CPR was initiated at 6:33. She was given Epi IVP x 6, calcium chloride x 2, sodium bicarb x 2, and Amiodarone 150 mg x 2 IVP. She was noted to be in V-fib and was shocked via defibrillation x 6. ROSC was achieved at 6:56 am. She was intubated and moved to medical ICU and started on Levophed and Amiodarone infusions. Primary team and family were notified by RN. Following transfer to MICU, the patient was opening eyes and following commands. Please refer to code sheet for further details.
--- NOTE | 2020-10-20 07:53 | XR ---
EXAMINATION TYPE: XR chest 1V confirm line [facility] DATE OF EXAM: 10/20/2020 COMPARISON: 10/16/2020 HISTORY: 70-year-old female ET tube placement TECHNIQUE: Single frontal view of the chest is obtained. FINDINGS: ET tube is low, possibly 5 mm the [place]var[place]. Pull back 2 cm and recess at follow-up. NG tube courses bel ow the diaphragm. Heart mildly enlarged. Multifocal patchy airspace opacities, right greater than lef t. Left base underpenetrated and not well assessed. IMPRESSION: 1. ET tube is low, approximately 5 mm from the alvarado. Pull back 2 cm and reassess at follow-up. 2. Multifocal patchy airspace disease, right greater than left, increased from 10/16/2020.
[2020-10-20] MEDS: carvediloL 3.125 MG TAB PO SCH (08:04)
[2020-10-20] MEDS: NOREPINEPHRINE 4 MG in SODIUM CHLORIDE 0.9% 250 ML IV SCH ×5 (08:05→10:13)
[2020-10-20] MEDS: PANTOPRAZOLE 40 MG TABLET PO SCH (08:07)
[2020-10-20] MEDS ORDERED: CHLORHEXIDINE GLUCONATE 15 ML CUP MUCOUS MEM SCH (09:00)
--- NOTE | 2020-10-20 09:18 | P.CNPUL ---
History of Present Illness Consult date: 10/20/20 Chief complaint: Cardiac arrest History of present illness: This is a 70-year-old female patient who presented to the hospital on the 2020 for worsening shortness of breath. The patient has a colostomy for perforated bowel that was done in the past. At the time of her admission, the patient was dyspneic and she was also having orthopnea and increased lower extremity edema. CAT scan of the chest that was done showed pulmonary edema. Her BNP level was 5790. Note that she was having some vague about that time of admission. The patient had a CAT scan of the abdomen that showed multiple ventral hernias. There was evidence of calcification. There is clearing of the dilated loop of small compared to the old examination. No evidence of any mechanical bowel obstruction. There was cardiomegaly and new interstitial infiltrate atelectatic changes with pleural effusion in the lung bases consistent with CHF. She was diagnosed having a new onset systolic heart failure and his echocardiogram showed an ejection fraction of 20-25%. The patient was seen by cardiology and the patient was started on a combination of diuretics and Entresto to optimize CHF. Earlier this morning at around 6:33 AM, a CODE BLUE was called and upon arrival of the code team patient was in V. fib. The patient was defibrillated multiple occasions. I reviewed the code sheet. The patient received a defibrillation. She is seeing a total of 7 bolus of epinephrine, 1 amp of sodium bicarb, she was given calcium gluconate, she was given magnesium and she was started on amiodarone drip and currently she is on pressors for norepinephrine running at 0.28 mcg/kg per minute. The entire code was down within 25 minutes. I was told by the nursing staff that upon arrival to the ICU, she was following some simple commands. The patient is currently on propofol running at 25 mcg/kg per minute. The patient is producing no urine output for now. She has adequate pulses in the lower extremities bilaterally. Review of Systems ROS unobtainable: due to endotracheal tube, due to mental status Past Medical History Past Medical History: Heart Failure, GERD/Reflux, Hypertension, Osteoarthritis (OA), Sleep Apnea/CPAP/BIPAP Additional Past Medical History / Comment(s): no cpap used, hx perforated bowel- has colostomy, diverticulitis, gout, frequent leg swelling, pt reports balance issues. History of Any Multi-Drug Resistant Organisms: None Reported Past Surgical History: Bowel Resection, Cholecystectomy, Hernia Repair, Hysterectomy, Joint Replacement, Orthopedic Surgery, Tonsillectomy Additional Past Surgical History / Comment(s): perforated bowel/colostomy, right and left knee replaced, left wrist carpal tunnel repair Past Anesthesia/Blood Transfusion Reactions: No Reported Reaction Past Psychological History: No Psychological Hx Reported Smoking Status: Former smoker Past Alcohol Use History: None Reported Additional Past Alcohol Use History / Comment(s): quit smoking 1982, smoked for 20 yrs, "casual smoker" Past Drug Use History: None Reported - Past Family History Sister(s) Family Medical History: Cancer Father Family Medical History: Diabetes Mellitus, Hypertension Medications and Allergies Home Medications Medication Instructions Recorded Confirmed Type Multivitamins, Thera [Multivitamin 1 tab PO DAILY 08/27/16 10/17/20 History (formulary)] allopurinoL [Zyloprim] 300 mg PO DAILY 08/27/16 10/17/20 History DULoxetine HCL [Cymbalta] 30 mg PO HS 11/09/17 10/17/20 History Calcium Carbonate [Calcium] 600 mg PO DAILY 08/25/18 10/17/20 History Diclofenac Sodium [Diclofenac 100 mg PO DAILY 08/25/18 10/17/20 History Sodium ER] HYDROcodone/APAP 5-325MG [[place] 1 tab PO DAILY 08/25/18 10/17/20 History 5-325] Omeprazole 40 mg PO DAILY 08/25/18 10/17/20 History Oxybutynin Chloride [Ditropan XL] 10 mg PO DAILY 08/25/18 10/17/20 History Albuterol Inhaler [Ventolin Hfa 1 puff INHALATION RT-QID PRN 08/15/20 10/17/20 History Inhaler] Cetirizine HCl [Zyrtec] 10 mg PO DAILY 08/15/20 10/17/20 History Fluticasone Nasal [place] [Flonase 1 spray EA NOSTRIL DAILY 08/15/20 10/17/20 History Nasal [place]] metFORMIN HCL [Glucophage] 1,000 mg PO BID 08/15/20 10/17/20 History Allergies Allergy/AdvReac Type Severity Reaction Status Date / Time latex Allergy Rash/Hives Verified 10/17/20 08:26 DUST,POLLEN AdvReac SNEEZING Uncoded 10/16/20 20:08 Physical Exam Vitals: Vital Signs Temp Pulse Pulse Pulse Resp BP Pulse Ox 10/20/20 07:45 85 85 18 10/20/20 03:55 98.1 F 85 18 119/74 93 L 10/19/20 20:06 98.2 F 93 16 155/81 92 L 10/19/20 20:01 84 10/19/20 19:51 85 10/19/20 19:40 73 86 16 10/19/20 15:48 74 16 10/19/20 15:35 77 16 94 L 10/19/20 14:00 97.5 F L 86 18 123/77 90 L 10/19/20 11:31 18 96 10/19/20 11:07 94 10/19/20 10:53 80 Intake and Output 10/19/20 10/20/20 10/20/20 22:59 06:59 14:59 Intake Total 600 263.571 Output Total 600 Balance 0 263.571 Intake: Intake, IV Titration 263.571 Amount Norepinephrine 4 mg In 254.000 Sodium Chloride 0.9% 250 ml @ 0.05 MCG/KG/MIN 24. 975 mls/hr IV .[id number] KYLE Rx#:[id number] propofoL 1,000 mg In 9.571 Empty Bag 1 bag @ Titrate IV .Q0M KYLE Rx#: [id number] Oral 600 Output: Urine 600 Other: Voiding Method Toilet Indwelling Catheter # Voids 2 1 Weight 131.1 kg Morbid obesity, calm and comfortable, the recurrence of the mechanical ventilation. Currently she is an assist-control mode with a rate of 14, tidal volume of 400 FiO2 100% and a PEEP of 5. Head exam was generally normal. There was no scleral icterus or corneal arcus. Mucous membranes were moist. Neck was supple and without jugular venous distension, thyromegaly, or carotid bruits. Carotids were easily palpable bilaterally. There was no adenopathy. Orogastric and orotracheal tube are both in place. Lungs sounds are diminished bilaterally, no wheezes or rhonchi the patient has adequate air entry bilaterally. Heart sounds are distant, regular with occasional PACs. Murmurs could not be appreciated. No radicular heave or any thrills. Abdominal exam revealed normal bowel sounds. The patient has a large anterior abdominal wall scar related to her previous bowel surgery. She has a colostomy that was viable on examination in the left lower quadrant. She has several ventral hernias that are easily reducible. No direct tenderness. No rebound tenderness. No guarding. She also has a cholecystectomy scar over the right upper quadrant area. Bowel sounds are diminished at the present. Organs cannot be accurately palpated. Extremities reveal adequate pulses in all 4 extremities. The lower extremities are wrapped with Mohan wrap. She does have +1 pitting edema in lower extremity is bilaterally. She has adequate capillary refill in the patient adequate pulses in all 4 extremities. Neurologically, the patient is sedated. I was informed that the patient was following some simple commands at the time of arrival to the intensive care unit. No facial asymmetry. Pupils are equal and reactive to light. Examination of the skin revealed no evidence of significant rashes, suspicious appearing nevi or other concerning lesions. Results - Laboratory Findings CBC and BMP: 10/20/20 07:10 10/20/20 07:10 PT/INR, D-dimer PT 10.8 sec (9.0-12.0) 10/16/20 20:27 INR 1.0 (<1.2) 10/16/20 20:27 D-Dimer 0.92 mg/L FEU (<0.60) H 10/16/20 20:27 Abnormal lab findings: Abnormal Labs 10/16/20 10/16/20 10/16/20 20:27 20:27 20:27 Hgb 10.7 L MCHC RDW 18.4 H APTT 21.2 L D-Dimer 0.92 H Sodium 135 L Chloride 93 L Carbon Dioxide BUN 22 H BUN/Creatinine Ratio Glucose 136 H POC Glucose (mg/dL) Plasma Lactic Acid Eriberto Calcium 10.5 H Magnesium AST LDL Cholesterol, Calc HDL Cholesterol 10/16/20 10/16/20 10/17/20 20:27 23:42 04:41 Hgb MCHC RDW APTT D-Dimer Sodium Chloride Carbon Dioxide BUN BUN/Creatinine Ratio Glucose POC Glucose (mg/dL) Plasma Lactic Acid Eriberto 3.4 H* 2.1 H* Calcium Magnesium AST LDL Cholesterol, Calc 112 H HDL Cholesterol 36 L 10/17/20 10/18/20 10/19/20 04:41 05:58 06:32 Hgb MCHC RDW APTT D-Dimer Sodium Chloride 95 L 93 L Carbon Dioxide 39.9 H 39.6 H BUN BUN/Creatinine Ratio 28.57 H 27.14 H Glucose 124 H POC Glucose (mg/dL) Plasma Lactic Acid Eriberto 2.1 H* Calcium 10.7 H Magnesium AST LDL Cholesterol, Calc HDL Cholesterol 10/20/20 10/20/20 10/20/20 06:37 07:10 07:10 Hgb MCHC 28.9 L RDW 17.7 H APTT D-Dimer Sodium 134 L Chloride 90 L Carbon Dioxide BUN BUN/Creatinine Ratio Glucose 163 H POC Glucose (mg/dL) 142 H Plasma Lactic Acid Eriberto Calcium 11.1 H Magnesium 3.1 H AST 48 H LDL Cholesterol, Calc HDL Cholesterol 10/20/20 07:20 Hgb MCHC RDW APTT D-Dimer Sodium Chloride Carbon Dioxide BUN BUN/Creatinine Ratio Glucose POC Glucose (mg/dL) 281 H Plasma Lactic Acid Eriberto Calcium Magnesium AST LDL Cholesterol, Calc HDL Cholesterol - Diagnostic Findings Chest x-ray: image reviewed Assessment and Plan Plan: 1 Acute V. fib cardiac arrest, and hospital, witnessed, the patient received adequate resuscitation using ACLS protocol. The down time was around 25 minutes and the patient received multiple defibrillation, epinephrine, sodium bicarb, and calcium and the patient had return of within circulation and currently the patient intubated on a mechanical ventilator on norepinephrine infusion running at 0.26 micrograms per kilogram per minute. The patient has a new onset cardiomyopathy with an ejection fraction of 20-25%. 2 new onset cardiomyopathy with severe systolic heart failure with an ejection fraction of 20-25% 3 new onset exertional dyspnea and orthopnea and edema secondary to cardiomyopathy. 4 morbid obesity with a BMI of 52.9 5 suspect obstructive sleep apnea 6 history of colostomy and colectomy for bowel perforation. The patient has several ventral hernias are easily reducible 7 Diabetes mellitus type 2 8 hypertension 9 acid reflux Plan Continue vent support of the current ventilator settings Insert an arterial line Obtain ABGs and do the necessity ventilator changes Obtain a lactic acid level Keep the patient sedated for now Stop diuretics Stop Entresto and Coreg Continue norepinephrine infusion for non-titrated for a mean arterial pressure above 65 Continue amiodarone drip Lovenox for DVT prophylaxis Keep the patient sedated with propofol We'll establish a triple-lumen catheter, if unable to do so will do a PICC line Condition is critical and will continue to follow make further recommendations based on her progress. Keep her nothing by mouth for today. Time with Patient: Greater than 30
[2020-10-20] MEDS ORDERED: NALOXONE 0.4 MG/ML 1 ML VIAL IV PRN (09:39)
[2020-10-20] MEDS ORDERED: PANTOPRAZOLE 40 MG/10 ML VIAL IV SCH (09:45)
[2020-10-20 09:53] LABS: ABG Base Excess 6.6 mmol/L; ABG HCO3 33 mmol/L (21-25); ABG PCO2 63 mmHg (35-45); ABG PH 7.33 (7.35-7.45); ABG PO2 144 mmHg (83-108); ABG TCO2 35 mmol/L (19-24); Allen Test Performed? Yes
--- NOTE | 2020-10-20 10:13 | P.PCN ---
Date of Procedure: 10/20/20 Preoperative Diagnosis: Cardiac arrest Postoperative Diagnosis: Cardiac arrest Procedure(s) Performed: Arterial line insertion Anesthesia: local Surgeon: Maynor Horner Director Data Architecture #1: Patty Mosher Estimated Blood Loss (ml): 0 Pathology: other Condition: critical Disposition: ICU Operative Findings: Indication: Hemodynamic monitoring. A time-out was completed verifying correct patient, procedure, site, positioning, and implant(s) or special equipment if applicable. Allens test was performed to ensure adequate perfusion. The patients right brachial area was prepped and draped in sterile fashion. 1% Lidocaine was used to anesthetize the area. An 18G Arrow arterial line was introduced into the brachial artery. The catheter was threaded over the guide wire and the needle was removed with appropriate pulsatile blood return. Blood loss was minimal. The catheter was then sutured in place to the skin and a sterile dressing applied. Perfusion to the extremity distal to the point of catheter insertion was checked and found to be adequate. The patient tolerated the procedure well and there were no complications.
[2020-10-20] MEDS ORDERED: HEPARIN SODIUM,PORCINE 5,000 UNIT/ML 1 ML VIAL IV ONE (10:34)
[2020-10-20] MEDS ORDERED: HEPARIN SODIUM,PORCINE 5,000 UNIT/ML 1 ML VIAL IV PRN ×2 (10:34→14:04)
[2020-10-20] MEDS ORDERED: ASPIRIN 81 MG PO STA (10:39)
[2020-10-20] MEDS ORDERED: HEPARIN SOD,PORK IN 0.45% NACL 25,000 UNIT in 0.45% NACL 1 250ML.BAG IV SCH ×2 (10:45→14:15)
[2020-10-20 10:50] LABS: ABG Base Excess 6.8 mmol/L; ABG HCO3 32 mmol/L (21-25); ABG PCO2 52 mmHg (35-45); ABG PO2 73 mmHg (83-108); ABG TCO2 33 mmol/L (19-24)
[2020-10-20 10:51] LABS: Allen Test Performed? no
[2020-10-20] MEDS ORDERED: NOREPINEPHRINE 32 MG in SODIUM CHLORIDE 0.9% 218 ML IV SCH (11:00)
[2020-10-20] MEDS ORDERED: EPINEPHrine 4 MG in DEXTROSE 5% IN WATER 250 ML IV SCH ×2 (11:00)
[2020-10-20] MEDS: ASPIRIN 81 MG PO SCH (11:02)
[2020-10-20 11:10] LABS: Anisocytosis Slight; Basophils % (A) 0 %; Eosinophils # (A) 0.1 k/uL (0-0.7); Eosinophils % (A) 1 %; HCT 37.3 % (34.0-46.0); HGB 11.2 gm/dL (11.4-16.0); Hypochromasia Marked; Lymphocytes # (A) 1.7 k/uL (1.0-4.8); Lymphocytes % (A) 13 %; MCH 26.1 pg (25.0-35.0); MCHC 29.9 g/dL (31.0-37.0); MCV 87.1 fL (80.0-100.0); Mean Platelet Volume 7.5; Monocytes # (A) 0.6 k/uL (0-1.0); Monocytes % (A) 5 %; Neutrophils # (A) 10.4 k/uL (1.3-7.7); Neutrophils % (A) 80 %; Platelet Count 458 k/uL (150-450); Poikilocytosis Slight; RBC 4.28 m/uL (3.80-5.40); RDW 17.9 % (11.5-15.5)
[2020-10-20] MEDS ORDERED: IV FLUID CONTINUATION 1,000 ML IV ONE (11:15)
[2020-10-20 11:21] LABS: Albumin 3.5 g/dL (3.5-5.0); Calcium 10.6 mg/dL (8.4-10.2); Phosphorus 5.4 mg/dL (2.5-4.5); Potassium 3.6 mmol/L (3.5-5.1); Total Bilirubin 0.7 mg/dL (0.2-1.3); Total Protein 5.9 g/dL (6.3-8.2)
[2020-10-20 11:36] VITALS: BP 148/96
[2020-10-20] MEDS ORDERED: LIDOCAINE 1% INJ 10MG/ML (20 ML MDV) SQ ONE (11:43)
[2020-10-20 11:48] LABS: Partial Thromboplastin Time 20.8 sec (22.0-30.0)
[2020-10-20] MEDS ORDERED: NOREPINEPHRINE 4 MG in SODIUM CHLORIDE 0.9% 250 ML IV ONE (12:13)
--- NOTE | 2020-10-20 12:27 | P.CARDCATH ---
Date of Procedure: 10/20/20 Preoperative Diagnosis: Cardiomyopathy, CHF, recurrent V. tach Postoperative Diagnosis: Critical coronary artery disease with total occlusion of RCA in the proximal portion of the LAD at the ostium and moderate disease in the circumflex Procedure(s) Performed: Left heart catheterization without left ventriculography Description of Procedure: HISTORY: This is a 70-year-old femalewas admitted to the hospital with complaints of increasing shortness of breath and evidence of CHF. Echo Cardigan showed an ejection fraction of 25%. Patient was treated medically but developed recurrent episodes of ventricular tachycardia and fibrillation requiring CPR and shocks. Patient is intubated. A cardiac cath was requested to rule out underlying ischemic heart disease. CONSENT:I have discussed the risks, benefits and alternative therapies for the above-mentioned procedure and for both sedation/analgesia as well as necessary blood product administration, if indicated, as they pertain to this patient. The patient has indicated understanding and acceptance of the risks and procedures discussed. PROCEDURE: Patient was brought to the lab in a fasting state. Patient was given some IV sedation. Patient has an existing right brachial arterial line. This was extended to 6-Eritrean introducer sheath under aseptic precautions The right brachial area was also infiltrated with lidocaine and right brachial artery was entered using Seldinger technique. A 6-Eritrean catheter was left in place and selective coronary arteriography was performed. Patient tolerated the procedure well. Patient went on to have impella by Dr. Maya. Conscious sedation-Patient is already intubated and sedated Duration 28minutes HEMODYNAMICS:The aortic pressure is 144/70. Left ventricular end-diastolic pressure was not measured. SELECTIVE CORONARY ARTERIOGRAPHY: LEFT MAIN: Short and patent THE LEFT ANTERIOR DESCENDING CORONARY ARTERY: Totally occluded in the proximal portion near the ostium. The collateral flow fills the mid and distal LAD which appears to be small THE LEFT CIRCUMFLEX AND IS CORONARY ARTERY: Dominant vessel giving rise to good-sized OM branch. One branch has about 50-60% lesion THE RIGHT CORONARY ARTERY:Totally occluded in the proximal portion LEFT VENTRICULOGRAPHY:Not performed FINAL IMPRESSION:Total occlusion of the right and also LAD. Moderate disease in the intermediate PLAN: Dr. Maya is putting impella and may consider intervention or bypass. PROGNOSIS: poor
[2020-10-20] MEDS ORDERED: EPINEPHrine 10 ML SYRINGE (0.1 MG/ML) IV ONE ×2 (12:30→12:43)
[2020-10-20] MEDS ORDERED: AMIODARONE 450 MG in DEXTROSE 5% IN WATER 250 ML IV SCH ×2 (13:16)
[2020-10-20] MEDS ORDERED: IOPAMIDOL-370 125ML BTL INJ ONE (13:22)
--- NOTE | 2020-10-20 14:09 | P.PN ---
Subjective Progress Note Date: 10/20/20 Patient is a pleasant 70-year-old the female given compensative shortness of breath orthopnea, patient had a CT of the chest which showed pulmonary edema. Patient BNP is 5790. Patient is on daily Lasix with improvement in symptoms. Patient denied any fever chills. There is no PE. Patient usually doesn't wear oxygen at home patient is requiring around 3 L of oxygen. She also complaining of cough with awaiting cultures of sputum 10/18/2020 Patient is seen and evaluated in follow-up this morning continues to be on IV Lasix and diuresing well. She is currently sitting up in the chair with lower extremities elevated. Lower extremity swelling with edema noted although slightly improved. She continues to be on 2 L of oxygen and discuss with nursing staff about weaning FiO2 as tolerated. Patient states she does not wear oxygen in the home setting. Current saturation is 96% on 2 L. Instructed the patient to increase activity as tolerated. Sodium today is 140 with a potassium of 3.6, current BUN is 20 with a creatinine of 0.7. Cardiology is following. 10/19/2020 Patient is seen this morning and is maintained on IV Lasix and continues to diurese. Patient continues to have lower extremity edema noted and does have legs elevated. Will add Mohan wraps to bilateral lower extremities from the toes up to the knees she is also having some weeping noted of the lower extremities. Discussed with nursing staff about weaning FiO2 as tolerated as she is maintained on 2 L at this time. Patient has been getting up and walking around the room. Will add incentive spirometer and instructed the patient to continue using 10 times every hour while awake. 10/20/2020 Patient is seen and was recently transferred to the ICU as patient was found to be in V. fib during morning rounds and unresponsive. CODE BLUE team was called an event was recorded. Patient was brought to the ICU after intubation for close monitoring. Per nursing staff patient was on epinephrine along with amiodarone and went into ventricular fibrillation again and was evaluated by cardiology and brought immediately to the Field Services Manager for cardiac catheterization. Cardiac catheterization showed total occlusion of the right and also LAD. Impella was placed Further interventions being discussed. Cardiology currently working on transferring the patient to [facility]. Prognosis remains extremely guarded and poor at this time. Pulmonary is following as well. Review of systems: Unable to obtain as patient is now sedated and intubated Active Medications Albuterol/Ipratropium (Ipratropium-Albuterol 3 Ml Neb) 3 ml INHALATION RT-QID PRN PRN Reason: Shortness Of Breath Or Wheezing Last Admin: 10/19/20 19:49 Dose: 3 ml Documented by: Allopurinol (Allopurinol 300 Mg Tab) 300 mg PO DAILY [facility] Last Admin: 10/19/20 07:27 Dose: 300 mg Documented by: Aspirin (Aspirin 81 Mg) 81 mg PO DAILY [facility] Last Admin: 10/20/20 11:02 Dose: 81 mg Documented by: Atorvastatin Calcium (Atorvastatin 40 Mg Tab) 40 mg PO HS [facility] Last Admin: 10/19/20 20:01 Dose: 40 mg Documented by: Chlorhexidine Gluconate (Chlorhexidine Gluconate 15 Ml Cup) 15 ml MUCOUS MEM BID KYLE Duloxetine HCl (Duloxetine Hcl 30 Mg Capsule.Dr) 30 mg PO HS [facility] Last Admin: 10/19/20 20:01 Dose: 30 mg Documented by: Heparin Sodium (Porcine) (Heparin Sodium,Porcine 5,000 Unit/Ml 1 Ml Vial) 0 unit IV PER PROTOCOL PRN; Protocol PRN Reason: Low PTT Amiodarone HCl 450 mg/ (Dextrose/Water) 250 mls @ 16.667 mls/hr IV .Q15H KYLE; Protocol Stop: 10/21/20 07:15 Propofol 1,000 mg/ IV Solution 100 mls @ 0 mls/hr IV .Q0M KYLE; Protocol Last Titration: 10/20/20 08:25 Dose: 26 mcg/kg/min, 20.452 mls/hr Documented by: Sodium Chloride (Saline 0.9%) 1,000 mls @ 100 mls/hr IV .Q10H KYLE Last Admin: 10/20/20 10:17 Dose: 100 mls/hr Documented by: Heparin Sodium/Sodium Chloride (25,000 unit/ Sodium Chloride) 250 mls @ 10 mls/hr IV .Q24H KYLE; Protocol Epinephrine HCl 4 mg/ Dextrose (/Water) 250 mls @ 4.916 mls/hr IV .Q24H KYLE; Protocol Last Admin: 10/20/20 10:45 Dose: 0.01 mcg/kg/min, 4.916 mls/hr Documented by: Heparin Sodium (Porcine) 10, (000 unit/ Sodium Chloride) 1,001 mls @ 999 mls/hr IRRIGATION ONCE PRN PRN Reason: INTRA-OP Stop: 10/21/20 23:00 Heparin Sodium (Porcine) 2,500 (unit/ Sodium Chloride) 250.5 mls @ 250 mls/hr IRRIGATION ONCE PRN PRN Reason: INTRA-OP Stop: 10/21/20 23:00 Norepinephrine Bitartrate 32 (mg/ Sodium Chloride) 250 mls @ 3.073 mls/hr IV .Q24H [facility]; Protocol Multivitamins (Multivitamins, Thera 1 Each Tab) 1 each PO DAILY [facility] Last Admin: 10/19/20 07:28 Dose: 1 each Documented by: Naloxone HCl (Naloxone 0.4 Mg/Ml 1 Ml Vial) 0.2 mg IV Q2M PRN PRN Reason: Opioid Reversal Nitroglycerin (Nitroglycerin Sl Tabs 0.4 Mg Tab) 0.4 mg SUBLINGUAL Q5M PRN PRN Reason: Chest Pain Oxybutynin Chloride (Oxybutynin 10 Mg Tab.Er.24) 10 mg PO DAILY [facility] Last Admin: 10/19/20 07:28 Dose: 10 mg Documented by: Pantoprazole Sodium (Pantoprazole 40 Mg/10 Ml Vial) 40 mg IV DAILY [facility] Objective - Vital Signs Vital signs: Vital Signs Temp 98.1 F 10/20/20 03:55 Pulse 85 10/20/20 03:55 Resp 18 10/20/20 03:55 BP 119/74 10/20/20 03:55 Pulse Ox 93 L 10/20/20 03:55 Intake & Output 10/19/20 10/20/20 10/20/20 18:59 06:59 18:59 Intake Total 960 600 9.571 Output Total 500 600 Balance 460 0 9.571 Weight 131.1 kg Intake: Intake, IV Titration 9.571 Amount propofoL 1,000 mg In 9.571 Empty Bag 1 bag @ Titrate IV .Q0M [facility] Rx#: [id number] Oral 600 Other 960 Output: Urine 500 600 Other: Voiding Method Toilet # Voids 1 - Exam GENERAL: The patient is intubated and sedated. Well developed, well nourished. Temp is 96.7F, Pulse is 67, respirations are 20, blood pressures 118/78, oxygen saturation is 95% on mechanical ventilation. HEENT: Pupils are round and equally reacting to light. EOMI. No scleral icterus. No conjunctival pallor. Normocephalic, atraumatic. No pharyngeal erythema. No thyromegaly. CARDIOVASCULAR: S1, S2 are muffled PULMONARY: Diminished breath sounds bilaterally with some scattered rhonchi noted ABDOMEN: Soft, obese, nontender, nondistended, normoactive bowel sounds. No palpable organomegaly. MUSCULOSKELETAL: No joint swelling or deformity. EXTREMITIES: No cyanosis, clubbing, patient has 2+ pitting bilateral pedal edema more on the left side. Improved from yesterday, Mohan wraps to bilateral lower extremities noted NEUROLOGICAL: Patient is currently intubated and sedated SKIN: No rashes. - Labs CBC & Chem 7: 10/20/20 10:32 10/20/20 10:32 Labs: Abnormal Lab Results - Last 24 Hours (Table) 10/19/20 10/20/20 10/20/20 Range/Units 06:32 06:37 07:10 MCHC 28.9 L (31.0-37.0) g/dL RDW 17.7 H (11.5-15.5) % Sodium (137-145) mmol/L Chloride 93 L (96-109) mmol/L Carbon Dioxide 39.6 H (21.6-31.8) mmol/L BUN/Creatinine Ratio 27.14 H (12.00-20.00) Ratio Glucose 124 H (70-110) mg/dL POC Glucose (mg/dL) 142 H (75-99) mg/dL Calcium (8.4-10.2) mg/dL Magnesium (1.6-2.3) mg/dL AST (14-36) U/L 10/20/20 10/20/20 Range/Units 07:10 07:20 MCHC (31.0-37.0) g/dL RDW (11.5-15.5) % Sodium 134 L (137-145) mmol/L Chloride 90 L (96-109) mmol/L Carbon Dioxide (21.6-31.8) mmol/L BUN/Creatinine Ratio (12.00-20.00) Ratio Glucose 163 H (70-110) mg/dL POC Glucose (mg/dL) 281 H (75-99) mg/dL Calcium 11.1 H (8.4-10.2) mg/dL Magnesium 3.1 H (1.6-2.3) mg/dL AST 48 H (14-36) U/L Assessment and Plan Assessment: -Acute ventricular fibrillation cardiac arrest witnessed with CPR and ACLS with return of spontaneous circulation -Status post intubation with mechanical ventilation secondary to above -New-onset congestive heart failure possibly chronic systolic dysfunction patient had an echo cardiac exam which showed EF of around 20-25% -hypertension -Sleep apnea. Patient uses CPAP machine at home -Gastroesophageal reflux disease -Morbid obesity with a BMI of 52.9 -Diabetes mellitus type 2 -DVT prophylaxis with Lovenox. -Full code Recommendations and discussion: Recommend to continue with current medications and management. Patient is being closely monitored in the ICU. Per nursing staff patient went into ventricular fibrillation and was seen by cardiology at the bedside and brought to cardiac catheterization which showed total occlusion of the right and LAD and patient was placed on Impella. Cardiology and switchboard operator assistant currently working on transferring to [facility]. Due to multiple complex medical issues, prognosis remains extremely guarded and poor at this time. Case management made aware and following on transfer process.
[2020-10-20] MEDS ORDERED: HEPARIN SODIUM,PORCINE 12,500 UNIT in DEXTROSE 5% IN WATER 500 ML IV SCH ×2 (14:15)
[2020-10-20 14:25] LABS: Glucose,Whole Blood 186 mg/dL (75-99)
[2020-10-20] MEDS: OXYBUTYNIN 10 MG TAB.ER.24 PO SCH (14:28)
[2020-10-20] MEDS: allopurinoL 300 MG TAB PO SCH (14:28)
[2020-10-20] MEDS: MULTIVITAMINS, THERA 1 EACH TAB PO SCH (14:28)
[2020-10-20 14:50] LABS: Anisocytosis Slight; HCT 36.1 % (34.0-46.0); HGB 11.3 gm/dL (11.4-16.0); Hypochromasia Marked; MCH 26.6 pg (25.0-35.0); MCHC 31.2 g/dL (31.0-37.0); MCV 85.1 fL (80.0-100.0); Mean Platelet Volume 7.6; Platelet Count 460 k/uL (150-450); Poikilocytosis Slight; RBC 4.24 m/uL (3.80-5.40)
[2020-10-20 14:52] LABS: Calcium 10.6 mg/dL (8.4-10.2); Magnesium 2.7 mg/dL (1.6-2.3); Potassium 3.3 mmol/L (3.5-5.1)
[2020-10-20 15:13] LABS: Band Neutrophils % 2 %; INR 1.2 (<1.2); Lymphocytes # (M) 0.36 k/uL (1.0-4.8); Monocytes # (M) 1.44 k/uL (0-1.0); Neutrophils % (M) 88 %; Nucleated Red Blood Cells 0 /100 WBC (0-0); Partial Thromboplastin Time 80.5 sec (22.0-30.0); Prothrombin Time 12.1 sec (9.0-12.0); Total Cells Counted 100; Toxic Granulation Present
[2020-10-20 15:45] LABS: ABG Base Excess 10.4 mmol/L; ABG HCO3 32 mmol/L (21-25); ABG PCO2 35 mmHg (35-45); ABG PO2 349 mmHg (83-108); ABG TCO2 34 mmol/L (19-24)
[2020-10-20 15:46] LABS: ABG PH 7.57 (7.35-7.45); Allen Test Performed? no
--- NOTE | 2020-10-20 15:47 | P.GSCN ---
History of Present Illness Consult date: 10/20/20 Reason for Consult: Evaluation for emergent myocardial revascularization surgery. Requesting physician: Stefania Sherman History of present illness: This is 62-year-old female patient who follows with Dr. Edson Werner on an outpatient basis. Just past medical history significant for hypertension, osteoarthritis, morbid obesity with a BMI of 52.9 kg/m, sleep apnea with CPAP use and heart failure. She presented to the emergency department here at [facility] on 10/16/2020 with complaints of shortness of breath. She denied any recent chest pain, chest pressure, nausea, vomiting, fever or chills at that time. Initial laboratory results showed a WBC count 8.2, hemoglobin 10.7, hematocrit 30 point 0.5, platelets 394, d-dimer 0.92, sodium 135, BUN 22, creatinine 0.67, glucose 136, lactic acid 2.1, calcium 10.5, troponin 0.0-4 and proBNP 5790. A COVID 19 test was completed and was not detected. A chest x-ray was completed which showed congestive heart failure with superimposed infiltrates. A CT chest angiogram was completed which showed no evidence for pulmonary embolism, patchy groundglass pulmonary interstitial infiltrates, small right pleural effusion, moderate cardiomegaly and possible congestive heart failure. A 12-lead EKG was completed in the emergency department which showed normal sinus rhythm with premature atrial complexes heart rate 99 BPM. The patient was subsequently admitted for further evaluation and workup. On 10/16/2020 the patient underwent a computed tomography scan of her abdomen/pelvis with contrast due to some complaints of abdominal pain which demonstrated multiple ventral hernias, and constipation. A 2-D echocardiogram was completed which showed an ejection fraction of 20-25%. Cardiology was seen the patient in optimizing medical management with diuretics and Entresto. Around 6:30 AM this morning a CODE BLUE was called and ACLS protocols were initiated, according to the intensive care unit nurse the patient was defibrillated 7 times. Subsequently the patient was transferred to the intensive care unit intubated with mechanical ventilator support. Again in the ICU the patient went into ventricular fibrillation and was defibrillated one more time. Due to her episodes of ventricular fibrillation the patient was taken to the cardiac catheterization lab where she underwent a cardiac catheterization which demonstrated a totally chronically occluded proximal left anterior descending coronary artery with collateral flow filling the mid and distal left anterior descending coronary artery, a dominant circumflex coronary artery with a good sized obtuse marginal branch with a 50-60% stenosis and a chronic totally occluded proximal right coronary artery. Upon completion of the cardiac catheterization Dr. Layton Quintanilla was called emergently to the cardiac catheterization lab for consideration of emergent myocardial revascularization surgery. An Impella was placed in the cardiac catheterization lab. The patient remains intubated with mechanical ventilator support and is sedated on propofol drip at this time. The history was obtained from her chart and from her bedside nurse in the intensive care unit. Patient is currently on an amiodarone drip per protocol, norepinephrine and epinephrine drip for hemodynamic support. Review of Systems A 14 point review of systems was unable to be obtained as the patient is intubated and on mechanical ventilator support, but was obtained from her chart. Past Medical History Past Medical History: Heart Failure, GERD/Reflux, Hypertension, Osteoarthritis (OA), Sleep Apnea/CPAP/BIPAP Additional Past Medical History / Comment(s): no cpap used, hx perforated bowel- has colostomy, diverticulitis, gout, frequent leg swelling, pt reports balance issues. History of Any Multi-Drug Resistant Organisms: None Reported Past Surgical History: Bowel Resection, Cholecystectomy, Hernia Repair, Hysterectomy, Joint Replacement, Orthopedic Surgery, Tonsillectomy Additional Past Surgical History / Comment(s): perforated bowel/colostomy, right and left knee replaced, left wrist carpal tunnel repair Past Anesthesia/Blood Transfusion Reactions: No Reported Reaction Past Psychological History: No Psychological Hx Reported Smoking Status: Former smoker Past Alcohol Use History: None Reported Additional Past Alcohol Use History / Comment(s): quit smoking 1982, smoked for 20 yrs, "casual smoker" Past Drug Use History: None Reported - Past Family History Sister(s) Family Medical History: Cancer Father Family Medical History: Diabetes Mellitus, Hypertension Medications and Allergies Home Medications Medication Instructions Recorded Confirmed Type Multivitamins, Thera [Multivitamin 1 tab PO DAILY 08/27/16 10/17/20 History (formulary)] allopurinoL [Zyloprim] 300 mg PO DAILY 08/27/16 10/17/20 History DULoxetine HCL [Cymbalta] 30 mg PO HS 11/09/17 10/17/20 History Calcium Carbonate [Calcium] 600 mg PO DAILY 08/25/18 10/17/20 History Diclofenac Sodium [Diclofenac 100 mg PO DAILY 08/25/18 10/17/20 History Sodium ER] HYDROcodone/APAP 5-325MG [[place] 1 tab PO DAILY 08/25/18 10/17/20 History 5-325] Omeprazole 40 mg PO DAILY 08/25/18 10/17/20 History Oxybutynin Chloride [Ditropan XL] 10 mg PO DAILY 08/25/18 10/17/20 History Albuterol Inhaler [Ventolin Hfa 1 puff INHALATION RT-QID PRN 08/15/20 10/17/20 History Inhaler] Cetirizine HCl [Zyrtec] 10 mg PO DAILY 08/15/20 10/17/20 History Fluticasone Nasal [place] [Flonase 1 spray EA NOSTRIL DAILY 08/15/20 10/17/20 History Nasal [place]] metFORMIN HCL [Glucophage] 1,000 mg PO BID 08/15/20 10/17/20 History Allergies Allergy/AdvReac Type Severity Reaction Status Date / Time latex Allergy Rash/Hives Verified 10/17/20 08:26 DUST,POLLEN AdvReac SNEEZING Uncoded 10/16/20 20:08 Surgical - Exam Vital Signs Temp Pulse Resp BP Pulse Ox 98.4 F 115 H 22 143/93 92 L 10/16/20 20:08 10/16/20 20:08 10/16/20 20:08 10/16/20 20:08 10/16/20 20:08 - General This is 70-year-old female patient who is morbidly obese, currently is intubated, with mechanical ventilator support and is sedated on propofol drip. obese - Eyes no icteric - ENT normal pinna, normal nares, normal mucosa, no congestion - Neck Neck is supple, no lymphadenopathy. no masses, no bruits, trachea midline, no venous distension - Respiratory Lung sounds with scattered rhonchi throughout, diminished bilateral bases. Respirations are symmetrical and nonlabored with mechanical ventilator support. - Cardiovascular regular rhythm and rate. S1 and S2 present, negative for S3, gallop or murmur. Bedside telemetry showing normal sinus rhythm heart rate 77 BPM with occasional PACs. +1 generalized edema. Insulin and placed to her left femoral, motor current 847/751 with a mean of 808, flow is 3.0 L/m with a P9. Doppler pulses present to her bilateral pedal. - Abdomen Abdomen is soft, and nondistended. Hypoactive bowel sounds present in all 4 abdominal quadrants. Colostomy left lower quadrant abdomen. Multiple ventral hernias. Obese - Genitourinary Dong catheter for accurate I&O. Draining clear yellow urine. - Rectum Deferred - Integumentary no rash, no growths, no abnormal pigmentation - Neurologic Unable to be accurately assess at this time as the patient remains intubated and is sedated on propofol drip. - Musculoskeletal Unable to be accurately assess at this time as the patient remains intubated and is sedated on propofol drip - Psychiatric Unable to be accurately assess at this time as the patient remains intubated and is sedated on propofol drip Results - Labs 10/20/20 14:25 10/20/20 14:25 Abnormal Lab Results - Last 24 Hours (Table) 10/20/20 10/20/20 10/20/20 Range/Units 06:37 07:10 07:10 WBC (3.8-10.6) k/uL Hgb (11.4-16.0) gm/dL MCHC 28.9 L (31.0-37.0) g/dL RDW 17.7 H (11.5-15.5) % Plt Count (150-450) k/uL Neutrophils # (1.3-7.7) k/uL APTT (22.0-30.0) sec ABG pH (7.35-7.45) ABG pCO2 (35-45) mmHg ABG pO2 (83-108) mmHg ABG HCO3 (21-25) mmol/L ABG Total CO2 (19-24) mmol/L ABG O2 Saturation (94-97) % ABG Lactic Acid (0.5-1.6) mmol/L Sodium 134 L (137-145) mmol/L Chloride 90 L (98-107) mmol/L Carbon Dioxide (22-30) mmol/L BUN (7-17) mg/dL Glucose 163 H (74-99) mg/dL POC Glucose (mg/dL) 142 H (75-99) mg/dL Calcium 11.1 H (8.4-10.2) mg/dL Phosphorus (2.5-4.5) mg/dL Magnesium 3.1 H (1.6-2.3) mg/dL AST 48 H (14-36) U/L ALT (4-34) U/L Total Protein (6.3-8.2) g/dL 10/20/20 10/20/20 10/20/20 Range/Units 07:20 09:52 10:32 WBC 13.0 H (3.8-10.6) k/uL Hgb 11.2 L (11.4-16.0) gm/dL MCHC 29.9 L (31.0-37.0) g/dL RDW 17.9 H (11.5-15.5) % Plt Count 458 H (150-450) k/uL Neutrophils # 10.4 H (1.3-7.7) k/uL APTT (22.0-30.0) sec ABG pH 7.33 L (7.35-7.45) ABG pCO2 63 H (35-45) mmHg ABG pO2 144 H (83-108) mmHg ABG HCO3 33 H (21-25) mmol/L ABG Total CO2 35 H (19-24) mmol/L ABG O2 Saturation (94-97) % ABG Lactic Acid (0.5-1.6) mmol/L Sodium (137-145) mmol/L Chloride (98-107) mmol/L Carbon Dioxide (22-30) mmol/L BUN (7-17) mg/dL Glucose (74-99) mg/dL POC Glucose (mg/dL) 281 H (75-99) mg/dL Calcium (8.4-10.2) mg/dL Phosphorus (2.5-4.5) mg/dL Magnesium (1.6-2.3) mg/dL AST (14-36) U/L ALT (4-34) U/L Total Protein (6.3-8.2) g/dL 10/20/20 10/20/20 10/20/20 Range/Units 10:32 10:32 10:32 WBC (3.8-10.6) k/uL Hgb (11.4-16.0) gm/dL MCHC (31.0-37.0) g/dL RDW (11.5-15.5) % Plt Count (150-450) k/uL Neutrophils # (1.3-7.7) k/uL APTT 20.8 L (22.0-30.0) sec ABG pH (7.35-7.45) ABG pCO2 (35-45) mmHg ABG pO2 (83-108) mmHg ABG HCO3 (21-25) mmol/L ABG Total CO2 (19-24) mmol/L ABG O2 Saturation (94-97) % ABG Lactic Acid 4.0 H* (0.5-1.6) mmol/L Sodium 132 L (137-145) mmol/L Chloride 90 L (98-107) mmol/L Carbon Dioxide 31 H (22-30) mmol/L BUN 23 H (7-17) mg/dL Glucose 274 H (74-99) mg/dL POC Glucose (mg/dL) (75-99) mg/dL Calcium 10.6 H (8.4-10.2) mg/dL Phosphorus 5.4 H (2.5-4.5) mg/dL Magnesium 3.0 H (1.6-2.3) mg/dL AST 140 H (14-36) U/L ALT 70 H (4-34) U/L Total Protein 5.9 L (6.3-8.2) g/dL 10/20/20 Range/Units 10:48 WBC (3.8-10.6) k/uL Hgb (11.4-16.0) gm/dL MCHC (31.0-37.0) g/dL RDW (11.5-15.5) % Plt Count (150-450) k/uL Neutrophils # (1.3-7.7) k/uL APTT (22.0-30.0) sec ABG pH (7.35-7.45) ABG pCO2 52 H (35-45) mmHg ABG pO2 73 L (83-108) mmHg ABG HCO3 32 H (21-25) mmol/L ABG Total CO2 33 H (19-24) mmol/L ABG O2 Saturation 91.0 L (94-97) % ABG Lactic Acid (0.5-1.6) mmol/L Sodium (137-145) mmol/L Chloride (98-107) mmol/L Carbon Dioxide (22-30) mmol/L BUN (7-17) mg/dL Glucose (74-99) mg/dL POC Glucose (mg/dL) (75-99) mg/dL Calcium (8.4-10.2) mg/dL Phosphorus (2.5-4.5) mg/dL Magnesium (1.6-2.3) mg/dL AST (14-36) U/L ALT (4-34) U/L Total Protein (6.3-8.2) g/dL Microbiology - Last 24 Hours (Table) 10/20/20 07:40 Sputum Culture - Preliminary Sputum Diabetes panel 10/20/20 10/20/20 Range/Units 07:10 10:32 Sodium 134 L 132 L (137-145) mmol/L Potassium 3.8 3.6 (3.5-5.1) mmol/L Chloride 90 L 90 L (98-107) mmol/L Carbon Dioxide 28 31 H (22-30) mmol/L BUN 17 23 H (7-17) mg/dL Creatinine 0.59 0.93 (0.52-1.04) mg/dL Glucose 163 H 274 H (74-99) mg/dL Calcium 11.1 H 10.6 H (8.4-10.2) mg/dL AST 48 H 140 H (14-36) U/L ALT 33 70 H (4-34) U/L Alkaline Phosphatase 59 79 (38-126) U/L Total Protein 7.0 5.9 L (6.3-8.2) g/dL Albumin 4.2 3.5 (3.5-5.0) g/dL Calcium panel 10/20/20 10/20/20 Range/Units 07:10 10:32 Calcium 11.1 H 10.6 H (8.4-10.2) mg/dL Phosphorus 5.4 H (2.5-4.5) mg/dL Albumin 4.2 3.5 (3.5-5.0) g/dL Pituitary panel 10/20/20 10/20/20 Range/Units 07:10 10:32 Sodium 134 L 132 L (137-145) mmol/L Potassium 3.8 3.6 (3.5-5.1) mmol/L Chloride 90 L 90 L (98-107) mmol/L Carbon Dioxide 28 31 H (22-30) mmol/L BUN 17 23 H (7-17) mg/dL Creatinine 0.59 0.93 (0.52-1.04) mg/dL Glucose 163 H 274 H (74-99) mg/dL Calcium 11.1 H 10.6 H (8.4-10.2) mg/dL Adrenal panel 10/20/20 10/20/20 Range/Units 07:10 10:32 Sodium 134 L 132 L (137-145) mmol/L Potassium 3.8 3.6 (3.5-5.1) mmol/L Chloride 90 L 90 L (98-107) mmol/L Carbon Dioxide 28 31 H (22-30) mmol/L BUN 17 23 H (7-17) mg/dL Creatinine 0.59 0.93 (0.52-1.04) mg/dL Glucose 163 H 274 H (74-99) mg/dL Calcium 11.1 H 10.6 H (8.4-10.2) mg/dL Total Bilirubin 0.6 0.7 (0.2-1.3) mg/dL AST 48 H 140 H (14-36) U/L ALT 33 70 H (4-34) U/L Alkaline Phosphatase 59 79 (38-126) U/L Total Protein 7.0 5.9 L (6.3-8.2) g/dL Albumin 4.2 3.5 (3.5-5.0) g/dL - Imaging Chest x-ray: report reviewed, image reviewed CT scan - chest: report reviewed, image reviewed EKG: image reviewed Additional studies: Cardiac catheterization and 2-D echocardiograms were reviewed by Dr. Layton Quintanilla with Dr. Maya and Dr. Sherman from cardiology. Assessment and Plan Assessment: 1. Critical coronary artery disease with a chronic totally occluded collateralized right coronary artery and left anterior coronary artery with moderate disease of the circumflex coronary artery 2. Cardiomyopathy, with an ejection fraction of 20-25% 3. Systolic congestive heart failure 4. Acute ventricular fibrillation, with resuscitation using ACLS protocol 5. Dyspnea, secondary to cardiomyopathy 6. Morbid obesity with a BMI of 52.9 kg/m 7. Obstructive sleep apnea with home CPAP use 8. Colostomy left lower quadrant abdomen, status post colectomy for bowel perforation 9. Type 2 diabetes mellitus 10. History of hypertension 11. GERD Plan: The patient was seen and examined in the cardiac catheterization lab by Dr. Layton Quintanilla. The patient's chart and diagnostics reviewed including the cardiac catheterization films and 2-D echocardiogram films. Dr. Quintanilla reviewed the films with Dr. Maya and Dr. Sherman from cardiology. The patient is a nonsurgical candidate at this point as the patient would be extremely high risk. Continue to maximize medical therapy. Time with Patient: Greater than 30
--- NOTE | 2020-10-20 16:07 | P.DS ---
Providers Date of admission: 10/16/20 23:42 Expected date of discharge: 10/20/20 Attending physician: Myles Motta Consults: 10/16/20 23:33 Consult Physician Urgent Consulting Provider: Slade Villanueva Consult Reason/Comments: CHF Do you want consulting provider notified?: Yes 10/20/20 07:04 Consult Physician Stat Consulting Provider: Tom Aguila Consult Reason/Comments: icu care Do you want consulting provider notified?: Yes Primary care physician: [facility] Course: Final diagnosis -Acute ventricular fibrillation cardiac arrest witnessed with CPR and ACLS with return of spontaneous circulation -Status post intubation with mechanical ventilation secondary to above -Status post cardiac catheterization showing total occlusion of the right and also LAD and Impella placed -New-onset congestive heart failure possibly chronic systolic dysfunction patient had an echo cardiac exam which showed EF of around 20-25% -hypertension -Sleep apnea. Patient uses CPAP machine at home -Gastroesophageal reflux disease -Morbid obesity with a BMI of 52.9 -Diabetes mellitus type 2 -DVT prophylaxis with Lovenox. -Full code Discharge disposition Patient is being transferred in a stable condition with extremely guarded prognosis to [facility] for tertiary treatment center. Dr. Tabby Collier will be accepting the patient from [facility]. Total time taken is greater than 35 minutes. Hospital course Patient is a pleasant 70-year-old the female given compensative shortness of breath orthopnea, patient had a CT of the chest which showed pulmonary edema. Patient BNP is 5790. Patient is on daily Lasix with improvement in symptoms. Patient denied any fever chills. There is no PE. Patient usually doesn't wear oxygen at home patient is requiring around 3 L of oxygen. She also complaining of cough with awaiting cultures of sputum 10/18/2020 Patient is seen and evaluated in follow-up this morning continues to be on IV Lasix and diuresing well. She is currently sitting up in the chair with lower extremities elevated. Lower extremity swelling with edema noted although slightly improved. She continues to be on 2 L of oxygen and discuss with nursing staff about weaning FiO2 as tolerated. Patient states she does not wear oxygen in the home setting. Current saturation is 96% on 2 L. Instructed the patient to increase activity as tolerated. Sodium today is 140 with a potassium of 3.6, current BUN is 20 with a creatinine of 0.7. Cardiology is following. 10/19/2020 Patient is seen this morning and is maintained on IV Lasix and continues to diurese. Patient continues to have lower extremity edema noted and does have legs elevated. Will add Mohan wraps to bilateral lower extremities from the toes up to the knees she is also having some weeping noted of the lower extremities. Discussed with nursing staff about weaning FiO2 as tolerated as she is maintained on 2 L at this time. Patient has been getting up and walking around the room. Will add incentive spirometer and instructed the patient to continue using 10 times every hour while awake. 10/20/2020 Patient is seen and was recently transferred to the ICU as patient was found to be in V. fib during morning rounds and unresponsive. CODE BLUE team was called an event was recorded. Patient was brought to the ICU after intubation for close monitoring. Per nursing staff patient was on epinephrine along with amiodarone and went into ventricular fibrillation again and was evaluated by cardiology and brought immediately to the [facility] for cardiac catheterization. Cardiac catheterization showed total occlusion of the right and also LAD. Impella was placed Further interventions being discussed. Cardiology currently working on transferring the patient to [facility] center. Prognosis remains extremely guarded and poor at this time. Pulmonary is following as well. Patient is being transferred by flight and will be going to [facility] On exam vital signs are stable. Patient is on mechanical ventilation and intubation with sedation. Cardio S1, S2 are muffled. Respiratory system shows diminished breath sounds at the bases. Abdomen is soft and obese, and nontender. Nervous system shows diffuse weakness. Please refer to medication reconciliation sheet for a list of medications. Patient Condition at Discharge: Critical Plan - Discharge Summary Discharge Rx Participant: No New Discharge Prescriptions: No Action Multivitamins, Thera [Multivitamin (formulary)] 1 tab PO DAILY allopurinoL [Zyloprim] 300 mg PO DAILY DULoxetine HCL [Cymbalta] 30 mg PO HS Omeprazole 40 mg PO DAILY HYDROcodone/APAP 5-325MG [[place] 5-325] 1 tab PO DAILY Diclofenac Sodium [Diclofenac Sodium ER] 100 mg PO DAILY Calcium Carbonate [Calcium] 600 mg PO DAILY Oxybutynin Chloride [Ditropan XL] 10 mg PO DAILY Albuterol Inhaler [Ventolin Hfa Inhaler] 1 puff INHALATION RT-QID PRN PRN Reason: Shortness Of Breath Cetirizine HCl [Zyrtec] 10 mg PO DAILY Fluticasone Nasal [place] [Flonase Nasal [place]] 1 spray EA NOSTRIL DAILY metFORMIN HCL [Glucophage] 1,000 mg PO BID Discharge Medication List Multivitamins, Thera [Multivitamin (formulary)] 1 tab PO DAILY 08/27/16 [ History] allopurinoL [Zyloprim] 300 mg PO DAILY 08/27/16 [History] DULoxetine HCL [Cymbalta] 30 mg PO HS 11/09/17 [History] Calcium Carbonate [Calcium] 600 mg PO DAILY 08/25/18 [History] Diclofenac Sodium [Diclofenac Sodium ER] 100 mg PO DAILY 08/25/18 [History] HYDROcodone/APAP 5-325MG [[place] 5-325] 1 tab PO DAILY 08/25/18 [History] Omeprazole 40 mg PO DAILY 08/25/18 [History] Oxybutynin Chloride [Ditropan XL] 10 mg PO DAILY 08/25/18 [History] Albuterol Inhaler [Ventolin Hfa Inhaler] 1 puff INHALATION RT-QID PRN 08/15/20 [History] Cetirizine HCl [Zyrtec] 10 mg PO DAILY 08/15/20 [History] Fluticasone Nasal [place] [Flonase Nasal [place]] 1 spray EA NOSTRIL DAILY 08/15/20 [History] metFORMIN HCL [Glucophage] 1,000 mg PO BID 08/15/20 [History] Follow up Appointment(s)/Referral(s): [facility] [NON-STAFF] - As Needed Edson Werner MD [Primary Care Provider] - 1-2 days
[2020-10-20 16:43] VITALS: PULSE 70; RESP 21; TEMP 100.6
--- NOTE | 2020-10-20 17:46 | P.PN ---
Subjective HISTORY OF PRESENTING ILLNESS This is a pleasant 70-year-old female past medical history significant for hypertension, arthritis, obesity, GERD, diabetes mellitus, ostomy who presented secondary to shortness breath on 10/16/2020. She is found to have new onset of heart failure with ejection fraction 20-25% and had been doing fairly well up until this morning. Unfortunately this morning she went into V. fib arrest at approximate 7:00. She underwent CPR and was defibrillated approximately 7 times. Per nursing patient was responsive after first code and needed sedation with propofol. Patient with borderline hypotensive and therefore placed on levophed. Patient then was placed on amiodarone however a few hours later had a repeat V. fib arrest and was then placed on levophed as well as epinephrine drip. Repeat EKG showed Q waves anteriorly however no significant ST elevation. Therefore patient was taken urgently to heart catheterization which was performed by Dr. Sherman with the brachial arterial line changed out for a 6-[place] sheath. Heart catheterization showed BODY MECHANIC APPRENTICE of the RCA, BODY MECHANIC APPRENTICE of the LAD, OM1 with a 50-60% stenosis and mainly left to right collaterals. Patient was attempted to wean off the epinephrine drip however then became even more hypotensive with systolic blood pressures in the 50s to 60s and Impala CP was placed. Cardiothoracic surgery was consult that with patient deemed not a good surgical candidate. Impala CP was placed through the left femoral approach with patient losing pulsatility if epinephrine was decreased however with a map in the 70s to 80s on pressors. Attempted to call and apparent decision maker who is a neighbor without any response. REVIEW OF SYSTEMS At the time of my exam: Unable to perform secondary to patient being sedated and on ventilator. PHYSICAL EXAMINATION Blood pressure 94/91 heart rate 70 afebrile and maintaining oxygen saturation on ventilator at 60% FiO2. CONSTITUTIONAL: Obese, ill-appearing, sedated on ventilator HEENT: Head is normocephalic. Pupils are equal, round. Sclerae anicteric. +ETT No carotid bruit. CHEST EXAMINATION: Bilateral crackles HEART EXAMINATION: Regular rate and rhythm. S1, S2 heard. No murmurs, gallops or rub. ABDOMEN: Soft, nontender. Obese, Positive bowel sounds. EXTREMITIES: 2+ peripheral pulses, no lower extremity edema and no calf tenderness. NEUROLOGIC EXAMINATION: Patient is sedated and unresponsive on ventilator ASSESSMENT 1. Cardiogenic shock status post Impella CP placement 2. V. fib arrest x 2 likely related to heart failure, severe CAD 3. Severe multivessel CAD including 100% RCA, 100% LAD and at least 50-60% OM1 4. History of hypertension 5. Ischemic cardiomyopathy with ejection fraction 20-25% 6. Altered mental status, unclear of neurologic function however per nursing patient was responsive after first code 7. Diabetes mellitus type 2 8. Obesity PLAN Discussed case with Dr. Sherman and cardiothoracic surgeon, Dr. Quintanilla previously. Cardiothoracic surgery does not feel patient is currently a good interventional candidate. Suspect CAD is chronic without significant change fr om EKG and patient's main presentation currently is worsening heart failure, cardiogenic shock. Impella CP was placed successfully the left femoral approach however patient has lost any pulsatility and now appears dependent on the Impella. We will therefore transfer patient to [address] [place] [address] to evaluate for possible revascularization versus other therapies such as LVAD. Attempted to contact as well as friend without any answer. Prognosis poor. Objective - Vital Signs Vital signs: Vital Signs Temp 100.6 F H 10/20/20 16:00 Pulse 70 10/20/20 16:00 Resp 21 10/20/20 16:00 BP 148/96 10/20/20 11:00 Pulse Ox 100 10/20/20 15:45 Intake & Output 10/19/20 10/20/20 10/20/20 18:59 06:59 18:59 Intake Total 464 965 4733.571 Output Total 500 600 550 Balance 460 0 1745.571 Weight 131.1 kg Intake: IV 1270 Sodium Chloride 0.9% 1, 960 000 ml @ 100 mls/hr IV . Q10H KYLE Rx#:[id number] Intake, IV Titration 1025.571 Amount Norepinephrine 4 mg In 1016.000 Sodium Chloride 0.9% 250 ml @ 0.05 MCG/KG/MIN 24. 975 mls/hr IV .[id number] KYLE Rx#:[id number] propofoL 1,000 mg In 9.571 Empty Bag 1 bag @ Titrate IV .Q0M KYLE Rx#: [id number] Oral 600 Other 960 Output: Gastric Drainage 400 Urine 500 600 150 Other: Voiding Method Toilet Indwelling Catheter # Voids 1 ABP, PAP, CO, CI - Last Documented Arterial Blood Pressure 94/91 - Labs CBC & Chem 7: 10/20/20 14:25 10/20/20 14:25 Labs: Abnormal Lab Results - Last 24 Hours (Table) 10/20/20 10/20/20 10/20/20 Range/Units 06:37 07:10 07:10 WBC (3.8-10.6) k/uL Hgb (11.4-16.0) gm/dL MCHC 28.9 L (31.0-37.0) g/dL RDW 17.7 H (11.5-15.5) % Plt Count (150-450) k/uL Neutrophils # (1.3-7.7) k/uL Neutrophils # (Manual) (1.3-7.7) k/uL Lymphocytes # (Manual) (1.0-4.8) k/uL Monocytes # (Manual) (0-1.0) k/uL PT (9.0-12.0) sec INR (<1.2) APTT (22.0-30.0) sec Fibrinogen (200-500) mg/dL ABG pH (7.35-7.45) ABG pCO2 (35-45) mmHg ABG pO2 (83-108) mmHg ABG HCO3 (21-25) mmol/L ABG Total CO2 (19-24) mmol/L ABG O2 Saturation (94-97) % ABG Lactic Acid (0.5-1.6) mmol/L Sodium 134 L (137-145) mmol/L Potassium (3.5-5.1) mmol/L Chloride 90 L (98-107) mmol/L Carbon Dioxide (22-30) mmol/L BUN (7-17) mg/dL Glucose 163 H (74-99) mg/dL POC Glucose (mg/dL) 142 H (75-99) mg/dL Plasma Lactic Acid Eriberto (0.7-2.0) mmol/L Calcium 11.1 H (8.4-10.2) mg/dL Phosphorus (2.5-4.5) mg/dL Magnesium 3.1 H (1.6-2.3) mg/dL AST 48 H (14-36) U/L ALT (4-34) U/L Total Protein (6.3-8.2) g/dL 10/20/20 10/20/20 10/20/20 Range/Units 07:20 09:52 10:32 WBC 13.0 H (3.8-10.6) k/uL Hgb 11.2 L (11.4-16.0) gm/dL MCHC 29.9 L (31.0-37.0) g/dL RDW 17.9 H (11.5-15.5) % Plt Count 458 H (150-450) k/uL Neutrophils # 10.4 H (1.3-7.7) k/uL Neutrophils # (Manual) (1.3-7.7) k/uL Lymphocytes # (Manual) (1.0-4.8) k/uL Monocytes # (Manual) (0-1.0) k/uL PT (9.0-12.0) sec INR (<1.2) APTT (22.0-30.0) sec Fibrinogen (200-500) mg/dL ABG pH 7.33 L (7.35-7.45) ABG pCO2 63 H (35-45) mmHg ABG pO2 144 H (83-108) mmHg ABG HCO3 33 H (21-25) mmol/L ABG Total CO2 35 H (19-24) mmol/L ABG O2 Saturation (94-97) % ABG Lactic Acid (0.5-1.6) mmol/L Sodium (137-145) mmol/L Potassium (3.5-5.1) mmol/L Chloride (98-107) mmol/L Carbon Dioxide (22-30) mmol/L BUN (7-17) mg/dL Glucose (74-99) mg/dL POC Glucose (mg/dL) 281 H (75-99) mg/dL Plasma Lactic Acid Eriberto (0.7-2.0) mmol/L Calcium (8.4-10.2) mg/dL Phosphorus (2.5-4.5) mg/dL Magnesium (1.6-2.3) mg/dL AST (14-36) U/L ALT (4-34) U/L Total Protein (6.3-8.2) g/dL 10/20/20 10/20/20 10/20/20 Range/Units 10:32 10:32 10:32 WBC (3.8-10.6) k/uL Hgb (11.4-16.0) gm/dL MCHC (31.0-37.0) g/dL RDW (11.5-15.5) % Plt Count (150-450) k/uL Neutrophils # (1.3-7.7) k/uL Neutrophils # (Manual) (1.3-7.7) k/uL Lymphocytes # (Manual) (1.0-4.8) k/uL Monocytes # (Manual) (0-1.0) k/uL PT (9.0-12.0) sec INR (<1.2) APTT 20.8 L (22.0-30.0) sec Fibrinogen (200-500) mg/dL ABG pH (7.35-7.45) ABG pCO2 (35-45) mmHg ABG pO2 (83-108) mmHg ABG HCO3 (21-25) mmol/L ABG Total CO2 (19-24) mmol/L ABG O2 Saturation (94-97) % ABG Lactic Acid 4.0 H* (0.5-1.6) mmol/L Sodium 132 L (137-145) mmol/L Potassium (3.5-5.1) mmol/L Chloride 90 L (98-107) mmol/L Carbon Dioxide 31 H (22-30) mmol/L BUN 23 H (7-17) mg/dL Glucose 274 H (74-99) mg/dL POC Glucose (mg/dL) (75-99) mg/dL Plasma Lactic Acid Eriberto (0.7-2.0) mmol/L Calcium 10.6 H (8.4-10.2) mg/dL Phosphorus 5.4 H (2.5-4.5) mg/dL Magnesium 3.0 H (1.6-2.3) mg/dL AST 140 H (14-36) U/L ALT 70 H (4-34) U/L Total Protein 5.9 L (6.3-8.2) g/dL 10/20/20 10/20/20 10/20/20 Range/Units 10:48 14:23 14:25 WBC (3.8-10.6) k/uL Hgb (11.4-16.0) gm/dL MCHC (31.0-37.0) g/dL RDW (11.5-15.5) % Plt Count (150-450) k/uL Neutrophils # (1.3-7.7) k/uL Neutrophils # (Manual) (1.3-7.7) k/uL Lymphocytes # (Manual) (1.0-4.8) k/uL Monocytes # (Manual) (0-1.0) k/uL PT (9.0-12.0) sec INR (<1.2) APTT (22.0-30.0) sec Fibrinogen (200-500) mg/dL ABG pH (7.35-7.45) ABG pCO2 52 H (35-45) mmHg ABG pO2 73 L (83-108) mmHg ABG HCO3 32 H (21-25) mmol/L ABG Total CO2 33 H (19-24) mmol/L ABG O2 Saturation 91.0 L (94-97) % ABG Lactic Acid (0.5-1.6) mmol/L Sodium 132 L (137-145) mmol/L Potassium 3.3 L (3.5-5.1) mmol/L Chloride 92 L (98-107) mmol/L Carbon Dioxide 32 H (22-30) mmol/L BUN 26 H (7-17) mg/dL Glucose 175 H (74-99) mg/dL POC Glucose (mg/dL) 186 H (75-99) mg/dL Plasma Lactic Acid Eriberto (0.7-2.0) mmol/L Calcium 10.6 H (8.4-10.2) mg/dL Phosphorus (2.5-4.5) mg/dL Magnesium 2.7 H (1.6-2.3) mg/dL AST (14-36) U/L ALT (4-34) U/L Total Protein (6.3-8.2) g/dL 10/20/20 10/20/20 10/20/20 Range/Units 14:25 14:25 14:25 WBC 18.0 H (3.8-10.6) k/uL Hgb 11.3 L (11.4-16.0) gm/dL MCHC (31.0-37.0) g/dL RDW 18.0 H (11.5-15.5) % Plt Count 460 H (150-450) k/uL Neutrophils # (1.3-7.7) k/uL Neutrophils # (Manual) 16.20 H (1.3-7.7) k/uL Lymphocytes # (Manual) 0.36 L (1.0-4.8) k/uL Monocytes # (Manual) 1.44 H (0-1.0) k/uL PT 12.1 H (9.0-12.0) sec INR 1.2 H (<1.2) APTT 80.5 H (22.0-30.0) sec Fibrinogen 557 H (200-500) mg/dL ABG pH (7.35-7.45) ABG pCO2 (35-45) mmHg ABG pO2 (83-108) mmHg ABG HCO3 (21-25) mmol/L ABG Total CO2 (19-24) mmol/L ABG O2 Saturation (94-97) % ABG Lactic Acid (0.5-1.6) mmol/L Sodium (137-145) mmol/L Potassium (3.5-5.1) mmol/L Chloride (98-107) mmol/L Carbon Dioxide (22-30) mmol/L BUN (7-17) mg/dL Glucose (74-99) mg/dL POC Glucose (mg/dL) (75-99) mg/dL Plasma Lactic Acid Eriberto 3.0 H* (0.7-2.0) mmol/L Calcium (8.4-10.2) mg/dL Phosphorus (2.5-4.5) mg/dL Magnesium (1.6-2.3) mg/dL AST (14-36) U/L ALT (4-34) U/L Total Protein (6.3-8.2) g/dL 10/20/20 Range/Units 15:44 WBC (3.8-10.6) k/uL Hgb (11.4-16.0) gm/dL MCHC (31.0-37.0) g/dL RDW (11.5-15.5) % Plt Count (150-450) k/uL Neutrophils # (1.3-7.7) k/uL Neutrophils # (Manual) (1.3-7.7) k/uL Lymphocytes # (Manual) (1.0-4.8) k/uL Monocytes # (Manual) (0-1.0) k/uL PT (9.0-12.0) sec INR (<1.2) APTT (22.0-30.0) sec Fibrinogen (200-500) mg/dL ABG pH 7.57 H* (7.35-7.45) ABG pCO2 (35-45) mmHg ABG pO2 349 H (83-108) mmHg ABG HCO3 32 H (21-25) mmol/L ABG Total CO2 34 H (19-24) mmol/L ABG O2 Saturation 100.0 H (94-97) % ABG Lactic Acid (0.5-1.6) mmol/L Sodium (137-145) mmol/L Potassium (3.5-5.1) mmol/L Chloride (98-107) mmol/L Carbon Dioxide (22-30) mmol/L BUN (7-17) mg/dL Glucose (74-99) mg/dL POC Glucose (mg/dL) (75-99) mg/dL Plasma Lactic Acid Eriberto (0.7-2.0) mmol/L Calcium (8.4-10.2) mg/dL Phosphorus (2.5-4.5) mg/dL Magnesium (1.6-2.3) mg/dL AST (14-36) U/L ALT (4-34) U/L Total Protein (6.3-8.2) g/dL Microbiology - Last 24 Hours (Table) 10/20/20 07:40 Sputum Culture - Preliminary Sputum
--- NOTE | 2020-10-20 17:59 | P.PCN ---
Description of Procedure: PROCEDURES PERFORMED: Left femoral approach, Placement of Impella CP, preclose with 2 Perclose INDICATION: Cardiogenic shock Conscious Sedation: Patient was monitored under the direct supervision of vision of myself for conscious sedation using Versed and fentanyl for a total duration of 56 minutes HISTORY: Patient is a pleasant 70-year-old female with a history of hypertension, diabetes, obesity and new onset heart failure who presented 10/16/20 secondary to increasing shortness breath and was found to have new onset of heart failure. Her troponins were noted to be normal at the beginning of her hospital stay. She was placed on heart failure regimen however unfortunately suffered a V. fib cardiac arrest 10/20/2020 and then a second one a few hours later. Secondary to electrical instability patient was urgently brought to the [facility] where left heart catheterization showed 100% RCA, 100% LAD and at least 50-60% OM2 disease. Patient had been maintained on Epinephrine drip and this was attempted to be weaned however systolic blood pressures dropped into the 60s and therefore decision was made to place an Impella CP. PROCEDURE: Patient had already been prepped and draped in usual fashion. 1% lidocaine was used to anesthetize the left femoral artery. A 6-Tamazight sheath was placed in the femoral artery using modified Seldinger technique, micropuncture guidance. A left femoral angiogram showed adequate anatomy for Impella CP placement. Therefore 2 Percloses were placed in preclose fashion at the 10 and 2 o'clock positions. Next using the Impella 0.035 stiff wire the arteriotomy was dilated up to a 14-Tamazight and a 14-Tamazight sheath was placed. Next, a 6-Tamazight pigtail was advanced in the left ventricle. The pigtail was exchanged for a 0.018 Impella wire and then the Impella CP was advanced in the left ventricle. Patient was noted to lose pulsatility if epinephrine was decreased however had good output with the Impella CP at approximately 3.5 L/min. The sheath was sutured in place. Patient was transported back to the ICU.
[2020-10-21] MEDS ORDERED: HEPARIN SODIUM,PORCINE 2,500 UNIT in SODIUM CHLORIDE 0.9% 250 ML IRRIGATION PRN (07:00)
[2020-10-21] MEDS ORDERED: HEPARIN SODIUM,PORCINE 10,000 UNIT in SODIUM CHLORIDE 0.9% 1,000 ML IRRIGATION PRN (07:00)
--- NOTE | 2020-10-21 11:31 | ECHOF ---
Referral Reason:Placement of Left Ventricular Assist Device MEASUREMENTS -------- HEIGHT: 157.5 cm WEIGHT: 131.1 kg BP: FINDINGS -------- No pericardial effusion Limited Study for placement of the left ventricular information assistant device. CONCLUSIONS -------- 1. No pericardial effusion 2. Limited Study for placement of the left ventricular information assistant device. INSURANCE LOSS ADJUSTER: Keturah Thomas RDCS
--- NOTE | 2020-10-21 15:31 | P.PCN ---
Date of Procedure: 10/20/20 Preoperative Diagnosis: cardiogenic shock Postoperative Diagnosis: cardiogenic shock Procedure(s) Performed: Central line insertion Anesthesia: local Surgeon: Maynor Horner Pathology: other Condition: critical Disposition: ICU Operative Findings: Indication: Hemodynamic monitoring/Intravenous access. A time-out was completed verifying correct patient, procedure, site, positioning, and implant(s) or special equipment if applicable. The patient was placed in a dependent position appropriate for central line placement based on the vein to be cannulated. The patients right groin was prepped and draped in sterile fashion. 1% Lidocaine was used to anesthetize the surrounding skin area. A triple lumen 9F Cordis catheter was introduced into the right common femoral vein using Seldinger technique. The catheter was threaded smoothly over the guide wire and appropriate blood return was obtained. Each lumen of the catheter was evacuated of air and flushed with sterile saline. The catheter was then sutured in place to the skin and a sterile dressing applied. Perfusion to the extremity distal to the point of catheter insertion was checked and found to be adequate. The patient tolerated the procedure well and there were no complications.
--- NOTE | 2020-10-22 14:23 | CDI ---
Documentation Clarification Form Date: 10/22/2020 02:21:00 PM From: Yulissa Carson CCS Admit Date: 10/16/2020 11:42:00 PM Patient Name: Tana Lugo Visit Number: [id number] Discharge Date: 10/20/2020 04:50:00 PM ATTENTION: The Clinical Documentation Specialists (CDI) and [facility] Coding Staff appreciate your assistance in clarifying documentation. Please respond to the clarification below the line at the bottom and electronically sign. The CDI & [facility] Coding staff will review the response and follow-up if needed. Please note: Queries are made part of the Legal Health Record. If you have any questions, please contact the author of this message via ITS. Dr. Myles Motta Acute ventricular fibrillation cardiac arrest witnessed with CPR and ACLS with return of spontaneous circulation is documented in 10/20 PN, Consult and DS. History/Risk Factors: CAD with total chronic occlusion, JOSE, DM, CHF, HTN, Cardiac arrest, V Fib Tobacco use: History Clinical Indicators: Cardiogenic shock, hypoxia Vital signs: BP 56/38, RR 4, Pr, 70- On vent Pulse oximetry: Lung/Breathing assessment: ABG/CBG: pH 7.33, 7.57 pO2 73, 349 pCO2 63, 52 Lactic Acid 4.0 Treatment: Code Blue, Arterial Line, CPR, ETT, Vent, Levophed, Cardiac Cath/Impella Ventilator: 10/20 In your professional opinion, can you please clarify if these findings signify one of the following conditions? Acute Respiratory Failure Acute Respiratory Distress Acute Respiratory Insufficiency Other Diagnosis, please specify Unable to determine Specificity: If known, further specify (if known): With hypercapnia? (pCO2 >50 and pH <7.35) With hypoxia? (pO2 <60 mm Hg or SpO2 <91% on room air) Acute Respiratory Failure MTDD
--- NOTE | 2020-10-31 15:45 | ECHOF ---
Referral Reason:CHF, LV function MEASUREMENTS -------- HEIGHT: 157.5 cm WEIGHT: 129.7 kg BP: 149/82 RVIDd: 3.7 cm (< 3.3) IVSd: 1.5 cm (0.6 - 1.1) LVIDd: 4.9 cm (3.9 - 5.3) LVPWd: 1.9 cm (0.6 - 1.1) IVSs: 1.5 cm LVIDs: 4.4 cm LVPWs: 1.8 cm LAESV Index (A-L): 29.92 ml/m Ao Diam: 2.6 cm (2.0 - 3.7) AV Cusp: 1.5 cm (1.5 - 2.6) MV E Naren: 0.74 m/s MV DecT: 95 ms MV A Naren: 0.87 m/s MV E/A Ratio: 0.85 FINDINGS -------- This was a technically difficult study with suboptimal views. The left ventricular size is normal. There is moderate concentric left ventricular hypertrophy. O verall left ventricular systolic function is severely impaired with, an EF between 20 - 25 %. Eveline l Doppler inflow pattern suggests diastolic filling abnormality 9.93. Global hypokinesis The right ventricle is mildly enlarged. Normal LA size by volume 22+/-6 ml/m2. The right atrium was not well visualized. 5.0mg of Lumason was utilized for enhancement of images Interatrial and interventricular septum intact. There is no evidence of aortic regurgitation. There is no evidence of aortic stenosis. Mild mitral annular calcification present. Mild mitral regurgitation is present. The tricuspid valve was not well visualized. Unable to estimate RVSP due to inadequate TR jet spect ral doppler profile. There is no pulmonic regurgitation present. The aortic root size is normal. IVC Not well visulized. There is no pericardial effusion. CONCLUSIONS -------- 1. The left ventricular size is normal. 2. There is moderate concentric left ventricular hypertrophy. 3. Overall left ventricular systolic function is severely impaired with, an EF between 20 - 25 %. 4. Mitral Doppler inflow pattern suggest diastolic filling abnormality 9.93. 5. Global hypokinesis 6. The right ventricle is mildly enlarged. 7. Mild mitral annular calcification present. 8. Mild mitral regurgitation is present. HOT TAMALE MAN: Tuyet Morin RDCS
== END 2020-10-20 16:50 | disposition short-term general hospital (02) | DRG 215 ==
LOC: EC 20:03 → 4SSUR 23:42 → 2SICU 10-20 07:18
PROVIDERS: ADMIT Hospitalist; ATTEND Hospitalist
PROC: 5A2204Z Restoration of Cardiac Rhythm, Single (ICD-10-PCS; 2020-10-20)
PROC: 0BH17EZ Insertion of Endotracheal Airway into Trachea, Via Natural or Artificial Opening (ICD-10-PCS; 2020-10-20)
PROC: 5A1935Z Respiratory Ventilation, Less than 24 Consecutive Hours (ICD-10-PCS; 2020-10-20)
PROC: 5A12012 Performance of Cardiac Output, Single, Manual (ICD-10-PCS; 2020-10-20)
PROC: 0D9670Z Drainage of Stomach with Drainage Device, Via Natural or Artificial Opening (ICD-10-PCS; 2020-10-20)
PROC: 3E033XZ Introduction of Vasopressor into Peripheral Vein, Percutaneous Approach (ICD-10-PCS; 2020-10-20)
PROC: 03HY32Z Insertion of Monitoring Device into Upper Artery, Percutaneous Approach (ICD-10-PCS; 2020-10-20)
PROC: 4A133B1 Monitoring of Arterial Pressure, Peripheral, Percutaneous Approach (ICD-10-PCS; 2020-10-20)
PROC: 4A133J1 Monitoring of Arterial Pulse, Peripheral, Percutaneous Approach (ICD-10-PCS; 2020-10-20)
PROC: 4A023N7 Measurement of Cardiac Sampling and Pressure, Left Heart, Percutaneous Approach (ICD-10-PCS; 2020-10-20)
PROC: B2111ZZ Fluoroscopy of Multiple Coronary Arteries using Low Osmolar Contrast (ICD-10-PCS; 2020-10-20)
PROC: 02HV33Z Insertion of Infusion Device into Superior Vena Cava, Percutaneous Approach (ICD-10-PCS; 2020-10-20)
PROC: B41G1ZZ Fluoroscopy of Left Lower Extremity Arteries using Low Osmolar Contrast (ICD-10-PCS; 2020-10-20)
PROC: 02HA3RZ Insertion of Short-term External Heart Assist System into Heart, Percutaneous Approach (ICD-10-PCS; principal; 2020-10-20 19:40)
PROC: 5A0221D Assistance with Cardiac Output using Impeller Pump, Continuous (ICD-10-PCS; 2020-10-20 19:40)
DX: I11.0 Hypertensive heart disease with heart failure (principal); I50.21 Acute systolic (congestive) heart failure; I49.01 Ventricular fibrillation; I46.2 Cardiac arrest due to underlying cardiac condition; R57.0 Cardiogenic shock; J96.01 Acute respiratory failure with hypoxia; Z68.43 Body mass index [BMI] 50.0-59.9, adult; I25.82 Chronic total occlusion of coronary artery; Z20.822 Contact with and (suspected) exposure to COVID-19; E66.01 Morbid (severe) obesity due to excess calories; E11.9 Type 2 diabetes mellitus without complications; Z93.3 Colostomy status; K43.9 Ventral hernia without obstruction or gangrene; G47.33 Obstructive sleep apnea (adult) (pediatric); K21.9 Gastro-esophageal reflux disease without esophagitis; M19.90 Unspecified osteoarthritis, unspecified site; M10.9 Gout, unspecified; I25.5 Ischemic cardiomyopathy; I25.10 Atherosclerotic heart disease of native coronary artery without angina pectoris; R41.82 Altered mental status, unspecified; I49.1 Atrial premature depolarization; K59.00 Constipation, unspecified; Z90.710 Acquired absence of both cervix and uterus; Z79.899 Other long term (current) drug therapy; Z79.84 Long term (current) use of oral hypoglycemic drugs; Z91.048 Other nonmedicinal substance allergy status; Z90.49 Acquired absence of other specified parts of digestive tract; Z98.890 Other specified postprocedural states; Z96.653 Presence of artificial knee joint, bilateral; Z87.891 Personal history of nicotine dependence; Z91.040 Latex allergy status; Z82.49 Family history of ischemic heart disease and other diseases of the circulatory system; Z83.3 Family history of diabetes mellitus; Z80.9 Family history of malignant neoplasm, unspecified
CPT/HCPCS: 36415; 71046; 71275; 74177; 80048; 80053; 80061; 81003; 82150; 82805; 83605; 83690; 83735; 83880; 84100; 84484; 85025; 85347; 85379; 85384; 85610; 85730; 87070; 87077; 87186; 87205; 87635; 92950; 93005; 93306; 93308; 93454; 94002; 94640; 94760; 96374; 99285